=== PATIENT | male | born 1940 | race Caucasian/White ===

== ENCOUNTER → 2020-08-03 10:55 | Outpatient (CLI) | payer BC, SELFPAY ==
--- NOTE | ~2020-08-03 | XR_ITS ---
EXAMINATION: XR ankle RT min 3V INDICATION: Right ankle pain TECHNIQUE: Four views of the right ankle are obtained. COMPARISON: None available FINDINGS: There is no fracture, dislocation, or subluxation. The ankle mortise is intact. Metallic so ft tissue densities project anterior to the distal tibia and fibula. Calcified atherosclerosis is not ed. IMPRESSION: 1. No acute osseous abnormality. Reviewed, dictated and finalized at location A.
--- NOTE | ~2020-08-03 | XR_ITS ---
EXAMINATION: XR foot RT min 3V DATE: 08/03/2020 11:26 INDICATION: Right foot pain TECHNIQUE: Dorsoplantar, lateral, and 2 oblique views of the right foot were obtained. COMPARISON: 01/30/2019 FINDINGS: The previously described oblique fracture in the head of the fifth metatarsal has healed. H allux valgus is again noted. There is chronic and unchanged advanced osteoarthritis at the second met atarsophalangeal joint. Mild to moderate osteoarthritis is noted in the remaining interphalangeal merrill nts. No acute fracture is identified. Metallic densities project in the soft tissues overlying the di stal tibia and fibula. Calcified atherosclerosis is noted. IMPRESSION: 1. Polyarticular osteoarthritis. Reviewed, dictated and finalized at location A.
== END ==
PROVIDERS: PCP Family Medicine; Visit Provider Nurse Practitioner Family
DX: M19.071 Primary osteoarthritis, right ankle and foot (principal)
CPT/HCPCS: 73610; 73630

== ENCOUNTER → 2021-03-03 13:12 | Outpatient (CLI) | payer BC, SELFPAY ==
--- NOTE | ~2021-03-03 | CT_ITS ---
EXAMINATION: CT abdomen wo con DATE: 03/03/2021 13:34 INDICATION: Digestive disease TECHNIQUE: Computed tomography (CT) of the abdomen was performed without intravenous contrast. Automa agustin exposure control and iterative reconstruction technique were employed. Exam dose: 615.37 mGy-cm total exam DLP. COMPARISON: 04/29/2019 CT chest abdomen pelvis FINDINGS: Mild discoid atelectasis or scarring at the lung bases. Status post sternotomy. Cardiomegaly. No pericardial or pleural effusion. Several hepatic cysts and/or cavernous hemangiomas are suggested, measuring up to 1.6 cm. The gallbladder is present. No gallbladder wall thickening or pericholecystic fluid fluid or fat stra nding is evident. No bile duct or pancreatic duct dilatation. No pancreatic mass lesion or calcificat ion. Normal splenic size. Normal morphology of the adrenal glands. There is an approximately 2 mm left upper pole renal calculus versus arterial calcification. No hydro ureteronephrosis. There is atherosclerotic calcification of the abdominal aorta and iliac arteries as well as the origi ns of the celiac and superior mesenteric arteries. Renal artery calcifications. No intraperitoneal or retroperitoneal mass lesion or lymphadenopathy. Moderate gastroesophageal hiatal hernia. 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 Diverticulosis of the descending colon; no CT evidence of diverticulitis. No bowel obstruction or int raperitoneal free air. Fat-containing umbilical hernia. Old healed posterior ninth and 10th left rib fracture deformities. Prominent multilevel degenerative disc disease of the lumbar and lumbosacral spine, particularly at L 1-2, L3-4, L4-5 and L5-S1. Diffuse osteopenia. IMPRESSION: Several up to 1.6 cm hepatic cysts and/or cavernous hemangiomas Probable small left upper pole nonobstructing renal calculus Moderate gastroesophageal hiatal hernia Duodenal diverticulum. Diverticulosis of descending colon Reviewed, dictated and finalized at Location A. Reviewed, dictated and finalized at location B.
== END ==
PROVIDERS: Visit Provider Nurse Practitioner Family
DX: K76.89 Other specified diseases of liver (principal); N20.0 Calculus of kidney; K44.9 Diaphragmatic hernia without obstruction or gangrene; K57.10 Diverticulosis of small intestine without perforation or abscess without bleeding; K57.30 Diverticulosis of large intestine without perforation or abscess without bleeding
CPT/HCPCS: 74150

== ENCOUNTER 2021-09-19 14:22 | Outpatient (CLI) | payer MEDICARE, SELFPAY ==
--- NOTE | ~2021-09-19 | CT_ITS ---
EXAMINATION: CT abdomen pelvis w con INDICATION: Upper abdominal pain, unspecified TECHNIQUE: Computed tomographic images of the abdomen and pelvis were obtained after the administrati on of 100 cc of Omnipaque 350 intravenous contrast. The dose-length product (DLP) was 1363.23 mGy-cm. Automated exposure control and iterative reconstruction technique were employed. COMPARISON: 03/03/2021 FINDINGS: Minimal dependent atelectasis is present in the lung bases. The heart size is normal. There are changes of Esmer fundoplication with a small hiatal hernia. Cysts of the liver measure up to 1. 4 cm in the left hepatic lobe. The spleen, pancreas, gallbladder, and adrenal glands are normal. Ther e are punctate nonobstructing calculi of the kidneys. Areas of cortical scarring are noted in the kid neys. There is calcified atherosclerosis of the aorta and many of the other arteries. Colonic diverti culosis is present without evidence of diverticulitis. There is severe lumbar spondylosis. IMPRESSION: 1. Sliding hiatal hernia with changes of prior hernia repair. Reviewed, dictated and finalized at location A. SKILLED
[2021-09-19 15:16] LABS: Estimated Glomerular Filt Rate > 60
== END 2021-09-19 14:23 | disposition home or self-care (01) ==
LOC: ANHIMG 14:29
PROVIDERS: PCP Family Medicine; Visit Provider Nurse Practitioner Family
DX: R10.10 Upper abdominal pain, unspecified (principal); K44.9 Diaphragmatic hernia without obstruction or gangrene
CPT/HCPCS: 74177; Q9967

== ENCOUNTER 2021-10-27 08:01 | Outpatient (RCR) | payer MEDICARE, SELFPAY ==
[2021-10-27 12:09] VITALS: BP 136/82; PULSE 97; TEMP 36.1; O2SAT 98
[2021-10-27] MEDS: ACETAMINOPHEN 325 MG TABLET 650 MG PO (12:12)
[2021-10-27] MEDS: FAMOTIDINE 20 MG TABLET PO (12:13)
[2021-10-27] MEDS: diphenhydrAMINE HCl CAP 25 MG CAPSULE PO (12:13)
[2021-10-27 13:36] VITALS: BP 143/83; PULSE 87; O2SAT 98
== END 2021-10-27 17:00 ==
LOC: AMCINF 08:01
PROVIDERS: Visit Provider Internal Medicine Hematology & Oncology
DX: U07.1 COVID-19 (principal); I12.9 Hypertensive chronic kidney disease with stage 1 through stage 4 chronic kidney disease, or unspecified chronic kidney disease; I25.10 Atherosclerotic heart disease of native coronary artery without angina pectoris; N18.9 Chronic kidney disease, unspecified
CPT/HCPCS: A9270; M0247; Q0247

== ENCOUNTER → 2021-11-10 15:51 | Outpatient (CLI) | payer MEDICARE, SELFPAY ==
--- NOTE | ~2021-11-10 | XR_ITS ---
XR chest 2V 11/10/2021 16:12 Indication: Cough Procedure: 2 view chest Comparison: 01/21/2019 Findings: Bibasilar airspace disease, compatible with pneumonia. Small pleural effusions. There is a hiatal hernia. Cardiomegaly. Status post median sternotomy for CABG. There are multiple healed left r ib fractures. There is partially visualized left shoulder arthroplasty. Impression: 1: Bibasilar airspace disease, compatible with pneumonia. 2: Small pleural effusions. 3: Cardiomegaly. Reviewed, dictated and finalized at location B. TING PULLER Impression: 1: Bibasilar airspace disease, compatible with pneumonia. 2: Small pleural effusions. 3: Cardiomegaly.
== END ==
PROVIDERS: PCP Family Medicine; Visit Provider Nurse Practitioner Family
DX: J90 Pleural effusion, not elsewhere classified (principal); R05.9 Cough, unspecified; I51.7 Cardiomegaly
CPT/HCPCS: 71046

== ENCOUNTER → 2021-12-23 14:58 | Outpatient (CLI) | payer MEDICARE, SELFPAY ==
--- NOTE | ~2021-12-23 | XR_ITS ---
EXAMINATION: XR chest 2V DATE: 12/23/2021 15:26 INDICATION: Pneumonia, unspecified organism TECHNIQUE: Frontal and lateral views of the chest are obtained COMPARISON: 11/10/2021 FINDINGS: Cardiomegaly is noted. There are changes of coronary artery bypass grafting. Small pleural effusions are present and not significantly changed. There are minimal airspace opacities of the lung bases which demonstrate interval improvement. No pneumothorax is identified. There is moderate thora cic spondylosis. Changes of left total shoulder arthroplasty are noted. There is a large hiatal herni a. IMPRESSION: 1. Small pleural effusions without significant change. 2. Persistent but improved bibasilar airspace opacities, likely atelectasis. Reviewed, dictated and finalized at location B. RAMMING INTERN
== END ==
PROVIDERS: Visit Provider Nurse Practitioner Family
DX: J18.9 Pneumonia, unspecified organism (principal); J90 Pleural effusion, not elsewhere classified; R91.8 Other nonspecific abnormal finding of lung field
CPT/HCPCS: 71046

== ENCOUNTER → 2022-01-14 00:40 | Outpatient (CLI) | payer MEDICARE, SELFPAY ==
[2022-01-14 11:56] LABS: SARS-CoV-2 RNA PCR Negative
== END ==
PROVIDERS: PCP Family Medicine; Visit Provider Specialist
DX: Z01.812 Encounter for preprocedural laboratory examination (principal); Z20.822 Contact with and (suspected) exposure to COVID-19
CPT/HCPCS: C9803; U0003; U0005

== ENCOUNTER 2022-01-18 00:58 | Day surgery (SDC) | payer MEDICARE, SELFPAY ==
[2022-01-17 11:22] VITALS: BMI 25.4
[2022-01-18] VITALS (15 sets, daily range): BP systolic 112–145; BP diastolic 75–93; PULSE 81–100; RESP 16–20; TEMP 36.2; O2SAT 95–99; BMI 25.1
[2022-01-18 09:04] LABS: INR 1.1; Prothrombin Time 13.5 Seconds (11.1-14.7)
[2022-01-18 09:05] LABS: Anion Gap 5 mmol/L (8-16); Blood Urea Nitrogen 25 mg/dL (9-20); Calcium 8.8 mg/dL (8.4-10.2); Carbon Dioxide 31 mmol/L (22-30); Chloride 107 mmol/L (98-107); Estimated CRCL calculation 52 ml/min; Estimated Glomerular Filt Rate > 60; Glucose 130 mg/dL (65-110); Potassium 4.6 mmol/L (3.4-5.0); Sodium 143 mmol/L (137-145)
[2022-01-18 09:08] LABS: Basophils Absolute Auto 0.1 K/mm3 (0.0-0.1); Basophils Percent Auto 1.1 % (0.2-1.2); Eosinophils Absolute Auto 0.4 K/mm3 (0-0.3); Eosinophils Percent Auto 4.9 % (0-4.4); Hemoglobin 13.1 g/dL (14.0-18.0); Immature Granulocyte Absolute 0.03 K/mm3 (0.00-0.031); Immature Granulocyte Percent A 0.4 % (0-0.5); Lymphocytes Absolute Auto 1.13 K/mm3 (0.9-3.2); Lymphocytes Percent Auto 15.9 % (18.3-44.2); Mean Corpuscular HGB Conc 31.2 g/dl (32-36); Mean Corpuscular Hemoglobin 28.1 pg (26-34); Mean Corpuscular Volume 89.9 fl (80-100); Monocytes Absolute Auto 0.7 K/mm3 (0.1-0.6); Monocytes Percent Auto 10.3 % (2.6-8.5); Neutrophils Absolute Auto 4.8 K/mm3 (1.3-6.7); Neutrophils Percent Auto 67.4 % (45.5-73.1); Platelet Count Result 263 k/mm3 (150-375); Red Blood Count 4.67 M/mm3 (4.6-6.20); Red Cell Distribution Width 14.7 % (11.5-14.5); White Blood Count 7.1 K/mm3 (4.5-10.0)
--- NOTE | 2022-01-18 10:46 | WPDMODSED ---
Moderate Sedation Note-Pt Data Patient Data Diagnosis: coronary artery disease with previous CABG decline in ejection fraction Present Complaint: exertional dyspnea /PND Procedure to be performed/Plan: left heart catheterization Allergies Allergy/AdvReac Type Severity Reaction Status Date / Time levofloxacin Allergy Unknown Unknown Verified 01/18/22 08:51 Home Medications Medication Instructions Recorded Confirmed Type albuterol sulfate 90 mcg/actuation 1 inh INHALATION Q4H PRN #8.5 g 11/18/21 01/17/22 Rx aerosol inhaler furosemide 20 mg tablet 40 mg PO QAM 12/23/21 01/17/22 History Aspir-81 81 mg PO DAILY 01/17/22 01/17/22 History carvedilol 3.125 mg PO DAILY 01/18/22 01/18/22 History Current Medications: Active Medications Sodium Chloride (Normal Saline Iv) 500 mls @ 100 mls/hr IV CONT .Q5H VINICIUS Sedation/Anesthesia: No previous sedation/anesthesia problems (including family history). [facility] Past Medical History Medical History Acute bronchitis due to other specified organisms Bilateral leg edema BMI 27.0-27.9,adult BMI 28.0-28.9,adult BMI 29.0-29.9,adult BMI 29.0-29.9,adult Bulging of cervical intervertebral disc Cough Dietary counseling and surveillance (09/25/18) Dizziness Excessive cerumen in both ear canals Excessive cerumen in right ear canal Hernia Hiatal hernia Injury of lateral plantar nerve, left leg, initial encounter Injury of other nerves at ankle and foot level, right leg, initial encounter Multiple fractures of ribs, left side, initial encounter for closed fracture Neck pain Rib pain on right side Screening for diabetes mellitus Screening for lipid disorders Screening for prostate cancer Screening for thyroid disorder Shortness of breath Surgical History Surgical History History of heart bypass surgery History of hernia surgery Family History Family History Mother Family history of lung cancer Family history of malignant neoplasm Father Sibling No problems noted. 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 Gender identity (if verbalized by the patient): Male Mod Sed Physical Exam Physical Exam Pre Procedural Exam: Normal: Appearance ( elderly white male no apparent distress), Neck, Throat, Airway, Lungs, Heart Rate, Heart Rhythm, Neuro Exam and Extremities and Variation: Heart Size ( PMI enlarged) Hours since solid foods: 12 Hours since liquid intake: 12 Mallampati Classification: class II Internal Medicine - PN: Obj Da Vital Signs Vital Signs: Vital Signs - 24 hr 01/18/22 08:55 Temperature 36.2 C L Pulse Rate 87 Respiratory Rate 18 Blood Pressure 139/83 Pulse Oximetry 99 Meds/Results Medications: Active Medications Generic Name Dose Route Start Last Admin Trade Name Freq PRN Reason Stop Dose Admin Sodium Chloride 500 mls @ 100 mls/hr 01/18/22 08:30 Normal Saline Iv IV CONT .Q5H VINICIUS Labs CBC & Chem 7: 01/18/22 08:48 01/18/22 08:48 Labs: Laboratory Results - last 24 hr 01/18/22 01/18/22 01/18/22 08:48 08:48 08:48 WBC 7.1 RBC 4.67 Hgb 13.1 L Hct 42.0 MCV 89.9 MCH 28.1 MCHC 31.2 L RDW 14.7 H Plt Count 263 MPV 11.0 H Immature Gran % (Auto) 0.4 Neut % (Auto) 67.4 Lymph % (Auto) 15.9 L [place] % (Auto) 10.3 H Eos % (Auto) 4.9 H Baso % (Auto) 1.1 Lymph # (Auto) 1.13 [place] # (Auto) 0.7 H Eos # (Auto) 0.4 H Baso # (Auto) 0.1 Ab
--- NOTE | 2022-01-18 11:50 | WPDCARDPROC ---
Cardiac Cath Procedure Note Date of procedure:: 01/18/22 Performing physician:: Flex Aguillon MD Indication:: coronary artery disease with significant decline in left ventricular systolic function and symptoms of CHF Brief clinical history:: this is an 81-year-old man known to have coronary disease who underwent surgical myocardial revascularization approximately 1 decade ago. He has not had any ischemic chest pain since then however he presented to the office recently for follow-up symptoms of dyspnea with exertion as well as orthopnea and PND. This echocardiogram was done which demonstrated significant decline in LV systolic function which previously had been preserved. In this setting a follow-up angiogram has been recommended. Procedure Procedure performed:: Left ventriculogram coronary angiogram internal mammary graft angiogram saphenous vein graft angiogram Sedation/Medication given:: fentanyl 25 mg Versed 2 mg case start time 10:57 a.m. case end time 11:41 a.m. Access site:: right femoral artery Estimated blood loss:: 30 cc Procedure note:: the patient was brought to the cardiac catheterization lab in the postabsorptive state where the right femoral triangle was prepared and draped in the usual fashion. Anesthesia was provided with % lidocaine infiltrated locally. Using the modified Seldinger technique a 5 [place]anian asked vascular sheath was placed. After this I used a 5 [place] angled pigtail catheter to measure left-sided hemodynamics and to inject ventriculogram in the ER AO projection. Following this I used a standard 5 [place] FL4 catheter and inject the left coronary artery. Following this the right coronary artery was engaged and injected using a standard 5 [place] JR4 catheter. This catheter was then used to engage and inject the right coronary vein graft. The patient had sig tortuosity in the abdominal aorta and there was difficulty injecting for this reason. At that point I exchanged the vascular sheath for a 5 [place] 45 cm long sheath over the guidewire. Following this I used a 5 [place] MARCIO catheter to engage and inject the left internal mammary artery graft. I then used the same MARCIO catheter to inject the remaining saphenous vein graft to the diagonal. The cineangiograms were then reviewed case was terminated. The patient was taken to the holding area for manual sheath removal. He tolerated the procedure well there were no apparent complications and the was no significant groin hematoma leaving the lab support service tech. Findings:: Hemodynamics: Central aortic pressure is 136 over 64 left ventricle 136/6 end-diastolic pressure 16 there is no gradient on pullback across the aortic valve. Left ventricle: The LV is markedly dilated. There is severe global hypocontractility with visually estimated ejection fraction of 20-25%. There is mild mitral valve regurgitation identified as well. The left main coronary artery is medium in caliber with mild proximal plaquing no significant left disease. The left anterior descending proximally is a large caliber vessel with high-grade 95% stenosis at the origin of a major septal branch. Following this remainder of the LAD has minimal antegrade flow as does its major diagonal branch. There is competitive filling seen both of these vessels however. Circumflex is a medium caliber artery still only 1 significant marginal branch. The circumflex has mild luminal irregularities but no significant disease is identified. The right coronary artery is large caliber dominant to the posterior circulation. Right coronary has mild diffuse disease in the trunk but no significant stenosis. There is a total occlusion seen at the ostium of the large RPL branch. The RPDA has 70-80% stenosis in its proximal to mid segment. There is back filling the saphenous vein graft seen with some competitive filling on these injections as well. Selective injection saphenous vein graft to the right co
--- NOTE | 2022-01-18 17:11 | SUR.PHASEII ---
i/v d/c tip intact. d/c instruction given to patient and at bedside. written instruction sent home with the patient. patient's new medications were not sent to his pharmacy by , this nurse tried, but do not have access. message left for allie victor to do in the morning. patient aware. all questions and concerns addressed. patient transferred via wc to person vehicle.
== END 2022-01-18 17:13 | disposition home or self-care (01) ==
PROVIDERS: PCP Family Medicine; Visit Provider Specialist
PROC: 4A023N7 Measurement of Cardiac Sampling and Pressure, Left Heart, Percutaneous Approach (ICD-10-PCS; CPT 93459; principal; 2022-01-18 10:00)
DX: I25.10 Atherosclerotic heart disease of native coronary artery without angina pectoris (principal); R93.1 Abnormal findings on diagnostic imaging of heart and coronary circulation; R07.9 Chest pain, unspecified; I51.9 Heart disease, unspecified; Z95.1 Presence of aortocoronary bypass graft; R06.09 Other forms of dyspnea; Z79.51 Long term (current) use of inhaled steroids; Z79.82 Long term (current) use of aspirin
CPT/HCPCS: 36415; 80048; 85025; 85610; 93459; C1887; C1894; J1644; J2250; J3010; J7030; J7040

== ENCOUNTER → 2022-07-03 10:10 | Outpatient (CLI) | payer MEDICARE, SELFPAY ==
--- NOTE | ~2022-07-03 | US_ITS ---
US abdomen complete EXAMINATION: US Abdomen Complete INDICATION: Abdominal bloating. PROCEDURE: Realtime High Resolution abdomen ultrasound. COMPARISON: Ultrasound dated 10/28/2012 FINDINGS: Gallbladder within normal limits. No gallstones, pericholecystic fluid, gallbladder wall t hickening or biliary dilatation. Common bile duct measures 4.3 mm. There are liver cyst in the left hepatic lobe, largest measuring 1.9 cm. Pancreas not well visualized due to bowel gas.. Spleen is unremarkeable. Renal echotexture is within normal limits bilaterally w ithout hydronephrosis, contour deforming mass or renal stone. There is a left renal cyst measuring 9 mm. Right kidney measures 10.5 cm. Left kidney measures 9.6 cm. Visualized aspects of the aorta and IVC are within normal limits. Portal vein is patent. No sonograph ic Mckinley's sign indicated by the technologist. IMPRESSION: 1: Liver and left renal cysts. Reviewed, dictated and finalized at location A.
== END ==
PROVIDERS: PCP Family Medicine; Visit Provider Family Medicine
DX: R14.0 Abdominal distension (gaseous) (principal); N28.1 Cyst of kidney, acquired; K76.89 Other specified diseases of liver
CPT/HCPCS: 76700

== ENCOUNTER → 2022-07-18 11:06 | Outpatient (CLI) | payer MEDICARE, SELFPAY ==
--- NOTE | ~2022-07-18 | CT_ITS ---
EXAMINATION: CT abdomen pelvis wo con DATE: 07/18/2022 11:27 INDICATION: Abdominal distention and bloating TECHNIQUE: Computed tomography (CT) of the abdomen and pelvis was performed without intravenous contr ast. Automated exposure control and iterative reconstruction technique were employed. The dose-length product was 765.19 mGy-cm. COMPARISON: 02/17/2021 FINDINGS: Mild basilar atelectasis at the lingula and mild discoid atelectasis in the right lower lobe. Heart s ize normal. Change of prior median sternotomy and coronary artery bypass grafting. Suture line and jordan rgical clips such with a small sliding-type hiatal hernia suggesting a Esmer fundoplication. A few u nchanged fluid attenuation hepatic cysts the largest measuring 1.6 cm maximal diameter in the left he patic lobe. There are couple unchanged more subtle lesions in segment 4A of the liver which are of lo wer attenuation the surrounding liver but higher than simple fluid attenuation but which can be seen dating back to 11/22/2007 and the second duodenum back to 03/26/2014 consistent with a benign etiology m ost likely hemangiomas. Gallbladder, spleen, pancreas, right kidney and bilateral adrenal glands are normal. There are 3 small calcifications measuring up to 2 mm at the calyces of the left kidney consi stent with nonobstructing nephrolithiasis. Ureters and bladder are normal. Moderate-sized bilateral f at-containing inguinal hernias. Mild sigmoid diverticulosis without adjacent inflammatory change to s uggest diverticulitis. Small bowel and appendix are normal. Small fat-containing umbilical hernia. Pr ostatomegaly. No free intraperitoneal gas or fluid. No pathologically enlarged abdominal or pelvic ly mphadenopathy. Severe lumbar spondylosis. Chronic mild anterior wedging at T10-T12. IMPRESSION: 1. No acute intra-abdominal/pelvic process. 2. Small sliding-type hiatal hernia with change of likely prior Esmer fundoplication. 3. Nonobstructing left nephrolithiasis. 4. Mild diverticulosis. 4. Small fat-containing umbilical hernia and moderate-sized bilateral fat-containing inguinal hernias . Reviewed, dictated and finalized at location A. IMPRESSION: 1. No acute intra-abdominal/pelvic process. 2. Small sliding-type hiatal hernia with change of likely prior Esmer fundopli cation. 3. Nonobstructing left nephrolithiasis. 4. Mild diverticulosis. 4. Small fat-containing umbilical hernia and moderate-sized bilateral fat-conta ining inguinal hernias.
== END ==
PROVIDERS: PCP Family Medicine; Visit Provider Nurse Practitioner Family
DX: K44.9 Diaphragmatic hernia without obstruction or gangrene (principal); N20.0 Calculus of kidney; K57.30 Diverticulosis of large intestine without perforation or abscess without bleeding; K42.9 Umbilical hernia without obstruction or gangrene
CPT/HCPCS: 74176

== ENCOUNTER 2022-11-19 16:14 | Inpatient (IN) | payer MEDICARE, SELFPAY ==
[2022-11-19] VITALS (29 sets, daily range): BP systolic 94–130; BP diastolic 51–89; PULSE 94–110; RESP 15–23; TEMP 36.8; O2SAT 96–99
--- NOTE | ~2022-11-19 | CT_ITS ---
Non-contrast Head CT History: Seizure, syncope COMPARISON: 07/22/2018 Technique: Axial non-contrast imaging of the brain was performed. Dose reduction technique was used on this scan by utilizing automated exposure control and iterative reconstruction technique. The dose -length product (DLP) was 605.33 mGy-cm. Findings: There is no evidence of intracranial hemorrhage, mass lesion, or acute infarct. Brain par enchyma appears normal. The ventricles and subarachnoid spaces are normal in size. The calvarium ap pears normal. The visualized paranasal sinuses and mastoid air cells are clear. Impression: No significant abnormality seen. Reviewed, dictated and finalized at location . ENDER HELPER Impression: No significant abnormality seen.
--- NOTE | ~2022-11-19 | CT_ITS ---
EXAMINATION: CT abdomen pelvis w con DATE: 11/22/2022 15:24 INDICATION: Stomach mass. TECHNIQUE: Computed tomography (CT) of the abdomen and pelvis was performed with 100 mL Omnipaque 350 intravenous contrast. Automated exposure control and iterative reconstruction technique were employe d. The dose-length product was 558.87 mGy-cm. COMPARISON: CT abdomen and pelvis 07/18/2022 FINDINGS: The visualized portions of the lung bases demonstrate mild atelectasis. No pleural effusion . The heart size is normal. There are coronary artery calcifications. No pericardial effusion. There are changes of stomach fundoplication with wrap above the diaphragm. There is wall thickening of the stomach in the fundoplication. There are cysts in the liver measuring up to 18 mm. The spleen, pancre as, and adrenal glands are normal. There is cortical thinning of the kidneys. The prostate is moderat giovanny enlarged. There is prominent fat in the inguinal canals that may be hernias. There is an umbilica l hernia containing fat. There is diverticulosis of the colon without evidence of diverticulitis. The appendix is not visualized. There are no pathologically enlarged lymph nodes. There is no free intra peritoneal fluid. There is severe lumbar spondylosis. IMPRESSION: 1. Fundoplication of the stomach with wall thickening of the fundoplication, which may be inflammatio n or malignancy. Hiatal hernia with the fundoplication above the diaphragm. Reviewed, dictated and finalized at location A. SCRAPER IMPRESSION: 1. Fundoplication of the stomach with wall thickening of the fundoplication, wh ich may be inflammation or malignancy. Hiatal hernia with the fundoplication ab ove the diaphragm.
--- NOTE | ~2022-11-19 | MR_ITS ---
EXAMINATION: MR brain/brain stem wo con DATE: 11/22/2022 14:24 INDICATION: Syncope. TECHNIQUE: Magnetic resonance imaging (MRI) of the brain and brainstem was performed without intraven ous contrast. COMPARISON: Head CT 11/19/2022 FINDINGS: There are scattered areas of nonspecific increased T2-weighted signal intensity in the cere bral white matter, which is within normal limits for the patient's age. There is no intracranial hemo rrhage, acute infarction, or abnormal intracranial mass lesion. The ventricles are normal in size. Th ere is mucosal thickening in the paranasal sinuses. There are likely changes of ocular lens replaceme nt surgeries. There is a trace left mastoid effusion. IMPRESSION: 1. Normal aging brain. Reviewed, dictated and finalized at location A. PROCESS MILLER IMPRESSION: 1. Normal aging brain.
--- NOTE | ~2022-11-19 | US_ITS ---
EXAMINATION: US carotid duplex BI DATE: 11/22/2022 15:18 INDICATION: Syncope. TECHNIQUE: Grayscale, color Doppler, and pulsed Doppler images of the cervical carotid arteries were obtained. The degree of vessel stenosis is placed in one of the following categories: normal, <50%, 5 0-69%, >=70% but less than near-occlusion, near-occlusion, or total occlusion. Note that percent sten osis relative to normal distal artery lumen diameter is indirectly measured from velocity measurement s as described by Adán, et al. Radiology 2003; 229:340-346. COMPARISON: None. FINDINGS: RIGHT: The right common carotid artery (CCA) peak systolic velocity (PSV) is 59 cm/s. The right internal car otid artery (ICA) PSV is 58 cm/s. The right ICA end-diastolic velocity (EDV) is 22 cm/s. The right IC A/CCA PSV ratio is 1.0. Grayscale and color Doppler images yield an estimate of <50% diameter reducti on from plaque in the ICA. There is antegrade flow in the right vertebral artery. LEFT: The left CCA PSV is 73 cm/s. The left ICA PSV is 108 cm/s. The left ICA EDV is 41 cm/s. The left ICA/ CCA PSV ratio is 1.5. Grayscale and color Doppler images yield an estimate of <50% diameter reduction from plaque in the ICA. There is antegrade flow in the left vertebral artery. IMPRESSION: 1. <50% stenosis in the right internal carotid artery. 2. <50% stenosis in the left internal carotid artery. Reviewed, dictated and finalized at location A. ENT CARE DIRECTOR
--- NOTE | ~2022-11-19 | XR_ITS ---
Clinical Indication: Dizziness, weakness PA view of the chest: Comparison: 12/23/2021 Findings: The lungs are clear, without evidence of focal consolidation or pleural effusion. Cardiome diastinal silhouette is stable, status post CABG. Left shoulder arthroplasty again noted. Old left-si ded rib fracture deformities are again noted. Impression: Clear lungs. No acute abnormality. Status post CABG. Chronic left rib fracture deformities, unchanged. Reviewed, dictated and finalized at location . ENGER SOLICITOR Impression: Clear lungs. No acute abnormality. Status post CABG. Chronic left rib fracture deformities, unchanged.
--- NOTE | 2022-11-19 16:45 | ECG_ITS ---
Measurements Intervals [place] Rate: 95 P: 54 MN: 177 QRS: -66 QRSD: 141 T: 57 QT: 369 QTc: 466 Interpretive Statements SINUS RHYTHM MARKED LEFT AXIS DEVIATION [QRS AXIS < -30] RIGHT BUNDLE BRANCH BLOCK [120+ ms QRS DURATION, UPRIGHT V1, 40+ ms S IN I/aVL/V4/V5/V6] COMPARED TO ECG 01/21/2019 09:38:20 NO DIFFERENCE Electronically Signed On 11-20-2022 11:55:03 CERNER ANALYST by Flex Aguillon M.D.
--- NOTE | 2022-11-19 16:52 | ED.SYNCOPE ---
HPI - Syncope General Chief Complaint: Syncope Stated Complaint: syncopal Time Seen by Provider: 11/19/22 16:30 Source: patient, family, EMS and RN notes reviewed Mode of arrival: EMS Limitations: no limitations History of Present Illness HPI narrative: This is an 82 year old male with history of CAD, CABG, CHF who presents for evaluation of a syncopal episode. Patient states he was walking from the bathroom when he became dizzy and diaphoretic. He was able to sit himself down on the steps. His family states that he called out to them and he passed out by the time the got to him. His states he was rigid, unresponsive, drooling and clammy. She thinks he was unresponsive less than 1 minute. HE was able to tell her that it was sunday. Patient denies nausea, vomiting, diarrhea, chest pain, palpitation with his dizziness. He reports mild posterior headache. He states that he was short of breath this morning. He denies history of syncopal episode. Patient has been dealing with abdominal distension and pain for months, and he is scheduled for upper endoscopy on Sunday. Biomedical Engineering Technologist is Dr. Aguillon. P Related Data Home Medications Medication Instructions Recorded Confirmed furosemide 20 mg tablet 40 mg PO QAM 12/23/21 09/18/22 sacubitril 24 mg-valsartan 26 mg 1 tablet PO BID 03/08/22 09/18/22 tablet (Entresto) spironolactone 25 mg tablet 25 mg PO DAILY 03/08/22 09/18/22 carvedilol 3.125 mg tablet 6.25 mg PO BID 06/23/22 09/18/22 aspirin 81 mg tablet,delayed 81 mg PO DAILY 07/20/22 09/18/22 release (Adult Low Dose Aspirin) Allergies Allergy/AdvReac Type Severity Reaction Status Date / Time levofloxacin [From Levaquin] AdvReac Severe Muscle Pain Verified 11/19/22 16:23 Review of Systems Constitutional: Constitutional: Denies weakness Cardiovascular: Cardiovascular: Reports syncope, Denies rapid heart rate, Denies irregular heart rhythm, Denies leg edema and Denies dyspnea Respiratory: Respiratory: Denies chest congestion, Denies hemoptysis, Denies excessive phlegm production and Reports dyspnea Gastrointestinal: Gastrointestinal: Reports abdominal pain, Denies hematochezia, Denies diarrhea and Denies vomiting Genitourinary: Genitourinary: Denies hematuria, Denies dysuria, Denies penile discharge and Denies testicular pain Musculoskeletal: Musculoskeletal: Denies joint swelling, Denies loss of height and Denies muscle weakness Neurologic: Reports syncope, Reports headache(s), Denies focal weakness and Reports weakness PMFSH Past Medical History Medical History Abdominal bloating Acute bronchitis due to other specified organisms Bilateral leg edema BMI 26.0-26.9,adult BMI 27.0-27.9,adult BMI 28.0-28.9,adult Bulging of cervical intervertebral disc Cough Diabetes type 2, controlled Dietary counseling and surveillance (09/25/18) Dizziness Essential hypertension Excessive cerumen in both ear canals Excessive cerumen in right ear canal Hernia Hiatal hernia Hx of hiatal hernia Injury of lateral plantar nerve, left leg, initial encounter Injury of other nerves at ankle and foot level, right leg, initial encounter Ischemic cardiomyopathy Multiple fractures of ribs, left side, initial encounter for closed fracture Neck pain Rib pain on right side Screening for diabetes mellitus Screening for lipid disorders Screening for prostate cancer Screening for thyroid disorder Shortness of breath Surgical History Surgical History History of heart bypass surgery History of hernia surgery Hx of CABG Family History Family History Mother Family history of lung cancer Family history of malignant neoplasm Father Sibling No problems noted. Social History Social History (Reviewed 11/19/22 @ 17:02 by Magaly Michael
[2022-11-19 16:59] LABS: Basophils Absolute Auto 0.1 K/mm3 (0.0-0.1); Basophils Percent Auto 0.9 % (0.2-1.2); Eosinophils Absolute Auto 0.5 K/mm3 (0-0.3); Eosinophils Percent Auto 4.2 % (0-4.4); Hemoglobin 10.6 g/dL (14.0-18.0); Immature Granulocyte Absolute 0.04 K/mm3 (0.00-0.031); Immature Granulocyte Percent A 0.4 % (0-0.5); Lymphocytes Absolute Auto 2.05 K/mm3 (0.9-3.2); Lymphocytes Percent Auto 18.9 % (18.3-44.2); Mean Corpuscular HGB Conc 32.1 g/dl (32-36); Mean Corpuscular Hemoglobin 30.1 pg (26-34); Mean Corpuscular Volume 93.8 fl (80-100); Mean Platelet Volume 10.8 fl (7.4-10.4); Monocytes Absolute Auto 0.9 K/mm3 (0.1-0.6); Monocytes Percent Auto 8.3 % (2.6-8.5); Neutrophils Absolute Auto 7.3 K/mm3 (1.3-6.7); Neutrophils Percent Auto 67.3 % (45.5-73.1); Platelet Count Result 197 k/mm3 (150-375); Red Blood Count 3.52 M/mm3 (4.6-6.20); Red Cell Distribution Width 13.1 % (11.5-14.5); White Blood Count 10.8 K/mm3 (4.5-10.0)
[2022-11-19 17:06] LABS: Alanine Aminotransferase 16 U/L (6-50); Albumin Level 3.4 g/dL (3.5-5.1); Alkaline Phosphatase 32 U/L (38-126); Anion Gap 6 mmol/L (8-16); Aspartate Amino Transferase 25 U/L (17-59); Blood Urea Nitrogen 57 mg/dL (9-20); Calcium 8.4 mg/dL (8.4-10.2); Carbon Dioxide 27 mmol/L (22-30); Chloride 104 mmol/L (98-107); Estimated CRCL calculation 56 ml/min; Estimated Glomerular Filt Rate > 60; Glucose 160 mg/dL (65-110); Magnesium 1.9 mg/dL (1.6-2.3); Potassium 5.4 mmol/L (3.4-5.0); Sodium 137 mmol/L (137-145)
[2022-11-19 17:11] LABS: Lactic Acid Reflex 2.5 mmol/L (0.7-2.0)
[2022-11-19 17:16] LABS: NT Pro B Type Natriuretic Pept 104 pg/mL (19.9-100); Troponin I < 0.012 ng/mL (0.000-0.034)
[2022-11-19 17:20] LABS: INR 1.2; Prothrombin Time 14.3 Seconds (11.1-14.7)
[2022-11-19 17:21] LABS: Partial Thromboplastin Time 25.6 SECONDS (22.3-36.8)
[2022-11-19] MEDS: SODIUM CHLORIDE 0.9% IV 500 ML 999 ML IV CONT ×2 (17:54→19:21)
[2022-11-19] MEDS: PANTOPRAZOLE SODIUM IV 40 MG VIAL IV PUSH (17:54)
--- NOTE | 2022-11-19 19:21 | PC.NURSE ---
Report received from EVY Craig. Assumed care of patient at this time.
[2022-11-19 19:42] LABS: Influenza A QL RT-PCR Negative (Negative); Influenza B QL RT-PCR Negative (Negative); SARS-CoV-2 RNA PCR Negative
[2022-11-19 19:58] LABS: Reflex Lactic Acid Yes or No Add Lactic
[2022-11-19 20:37] LABS: Appearance Urine Clear (Clear); Bilirubin Urine Negative (Negative); Blood Urine 2+ (Negative); Color Urine Yellow (Yellow); Glucose Urine UA Negative (Negative); Ketones Urine 1+ mg/dL (Negative); Leukocyte Esterase Ur Negative LEU/UL (Negative); Nitrate Urine Negative (Negative); Protein Urine Negative (Negative); Specific Grav Ur 1.015 (1.001-1.035); Urobilinogen Urine 0.2 mg/dL (<2.0)
[2022-11-19 20:42] LABS: Squamous Epithelial Cell Urine Rare /hpf (Few); WBC Urine 0-3 /hpf
[2022-11-19 20:43] LABS: Add Urine Microscopic? YES
[2022-11-19 20:51] LABS: Lactic Acid 1.3 mmol/L (0.7-2.0)
--- NOTE | 2022-11-19 23:15 | PC.NURSE ---
Patient switched to hospital bed and moved to private room. Patients at bedside.
[2022-11-20] VITALS (85 sets, daily range): BP systolic 97–149; BP diastolic 50–96; PULSE 87–127; RESP 12–29; TEMP 36.6; O2SAT 93–100
--- NOTE | 2022-11-20 03:36 | PC.NURSE ---
Patient and his given update and questions answered about home meds. This nurse spoke with ERP and relayed info regarding that. Per , okay for patient to have home meds when he normally takes them but otherwise remain NPO. Patient and his informed that will checkk with [facility] in the morning for bed update.
--- NOTE | 2022-11-20 05:53 | PC.NURSE ---
Patient ambulated to the bathroom and back to his room with even steady unassisted gait. Patient states he feels sob when returning to the bed. Patient has clear lung sounds anteriorly and posteriorly bilaterally. Patient states he had a history of asthma and used to be on medications for it including an inhaler but hasn't in years. ERP notified of patients symptoms and complaints. Orders placed, patient updated on new order for breathing treatment.
[2022-11-20] MEDS: ALBUTEROL SULFATE NEB 2.5 MG/3 ML INH INHALATION (06:12)
--- NOTE | 2022-11-20 06:34 | PC.NURSE ---
Patient states he feels better after breathing treatment. Patient resting in bed, with at bedside. Patient denies any pain at this time.
[2022-11-20 08:48] LABS: Basophils Absolute Auto 0.1 K/mm3 (0.0-0.1); Basophils Percent Auto 0.7 % (0.2-1.2); Eosinophils Absolute Auto 0.2 K/mm3 (0-0.3); Eosinophils Percent Auto 1.7 % (0-4.4); Hematocrit 30.8 % (42.0-52.0); Hemoglobin 10.1 g/dL (14.0-18.0); Immature Granulocyte Absolute 0.04 K/mm3 (0.00-0.031); Immature Granulocyte Percent A 0.4 % (0-0.5); Lymphocytes Absolute Auto 1.55 K/mm3 (0.9-3.2); Lymphocytes Percent Auto 15.9 % (18.3-44.2); Mean Corpuscular HGB Conc 32.8 g/dl (32-36); Mean Corpuscular Hemoglobin 29.8 pg (26-34); Mean Corpuscular Volume 90.9 fl (80-100); Mean Platelet Volume 10.3 fl (7.4-10.4); Monocytes Absolute Auto 0.9 K/mm3 (0.1-0.6); Neutrophils Percent Auto 72.3 % (45.5-73.1); Platelet Count Result 179 k/mm3 (150-375); Red Blood Count 3.39 M/mm3 (4.6-6.20); Red Cell Distribution Width 13.2 % (11.5-14.5); White Blood Count 9.7 K/mm3 (4.5-10.0)
[2022-11-20 08:55] LABS: Alanine Aminotransferase 16 U/L (6-50); Albumin Level 3.7 g/dL (3.5-5.1); Alkaline Phosphatase 45 U/L (38-126); Anion Gap 1 mmol/L (8-16); Aspartate Amino Transferase 22 U/L (17-59); Bilirubin,Total 0.8 mg/dL (0.2-1.3); Blood Urea Nitrogen 47 mg/dL (9-20); Calcium 8.7 mg/dL (8.4-10.2); Carbon Dioxide 28 mmol/L (22-30); Chloride 106 mmol/L (98-107); Estimated CRCL calculation 51 ml/min; Estimated Glomerular Filt Rate > 60; Glucose 126 mg/dL (65-110); Potassium 4.1 mmol/L (3.4-5.0); Sodium 135 mmol/L (137-145)
--- NOTE | 2022-11-20 10:21 | PC.NURSE ---
Received call from Mai from [facility], no beds available at this time pt is still on wait list.
[2022-11-20] MEDS: PANTOPRAZOLE SODIUM IV 40 MG VIAL IV PUSH ×2 (11:00→17:46)
[2022-11-20] MEDS: SACUBITRIL/VALSARTAN 24-26 MG TABLET 1 TAB PO ×2 (11:17→21:29)
[2022-11-20] MEDS: carvediloL 6.25 MG TABLET PO ×2 (11:17→21:29)
--- NOTE | 2022-11-20 14:11 | PC.NURSE ---
no medical bed at [facility] remains on waitlist
--- NOTE | 2022-11-20 21:45 | PC.NURSE ---
Per Dr. Arian suazo to give patient some crackers and water.
--- NOTE | 2022-11-20 23:08 | PC.NURSE ---
Spoke with [facility] and gave patient update. Per [facility] no beds available at this time, unsure when bed would be available.
[2022-11-21] VITALS (82 sets, daily range): BP systolic 84–125; BP diastolic 52–78; PULSE 76–103; RESP 10–33; TEMP 36.4; O2SAT 89–100; BMI 27.6
[2022-11-21] MEDS: ALBUTEROL SULFATE NEB 2.5 MG/3 ML INH INHALATION (00:22)
--- NOTE | 2022-11-21 05:44 | PC.NURSE ---
spoke with the [facility] transfer center to do a status check. Patient is still on the waitlist. Unsure when a bed will be available
[2022-11-21] MEDS: SACUBITRIL/VALSARTAN 24-26 MG TABLET 1 TAB PO (08:15)
[2022-11-21] MEDS: carvediloL 6.25 MG TABLET PO (08:16)
[2022-11-21] MEDS: PANTOPRAZOLE SODIUM IV 40 MG VIAL IV PUSH (08:28)
--- NOTE | 2022-11-21 12:37 | PC.NURSE ---
Spoke with [facility] transfer center. Beds will not be available for 5 to 6 days.
[2022-11-21 14:19] LABS: Hematocrit 27.3 % (42.0-52.0); Hemoglobin 8.8 g/dL (14.0-18.0)
[2022-11-21] MEDS: LACTATED RINGERS 1,000 ML 999 ML IV CONT (14:23)
--- NOTE | 2022-11-21 20:01 | PM.IMHP ---
H&P: HPI History of Present Illness Date/Time: 11/21/22 20:01 Chief Complaint: Syncope Narrative: This is an 82-year-old male patient with a history of coronary artery disease with a CABG, CHF and a Guy fundoplication. The patient was walking to the bathroom 2 days ago and he became dizzy and diaphoretic. The patient was able to sit himself down the steps. The the family stated that he called out for them and any passed out at the time that they got him according to the the patient was rigid, unresponsive drooling and clammy. The family thinks that the patient was unresponsive for 1 minute. Head patient denied any nausea vomiting diarrhea or chest pain. Patient noted that he was short of breath that day. The patient had been scheduled for an upper endoscopy on Sunday. According to the ER noteT/b w/ [facility] again and GI Dr. Duckworth who suggested having pt d/c if stable for outpt f/u; however rpt Hgb here shows drop to 8.8 and pt still having dark stools therefore we did not feel safe for discharge. D/w Dr Willis, GI here who is agreeable to scoping patient in the AM; d/w patient and at bedside who are agreeable to being admitted here to have scope done. D/w Dr. Powers at [facility] GI the update who states we can always call back if we run into any issues and re-initiate transfer. Patient's hemoglobin was 10.6 on the 5th and came down to 10.1 on the 6th and today it is 8.8. The ED provider spoke with GI who agreed to consult and possibly scope the patient tomorrow. The patient 8 this afternoon and felt fine. He had no further complaints. On the [address] scan which showed no significant abnormality. Chest x-ray was read as the followinglear lungs. No acute abnormality. Status post CABG. Chronic left rib fracture deformities, unchanged. The patient is being admitted to observation status on the date of service of 11/21/2022. Review of Systems Review of Systems: See HPI All systems reviewed & are unremarkable except as noted in HPI and below Constitutional: Constitutional: Reports as per HPI and Reports no additional constitutional complaints Eyes: Eyes: Reports as per HPI and Reports no additional eye complaints ENT: Reports system reviewed and no additional complaints, except as documented and Reports Normal hearing present Cardiovascular: Cardiovascular: Reports no additional cardiovascular complaints Respiratory: Respiratory: Reports no additional respiratory complaints and Reports no additional respiratory complaints Gastrointestinal: Gastrointestinal: Reports as per HPI and Reports no additional gastrointestinal complaints Musculoskeletal: Musculoskeletal: Reports no additional musculoskeletal complaints Integumentary/Breasts: Skin/Breast: Reports system reviewed and no additional complaints, except as docu and Reports as per HPI Neurologic: Reports system reviewed and no additional complaints, except as documented, Reports as per HPI and Reports Normal hearing present Psychiatric: Psychiatric: Reports no additional psychiatric complaints and Reports as per HPI Endocrine: Endocrine: Reports no additional endocrine complaints Hematologic/Lymphatic: Hematologic/Lymphatic: Reports no additional hematologic/lymphatic complaints Allergic/Immunologic: Allergic/Immunologic: Reports no additional allergic/immunologic complaints [facility] Past Medical History Medical History (Updated 11/22/22 @ 00:14 by Aishwarya Stiles NP) Abdominal bloating Acute bronchitis due to other specified organisms Bilateral leg edema BMI 26.0-26.9,adult BMI 27.0-27.9,adult BMI 28.0-28.9,adult Bulging of cervical intervertebral disc Congestive heart failure Cough Diabetes type 2, controlled Dietary counseling and surveillance (09/25/18) Dizziness Essential hypertension Excessive cerumen in both ear canals Excessive cerumen in right ear canal Hernia Hiatal hernia Hx of hiatal hernia Injury of lateral plantar nerve, left leg, initial
[2022-11-22] VITALS (11 sets, daily range): BP systolic 104–140; BP diastolic 47–77; PULSE 79–108; RESP 16–20; TEMP 36–36.3; O2SAT 97–100
--- NOTE | 2022-11-22 | ECHO_ITS ---
Patient Info Name: Harjit Jones Age: 82 years : 1940 Gender: Male Ht: 72 in Wt: 203 lbs BSA: 2.18 m2 HR: 91 bpm BP: 125 / 78 mmHg Heart Rhythm: Sinus Rhythm Technical Quality: Fair Exam Date: 11/22/2022 7:46 AM Exam Location: [facility] Card Pulmonary Patient Status: Outpatient Admit Date: 11/21/2022 Staff Ordering Physician: Faustino Yeager Mash Grinder: Jelly Muse RDCS Attending Provider: Selvin Naik MD Referring Physician: Toy MARIA; Exam Type: CA echo doppler w bubble study Study Info Indications R55 - Syncope and collapse Complete two-dimensional, color flow and Doppler transthoracic echocardiogram is performed with agitated saline. Contrast/Agitated Saline Contrast/Ag. Saline: Agitated Saline Amount: 20.00 ml Administered By: Mae Monreal RDCS Existing IV Access: Yes IV Access Condition: patent with no signs of infiltration Summary 1. Left ventricular chamber dimension is normal. 2. Left ventricular systolic function is normal, estimated at 60-65%. 3. There is mildly increased left ventricular wall thickness. 4. The left ventricular diastolic function is grade I diastolic dysfunction. 5. Atrial septal aneurysmal motion. Evidence of icovq-lx-[id number] shunt with injection of agitated saline with Valsalva only consistent with patent foramen ovale. 6. There is no aortic valve stenosis. 7. There is trace mitral valve regurgitation. 8. There is trace tricuspid valve regurgitation. 9. No pulmonary hypertension, estimated pulmonary arterial systolic pressure is 22 mmHg. Left Ventricle Left ventricular chamber dimension is normal. Left ventricular systolic function is normal, estimated at 60-65%. There is mildly increased left ventricular wall thickness. The left ventricular diastolic function is grade I diastolic dysfunction. Right Ventricle Right ventricular chamber dimension is normal. Right ventricular systolic function is mildy reduced. TAPSE 1.4. Left Atria Left atrial chamber dimension is mildly enlarged. Right Atria Right atrial chamber dimension is mildly enlarged. Atrial Septum Atrial septal aneurysmal motion. Evidence of nbsol-tl-fnvc shunt with injection of agitated saline with Valsalva only consistent with patent foramen ovale. Aortic Valve The aortic valve is trileaflet. There is mild aortic valve sclerosis. There is no aortic valve stenosis. There is trace aortic valve regurgitation. Pulmonic Valve The pulmonic valve is not well visualized. Mitral Valve The mitral valve has thickened leaflets. There is trace mitral valve regurgitation. The mitral valve annulus is moderately calcified. Tricuspid Valve The tricuspid valve leaflets are normal. There is trace tricuspid valve regurgitation. No pulmonary hypertension, estimated pulmonary arterial systolic pressure is 22 mmHg. Pericardium/Pleural The pericardium appears normal. There is no pericardial effusion. Inferior Vena Cava Normal inferior vena cava with >50% collapse upon inspiration consistent with normal right atrial pressure, 5 mmHg. Aorta The aortic root size at the sinus of Valsalva is normal. There is mild aortic atherosclerosis. Left Ventricular Outflow Tract Name Value Normal LVOT
[2022-11-22] MEDS: carvediloL 6.25 MG TABLET PO ×3 (00:09→21:45)
[2022-11-22] MEDS: SACUBITRIL/VALSARTAN 24-26 MG TABLET 1 TAB PO ×3 (00:09→21:45)
[2022-11-22] MEDS: PANTOPRAZOLE SODIUM IV 40 MG VIAL IV PUSH ×3 (00:09→21:45)
[2022-11-22 01:01] LABS: Hematocrit 28.5 % (42.0-52.0); Hemoglobin 9.2 g/dL (14.0-18.0)
[2022-11-22 06:10] LABS: Basophils Percent Auto 0.6 % (0.2-1.2); Eosinophils Absolute Auto 0.4 K/mm3 (0-0.3); Eosinophils Percent Auto 6.4 % (0-4.4); Hematocrit 25.5 % (42.0-52.0); Hemoglobin 8.2 g/dL (14.0-18.0); Immature Granulocyte Absolute 0.01 K/mm3 (0.00-0.031); Immature Granulocyte Percent A 0.2 % (0-0.5); Lymphocytes Percent Auto 21.9 % (18.3-44.2); Mean Corpuscular HGB Conc 32.2 g/dl (32-36); Mean Corpuscular Hemoglobin 29.5 pg (26-34); Mean Corpuscular Volume 91.7 fl (80-100); Mean Platelet Volume 10.9 fl (7.4-10.4); Monocytes Absolute Auto 0.6 K/mm3 (0.1-0.6); Monocytes Percent Auto 9.1 % (2.6-8.5); Neutrophils Percent Auto 61.8 % (45.5-73.1); Platelet Count Result 163 k/mm3 (150-375); Red Blood Count 2.78 M/mm3 (4.6-6.20); Red Cell Distribution Width 13.2 % (11.5-14.5); White Blood Count 6.4 K/mm3 (4.5-10.0)
[2022-11-22 06:19] LABS: Lactic Acid Reflex 1.2 mmol/L (0.7-2.0)
[2022-11-22 06:22] LABS: Alanine Aminotransferase 15 U/L (6-50); Albumin Level 3.4 g/dL (3.5-5.1); Alkaline Phosphatase 40 U/L (38-126); Anion Gap 2 mmol/L (8-16); Aspartate Amino Transferase 21 U/L (17-59); Bilirubin,Total 0.6 mg/dL (0.2-1.3); Blood Urea Nitrogen 26 mg/dL (9-20); Calcium 7.9 mg/dL (8.4-10.2); Carbon Dioxide 28 mmol/L (22-30); Chloride 107 mmol/L (98-107); Estimated CRCL calculation 51 ml/min; Estimated Glomerular Filt Rate > 60; Glucose 142 mg/dL (65-110); Sodium 137 mmol/L (137-145)
[2022-11-22 06:31] LABS: Hemoglobin A1C 6.4 % (<5.7)
--- NOTE | 2022-11-22 10:00 | P.PNIM_ITS ---
Progress Note: A&P Assessment and Plan (1) Syncope and collapse: Code(s): R55 - Syncope and collapse Status: Acute Assessment and Plan: * Family noted that patient complained of dizzy and diaphoretic, and found patient on the floor unresponsive, drooling, and clammy * Head CT shows no significant abnormality * orthostatic BP Negative for hypotension. Lying 125/59 sitting 120/55 standing 140/76 * Consult neurology to rule out seizures * Brain MRI ordered * Carotid doppler * echo EF 60 65% with grade 1 diastolic dysfunction with patent foramen ovale * tele monitor (2) Essential hypertension: Code(s): I10 - Essential (primary) hypertension Status: Acute Assessment and Plan: * Current BP is 125/78 * Continue coreg and lasix * Trend BP * Adjust therapy as indicated (3) Diabetes type 2, controlled: Qualifiers: Diabetes mellitus complication status: without complication Diabetes mellitus intermediate school teacher insulin use: without intermediate school teacher use Qualified Code(s): E11.9 - Type 2 diabetes mellitus without complications Code(s): E11.9 - Type 2 diabetes mellitus without complications Status: Acute Assessment and Plan: * Glucose 142 * Check A1c 6.4 * Diet controlled at home * Continue to trend labs * Adjust therapy as indicated (4) Congestive heart failure: Code(s): I50.9 - Heart failure, unspecified Status: Acute Assessment and Plan: * Chronic systolic heart failure not in acute exacerbation * Echo from 01/03 showed EF of 35-37% with no diastolic dysfunction * Daily weights * Continue carvedilol, Lasix, and Entresto * Echo EF 60 65% with grade 1 diastolic dysfunction with patent foramen ovale * Adjust therapy as indicated (5) Upper GI bleed: Code(s): K92.2 - Gastrointestinal hemorrhage, unspecified Status: Acute Assessment and Plan: * Complaints of dark and tarry stools * notable drop in H/H from 10.1/30.8 * Currently 8.2/25.5 * Occult blood is positive * EGD did find an acute bleed * GI consulted * Protonix IV BID * Hold aspirin * Transfuse if HGB is <7.0 * Anemia labs in the am (6) Acute blood loss anemia: Code(s): D62 - Acute posthemorrhagic anemia Status: Acute Assessment and Plan: See above Time Spent With Patient Time: 54 minutes Time with patient: Greater than 35 minutes Subjective Date/time seen: 11/22/22 1000 Interval history: 11/22/22 1000 It was further noted that the patient's eyes were rolling and the back was had and he had decorticate posturing when he did have his episode of syncope. Patient denies any chest pain, shortness a breath, nausea, vomiting, diarrhea constipation. Patient is very hungry. Patient stated that he does have some pain and feels pretty distended in his abdomen. patient's and son were in the room and gave more details of his syncopal episode. Currently awaiting EGD. 11/21/22? 20:01 This is an 82-year-old male patient with a history of coronary artery disease with a CABG, CHF and a Guy fundoplication.? The patient was walking to the bathroom 2 days ago and he became dizzy and diaphoretic.? The patient was able to sit himself down the steps.? The the family stated that he called out for them and any passed out at the time that they got him according to the the patient was rigid, unresponsive
--- NOTE | 2022-11-22 10:00 | PM.IMPN ---
Progress Note: A&P Assessment and Plan (1) Syncope and collapse: Code(s): R55 - Syncope and collapse Status: Acute Assessment and Plan: Family noted that patient complained of dizzy and diaphoretic, and found patient on the floor unresponsive, drooling, and clammy Head CT shows no significant abnormality orthostatic BP Negative for hypotension. Lying 125/59 sitting 120/55 standing 140/76 Consult neurology to rule out seizures Brain MRI ordered Carotid doppler echo EF 60 65% with grade 1 diastolic dysfunction with patent foramen ovale tele monitor (2) Essential hypertension: Code(s): I10 - Essential (primary) hypertension Status: Acute Assessment and Plan: Current BP is 125/78 Continue coreg and lasix Trend BP Adjust therapy as indicated (3) Diabetes type 2, controlled: Qualifiers: Diabetes mellitus complication status: without complication Diabetes mellitus long-term insulin use: without intermodal customer service use Qualified Code(s): E11.9 - Type 2 diabetes mellitus without complications Code(s): E11.9 - Type 2 diabetes mellitus without complications Status: Acute Assessment and Plan: Glucose 142 Check A1c 6.4 Diet controlled at home Continue to trend labs Adjust therapy as indicated (4) Congestive heart failure: Code(s): I50.9 - Heart failure, unspecified Status: Acute Assessment and Plan: Chronic systolic heart failure not in acute exacerbation Echo from 01/03 showed EF of 35-37% with no diastolic dysfunction Daily weights Continue carvedilol, Lasix, and Entresto Echo EF 60 65% with grade 1 diastolic dysfunction with patent foramen ovale Adjust therapy as indicated (5) Upper GI bleed: Code(s): K92.2 - Gastrointestinal hemorrhage, unspecified Status: Acute Assessment and Plan: Complaints of dark and tarry stools notable drop in H/H from 10.1/30.8 Currently 8.2/25.5 Occult blood is positive EGD did find an acute bleed GI consulted Protonix IV BID Hold aspirin Transfuse if HGB is <7.0 Anemia labs in the am (6) Acute blood loss anemia: Code(s): D62 - Acute posthemorrhagic anemia Status: Acute Assessment and Plan: See above Time Spent With Patient Time: 54 minutes Time with patient: Greater than 35 minutes Subjective Date/time seen: 11/22/22 1000 Interval history: 11/22/22999 It was further noted that the patient's eyes were rolling and the back was had and he had decorticate posturing when he did have his episode of syncope. Patient denies any chest pain, shortness a breath, nausea, vomiting, diarrhea constipation. Patient is very hungry. Patient stated that he does have some pain and feels pretty distended in his abdomen. patient's and son were in the room and gave more details of his syncopal episode. Currently awaiting EGD. 11/21/22? 20:01 This is an 82-year-old male patient with a history of coronary artery disease with a CABG, CHF and a Guy fundoplication.? The patient was walking to the bathroom 2 days ago and he became dizzy and diaphoretic.? The patient was able to sit himself down the steps.? The the family stated that he called out for them and any passed out at the time that they got him according to the the patient was rigid, unresponsive drooling and clammy.? The family thinks that the patient was unresponsive for 1 minute.? Head patient denied any nausea vomiting diarrhea or chest pain.? Patient noted that he was short of breath that day.? The patient had been scheduled for an upper endoscopy on Sunday.? According to the ER noteT/b w/ [facility] again and GI Dr. Duckworth who suggested having pt d/c if stable for outpt f/u; however rpt Hgb here shows drop to 8.8 and pt still having dark stools therefore we did not feel safe for discharge. D/w RICARDO Palafox here who is a
[2022-11-22] MEDS: SPIRONOLACTONE 25 MG TABLET PO (10:37)
[2022-11-22] MEDS: FUROSEMIDE 40 MG TABLET PO (10:37)
[2022-11-22] MEDS: LACTATED RINGERS 1,000 ML 150 ML IV CONT (12:14)
--- NOTE | 2022-11-22 12:49 | WPDANESEPPF ---
Anes - Initial Pre Proc Eval Procedure: Operation Date: 11/22/22 13:30 Proposed Procedures p Esophagogastroduodenoscopy - Stephon Jerry MD Date/Time: 11/22/22 12:49 Surgeon: Alex Naik MD Pre Op Diagnosis: GIB Patient Data Age: 82 Gender: M Height: 1.83 m Weight: 92.5 kg Last Vital Signs Temp 96.8 F L 11/22/22 12:10 Pulse 108 H 11/22/22 12:10 Resp 18 11/22/22 12:10 BP 130/77 11/22/22 12:10 Pulse Ox 99 11/22/22 12:10 O2 Del Method Room Air 11/22/22 12:10 Allergies Allergy/AdvReac Type Severity Reaction Status Date / Time levofloxacin [From [facility]] AdvReac Severe Muscle Pain Verified 11/22/22 12:08 Home Medications Medication Instructions Recorded Confirmed Type furosemide 20 mg tablet 40 mg PO QAM 12/23/21 11/21/22 History sacubitril 24 mg-valsartan 26 mg 1 tablet PO BID 03/08/22 11/21/22 History tablet (Entresto) spironolactone 25 mg tablet 25 mg PO DAILY 03/08/22 11/21/22 History carvedilol 3.125 mg tablet 6.25 mg PO BID 06/23/22 11/21/22 History aspirin 81 mg tablet,delayed 81 mg PO DAILY 07/20/22 11/21/22 History release (Adult Low Dose Aspirin) Laboratory Tests 11/21/22 11/22/22 11/22/22 14:05 00:22 05:12 WBC 6.4 K/mm3 K/mm3 (4.5-10.0) RBC 2.78 M/mm3 L M/mm3 (4.6-6.20) Hgb 8.8 g/dL L g/dL 9.2 g/dL L g/dL 8.2 g/dL L g/dL (14.0-18.0) (14.0-18.0) (14.0-18.0) Hct 27.3 % L % 28.5 % L % 25.5 % L % (42.0-52.0) (42.0-52.0) (42.0-52.0) MCV 91.7 fl fl (80-100) MCH 29.5 pg pg (26-34) MCHC 32.2 g/dl g/dl (32-36) RDW 13.2 % % (11.5-14.5) Plt Count 163 k/mm3 k/mm3 (150-375) MPV 10.9 fl H fl (7.4-10.4) Immature Gran % (Auto) 0.2 % % (0-0.5) Neut % (Auto) 61.8 % % (45.5-73.1) Lymph % (Auto) 21.9 % % (18.3-44.2) Schleicher % (Auto) 9.1 % H % (2.6-8.5) Eos % (Auto) 6.4 % H % (0-4.4) Baso % (Auto) 0.6 % % (0.2-1.2) Lymph # (Auto) 1.40 K/mm3 K/mm3 (0.9-3.2) Schleicher # (Auto) 0.6 K/mm3 K/mm3 (0.1-0.6) Eos # (Auto) 0.4 K/mm3 H K/mm3 (0-0.3) Baso # (Auto) 0.0 K/mm3 K/mm3 (0.0-0.1) Abs Immat Gran (auto) 0.01 K/mm3 K/mm3 (0.00-0.031) Absolute Neuts (auto) 4.0 K/mm3 K/mm3 (1.3-6.7) Absolute Nucleated RBC 0.0 K/mm3 K/mm3 (0.0-0.012) Nucleated RBC % 0.0 % % (0.0-0.2) Sodium Potassium Chloride Carbon Dioxide Anion Gap BUN Creatinine Estim Creat Clear Calc Estimated GFR Glucose Hemoglobin A1c Lactic Acid Calcium Magnesium Total Bilirubin AST ALT Alkaline Phosphatase Total Protein Albumin TSH (Reflex) 11/22/22 11/22/22 11/22/22 05:12 05:12 05:12 WBC RBC Hgb Hct MCV MCH MCHC RDW Plt Count MPV Immature Gran % (Auto) Neut % (Auto) Lymph % (Auto) Schleicher % (Auto) Eos % (Auto) Baso % (Auto) Lymph # (Auto) Schleicher # (Auto) Eos # (Auto) Baso # (Auto) Abs Immat Gran (auto) Absolute Neuts (auto) Absolute Nucleated RBC Nucleated RBC % Sodium 137 mmol/L mmol/L (137-145) Potassium 4.0 mmol/L mmol/L (3.4-5.0) Chloride 107 mmol/L mmol/L (98-107) Carbon Dioxide 28 mmol/L mmol/L (22-30) Anion Gap 2 mmol/L L mmol/L (8-16) BUN 26 mg/dL H D mg/dL (9-20) Creatinine 1.10 mg/dL mg/dL (0
--- NOTE | 2022-11-22 12:55 | WPDGICN ---
Assessment and Plan Assessment and plan (1) Upper GI bleed: Code(s): K92.2 - Gastrointestinal hemorrhage, unspecified Status: Acute Assessment and Plan: will proceed with urgent EGD, he came in with syncope and noted melena no recent EGD in fact he was going to get one in few more days at [facility] more recommendations after egd (2) Acute blood loss anemia: Code(s): D62 - Acute posthemorrhagic anemia Status: Acute Assessment and Plan: monitor for signs of bleeding iv protonix egd (3) Melena: Code(s): K92.1 - Melena Status: Acute Assessment and Plan: egd today (4) Syncope and collapse: Code(s): R55 - Syncope and collapse Status: Acute Assessment and Plan: probably from active bleeding and worsening anemia monitor neurology on board (5) Ischemic cardiomyopathy: Code(s): I25.5 - Ischemic cardiomyopathy Status: Acute (6) Essential hypertension: Code(s): I10 - Essential (primary) hypertension Status: Acute GI Consult Note Consult date/time: 11/22/22 12:55 Reason for consult: syncope, melena HPI: Harjit Jones is a 82 year old male with history of CAD, CABG, CHF who came to ER after had syncopal episode.? Patient states he was walking from the bathroom when he became dizzy and diaphoretic and then passed out. Patient has been having abdominal distension for several weeks and it is my understanding that he was supposed to get EGD at [facility] this coming Sunday, he had colonoscopy 2019 that showed diverticulosis. He also had DONALD in the past suspected from large paraesophageal hernia surgically repaired in 2019 and apparently no more issues with anemia. Patient also had dark stool, he was in observation in the ER awaiting possible transfer to [facility] but they did not have beds finally admitted here for EGD evaluation, started on iv protonix. Hb slowly trending down from 10.6 to 8.2 (few months ago normal at 13) Review of Systems Constitutional: Constitutional: Reports fatigue and Reports lethargy Eyes: Eyes: Denies blurry vision ENT: Reports Normal hearing present Cardiovascular: Cardiovascular: Denies chest pain Respiratory: Respiratory: Reports dyspnea on exertion Gastrointestinal: Gastrointestinal: Reports abdominal pain and Reports melena Genitourinary: Genitourinary: Denies hematuria Musculoskeletal: Musculoskeletal: Denies back pain Integumentary/Breasts: Skin/Breast: Denies rash Neurologic: Denies confusion Comments: syncope Psychiatric: Psychiatric: Denies behavioral changes [facility] Past Medical History Medical History (Updated 11/22/22 @ 13:45 by Stephon Jerry MD) Abdominal bloating Acute blood loss anemia Acute bronchitis due to other specified organisms Bilateral leg edema BMI 26.0-26.9,adult BMI 27.0-27.9,adult BMI 28.0-28.9,adult Bulging of cervical intervertebral disc Congestive heart failure Cough Diabetes type 2, controlled Dietary counseling and surveillance (09/25/18) Dizziness Essential hypertension Excessive cerumen in both ear canals Excessive cerumen in right ear canal Hernia Hiatal hernia Hx of hiatal hernia Injury of lateral plantar nerve, left leg, initial encounter Injury of other nerves at ankle and foot level, right leg, initial encounter Ischemic cardiomyopathy Melena Multiple fractures of ribs, left side, initial encounter for closed fracture Neck pain Rib pain on right side Screening for diabetes mellitus Screening for lipid disorders Screening for prostate cancer Screening for thyroid disorder Shortness of breath Upper GI bleed Surgical History Surgical History (Updated 11/22/22 @ 00:09 by Aishwarya Stiles NP) H/O cardiac catheterization H/O sinus surgery History of heart bypass surgery History of hernia surgery History of knee replacement Left total knee History of Esmer fundoplication Hx of CABG 4 vessel S/P shoulder replacement Left shou
--- NOTE | 2022-11-22 13:11 | WPDNEURCNPN ---
Assessment and Plan Assessment and plan (1) Congestive heart failure: Code(s): I50.9 - Heart failure, unspecified Status: Acute (2) Seizures: Code(s): R56.9 - Unspecified convulsions Status: Acute Plan Syncopal episode will obtain the EEG to rule out the possibility of seizures. Consult date: 11/22/22 HPI: Harjit Jones is a 82 year old male admitted to the hospital through the emergency room mainly for the GI problem in addition to history of syncopal episodes and history of underlying coronary artery disease, CABG, congestive heart failure, reportedly he was walking from the bathroom when he became dizzy and diaphoretic he was able to sit himself down on the steps he called out to them and he passed out by the time they got to him reportedly he was rigid unresponsive drooling and clammy he remained unresponsive for [id number] he also mentioned that he was short of breath in the morning he gave no history of previous syncopal episode and has been dealing with his abnormal distention problem for which GI is involved in his medications included furosemide 20 mg tablet 2 of them daily and Rachael 0 1 tablet b.i.d. his spironolactone 25 mg daily carvedilol 6.25 mg b.i.d. and aspirin 81 mg daily, never drink never smoker, initial exam in the Emergency Room neurologically nonfocal admitted to the hospital through the emergency room for the further GI evaluation though the Gastroenterology from [facility] were contacted but the bed was not available routine blood studies documented hemoglobin of 8.2 seizure already negative for influenza A,B and sars also CT scan of the head PMFSH Past Medical History Medical History (Updated 11/22/22 @ 13:22 by Danial Aviles MD) Abdominal bloating Acute bronchitis due to other specified organisms Bilateral leg edema BMI 26.0-26.9,adult BMI 27.0-27.9,adult BMI 28.0-28.9,adult Bulging of cervical intervertebral disc Congestive heart failure Cough Diabetes type 2, controlled Dietary counseling and surveillance (09/25/18) Dizziness Essential hypertension Excessive cerumen in both ear canals Excessive cerumen in right ear canal Hernia Hiatal hernia Hx of hiatal hernia Injury of lateral plantar nerve, left leg, initial encounter Injury of other nerves at ankle and foot level, right leg, initial encounter Ischemic cardiomyopathy Multiple fractures of ribs, left side, initial encounter for closed fracture Neck pain Rib pain on right side Screening for diabetes mellitus Screening for lipid disorders Screening for prostate cancer Screening for thyroid disorder Shortness of breath Surgical History Surgical History (Updated 11/22/22 @ 00:09 by Aishwarya Stiles NP) H/O cardiac catheterization H/O sinus surgery History of heart bypass surgery History of hernia surgery History of knee replacement Left total knee History of Esmer fundoplication Hx of CABG 4 vessel S/P shoulder replacement Left shoulder Family History Family History Mother Family history of lung cancer Family history of malignant neoplasm Father Sibling No problems noted. Social History Social History (Updated 11/22/22 @ 00:05 by Aishwarya Stiles NP) Social History: The patient lives with his and they have 3 children. 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 He also retired from the [employer]. Code status full code Smoking status: Never smoker Second hand tobacco smoke exposure: Yes Alcohol intake: never Substance use: never Substance use type: does not use Lack of Transportation: No Lack of Food: Never True Current Housing: I Have Housing Concerned About Future Housing: No Difficulty Paying Gas/Electric Bills: No Difficulty Paying for Meds: No Currently Unemployed: No Education: High School Diploma/GED Difficulty w/ Childcare or Family Care: No Living
[2022-11-22] MEDS: EPINEPHrine INJ 1 MG/10 ML SYRINGE XX (13:17)
--- NOTE | 2022-11-22 14:05 | SUR.PHASEII ---
Patient taken to MRI for a scan. Floor nurse aware patient will be transferred from GI to MRI.
[2022-11-22 16:34] LABS: Hematocrit 29.3 % (42.0-52.0); Hemoglobin 9.4 g/dL (14.0-18.0)
--- NOTE | 2022-11-22 20:14 | PC.NURSE ---
Pt went for an EGD, Ultrasound, MRI, and CT scan today. Pt is back to a regular diet and tolerated it well. Pt has had family at bedside all day today. Pt is compliant with care and participates in plan of care. Pt is A&O4 and independent for ambulation. Will continue to monitor pt.
[2022-11-23 05:00] VITALS: BP 107/54; PULSE 88; RESP 16; TEMP 36.6; O2SAT 97
[2022-11-23 06:05] LABS: Basophils Absolute Auto 0.1 K/mm3 (0.0-0.1); Eosinophils Absolute Auto 0.3 K/mm3 (0-0.3); Eosinophils Percent Auto 5.2 % (0-4.4); Hematocrit 26.3 % (42.0-52.0); Hemoglobin 8.4 g/dL (14.0-18.0); Immature Granulocyte Absolute 0.02 K/mm3 (0.00-0.031); Immature Granulocyte Percent A 0.3 % (0-0.5); Lymphocytes Absolute Auto 1.45 K/mm3 (0.9-3.2); Lymphocytes Percent Auto 23.8 % (18.3-44.2); Mean Corpuscular HGB Conc 31.9 g/dl (32-36); Mean Corpuscular Hemoglobin 29.4 pg (26-34); Mean Platelet Volume 10.7 fl (7.4-10.4); Monocytes Absolute Auto 0.6 K/mm3 (0.1-0.6); Monocytes Percent Auto 9.5 % (2.6-8.5); Neutrophils Absolute Auto 3.7 K/mm3 (1.3-6.7); Neutrophils Percent Auto 60.2 % (45.5-73.1); Platelet Count Result 176 k/mm3 (150-375); Red Blood Count 2.86 M/mm3 (4.6-6.20); Red Cell Distribution Width 12.9 % (11.5-14.5); White Blood Count 6.1 K/mm3 (4.5-10.0)
[2022-11-23 06:24] LABS: Alanine Aminotransferase 15 U/L (6-50); Albumin Level 3.7 g/dL (3.5-5.1); Alkaline Phosphatase 48 U/L (38-126); Anion Gap 6 mmol/L (8-16); Aspartate Amino Transferase 21 U/L (17-59); Bilirubin,Total 0.6 mg/dL (0.2-1.3); Blood Urea Nitrogen 21 mg/dL (9-20); Carbon Dioxide 28 mmol/L (22-30); Chloride 104 mmol/L (98-107); Estimated CRCL calculation 44 ml/min; Estimated Glomerular Filt Rate 53; Glucose 152 mg/dL (65-110); Magnesium 1.9 mg/dL (1.6-2.3); Potassium 3.7 mmol/L (3.4-5.0); Sodium 138 mmol/L (137-145)
[2022-11-23 09:19] VITALS: PULSE 89
[2022-11-23] MEDS: FUROSEMIDE 40 MG TABLET PO (09:19)
[2022-11-23] MEDS: carvediloL 6.25 MG TABLET PO ×2 (09:19→21:52)
[2022-11-23] MEDS: SPIRONOLACTONE 25 MG TABLET PO (09:19)
[2022-11-23] MEDS: SACUBITRIL/VALSARTAN 24-26 MG TABLET 1 TAB PO ×2 (09:19→21:52)
[2022-11-23] MEDS: PANTOPRAZOLE SODIUM IV 40 MG VIAL IV PUSH ×2 (09:20→21:52)
--- NOTE | 2022-11-23 11:00 | P.PNIM_ITS ---
Progress Note: A&P Assessment and Plan (1) Syncope and collapse: Code(s): R55 - Syncope and collapse Status: Acute Assessment and Plan: * Family noted that patient complained of dizzy and diaphoretic, and found patient on the floor unresponsive, drooling, and clammy * Head CT shows no significant abnormality * orthostatic BP Negative for hypotension. Lying 125/59 sitting 120/55 standing 140/76 * Consult neurology to rule out seizures * Brain MRI normal aging brain * Carotid doppler <50% stenosis * echo EF 60 65% with grade 1 diastolic dysfunction with patent foramen ovale * tele monitor (2) Essential hypertension: Code(s): I10 - Essential (primary) hypertension Status: Acute Assessment and Plan: * Current BP is 17/54 * Continue coreg and lasix * Trend BP * Adjust therapy as indicated (3) Diabetes type 2, controlled: Qualifiers: Diabetes mellitus buttermaker continuous churn insulin use: without buttermaker continuous churn use Diabetes mellitus complication status: without complication Qualified Code(s): E11.9 - Type 2 diabetes mellitus without complications Code(s): E11.9 - Type 2 diabetes mellitus without complications Status: Acute Assessment and Plan: * Glucose 152 * Check A1c 6.4 * Diet controlled at home * Continue to trend labs * Adjust therapy as indicated (4) Congestive heart failure: Code(s): I50.9 - Heart failure, unspecified Status: Acute Assessment and Plan: * Chronic systolic heart failure not in acute exacerbation * Echo from 01/03 showed EF of 35-37% with no diastolic dysfunction * Daily weights * Continue carvedilol, Lasix, and Entresto * Echo EF 60 65% with grade 1 diastolic dysfunction with patent foramen ovale * Adjust therapy as indicated (5) Upper GI bleed: Code(s): K92.2 - Gastrointestinal hemorrhage, unspecified Status: Acute Assessment and Plan: * Complaints of dark and tarry stools * notable drop in H/H from 10.1/30.8 * Currently 8.2/25.5 * Occult blood is positive * EGD did find an acute bleed * GI consulted * Protonix IV BID * Hold aspirin * Transfuse if HGB is <7.0 * Anemia labs iron 37, TIBC 260, % sat 14, Transferrin 156, Ferritin 98.30, B12 625, Folate >20.0 * Transfuse iron 500mg IV once (6) Acute blood loss anemia: Code(s): D62 - Acute posthemorrhagic anemia Status: Acute Assessment and Plan: See above In combination with iron deficiency anemia Time Spent With Patient Time: 56 minutes Time with patient: Greater than 35 minutes Subjective Date/time seen: 11/23/22 1100 Interval history: 11/23/22 1100 Patient is doing ok today. He is ready to go home. He denies any complaints. Family in the room all questions answered and plan of care updated. 11/22/22 1000 It was further noted that the patient's eyes were rolling and the back was had and he had decorticate posturing when he did have his episode of syncope. Patient denies any chest pain, shortness a breath, nausea, vomiting, diarrhea constipation. Patient is very hungry. Patient stated that he does have some pain and feels pretty distended in his abdomen. patient's and son were in the room and gave more details of his syncopal episode. Currently awaiting EGD. 11/21/22? 20:01 This is an
--- NOTE | 2022-11-23 11:00 | PM.IMPN ---
Progress Note: A&P Assessment and Plan (1) Syncope and collapse: Code(s): R55 - Syncope and collapse Status: Acute Assessment and Plan: Family noted that patient complained of dizzy and diaphoretic, and found patient on the floor unresponsive, drooling, and clammy Head CT shows no significant abnormality orthostatic BP Negative for hypotension. Lying 125/59 sitting 120/55 standing 140/76 Consult neurology to rule out seizures Brain MRI normal aging brain Carotid doppler <50% stenosis echo EF 60 65% with grade 1 diastolic dysfunction with patent foramen ovale tele monitor (2) Essential hypertension: Code(s): I10 - Essential (primary) hypertension Status: Acute Assessment and Plan: Current BP is 17/54 Continue coreg and lasix Trend BP Adjust therapy as indicated (3) Diabetes type 2, controlled: Qualifiers: Diabetes mellitus alf insulin use: without alf use Diabetes mellitus complication status: without complication Qualified Code(s): E11.9 - Type 2 diabetes mellitus without complications Code(s): E11.9 - Type 2 diabetes mellitus without complications Status: Acute Assessment and Plan: Glucose 152 Check A1c 6.4 Diet controlled at home Continue to trend labs Adjust therapy as indicated (4) Congestive heart failure: Code(s): I50.9 - Heart failure, unspecified Status: Acute Assessment and Plan: Chronic systolic heart failure not in acute exacerbation Echo from 01/03 showed EF of 35-37% with no diastolic dysfunction Daily weights Continue carvedilol, Lasix, and Entresto Echo EF 60 65% with grade 1 diastolic dysfunction with patent foramen ovale Adjust therapy as indicated (5) Upper GI bleed: Code(s): K92.2 - Gastrointestinal hemorrhage, unspecified Status: Acute Assessment and Plan: Complaints of dark and tarry stools notable drop in H/H from 10.1/30.8 Currently 8.2/25.5 Occult blood is positive EGD did find an acute bleed GI consulted Protonix IV BID Hold aspirin Transfuse if HGB is <7.0 Anemia labs iron 37, TIBC 260, % sat 14, Transferrin 156, Ferritin 98.30, B12 625, Folate >20.0 Transfuse iron 500mg IV once (6) Acute blood loss anemia: Code(s): D62 - Acute posthemorrhagic anemia Status: Acute Assessment and Plan: See above In combination with iron deficiency anemia Time Spent With Patient Time: 56 minutes Time with patient: Greater than 35 minutes Subjective Date/time seen: 11/23/22 1100 Interval history: 11/23/22 1100 Patient is doing ok today. He is ready to go home. He denies any complaints. Family in the room all questions answered and plan of care updated. 11/22/22 1000 It was further noted that the patient's eyes were rolling and the back was had and he had decorticate posturing when he did have his episode of syncope. Patient denies any chest pain, shortness a breath, nausea, vomiting, diarrhea constipation. Patient is very hungry. Patient stated that he does have some pain and feels pretty distended in his abdomen. patient's and son were in the room and gave more details of his syncopal episode. Currently awaiting EGD. 11/21/22? 20:01 This is an 82-year-old male patient with a history of coronary artery disease with a CABG, CHF and a Guy fundoplication.? The patient was walking to the bathroom 2 days ago and he became dizzy and diaphoretic.? The patient was able to sit himself down the steps.? The the family stated that he called out for them and any passed out at the time that they got him according to the the patient was rigid, unresponsive drooling and clammy.? The family thinks that the patient was unresponsive for 1 minute.? Head patient denied any nausea vomiting diarrhea or chest pain.? Patient noted that he was brayan
[2022-11-23 11:13] LABS: Iron 37 ug/dL (49-181)
[2022-11-23 11:25] LABS: Percent Iron Saturation 14 % (20-50)
[2022-11-23 11:49] LABS: Transferrin 156 mg/dL (206-381)
--- NOTE | 2022-11-23 12:16 | WPDNEUROPN ---
Subjective Date/time seen: 11/23/22 12:16 Interval history: 82 years old with history of congestive heart failure and seizures had Doppler studies of the carotid which were normal brain MRI negative, abdomen and pelvic sural CT scan with thickening of the fundoplication and hiatal hernia raising the possibility of inflammation or malignancy family is interested in obtaining the EEG while he is here and which has been ordered otherwise his remains stable Objective Data Vital Signs Vital Signs: Vital Signs - 24 hr 11/22/22 13:31 11/22/22 13:41 11/22/22 13:51 Temperature Pulse Rate 80 79 80 Respiratory Rate 20 18 16 Blood Pressure 107/55 L 111/65 116/68 Pulse Oximetry 100 100 98 Oxygen Delivery Room Air Room Air Room Air 11/22/22 21:44 11/22/22 20:00 11/22/22 20:00 Temperature 36.3 C L 36.3 C L Pulse Rate 95 95 Respiratory Rate 16 16 Blood Pressure 112/64 112/64 Pulse Oximetry 98 98 Oxygen Delivery Room Air 11/23/22 05:00 11/23/22 09:19 11/23/22 09:19 Temperature 36.6 C Pulse Rate 88 89 Respiratory Rate 16 Blood Pressure 107/54 L Pulse Oximetry 97 Oxygen Delivery Room Air Intake/Output Intake/Output: Intake & Output 11/20/22 11/21/22 11/22/22 11/23/22 23:59 23:59 23:59 23:59 Intake Total 550 740 Output Total 700 Balance -700 550 740 Meds/Results Medications: Active Medications Generic Name Dose Route Start Last Admin Trade Name Freq PRN Reason Stop Dose Admin Carvedilol 6.25 mg 11/22/22 09:00 11/23/22 09:19 Carvedilol 6.25 Mg Tablet PO 6.25 mg Q12HR VINICIUS Administration Furosemide 40 mg 11/22/22 09:00 11/23/22 09:19 Furosemide 40 Mg Tablet PO 40 mg QAM VINICIUS Administration Pantoprazole Sodium 40 mg 11/22/22 09:00 11/23/22 09:20 Pantoprazole Sodium Iv 40 Mg Vial IV PUSH 40 mg Q12HR VINICIUS Administration Perflutren Lipid Microsphere 0 ml 11/22/22 07:19 Perflutren Lipid Microspheres 1.5 Ml Vial Diluted To 10 Ml Total Volume IV PUSH 11/24/22 07:20 ONCE PRN adequate visualization Protocol Sacubitril/Valsartan 1 tab 11/22/22 09:00 11/23/22 09:19 Sacubitril/Valsartan 24-26 Mg Tablet PO 1 tab Q12HR VINICIUS Administration Spironolactone 25 mg 11/22/22 09:00 11/23/22 09:19 Spironolactone 25 Mg Tablet PO 25 mg DAILY VINICIUS Administration Radiology Results: ITS Impressions Head CT 11/19/22 17:03 Impression: No significant abnormality seen. Chest X-Ray 11/19/22 17:13 Impression: Clear lungs. No acute abnormality. Status post CABG. Chronic left rib fracture deformities, unchanged. Brain MRI 11/22/22 15:17 IMPRESSION: 1. Normal aging brain. Abdomen/Pelvis CT 11/22/22 15:25 IMPRESSION: 1. Fundoplication of the stomach with wall thickening of the fundoplication, which may be inflammation or malignancy. Hiatal hernia with the fundoplication above the diaphragm. Carotid Doppler Study 11/22/22 15:40 IMPRESSION: 1. <50% stenosis in the right internal carotid artery. 2. <50% stenosis in the left internal carotid artery. Labs Labs: Laboratory Results - last 24 hr 11/22/22 11/23/22 11/23/22 16:06 05:27 05:27 WBC 6.1 RBC 2.86 L Hgb 9.4 L 8.4 L Hct 29.3 L 26.3 L MCV 92.0 MCH 29.4 MCHC 31.9 L RDW 12.9 Plt Count 176 MPV 10.7 H Immature Gran % (Auto) 0.3 Neut % (Auto) 60.2 Lymph % (Auto) 23.8 [place] % (Auto) 9.5 H Eos % (Auto) 5.2 H Baso % (Auto) 1.0 Lymph # (Auto) 1.45 [place] # (Auto) 0.6 Eos # (Auto) 0.3 Baso # (Auto) 0.1 Abs Immat Gran (auto) 0.02 Absolute Neuts (auto) 3.7 Absolute Nucleated RBC 0.0 Nucleated RBC % 0.0 Sodium 138 Potassium 3.7 Chloride 104 Carbon Dioxide 28 Anion Gap 6 L BUN 21 H Creatinine 1.30 Estim Creat Clear Calc 44 Estimated GFR 53 L Glucose 152 H Calcium 8.0 L Magnesium 1.9 Iron TIBC % Saturat
[2022-11-23 12:41] LABS: Folic Acid > 20.0 ng/mL (2.76->20)
--- NOTE | 2022-11-23 12:52 | WPDGIPROGNO ---
Progress Note: A&P Assessment and Plan (1) Melena: Code(s): K92.1 - Melena Status: Acute Assessment and Plan: treated with egd will need to continue using protonix twice daily or equivalent (2) Upper GI bleed: Code(s): K92.2 - Gastrointestinal hemorrhage, unspecified Status: Acute (3) Acute blood loss anemia: Code(s): D62 - Acute posthemorrhagic anemia Status: Acute Assessment and Plan: h/h stable now (4) Syncope and collapse: Code(s): R55 - Syncope and collapse Status: Acute Assessment and Plan: probably from acute blood loss neurology on board (5) Gastric nodule: Code(s): K31.89 - Other diseases of stomach and duodenum Status: Acute Assessment and Plan: discussed with patient and family members I recommended to get EUS of stomach in 3-4 weeks to reassess site and better evaluation of nodule (patient had beatrice fundoplication and lesion was near cardia) (6) Gastric ulcer: Code(s): K25.9 - Gastric ulcer, unspecified as acute or chronic, without hemorrhage or perforation Status: Acute Assessment and Plan: on ppi tolerating diet Subjective Date/time seen: 11/23/22 12:52 Interval history: no more signs of bleeding, EGD yesterday with ulcerated site arising from nodule near cardia, treated and bleeding controlled. Review of Systems Review of Systems: All systems reviewed & are unremarkable except as noted in HPI and below Exam Const: General: comfortable and no acute distress HENMT: Face/Nose/Sinus: Normal nares present Eyes: General: appearance normal, both eyes and all related structures Neck: Neck: no JVD Resp: Auscultation: clear to auscultation bilaterally Cardio: Rate: regular rate Rhythm: regular rhythm GI: Inspection: non-distended GI Palp: Yes Soft to palpation, No Tenderness to palpation present (GI) and No Guarding due to palpation present (GI) Skin: General skin exam: normal color Neuro: Speech: normal speech Motor exam (neuro): 5/5 motor strength present throughout Extrem: General: normal to inspection Psych: Mental Status: mental status grossly normal Objective Data Vital Signs Vital Signs: Vital Signs - 24 hr 11/22/22 13:31 11/22/22 13:41 11/22/22 13:51 Temperature Pulse Rate 80 79 80 Respiratory Rate 20 18 16 Blood Pressure 107/55 L 111/65 116/68 Pulse Oximetry 100 100 98 Oxygen Delivery Room Air Room Air Room Air 11/22/22 21:44 11/22/22 20:00 11/22/22 20:00 Temperature 97.4 F L 97.4 F L Pulse Rate 95 95 Respiratory Rate 16 16 Blood Pressure 112/64 112/64 Pulse Oximetry 98 98 Oxygen Delivery Room Air 11/23/22 05:00 11/23/22 09:19 11/23/22 09:19 Temperature 98 F Pulse Rate 88 89 Respiratory Rate 16 Blood Pressure 107/54 L Pulse Oximetry 97 Oxygen Delivery Room Air Intake/Output Intake/Output: Intake & Output 11/20/22 11/21/22 11/22/22 11/23/22 23:59 23:59 23:59 23:59 Intake Total 550 1240 Output Total 700 Balance -496 614 9505 Meds/Results Medications: Active Medications Generic Name Dose Route Start Last Admin Trade Name Freq PRN Reason Stop Dose Admin Carvedilol 6.25 mg 11/22/22 09:00 11/23/22 09:19 Carvedilol 6.25 Mg Tablet PO 6.25 mg Q12HR VINICIUS Administration Furosemide 40 mg 11/22/22 09:00 11/23/22 09:19 Furosemide 40 Mg Tablet PO 40 mg QAM VINICIUS Administration Pantoprazole Sodium 40 mg 11/22/22 09:00 11/23/22 09:20 Pantoprazole Sodium Iv 40 Mg Vial IV PUSH 40 mg Q12HR VINICIUS Administration Perflutren Lipid Microsphere 0 ml 11/22/22 07:19 Perflutren Lipid Microspheres 1.5 Ml Vial Diluted To 10 Ml Total Volume IV PUSH 11/24/22 07:20 ONCE PRN adequate visualization Protocol Sacubitril/Valsartan 1 tab 11/22/22 09:00 11/23/22 09:19 Sacubitril/Valsartan 24-26 Mg Tablet PO 1 tab Q12HR VINICIUS Administration Spironolactone 25 mg
[2022-11-23 14:00] VITALS: BP 111/71; PULSE 95; RESP 16; TEMP 36.3; O2SAT 98
[2022-11-23] MEDS: IRON SUCROSE COMPLEX 500 MG in SODIUM CHLORIDE 0.9% IV 250 ML 78.57 MG IVPB (17:38)
[2022-11-23] MEDS: FERROUS SULFATE 324 MG TABLET PO (17:38)
[2022-11-23 21:50] VITALS: BP 112/71; PULSE 103; RESP 16; TEMP 36.8; O2SAT 97
[2022-11-24 06:00] VITALS: BP 102/63; PULSE 104; RESP 14; TEMP 36.6; O2SAT 95
[2022-11-24 06:30] LABS: Basophils Absolute Auto 0.1 K/mm3 (0.0-0.1); Eosinophils Absolute Auto 0.3 K/mm3 (0-0.3); Eosinophils Percent Auto 5.2 % (0-4.4); Hematocrit 25.7 % (42.0-52.0); Hemoglobin 8.3 g/dL (14.0-18.0); Immature Granulocyte Absolute 0.02 K/mm3 (0.00-0.031); Immature Granulocyte Percent A 0.4 % (0-0.5); Lymphocytes Absolute Auto 1.17 K/mm3 (0.9-3.2); Lymphocytes Percent Auto 22.4 % (18.3-44.2); Mean Corpuscular HGB Conc 32.3 g/dl (32-36); Mean Corpuscular Hemoglobin 30.2 pg (26-34); Mean Corpuscular Volume 93.5 fl (80-100); Mean Platelet Volume 10.7 fl (7.4-10.4); Monocytes Absolute Auto 0.5 K/mm3 (0.1-0.6); Monocytes Percent Auto 9.8 % (2.6-8.5); Neutrophils Absolute Auto 3.2 K/mm3 (1.3-6.7); Neutrophils Percent Auto 61.2 % (45.5-73.1); Platelet Count Result 173 k/mm3 (150-375); Red Blood Count 2.75 M/mm3 (4.6-6.20); Red Cell Distribution Width 13.4 % (11.5-14.5); White Blood Count 5.2 K/mm3 (4.5-10.0)
[2022-11-24 06:46] LABS: Alanine Aminotransferase 14 U/L (6-50); Albumin Level 3.6 g/dL (3.5-5.1); Alkaline Phosphatase 47 U/L (38-126); Anion Gap 4 mmol/L (8-16); Aspartate Amino Transferase 20 U/L (17-59); Bilirubin,Total 0.6 mg/dL (0.2-1.3); Blood Urea Nitrogen 19 mg/dL (9-20); Calcium 8.2 mg/dL (8.4-10.2); Carbon Dioxide 29 mmol/L (22-30); Chloride 101 mmol/L (98-107); Estimated CRCL calculation 47 ml/min; Estimated Glomerular Filt Rate 58; Glucose 144 mg/dL (65-110); Potassium 3.5 mmol/L (3.4-5.0); Sodium 134 mmol/L (137-145)
--- NOTE | 2022-11-24 07:50 | WPDGIPROGNO ---
Progress Note: A&P Assessment and Plan (1) Melena: Code(s): K92.1 - Melena Status: Acute Assessment and Plan: treated with egd will need to continue using protonix twice daily or equivalent on discharge hb low but relatively stable I talked to his GI doctor at [facility] last evening, he is aware of findings and will arrange EUS of stomach in 3-4 weeks (2) Gastric nodule: Code(s): K31.89 - Other diseases of stomach and duodenum Status: Acute Assessment and Plan: discussed with his GI doctor, patient and family members He will get EUS of stomach in 3-4 weeks to reassess site and better evaluation of nodule (patient had beatrice fundoplication and lesion was near cardia) (3) Upper GI bleed: Code(s): K92.2 - Gastrointestinal hemorrhage, unspecified Status: Acute Assessment and Plan: treated with egd (4) Acute blood loss anemia: Code(s): D62 - Acute posthemorrhagic anemia Status: Acute Assessment and Plan: h/h stable now (5) Syncope and collapse: Code(s): R55 - Syncope and collapse Status: Acute Assessment and Plan: probably from acute blood loss neurology on board (6) Gastric ulcer: Code(s): K25.9 - Gastric ulcer, unspecified as acute or chronic, without hemorrhage or perforation Status: Acute Assessment and Plan: on ppi tolerating diet Subjective Date/time seen: 11/24/22 07:50 Interval history: no more signs of bleeding, doing well Review of Systems Review of Systems: All systems reviewed & are unremarkable except as noted in HPI and below Exam Const: General: comfortable and no acute distress HENMT: Face/Nose/Sinus: Normal nares present Eyes: General: appearance normal, both eyes and all related structures Neck: Neck: no JVD Resp: Auscultation: clear to auscultation bilaterally Cardio: Rate: regular rate Rhythm: regular rhythm GI: Inspection: non-distended GI Palp: Yes Soft to palpation, No Tenderness to palpation present (GI) and No Guarding due to palpation present (GI) Skin: General skin exam: normal color Neuro: Speech: normal speech Motor exam (neuro): 5/5 motor strength present throughout Extrem: General: normal to inspection Psych: Mental Status: mental status grossly normal Objective Data Vital Signs Vital Signs: Vital Signs - 24 hr 11/23/22 09:19 11/23/22 09:19 11/23/22 14:00 Temperature 97.3 F L Pulse Rate 89 95 Respiratory Rate 16 Blood Pressure 111/71 Pulse Oximetry 98 Oxygen Delivery Room Air 11/23/22 21:50 11/23/22 20:00 11/24/22 06:00 Temperature 98.2 F 97.8 F Pulse Rate 103 H 104 H Respiratory Rate 16 14 Blood Pressure 112/71 102/63 Pulse Oximetry 97 95 Oxygen Delivery Room Air Intake/Output Intake/Output: Intake & Output 11/21/22 11/22/22 11/23/22 11/24/22 23:59 23:59 23:59 23:59 Intake Total 550 2280 25 Output Total 500 Balance 550 1780 25 Meds/Results Medications: Active Medications Generic Name Dose Route Start Last Admin Trade Name Freq PRN Reason Stop Dose Admin Carvedilol 6.25 mg 11/22/22 09:00 11/23/22 21:52 Carvedilol 6.25 Mg Tablet PO 6.25 mg Q12HR VINICIUS Administration Ferrous Sulfate 324 mg 11/23/22 17:00 11/23/22 17:38 Ferrous Sulfate 324 Mg Tablet PO 324 mg BIDWM VINICIUS Administration Furosemide 40 mg 11/22/22 09:00 11/23/22 09:19 Furosemide 40 Mg Tablet PO 40 mg QAM VINICIUS Administration Pantoprazole Sodium 40 mg 11/22/22 09:00 11/23/22 21:52 Pantoprazole Sodium Iv 40 Mg Vial IV PUSH 40 mg Q12HR VINICIUS Administration Sacubitril/Valsartan 1 tab 11/22/22 09:00 11/23/22 21:52 Sacubitril/Valsartan 24-26 Mg Tablet PO 1 tab Q12HR VINICIUS Administration Spironolactone 25 mg 11/22/22 09:00 11/23/22 09:19 Spironolactone 25 Mg Tablet PO 25 mg DAILY VINICIUS Administration Radiology Results: ITS Impressions Head CT 11/19/22 17:03 Impr
[2022-11-24 09:00] VITALS: BP 116/67; PULSE 89; RESP 16; TEMP 36.4; O2SAT 100
[2022-11-24 09:02] VITALS: BP 99/60; PULSE 88; O2SAT 99
[2022-11-24] MEDS: FERROUS SULFATE 324 MG TABLET PO (09:45)
[2022-11-24] MEDS: FUROSEMIDE 40 MG TABLET PO (09:45)
[2022-11-24 09:46] VITALS: PULSE 64
[2022-11-24] MEDS: carvediloL 6.25 MG TABLET PO (09:46)
[2022-11-24] MEDS: SPIRONOLACTONE 25 MG TABLET PO (09:47)
[2022-11-24] MEDS: PANTOPRAZOLE SODIUM IV 40 MG VIAL IV PUSH (09:47)
[2022-11-24] MEDS: SACUBITRIL/VALSARTAN 24-26 MG TABLET 1 TAB PO (09:48)
[2022-11-24 09:59] VITALS: BP 102/69; PULSE 99; O2SAT 99
--- NOTE | 2022-11-24 11:30 | PM.DS ---
DS: Admitting Diagnosis Discharge Date 11/24/22 1130 Admitting Diagnosis GI bleed and syncope/possible seizure DS: Discharge Diagnosis Discharge Diagnosis (1) Syncope and collapse: Code(s): R55 - Syncope and collapse Status: Acute Assessment and Plan: Family noted that patient complained of dizzy and diaphoretic, and found patient on the floor unresponsive, drooling, and clammy Head CT shows no significant abnormality orthostatic BP Negative for hypotension. Lying 125/59 sitting 120/55 standing 140/76 Consult neurology to rule out seizures Brain MRI normal aging brain Carotid doppler <50% stenosis echo EF 60 65% with grade 1 diastolic dysfunction with patent foramen ovale tele monitor (2) Essential hypertension: Code(s): I10 - Essential (primary) hypertension Status: Acute Assessment and Plan: Current BP is 102/69 Continue coreg and lasix Trend BP Adjust therapy as indicated (3) Diabetes type 2, controlled: Qualifiers: Diabetes mellitus complication status: without complication Diabetes mellitus terminal carman insulin use: without assisted use Qualified Code(s): E11.9 - Type 2 diabetes mellitus without complications Code(s): E11.9 - Type 2 diabetes mellitus without complications Status: Acute Assessment and Plan: Glucose 144 Check A1c 6.4 Diet controlled at home Continue to trend labs Adjust therapy as indicated (4) Congestive heart failure: Code(s): I50.9 - Heart failure, unspecified Status: Acute Assessment and Plan: Chronic systolic heart failure not in acute exacerbation Echo from 01/03 showed EF of 35-37% with no diastolic dysfunction Daily weights Continue carvedilol, Lasix, and Entresto Echo EF 60 65% with grade 1 diastolic dysfunction with patent foramen ovale Adjust therapy as indicated (5) Upper GI bleed: Code(s): K92.2 - Gastrointestinal hemorrhage, unspecified Status: Acute Assessment and Plan: Complaints of dark and tarry stools notable drop in H/H from 10.1/30.8 Currently 8.3/25.7 Occult blood is positive EGD did find an acute bleed GI consulted Protonix IV BID Hold aspirin Transfuse if HGB is <7.0 Anemia labs iron 37, TIBC 260, % sat 14, Transferrin 156, Ferritin 98.30, B12 625, Folate >20.0 Transfuse iron 500mg IV once (6) Acute blood loss anemia: Code(s): D62 - Acute posthemorrhagic anemia Status: Acute Assessment and Plan: See above In combination with iron deficiency anemia DS: Summary Hospital Course Hospital Course: Patient 82-year-old male with a past medical history of coronary artery disease, CABG, CHF, diabetes who presented to ED with complaints syncopal episode. According to the patient's and family the patient was noted to be on the floor foaming at the mouth, and decorticate posturing, diaphoretic and unresponsive. Patient laid on the floor for about a minute. Upon arrival to the ED patient was noted to have a hemoglobin of 10.6 which continually dropped throughout the entire admission however has remained stable and is currently 8.3. Patient has also been worked up for possible seizure brain MRI was normal, carotid Dopplers were less than 50% stenosis bilaterally. Neurology was consulted orthostatic blood pressures were negative for hypotension. Echo did show an EF of 60 65% with grade 1 diastolic dysfunction and a patent foramen ovale. Iron studies were performed and did show the patient was low on iron and patient got an iron infusion. Patient is also been started on oral iron as well. Neurology did order a EEG to further assess for possible seizures. Diabetes has been controlled A1c 6.4. GI was also consulted take patient for the EGD. Through his EEG was noted that he was having an active bleed which which intervention was taken bleed
--- NOTE | 2022-11-24 11:30 | P.DS_ITS ---
DS: Admitting Diagnosis Discharge Date 11/24/22 1130 Admitting Diagnosis GI bleed and syncope/possible seizure DS: Discharge Diagnosis Discharge Diagnosis (1) Syncope and collapse: Code(s): R55 - Syncope and collapse Status: Acute Assessment and Plan: * Family noted that patient complained of dizzy and diaphoretic, and found patient on the floor unresponsive, drooling, and clammy * Head CT shows no significant abnormality * orthostatic BP Negative for hypotension. Lying 125/59 sitting 120/55 standing 140/76 * Consult neurology to rule out seizures * Brain MRI normal aging brain * Carotid doppler <50% stenosis * echo EF 60 65% with grade 1 diastolic dysfunction with patent foramen ovale * tele monitor (2) Essential hypertension: Code(s): I10 - Essential (primary) hypertension Status: Acute Assessment and Plan: * Current BP is 102/69 * Continue coreg and lasix * Trend BP * Adjust therapy as indicated (3) Diabetes type 2, controlled: Qualifiers: Diabetes mellitus complication status: without complication Diabetes mellitus jail insulin use: without intermediate manager use Qualified Code(s): E11.9 - Type 2 diabetes mellitus without complications Code(s): E11.9 - Type 2 diabetes mellitus without complications Status: Acute Assessment and Plan: * Glucose 144 * Check A1c 6.4 * Diet controlled at home * Continue to trend labs * Adjust therapy as indicated (4) Congestive heart failure: Code(s): I50.9 - Heart failure, unspecified Status: Acute Assessment and Plan: * Chronic systolic heart failure not in acute exacerbation * Echo from 01/03 showed EF of 35-37% with no diastolic dysfunction * Daily weights * Continue carvedilol, Lasix, and Entresto * Echo EF 60 65% with grade 1 diastolic dysfunction with patent foramen ovale * Adjust therapy as indicated (5) Upper GI bleed: Code(s): K92.2 - Gastrointestinal hemorrhage, unspecified Status: Acute Assessment and Plan: * Complaints of dark and tarry stools * notable drop in H/H from 10.1/30.8 * Currently 8.3/25.7 * Occult blood is positive * EGD did find an acute bleed * GI consulted * Protonix IV BID * Hold aspirin * Transfuse if HGB is <7.0 * Anemia labs iron 37, TIBC 260, % sat 14, Transferrin 156, Ferritin 98.30, B12 625, Folate >20.0 * Transfuse iron 500mg IV once (6) Acute blood loss anemia: Code(s): D62 - Acute posthemorrhagic anemia Status: Acute Assessment and Plan: See above In combination with iron deficiency anemia DS: Summary Hospital Course Hospital Course: Patient 82-year-old male with a past medical history of coronary artery disease, CABG, CHF, diabetes who presented to ED with complaints syncopal episode. According to the patient's and family the patient was noted to be on the floor foaming at the mouth, and decorticate posturing, diaphoretic and unresponsive. Patient laid on the floor for about a minute. Upon arrival to the ED patient was noted to have a hemoglobin of 10.6 which continually dropped throughout the entire admission however has remained stable and is currently 8.3. Patient has also been worked up for possible seizure brain MRI was normal, carotid Dopplers were less than 50% stenosis bilaterally. Neurology was consulted orthostatic
--- NOTE | 2022-11-24 14:05 | WPDNEUROLOGY ---
Neurology EEG Report General Information Date of Study: 11/24/22 TEST EEG DIAGNOSIS syncope with unresponsiveness CONDITION OF RECORDING awake drowsy and sleep EEG NUMBER [id number] CLINICAL HISTORY patient reports he had a GI bleed and lost consciousness from the loss of blood feels fine now EEG DESCRIPTION basic resting occipital frequency consists of well-organized low voltage 9 to 11 hertz per 2nd alpha admixed with low-voltage 15 to 18 hertz per 2nd beta. Bilateral symmetrical sleep activity seen during sleep. Hyperventilation not done. Photic stimulation not done. Multiple movement artifacts are noted throughout the tracing. Non paroxysmal. Nonfocal. Nonlateralizing. IMPRESSION Normal record
[2022-11-24 14:48] VITALS: BP 99/61; PULSE 94; RESP 16; TEMP 36.7; O2SAT 100
--- NOTE | 2022-11-24 14:51 | PC.NURSE ---
Pt discharging home with family. Pt has been cleared by neurology to discharge home. Pt is A&O4 and compliant with care. Pt has participated and contributed in plan of care for the duration of his admission. Pt has no complaints and expresses no needs at this time. While here pt received an Iron infusion on 11/23 which pt tolerated well. Will continue to monitor pt until discharge.
== END 2022-11-24 15:45 | disposition home or self-care (01) | DRG 378 ==
LOC: ANHED 11-20 13:42 → ANH3MEDSUR 11-21 19:45
PROVIDERS: General Practice; Internal Medicine Gastroenterology; Nurse Practitioner; Physician Assistant; Admitting Provider Internal Medicine; Emergency Provider Emergency Medicine; PCP Family Medicine; Visit Provider Nurse Practitioner
PROC: 0DJ08ZZ Inspection of Upper Intestinal Tract, Via Natural or Artificial Opening Endoscopic (ICD-10-PCS; CPT 43235; principal; 2022-11-22 13:30)
DX: K25.0 Acute gastric ulcer with hemorrhage (principal); D62 Acute posthemorrhagic anemia; I50.22 Chronic systolic (congestive) heart failure; R55 Syncope and collapse; K31.89 Other diseases of stomach and duodenum; D13.1 Benign neoplasm of stomach; D50.9 Iron deficiency anemia, unspecified; K44.9 Diaphragmatic hernia without obstruction or gangrene; I11.0 Hypertensive heart disease with heart failure; R56.9 Unspecified convulsions; I25.5 Ischemic cardiomyopathy; E11.9 Type 2 diabetes mellitus without complications; I25.10 Atherosclerotic heart disease of native coronary artery without angina pectoris; Z20.822 Contact with and (suspected) exposure to COVID-19; Z96.652 Presence of left artificial knee joint; Z96.612 Presence of left artificial shoulder joint; Z95.1 Presence of aortocoronary bypass graft; Z79.82 Long term (current) use of aspirin
CPT/HCPCS: 36415; 70450; 70551; 71045; 74177; 80053; 81001; 82607; 82728; 82746; 83036; 83540; 83550; 83605; 83735; 83880; 84443; 84466; 84484; 85014; 85018; 85025; 85610; 85730; 87081; 87636; 88305; 93005; 93306; 93880; 94640; 95816; 96361; 96374; 96375; 96376; 99285; A9270; C9113; G0378; J0171; J1756; J2370; J2704; J7040; J7050; J7120; Q9967

== ENCOUNTER 2023-02-16 09:04 | Outpatient (CLI) | payer MEDICARE, SELFPAY ==
--- NOTE | 2023-02-16 12:17 | P.PCNPFT_ITS ---
PFT Procedure Performed PFT Procedure Performed Spirometry with Pre/Post Bronchodilator Plethysmography (Lung Vol) Diffusing Cap (DLCO) Flow Vol Loop PFT Interpretation This is a pulmonary function test with pre and post-bronchodilator spirometry, plethysmography and diffusing capacity. The test was performed and results interpreted in accordance with the 2019 and 2005 ATS/ERS Task Force guidelines respectively using the Global Lung Function Initiative-2012 reference equations. Patient demonstrated good effort and cooperation. Reproducibility criteria were met. The quality of the pre bronchodilator spirometry maneuver was Grade B and post bronchodilator spirometry maneuver was Grade B. Findings: Spirometry: There is decreased maximal expiratory airflow at all lung volumes with concave expiratory flow tracing. The contour the inspiratory flow tracing is normal. The pre bronchodilator FVC is 2.53 L, 61% predicted. The pre bronchodilator FEV1 is 1.22 L, 40% predicted. The pre bronchodilator FEV1: FVC ratio is 48%. The post bronchodilator FVC is 3.01 L, representing and 19% increase. The post bronchodilator FEV1 is 1.50 L, representing a 23% increase. The post bronchodilator FEV1: FVC ratio is 50%. Plethysmography: The total lung capacity is 7.22 L, 97% predicted. The func tional residual capacity is 5.30 L, 130% predicted. The residual volume is 4.69 L, 168% predicted. Diffusion capacity: The diffusing capacity unadjusted for hemoglobin and carboxyhemoglobin is 19.0, 78% predicted. The diffusing capacity adjusted for alveolar volume is 4.07, 117% predicted. Impression: There is a severe obstructive abnormality with significant improvement after inhaling a single dose of albuterol. The increase in residual volume is consistent with air trapping from an obstructive abnormality. The diffusing capacity is normal. There are no prior studies for comparison
== END 2023-02-16 09:05 | disposition home or self-care (01) ==
LOC: ANHPFT 09:05
PROVIDERS: PCP Family Medicine; Visit Provider Family Medicine
DX: R06.02 Shortness of breath (principal); R94.2 Abnormal results of pulmonary function studies
CPT/HCPCS: 94060; 94726; 94729

== ENCOUNTER 2023-04-24 16:54 | Outpatient (CLI) | payer MEDICARE, SELFPAY ==
--- NOTE | ~2023-04-24 | CT_ITS ---
EXAMINATION: CT abdomen pelvis w con DATE: 04/24/2023 17:29 INDICATION: Stomach wall thickening. TECHNIQUE: Computed tomography (CT) of the abdomen and pelvis was performed with 100 mL Omnipaque 350 intravenous contrast. Automated exposure control and iterative reconstruction technique were employe d. The dose-length product was 856.15 mGy-cm. COMPARISON: CT abdomen and pelvis 11/22/2022 FINDINGS: The visualized portions of the lung bases demonstrate mild atelectasis. No pleural effusion . There is mild bilateral gynecomastia. The heart size is normal. There are coronary artery calcifica tions. No pericardial effusion. There are changes of fundoplication of the stomach with the wrap abov e the diaphragm. There is wall thickening of the distal esophagus. There are cysts in the liver measu ring up to 1.7 cm . Again seen is a 1.4 cm hyperenhancing mass in left hepatic lobe, likely benign. T he gallbladder, spleen, pancreas, and adrenal glands are normal. There is cortical thinning of the ki dneys. There are 2 mm and 1 mm stones in left kidney. The prostate is moderately enlarged. There are bilateral hernias containing fat. There is diverticulosis of the colon without evidence of diverticul itis. The appendix is not visualized. There is calcified atherosclerosis of the aorta and many of the other arteries. There are no pathologically enlarged lymph nodes. There is no free intraperitoneal f luid. There is an umbilical hernia containing fat. There is severe thoracic spondylosis. There is mil d chronic anterior wedging of multiple vertebral bodies. IMPRESSION: 1. Fundoplication of the stomach with the wrap above the diaphragm. 2. Wall thickening of the distal esophagus, consistent with esophagitis. Reviewed, dictated and finalized at location E.
[2023-04-24 17:22] LABS: Estimated Glomerular Filt Rate 45
== END 2023-04-24 16:55 | disposition home or self-care (01) ==
PROVIDERS: PCP Family Medicine; Visit Provider Nurse Practitioner Family
DX: R93.89 Abnormal findings on diagnostic imaging of other specified body structures (principal)
CPT/HCPCS: 74177; Q9967

== ENCOUNTER 2023-08-24 10:04 | Outpatient (CLI) | payer MEDICARE, SELFPAY ==
--- NOTE | 2023-08-25 06:42 | WPDSIXMINUTE ---
Six Minute Walk Procedure Procedure Performed Pulmonary Stress Test (6 min walk) Six Minute Walk Six Minute Walk: This is a 6 minute walk test. The test was performed and interpreted in accordance with the 2014 ERS/ATS task force guidelines. Findings: The patient's resting room air oxygen saturation measured by pulse oximetry was 96% and heart rate was 89 bpm. Patient ambulated for 274 meters and oxygen saturation remained 95 to 97%. Heart rate at the end of the study was 120 bpm. The patient did not qualify for supplemental oxygen at rest or with ambulation. There are no prior studies for comparison.
--- NOTE | 2023-08-25 06:43 | WPDPFTINT ---
PFT Procedure Performed PFT Procedure Performed Spirometry with Pre/Post Bronchodilator Plethysmography (Lung Vol) Diffusing Cap (DLCO) Flow Vol Loop PFT Interpretation This is a pulmonary function test with pre and post-bronchodilator spirometry, plethysmography and diffusing capacity. The test was performed and results interpreted in accordance with the 2019 and 2005 ATS/ERS Task Force guidelines respectively using the Global Lung Function Initiative-2012 reference equations. Patient demonstrated good effort and cooperation. Reproducibility criteria were met. The quality of the pre bronchodilator spirometry maneuver was Grade A and post bronchodilator spirometry maneuver was Grade A. Findings: Spirometry: There is decreased maximal expiratory airflow at all lung volumes with a concave expiratory flow tracing. The contour the inspiratory flow tracing is normal. The pre bronchodilator FVC is 2.75 L, 70% predicted. The pre bronchodilator FEV1 is 1.54 L, 53% predicted. The FEV1: FVC ratio is 56%. The post bronchodilator FVC is 3.04 L, representing a 10% increase. The post bronchodilator FEV1 is 1.71 L, representing an 11% increase. The post bronchodilator FEV1: FVC ratio is 56%. Plethysmography: The total lung capacity is 6.47 L, 89% predicted. The functional residual capacity is 4.00 L, 101% predicted. The residual volume is 3.55 L, 129% predicted. Diffusing capacity: The diffusing capacity unadjusted for hemoglobin and carboxyhemoglobin is 20.6, 86% predicted. The diffusing capacity adjusted for alveolar volume is 4.05, 115% predicted. Impression: There is a moderately severe obstructive abnormality without significant improvement after inhaling a single dose of albuterol. The increase in residual volume is consistent with air trapping from an obstructive abnormality. The diffusing capacity is normal. There are no prior studies for comparison
== END 2023-08-24 10:05 | disposition home or self-care (01) ==
LOC: ANHPFT 10:06
PROVIDERS: PCP Family Medicine; Visit Provider Internal Medicine Pulmonary Disease
DX: J45.909 Unspecified asthma, uncomplicated (principal); R94.2 Abnormal results of pulmonary function studies
CPT/HCPCS: 94060; 94618; 94726; 94729

== ENCOUNTER 2024-08-05 15:47 | Emergency (ER) | payer MEDICARE, SELFPAY ==
--- NOTE | ~2024-08-05 | XR_ITS ---
CHEST RADIOGRAPH, PA AND LATERAL CLINICAL HISTORY: FALL FROM LADDER . COMPARISON: 11/19/2022 TECHNIQUE: PA and lateral views of the chest. FINDINGS Sternal wires and mediastinal clips are identified, the wires are midline and intact. The remainder of the cardiomediastinal silhouette is otherwise unremarkable. The lungs are clear. Visualized osseous structures and soft tissues are unremarkable. IMPRESSION: No focal infiltrate or effusion. Reviewed, dictated and finalized at location A.
--- NOTE | ~2024-08-05 | CT_ITS ---
History: Fall PROCEDURE: CT head without contrast. COMPARISON: 11/19/2022 TECHNIQUE: Axial imaging of the head performed from the skull base to the vertex without IV contrast. Sagittal a nd coronal reformations obtained. FINDINGS: The ventricles are normal in size, shape and position. There is no mass, mass effect or midline shift. There is no abnormal extra-axial fluid collection or intracranial hemorrhage. Visualized paranasal sinuses are clear. The mastoid air cells are well aerated. There are no skull fractures. Right occipital scalp hematoma, with large skin defect. Impression: No acute intracranial hemorrhage or suspicious mass effect. Large right occipital scalp hematoma without underlying fracture Reviewed, dictated and finalized at location A. Impression: No acute intracranial hemorrhage or suspicious mass effect. Large right occipital scalp hematoma without underlying fracture
--- NOTE | ~2024-08-05 | CT_ITS ---
History: Fall PROCEDURE: CT thoracic spine without intravenous contrast. COMPARISON: None TECHNIQUE: Multiple contiguous axial images of the thoracic spine were performed without the administration of i ntravenous contrast. DLP: 1500.98 mGy-cm FINDINGS: Kyphosis is present. No acute fractures are present. Densely calcified atherosclerotic disease within the thoracic aorta. No soft tissue abnormality is present. Degenerative disease is noted, with osteophyte formation, disc space narrowing, endplate changes and vacuum phenomena. The visualized lung barlow are unremarkable. Impression: Degenerative disease, without acute fracture. Reviewed, dictated and finalized at location A. Impression: Degenerative disease, without acute fracture.
--- NOTE | ~2024-08-05 | XR_ITS ---
HISTORY: fall COMPARISON: None TECHNIQUE: Single frontal view of the pelvis was performed. FINDINGS: No acute or subacute fracture, erosion, lytic or sclerotic lesion. Narrowing and sclerosis of the superior lateral femoral acetabular joint spaces suggesting osteoarthr itis. Narrowing and sclerosis of the bilateral sacroiliac joints as well as the pubic symphysis. Degenerative disease visualized within the lower lumbar spine. Air opacified rectum is noted. Soft tissues are unremarkable without foreign body or significant calcification. IMPRESSION: Degenerative disease, without acute or subacute fracture, as detailed above. If clinical suspicion persists, cross-sectional imaging (noncontrast enhanced CT examination of the p elisa) is suggested for further evaluation. Reviewed, dictated and finalized at location A. IMPRESSION: Degenerative disease, without acute or subacute fracture, as briana led above. If clinical suspicion persists, cross-sectional imaging (noncontrast enhanced C T examination of the pelvis) is suggested for further evaluation.
--- NOTE | ~2024-08-05 | CT_ITS ---
History: Fall PROCEDURE: CT cervical spine without intravenous contrast. COMPARISON: 07/22/2018 TECHNIQUE: Multiple contiguous axial images of the cervical spine were performed without the administration of i ntravenous contrast. DLP: 507.19 mGy-cm FINDINGS: Straightening and slight reversal of the normal curvature of the cervical spine is present. No acute fractures are detected. The bilateral lung apices are unremarkable. No soft tissue abnormality is present. The airway is patent. Severe degenerative disease is noted with osteophyte formation, disc space narrowing, endplate change s and vacuum phenomena. Heterogeneous appearance of the bone marrow is detected. Impression: Degenerative disease, without acute fracture. Reviewed, dictated and finalized at location A. Impression: Degenerative disease, without acute fracture.
[2024-08-05 15:46] VITALS: BP 157/89; PULSE 70; RESP 20; TEMP 36.7; O2SAT 100
--- NOTE | 2024-08-05 15:58 | ED.FALL ---
HPI - Fall General Chief Complaint: Fall Stated Complaint: fall Time Seen by Provider: 08/05/24 15:52 Source: patient Mode of arrival: EMS Limitations: no limitations History of Present Illness HPI Narrative: This is a 83 year old male that presents to the ER after a fall today with head injury. Reports he fell off of about a 3 foot ladder. The ladder tipped over. He hit his head. He did not lose consciousness. Reports headache, neck pain and upper back pain. Denies vomiting, focal numbness or weakness. Related Data Allergies Allergy/AdvReac Type Severity Reaction Status Date / Time levofloxacin [From Levaquin] AdvReac Severe Muscle Pain Verified 08/05/24 15:56 Review of Systems Review of Systems: CONSTITUTIONAL: Denies fever EYES: Denies visual changes GASTROINTESTINAL: Denies vomiting MUSCULOSKELETAL: Reports back pain, and myalgia. NEUROLOGIC: Reports headache. Denies numbness, or weakness. All systems reviewed & are unremarkable except as noted in HPI and below PMFSH Past Medical History Medical History Abdominal bloating Acute blood loss anemia Acute bronchitis due to other specified organisms Bilateral leg edema BMI 26.0-26.9,adult BMI 27.0-27.9,adult BMI 28.0-28.9,adult BMI 29.0-29.9,adult BMI 30.0-30.9,adult Bulging of cervical intervertebral disc Congestive heart failure Cough Diabetes type 2, controlled Dietary counseling and surveillance (09/25/18) Dizziness Essential hypertension Excessive cerumen in both ear canals Excessive cerumen in right ear canal Gastric nodule Gastric ulcer Hernia Hiatal hernia Hx of hiatal hernia Injury of lateral plantar nerve, left leg, initial encounter Injury of other nerves at ankle and foot level, right leg, initial encounter Ischemic cardiomyopathy Melena Multiple fractures of ribs, left side, initial encounter for closed fracture Neck pain Rib pain on right side Screening for diabetes mellitus Screening for lipid disorders Screening for prostate cancer Screening for thyroid disorder Shortness of breath Upper GI bleed Surgical History Surgical History H/O cardiac catheterization H/O sinus surgery History of heart bypass surgery History of hernia surgery History of knee replacement Left total knee History of Esmer fundoplication Hx of CABG 4 vessel S/P shoulder replacement Left shoulder Family History Family History Mother Family history of lung cancer Family history of malignant neoplasm Father Sibling No problems noted. Sibling , breast cancer No problems noted. Social History Social History Social History: The patient lives with his and they have 3 children. 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 He also retired from the [employer]. 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 HEAD: Normocephalic. Hematoma to the posterior scalp with 5cm irregular laceration overlying EYES: MASSIMO larry
[2024-08-05] MEDS: LIDO 1%/EPINEPHRINE 1:100,000 20 ML VIAL 10 ML INFILTRATE (17:12)
[2024-08-05] MEDS: TETANUS,DIPHTHERIA,AC PERTUSSIS ADULT (0.5 ML) BOOSTRIX IM (17:17)
[2024-08-05 18:21] VITALS: BP 166/89; PULSE 77; RESP 16; O2SAT 99
== END 2024-08-05 18:22 | disposition home or self-care (01) ==
PROVIDERS: Emergency Provider Physician Assistant; PCP Family Medicine
DX: S01.01XA Laceration without foreign body of scalp, initial encounter (principal); Z23 Encounter for immunization; I50.9 Heart failure, unspecified; E11.9 Type 2 diabetes mellitus without complications; I11.0 Hypertensive heart disease with heart failure; Z95.1 Presence of aortocoronary bypass graft; Z96.652 Presence of left artificial knee joint; Z96.612 Presence of left artificial shoulder joint; Z77.22 Contact with and (suspected) exposure to environmental tobacco smoke (acute) (chronic); W11.XXXA Fall on and from ladder, initial encounter
CPT/HCPCS: 12002; 70450; 71046; 72125; 72128; 72170; 90471; 90715; 99284; J2004

== ENCOUNTER 2024-08-14 15:59 | Emergency (ER) | payer MEDICARE, SELFPAY ==
[2024-08-14 16:15] VITALS: BP 168/86; PULSE 88; RESP 16; TEMP 36.5; O2SAT 97
--- NOTE | 2024-08-14 16:22 | ED_ITS ---
HPI - Back Pain/Injury General Chief Complaint: Back Pain/Injury <Leandra Mendoza PA-C - Last Filed: 08/15/24 12:31> Stated Complaint: lower back pain <Leandra Mendoza PA-C - Last Filed: 08/15/24 12:31> Time Seen by Provider: 08/14/24 16:22 <Leandra Mendoza PA-C - Last Filed: 08/15/24 12:31> Focused HPI: This is a 83 year old male that presents to the ER for low back pain. Reports a fall a week ago. Was evaluated in the ER after this. Has had persistent low back pain since. Now reports some nausea and vomiting ongoing since last night. Denies numbness or weakness. GENERAL: Well-appearing, well-nourished, and in no acute distress. HEAD: Normocephalic, atraumatic. CHEST: Clear to auscultation. ?No respiratory distress. HEART: Regular rate and rhythm.? NEURO: ?Alert and oriented x3. Patient screened in triage and initial orders placed.? ?Additional care and disposition to be based upon?diagnostic testing and treatment. <Leandra Mendoza PA-C - Last Filed: 08/15/24 12:31> History of Present Illness HPI Narrative: patient states that he has low back pain from a fall a week ago, it is now better, but he did have bad nausea vomiting last night, with some abdominal pain. Since he has been in the emergency room over the last few hours his symptoms have completely resolved. <Eloina Mansfield MD - Last Filed: 08/14/24 23:27> Related Data Allergies/Adverse Reactions: Allergies Allergy/AdvReac Type Severity Reaction Status Date / Time levofloxacin [From Levaquin] AdvReac Severe Muscle Pain Verified 08/12/24 09:44 <Leandra Mendoza PA-C - Last Filed: 08/15/24 12:31> Review of Systems Review of Systems: All systems reviewed & are unremarkable except as noted in HPI and below <Eloina Mansfield MD - Last Filed: 08/14/24 23:27> PMFSH Past Medical History Medical History: Medical History Abdominal bloating Acute blood loss anemia Acute bronchitis due to other specified organisms Bilateral leg edema BMI 28.0-28.9,adult Bulging of cervical intervertebral disc Congestive heart failure Cough Diabetes type 2, controlled Dietary counseling and surveillance (09/25/18) Dizziness Essential hypertension Excessive cerumen in both ear canals Excessive cerumen in right ear canal Gastric nodule Gastric ulcer Hernia Hiatal hernia Hx of hiatal hernia Injury of lateral plantar nerve, left leg, initial encounter Injury of other nerves at ankle and foot level, right leg, initial encounter Ischemic cardiomyopathy Melena Multiple fractures of ribs, left side, initial encounter for closed fracture Neck pain Rib pain on right side Screening for diabetes mellitus Screening for lipid disorders Screening for prostate cancer Screening for thyroid disorder Shortness of breath Upper GI bleed <Leandra Mendoza PA-C - Last Filed: 08/15/24 12:31> Surgical History Surgical History: Surgical History H/O cardiac catheterization H/O sinus surgery History of heart bypass surgery History of hernia surgery History of knee replacement Left total knee History of Esmer fundoplication Hx of CABG 4 vessel S/P shoulder replacement Left shoulder <Leandra Mendoza PA-C - Last Filed: 08/15/24 12:31> Family History Family History: Family History Mother Family history of lung cancer Family history of malignant neoplasm Father Sibling No problems noted. Sibling , breast cancer No problems noted. <Leandra Mendoza PA-C - Last Filed: 08/15/24 12:31> Social History Social History: Social History Social History: The patient lives with his and they have 3 children. 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 He also retired from the [employer]. 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 EYES: EOMI, conjunctiva normal ENT: Hearing grossly intact LUNGS: Nonlabored breathing. HEART: [Regular rate and rhythm] ABD: [Soft], [nontender to palpation] EXT: Normal range of motion; slight TTP to L lower back SKIN: [No rashes or lesions.] NEURO: [Alert and oriented x 3. No gross focal sensory or strength deficits.] PSYCH: Normal affect <Eloina Mansfield MD - Last Filed: 08/14/24 23:27> Course Vital Signs Vital signs: Vital Signs Temperature 97.7 F 08/14/24 16:15 Pulse Rate 88 08/14/24 16:15 Respiratory Rate 16 08/14/24 16:15 Blood Pressure 168/86 H 08/14/24 16:15 Pulse Oximetry 97 08/14/24 16:15 Oxygen Delivery Room Air 08/14/24 16:15 Temperature 97.7 F 08/14/24 16:15 Pulse Rate 81 08/15/24 01:26 Respiratory Rate 14 08/15/24 01:26 Blood Pressure 148/84 H 08/15/24 01:26 Pulse Oximetry 98 08/15/24 01:26 Oxygen Delivery Room Air 08/14/24 16:15 <Leandra Mendoza PA-C - Last Filed: 08/15/24 12:31> Vital Signs Temperature 97.7 F 08/14/24 16:15 Pulse Rate 88 08/14/24 16:15 Respiratory Rate 16 08/14/24 16:15 Blood Pressure 168/86 H 08/14/24 16:15 Pulse Oximetry 97 08/14/24 16:15 Oxygen Delivery Room Air 08/14/24 16:15 Temperature 97.7 F 08/14/24 16:15 Pulse Rate 81 08/15/24 01:26 Respiratory Rate 14 08/15/24 01:26 Blood Pressure 148/84 H 08/15/24 01:26 Pulse Oximetry 98 08/15/24 01:26 Oxygen Delivery Room Air 08/14/24 16:15 <Eloina Mansfield MD - Last Filed: 08/14/24 23:27> MDM - Back Pain/Injury MDM Narrative Medical decision making narrative: Patient presents with persistent left lower back pain after fall a week ago, I did review the imaging from then and did not see any obvious fractures. He has no midline tenderness and overall is quite well appearing, no focal neurologic deficits. I will trial lidocaine patch for him, he states that he did take an Aleve at home earlier and his pain has since resolved. He had also initially had very bad nausea vomiting over the night, which is partly why he came in, however this has also completely resolved. He is quite well a ppearing, denying any complaints, agreeable to trying lidocaine patch, at bedside, since he has already waited for so long agreeable to getting labs. This is unremarkable. Stable for discharge with return precautions. <Eloina Mansfield MD - Last Filed: 08/14/24 23:27> Lab Data Result diagrams: 08/14/24 22:40 08/14/24 22:40 <Leandra Mendoza PA-C - Last Filed: 08/15/24 12:31> Labs: Lab Results 08/14/24 08/14/24 Range/Units 22:40 23:12 WBC 8.7 (4.5-10.0) K/mm3 RBC 4.43 L (4.6-6.20) M/mm3 Hgb 13.1 L D (14.0-18.0) g/dL Hct 39.5 L (42.0-52.0) % MCV 89.2 (80-100) fl MCH 29.6 (26-34) pg MCHC 33.2 (32-36) g/dl RDW 13.1 (11.5-14.5) % Plt Count 227 (150-375) k/mm3 MPV 10.0 (7.4-10.4) fl Immature Gran % (Auto) 0.1 (0-0.5) % Neut % (Auto) 69.0 (45.5-73.1) % Lymph % (Auto) 21.3 (18.3-44.2) % Isabela % (Auto) 6.6 (2.6-8.5) % Eos % (Auto) 2.3 (0-4.4) % Baso % (Auto) 0.7 (0.2-1.2) % Lymph # (Auto) 1.86 (0.9-3.2) K/mm3 Isabela # (Auto) 0.6 (0.1-0.6) K/mm3 Eos # (Auto) 0.2 (0-0.3) K/mm3 Baso # (Auto) 0.1 (0.0-0.1) K/mm3 Abs Immat Gran (auto) 0.01 (0.00-0.031) K/mm3 Absolute Neuts (auto) 6.0 (1.3-6.7) K/mm3 Absolute Nucleated RBC 0.000 (0.0-0.012) K/mm3 Nucleated RBC % 0.0 (0.0-0.2) % Sodium 140 (137-145) mmol/L Potassium 3.7 (3.4-5.0) mmol/L Chloride 104 (98-107) mmol/L Carbon Dioxide 26 (22-30) mmol/L Anion Gap 10 (4-12) mmol/L BUN 21 H (9-20) mg/dL Creatinine 1.10 (0.7-1.3) mg/dL Estim Creat Clear Calc 50 ml/min Estimated GFR > 60 (59 - ) Glucose 119 H (65-110) mg/dL Calcium 9.3 (8.4-10.2) mg/dL Total Bilirubin 0.9 (0.2-1.3) mg/dL AST 28 (17-59) U/L ALT 18 (6-50) U/L Alkaline Phosphatase 62 (38-126) U/L Total Protein 8.0 (6.3-8.2) g/dL Albumin 4.3 (3.5-5.1) g/dL Lipase 51 (23-300) U/L Urine Color Yellow (Yellow) Urine Appearance Clear (Clear) Urine pH 5.0 (5.0-9.0) Ur Specific Sheldon 1.029 (1.001-1.035) Urine Protein Trace (Negative) mg/dL Urine Glucose (UA) Negative (Negative) mg/dL Urine Ketones Trace H (Negative) mg/dL Ur Blood (Man) Negative (Negative) Urine Nitrate Negative (Negative) Urine Bilirubin Negative (Negative) Urine Urobilinogen 0.2 (<2.0) mg/dL Leukocyte Esterase Rfl Negative (Negative) BARRY/UL Urine RBC 0-2 (0-2) /hpf Urine WBC 0-5 (0-3) /hpf Ur Squamous Epith Cells None seen (Few) /hpf Urine Bacteria None seen /hpf Urine Casts 3-5 <Leandra Mendoza PA-C - Last Filed: 08/15/24 12:31> Lab Results 08/14/24 08/14/24 Range/Units 22:40 23:12 WBC 8.7 (4.5-10.0) K/mm3 RBC 4.43 L (4.6-6.20) M/mm3 Hgb 13.1 L D (14.0-18.0) g/dL Hct 39.5 L (42.0-52.0) % MCV 89.2 (80-100) fl MCH 29.6 (26-34) pg MCHC 33.2 (32-36) g/dl RDW 13.1 (11.5-14.5) % Plt Count 227 (150-375) k/mm3 MPV 10.0 (7.4-10.4) fl Immature Gran % (Auto) 0.1 (0-0.5) % Neut % (Auto) 69.0 (45.5-73.1) % Lymph % (Auto) 21.3 (18.3-44.2) % Isabela % (Auto) 6.6 (2.6-8.5) % Eos % (Auto) 2.3 (0-4.4) % Baso % (Auto) 0.7 (0.2-1.2) % Lymph # (Auto) 1.86 (0.9-3.2) K/mm3 Isabela # (Auto) 0.6 (0.1-0.6) K/mm3 Eos # (Auto) 0.2 (0-0.3) K/mm3 Baso # (Auto) 0.1 (0.0-0.1) K/mm3 Abs Immat Gran (auto) 0.01 (0.00-0.031) K/mm3 Absolute Neuts (auto) 6.0 (1.3-6.7) K/mm3 Absolute Nucleated RBC 0.000 (0.0-0.012) K/mm3 Nucleated RBC % 0.0 (0.0-0.2) % Sodium 140 (137-145) mmol/L Potassium 3.7 (3.4-5.0) mmol/L Chloride 104 (98-107) mmol/L Carbon Dioxide 26 (22-30) mmol/L Anion Gap 10 (4-12) mmol/L BUN 21 H (9-20) mg/dL Creatinine 1.10 (0.7-1.3) mg/dL Estim Creat Clear Calc 50 ml/min Estimated GFR > 60 (59 - ) Glucose 119 H (65-110) mg/dL Calcium 9.3 (8.4-10.2) mg/dL Total Bilirubin 0.9 (0.2-1.3) mg/dL AST 28 (17-59) U/L ALT 18 (6-50) U/L Alkaline Phosphatase 62 (38-126) U/L Total Protein 8.0 (6.3-8.2) g/dL Albumin 4.3 (3.5-5.1) g/dL Lipase 51 (23-300) U/L Urine Color Yellow (Yellow) Urine Appearance Clear (Clear) Urine pH 5.0 (5.0-9.0) Ur Specific Sheldon 1.029 (1.001-1.035) Urine Protein Trace (Negative) mg/dL Urine Glucose (UA) Negative (Negative) mg/dL Urine Ketones Trace H (Negative) mg/dL Ur Blood (Man) Negative (Negative) Urine Nitrate Negative (Negative) Urine Bilirubin Negative (Negative) Urine Urobilinogen 0.2 (<2.0) mg/dL Leukocyte Esterase Rfl Negative (Negative) BARRY/UL Urine RBC 0-2 (0-2) /hpf Urine WBC 0-5 (0-3) /hpf Ur Squamous Epith Cells None seen (Few) /hpf Urine Bacteria None seen /hpf Urine Casts 3-5 <Eloina Mansfield MD - Last Filed: 08/14/24 23:27> Critical Care Time Critical Care Time Critical Care Time: No <Leandra Mendoza PA-C - Last Filed: 08/15/24 12:31> Discharge Plan Discharge Clinical Impression: Nausea Low back pain Qualifiers: Chronicity: acute Back pain laterality: midline Sciatica presence: without sciatica Qualified Code(s): M54.50 - Low back pain, unspecified <CHANDANA Vasquez Last Filed: 08/15/24 12:31> Patient Disposition: Home, Self-Care <CHANDANA Vasquez Last Filed: 08/15/24 12:31> Condition: Stable <CHANDANA Vasquez Last Filed: 08/15/24 12:31> Instructions: Antibiotic Form, Back Pain (ED) <CHANDANA Vasquez Last Filed: 08/15/24 12:31> Prescriptions: New acetaminophen [Tylenol Extra Strength] 500 mg tablet 1,000 mg PO Q6H PRN (Reason: pain) Qty: 50 0RF lidocaine 5 % adhesive patch,medicated 1 patch topical DAILY Qty: 15 0RF Rx Instructions: leave on most painful area for up to 12 hrs ondansetron 4 mg tablet,disintegrating 4 mg PO Q8H PRN (Reason: nausea and vomiting) Qty: 10 0RF No Action albuterol sulfate 90 mcg/actuation HFA aerosol inhaler See Rx Instructions inhalation Q6H PRN (Reason: shortness of breath or wheezing) Qty: 8.5 1RF Rx Instructions: 1-2 puffs inhaled every 6 hours PRN; <Leandra Mendoza PA-C - Last Filed: 08/15/24 12:31> Follow-up/Referrals: Carlos Clayton MD [Primary Care Provider] - 2 Days <CHANDANA Vasquez Last Filed: 08/15/24 12:31>
[2024-08-14 22:46] LABS: Basophils Absolute Auto 0.1 K/mm3 (0.0-0.1); Basophils Percent Auto 0.7 % (0.2-1.2); Eosinophils Absolute Auto 0.2 K/mm3 (0-0.3); Eosinophils Percent Auto 2.3 % (0-4.4); Hematocrit 39.5 % (42.0-52.0); Hemoglobin 13.1 g/dL (14.0-18.0); Immature Granulocyte Absolute 0.01 K/mm3 (0.00-0.031); Immature Granulocyte Percent A 0.1 % (0-0.5); Lymphocytes Absolute Auto 1.86 K/mm3 (0.9-3.2); Lymphocytes Percent Auto 21.3 % (18.3-44.2); Mean Corpuscular HGB Conc 33.2 g/dl (32-36); Mean Corpuscular Hemoglobin 29.6 pg (26-34); Mean Corpuscular Volume 89.2 fl (80-100); Monocytes Absolute Auto 0.6 K/mm3 (0.1-0.6); Monocytes Percent Auto 6.6 % (2.6-8.5); Platelet Count Result 227 k/mm3 (150-375); Red Blood Count 4.43 M/mm3 (4.6-6.20); Red Cell Distribution Width 13.1 % (11.5-14.5); White Blood Count 8.7 K/mm3 (4.5-10.0)
[2024-08-14 22:57] LABS: Alanine Aminotransferase 18 U/L (6-50); Albumin Level 4.3 g/dL (3.5-5.1); Alkaline Phosphatase 62 U/L (38-126); Anion Gap 10 mmol/L (4-12); Aspartate Amino Transferase 28 U/L (17-59); Bilirubin,Total 0.9 mg/dL (0.2-1.3); Blood Urea Nitrogen 21 mg/dL (9-20); Calcium 9.3 mg/dL (8.4-10.2); Carbon Dioxide 26 mmol/L (22-30); Chloride 104 mmol/L (98-107); Estimated CRCL calculation 50 ml/min; Estimated Glomerular Filt Rate > 60; Glucose 119 mg/dL (65-110); Lipase 51 U/L (23-300); Potassium 3.7 mmol/L (3.4-5.0); Sodium 140 mmol/L (137-145)
[2024-08-14 23:18] VITALS: BP 162/88; PULSE 76; RESP 15; O2SAT 98
[2024-08-14] MEDS: LIDOCAINE 5% PATCH 1 PATCH TRANSDERM (23:18)
[2024-08-14 23:21] LABS: Add Urine Microscopic? YES; Appearance Urine Clear (Clear); Bacteria Urine None Seen /hpf; Bilirubin Urine Negative (Negative); Blood Urine Negative (Negative); Color Urine Yellow (Yellow); Glucose Urine UA Negative (Negative); Ketones Urine Trace mg/dL (Negative); Leukocyte Esterase Ur Negative LEU/UL (Negative); Nitrate Urine Negative (Negative); Protein Urine Trace mg/dL (Negative); RBC Urine 0-2 /hpf (0-2); Specific Grav Ur 1.029 (1.001-1.035); Squamous Epithelial Cell Urine None Seen /hpf (Few); Urobilinogen Urine 0.2 mg/dL (<2.0); WBC Urine 0-5 /hpf (0-3)
[2024-08-15 01:26] VITALS: BP 148/84; PULSE 81; RESP 14; O2SAT 98
== END 2024-08-15 01:28 | disposition home or self-care (01) ==
PROVIDERS: Physician Assistant; Emergency Provider Emergency Medicine; PCP Family Medicine
DX: M54.50 Low back pain, unspecified (principal); R11.0 Nausea; W19.XXXA Unspecified fall, initial encounter; E11.9 Type 2 diabetes mellitus without complications; I50.9 Heart failure, unspecified; I11.0 Hypertensive heart disease with heart failure; Z96.652 Presence of left artificial knee joint; Z96.612 Presence of left artificial shoulder joint; Z95.1 Presence of aortocoronary bypass graft
CPT/HCPCS: 36415; 80053; 81001; 83690; 85025; 99283; A9270

== ENCOUNTER 2024-09-08 11:31 | Outpatient (CLI) | payer MEDICARE, SELFPAY ==
--- NOTE | ~2024-09-08 | XR_ITS ---
EXAMINATION: XR chest 2V Exam Date/Time: 09/08/2024 11:45 JOB COACHING HISTORY: R06.02 - Shortness of breath Comparison: 08/05/2024. RESULT: Lines, tubes, and devices: Intact sternotomy wires. Soft tissue anchors over the GE junction. Partia lly visualized left shoulder arthroplasty hardware. Lungs and pleura: Emphysematous/senescent change. Bibasilar scar/atelectasis. Cardiomediastinal silhouette: Stable. Other: No acute osseous or upper abdominal finding. IMPRESSION: No acute cardiopulmonary process. Reviewed, dictated and finalized at location K. COACHING
[2024-09-08 12:57] LABS: Influenza A QL RT-PCR Negative (Negative); Influenza B QL RT-PCR Negative (Negative); RSV RNA, RT-PCR Negative (Negative); SARS-CoV-2 RNA PCR Negative (Negative)
== END 2024-09-08 11:32 | disposition home or self-care (01) ==
PROVIDERS: PCP Family Medicine; Visit Provider Nurse Practitioner Family
DX: R06.02 Shortness of breath (principal); R05.9 Cough, unspecified
CPT/HCPCS: 71046; 87637

== ENCOUNTER 2024-11-23 13:23 | Inpatient (IN) | payer MEDICARE, SELFPAY ==
[2024-11-23] VITALS (13 sets, daily range): BP systolic 107–177; BP diastolic 82–103; PULSE 67–100; RESP 14–20; TEMP 36.3–36.4; O2SAT 95–99; BMI 3487.2
--- NOTE | ~2024-11-23 | XR_ITS ---
CHEST RADIOGRAPH CLINICAL HISTORY: WEAKNESS . COMPARISON: 09/08/2024 TECHNIQUE: Single portable view of the chest. FINDINGS Sternal wires and mediastinal clips are identified, the wires are midline and intact. The remainder of the cardiomediastinal silhouette is otherwise unremarkable. The lungs are clear. IMPRESSION: No focal infiltrate or effusion. Reviewed, dictated and finalized at location A. TEAM TRUCK DRIVER
--- NOTE | ~2024-11-23 | MR_ITS ---
EXAMINATION: MR brain/brain stem wo con DATE: 11/24/2024 12:58 INDICATION: Right hemiparesis. TECHNIQUE: Magnetic resonance imaging (MRI) of the brain and brainstem was performed without intraven ous contrast. COMPARISON: Brain MRI 11/22/2022, head CT 11/23/2024 FINDINGS: There is an acute infarct involving the left basal ganglia and left internal capsule. There are scattered areas of nonspecific increased T2-weighted signal intensity in the cerebral white kyle er, which is within normal limits for the patient's age. There is no intracranial hemorrhage or abnor mal mass lesion. The ventricles are normal in size. There is mild mucosal thickening in the ethmoid s inuses. There are likely changes of ocular lens replacement surgeries. There are trace bilateral mast oid effusions. IMPRESSION: 1. Acute infarct involving the left basal ganglia and left internal capsule. Reviewed, dictated and finalized at location A. SPORTATION PLANNER
--- NOTE | ~2024-11-23 | CT_ITS ---
CTA brain carotid Ordering provider: Wood Don MD History: . Right-sided facial droop, right-sided weakness . Comparison: Reference is made to an MRI examination of the brain dated 11/22/2022. Technique: CT angiogram head and neck was performed following timed intravenous injection of contrast . Thin slice axial images and reformatted coronal images were obtained. Three dimensional reformatted images of the brain were also obtained using a [employer] workstation. DLP: 1636 mGy-cm FINDINGS: HEAD: --ANTERIOR AND MIDDLE CEREBRAL ARTERIES AND BRANCHES: Normal caliber and contour. --INTRACRANIAL INTERNAL CAROTID ARTERIES: Densely calcified atheromatous disease without significant stenosis. No occlusion. --BASILAR ARTERY AND BRANCHES: Normal caliber and contour. No significant atheromatous disease. --POSTERIOR CEREBRAL ARTERIES: Normal caliber and contour --POSTERIOR COMMUNICATING ARTERIES: Not well visualized likely related to congenital absence or small size. --ANEURYSM: None visualized. --BRAIN: The ventricles are enlarged. The dilatation of the ventricles is proportional to the degree of sulcal prominence, not uncommon in the senescent brain. Decreased attenuation is identified within the periventricular white matter, likely secondary to micr ovascular ischemic disease, in a patient of this age. There is no mass, mass effect or midline shift. There is no abnormal extra-axial fluid collection or intracranial hemorrhage. --BONES AND SUPERFICIAL SOFT TISSUES: No acute displaced fractures within the overlying cranium. --PARANASAL SINUSES AND MASTOIDS: Visualized paranasal sinuses are clear. The mastoid air cells are well aerated. NECK: --RIGHT CERVICAL CAROTID SYSTEM: Mild atheromatous disease of the carotid bulb and proximal internal carotid artery without significant stenosis. Percent stenosis per NASCET criteria is 0% No carotid d issection. . --LEFT CERVICAL CAROTID SYSTEM: Mild atheromatous disease of the carotid bulb and proximal internal c arotid artery without significant stenosis. Percent stenosis per NASCET criteria is 0% No carotid di ssection. --VERTEBRAL ARTERIES: Normal caliber and contour. --VISUALIZED AORTIC ARCH AND BRANCHING VESSELS: Moderate atheromatous disease but no significant sten osis. --SOFT TISSUES: Unremarkable --CERVICAL SPINE: Age appropriate degenerative changes. IMPRESSION: 1. Unremarkable CTA head of the and neck. 2. Percent stenosis per NASCET criteria is 0% Reviewed, dictated and finalized at location A. COURSE ARCHITECT
--- NOTE | 2024-11-23 13:26 | ECG_ITS ---
Test Date: 2024-11-23 13:31:21 Measurements Intervals [place] Rate: 80 P: 51 UT: 183 QRS: -31 QRSD: 154 T: 56 QT: 408 QTc: 472 Interpretive Statements SINUS RHYTHM VENTRICULAR PREMATURE COMPLEX LEFT AXIS DEVIATION POSSIBLE LEFT ATRIAL ENLARGEMENT RIGHT BUNDLE BRANCH BLOCK MINIMAL Q WAVES- ANTERIOR LEADS BASELINE ARTIFACT- I, III, AVL, V2 ABNORMAL ECG No previous ECG available for comparison Electronically Signed On 11-23-2024 14:31:01 INTERIOR DESIGN PRINCIPAL by Willie Green D.O.
--- OUTSIDE RECORDS SUMMARY | 2024-11-23 13:26 | XMS_ITS | Encounter Summary ---
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
--- OUTSIDE RECORDS SUMMARY | 2024-11-23 13:26 | XMS_ITS | Clinical Summary ---
Author Organization [facility] Address [address], [address] [address] Phone Care Team Providers Care International Logistics Coordinator Name Role Phone Carlos Clayton MD Primary Care Provider [phone] Allergies Active Allergy Reactions Criticality Noted Date Comments Levofloxacin Other (see Comments) 05/07/2019 Pt doesn't remember what happens when he takes this drug but does remember it giving him unusual side effects. Medications omeprazole (PRILOSEC) 40 MG CAPSULE DELAYED RELEASE Take 1 Cap by mouth daily. 90 Cap 3 04/10/2019 Active Social History Tobacco Use Types Packs/Day Years Used Date Smoking Tobacco: Never Smokeless Tobacco: Never Alcohol Use Standard Drinks/Week Comments Not Currently 0 (1 standard drink = 0.6 oz pur e alcohol) Sex and Gender Information Value Date Recorded Sex Assigned at Not on file Legal Sex Male 11:52 PM CDT Gender Identity Not on file Sexual Orientation Not on file Last Filed Vital Signs Vital Sign Reading Time Taken Comments Blood Pressure 148/76 05/07/2019 9:16 AM CDT Pulse 107 05/07/2019 9:16 AM CDT Temperature - - Respiratory Rate - - Oxygen Saturation 96% 05/07/2019 9:16 AM CDT Inhaled Oxygen Concentration - - Weight 96.1 kg (211 lb 12.8 oz) 05/07/2019 9:16 AM CDT Height - - Body Mass Index - - Plan of Treatment Health Maintenance Due Date Last Done Comments Hepatitis C Virus (HCV) Screening 1940 TdaP Immunization 1940 Zoster Immunization (1 of 2) 1991 Pneumococcal Immunization (5 0+ years) (2 of 2 - PCV) 10/27/2011 10/27/2010 Respiratory Syncytial Virus (RSV) Immunization (Adult) (1 - 1-dose 75+ series) 2016 Influenza Immunization (#1) 2024 SARS-COV-2 Immunization (1 - 2023- season) 2024 DTaP/Tdap/Td Immunization Discontinued 10/27/2010 Pneumococcal Immunization Combined Discontinued 10/27/2010 Hepatitis B Immunization Aged Out No longer eligible based on patient's age to complete this topic Meningococcal Immunization (ACWY) Aged Out No longer eligible based on patient's age to complete this topic Rotavirus Immunization Aged Out No lo nger eligible based on patient's age to complete this topic Insurance [facility] Care Teams International Logistics Coordinator Relationship Specialty Start Date End Date Carlos Clayton MD [address] [place] [address] PCP - General Family Medicine 02/27/19
--- OUTSIDE RECORDS SUMMARY | 2024-11-23 13:26 | XMS_ITS | Clinical Summary ---
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
--- OUTSIDE RECORDS SUMMARY | 2024-11-23 13:26 | XMS_ITS | Encounter Summary ---
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
--- OUTSIDE RECORDS SUMMARY | 2024-11-23 13:26 | XMS_ITS | CONTINUITY OF CARE DOCUMENT ---
Author Name tish winston Address Unknown Organization [facility] Address [address] [place] [address] Phone [phone] Care Team Providers Care Pathology Laboratory Aide Name Role Phone Lionel Fitch MD Unavailable INSURANCE PROVIDERS Payer name Policy type / Coverage type Staci red republican ID [facility] [id number] [place] [employer] Medicare [id number]
--- OUTSIDE RECORDS SUMMARY | 2024-11-23 13:26 | XMS_ITS | Clinical Summary ---
Author Organization [facility] [place] [address] Address [address] [place] [address] Care Team Providers Care Notching Press Operator Name Role Phone Carlos Clayton MD Primary Care Provider [phone] Flex Aguillon MD Unavailable [phone] Stephane Alvarez MD Unavailable [phone] Jovanny Preston DO Unavailable [phone] Allergies Active Allergy Reactions Criticality Noted Date Comments Levofloxacin Muscle pain Medium 05/07/2019 Pt doesn't remember what happens when he takes this drug but does remember it giving him unusual side effects. Medications multivitamin capsuleIndicati ons:Vitamin Deficiency Prevention Take 1 capsule by mouth every morning Active losartan (COZAAR) 50 mg tablet Take 1 tablet (50 mg total) by mouth daily 90 tablet 3 3 Active albuterol HFA (PROVENTIL HFA,VENTOLIN HFA,PROAIR HFA) 90 mcg/actuation inhaler Inhale 2 puffs as needed for shortness of breath or wheezing 3 Active Wixela Inhub 250-50 mcg/dose diskus inhaler Inhale 1 puff 2 (two) times a day 3 Active Active Problems Problem Noted Date Diagnosed Date Belching 03/08/2023 Bloating 12/01/2022 Overview (12/01/2022): Added automatically from request for surgery [id number] H/O: upper GI bleed 12/01/2022 Overview (12/01/2022): Added automatically from request for surgery [id number] 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 Overview (10/26/2022): Added automatically from request for surgery [id number] Ischemic cardiomyopathy 03/14/2022 Essential hypertension 06/19/2019 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 Overview (06/03/2019): Added automatically from request for surgery [id number] Iron deficiency anemia, unspecified 04/03/2019 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/20 17 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 Coronary arteriosclerosis in [place] artery 11/24 Overview (01/18/2017): Coronary arteriosclerosis in [place] artery Anemia 11/24/2014 Overview (01/18/2017): Anemia Obstructive sleep apnea syndrome 11/24/2014 Overview (01/18/2017): Obstructive sleep apnea syndrome Chronic coronary artery disease Overview (02/21/2019): Coronary artery disease Resolved Problems Problem Noted Date Diagnosed Date Resolved Date Iron deficiency anemia [place] to inadequate dietary iron intake 05/21/2018 9 Immunizations Name Administration Dates Next Due Pneumococcal Polysaccharide PPV23 10/27/2010 TD Preservative Free 10/27/2010 Surgical History Surgery Date Site/Laterality Comments TOTAL KNEE ARTHROPLASTY 10/15/2010 - 10/14/2011 Left SINUS SURGERY SHOULDER ARTHROPLASTY Left CORONARY ARTERY BYPASS GRAFT 10/15/2011 - 10/14/2012 4 vessel COLONOSCOPY HERNIA REPAIR UPPER GASTROINTESTINAL ENDOSCOPY Medical History Medical History Date Comments Osteoarthritis Asthma Chronic coronary artery disease NSTEMI 2011 DVT (deep venous thrombosis) (CMS/HCC) (HCC) 201 6 Hiatal hernia Diverticulosis GERD (gastroesophageal reflux disease) Anemia Sleep apnea GI bleed Chronic diarrhea Bloating Belching Family History Medical History Relation Name Comments Stent Brother 2 Coronary Stent Placement; Lung cancer Mother Cancer, lung; Other Sister unknown heart p roblems; Anesthesia problems Neg Hx Relation Name Status Comments Brother 1 Alive Brother 2 Mother (Age 77) Sister Social History Tobacco Use Types Packs/Day Years Used Date Smoking Tobacco: Never Passive Smoke Exposure: Never Smokeless Tobacco: Never Tobacco Cessation:Counseling Given: Not Answered Alcohol Use Standard Drinks/Week Comments No 0 (1 standard drink = 0.6 oz pur e alcohol) AUDIT-C Answer Date Recorded Q1: How often do you have a drink containing alc ohol? Never 01/19/2023 Average Number of Drinks Not on file 023 Frequency of Binge Drinking Not on file 04/2023 Personal Safety Answer Date Recorded Have you ever been in or are you currently in a harmful physical or emotional relationship or is someone making you feel afraid or unsafe? 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 Gender Identity Not on file Sexual Orientation Not on file Obstetrics History Last Filed Vital Signs Vital Sign Reading Time Taken Comments Blood Pressure 158/70 04/01/2024 9:53 AM CDT Pulse 96 04/01/2024 9:53 AM CDT Temperature 36.1 C (97 F) 05/11/2023 1:39 PM CDT Respiratory Rate 18 05/11/2023 2:33 PM CDT Oxygen Saturation 97% 04/01/2024 9:53 AM CDT Inhaled Oxygen Concentration - - Weight 94.6 kg (208 lb 9.6 oz) 04/01/2024 9:53 A M CDT Height 180.3 cm (5' 11 ) 04/01/2024 9:53 AM CDT Body Mass Index 29.09 04/01/2024 9:53 AM CDT Plan of Treatment Health Maintenance Due Date Last Done Comments Depression Screening 1941 Hepatitis B Screening 1959 Zoster Vaccine (1 of 2) 1991 Well Visit 65+ 2006 DTaP/Tdap/Td Vaccine (1 - Tdap) 10/28/2010 1 Pneumococcal vaccine 65+ (2 of 2 - PCV) 10/27/2011 0 10/27/2010 Fall Risk Assessment 05/11/2024 05/11/2023 Influenza Vaccine (#1) 2024 Medical Devices Implanted Type Area Pain Management Specialist Device Identifier Shelf Expiration Date Model / Serial / Lot Wl [employer] [id number] [place] [employer]-A 10x7cm Reinforcement Tissue Mesh Surgical Synthetic - [id number] - [id number] Implanted:Qty: 1 on 06/30/2019 by Yayo Ponce MD at [facility] Other - see comments N/A: Stomach Wl [employer] [id number] 01/12/2022 [id number] / [id number] / 0 Description:[place] Bio-[employer] Tissue Reinforcement Joint Replacement Left: Knee Joint Replacement Left: Shoulder Insurance MEDICARE [facility] SENIOR SUPPLEMENT MEDICARE AETNA SENIOR SUPPLEMENT [facility] MEDICARE MEDICARE AETNA Advance Directives For more information, please contact: [phone] * Full Code (Latest Code Status on File) Date Activated Date Inactivated Comments 05/11/2023 11:28 AM 05/14/2023 2:23 PM * Full Code Date Activated Date Inactivated Comments 06/30/2019 10:29 PM 07/03/2019 8:40 PM Care Teams Notching Press Operator Relationship Specialty Start Date End Date Carlos Clayton MD PCP - General Family Medicine 01/28/19 Flex Aguillon MD Cardiology 02/14/19 Stephane Alvarez MD Medical Oncologist/Filer Helper Medical Oncology 02/19/19 Jovanny Preston DO Consulting Physician Gastroenterology 02/19/19
--- OUTSIDE RECORDS SUMMARY | 2024-11-23 13:26 | XMS_ITS | Referral Summary ---
Author Organization [facility] [place] [address] Address [address] [place] [address] Care Team Providers Care Rawhide Bone Roller Name Role Phone Carlos Clayton MD Primary Care Provider [phone] Flex Aguillon MD Unavailable [phone] Stephane Alvarez MD Unavailable [phone] Jovanny Preston DO Unavailable [phone] Allergies Active Allergy Reactions Criticality Noted [...] (12/01/2022): Added automatically from request for surgery [id number] H/O: upper GI bleed 12/01/2022 Overview (12/01/2022): Added automatically from request for surgery [id number] 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 Overview (10/26/2022): Added automatically from request for surgery [id number] Ischemic cardiomyopathy 03/14/2022 Essential hypertension 06/19/2019 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 Overview (06/03/2019): Added automatically from request for surgery [id number] Iron deficiency anemia, unspecified 04/03/2019 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/20 17 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 Coronary arteriosclerosis in [place] artery 11/24 Overview (01/18/2017): Coronary arteriosclerosis in [place] artery Anemia 11/24/2014 Overview (01/18/2017): Anemia Obstructive sleep apnea syndrome 11/24/2014 Overview (01/18/2017): Obstructive sleep apnea syndrome Chronic coronary artery disease Overview (02/21/2019): Coronary artery disease Resolved Problems Problem Noted Date Diagnosed Date Resolved Date Iron deficiency anemia [place] to inadequate dietary iron intake 05/21/2018 9 Immunizations Name Administration Dates Next Due Pneumococcal Polysaccharide PPV23 10/27/2010 TD Preservative Free 10/27/2010 Social History Tobacco Use Types Packs/Day Years [...] on file 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 Gender Identity Not on file Sexual Orientation [...] 04/01/2024 9:53 AM CDT Plan of Treatment Not on file Medical Devices Implanted Type Area Sales Clerk Device Identifier Shelf Expiration Date Model / Serial / Lot Wl [employer] [employer] [id number] [place] Bio-A 10x7cm Reinforcement Tissue Mesh Surgical Synthetic - [id number] - [id number] Implanted:Qty: 1 on 06/30/2019 by Yayo Ponce MD at [facility] Other - see comments N/A: Stomach Wl [employer] [employer] [id number] 01/12/2022 [id number] / [id number] / 0 Description:[place] [employer] Tissue Reinforcement Joint Replacement Left: Knee Joint Replacement Left: Shoulder Insurance MEDICARE [facility] Address: [address] [place] [phone] AETNA SENIOR SUPPLEMENT MEDICARE AETNA SENIOR SUPPLEMENT [facility] TRADITIONAL MEDICARE [facility] Address: [address] [place] [phone] MEDICARE AETNA Advance Directives For more information, please contact: [phone] * Full Code (Latest Code Status on File) Date Activated Date Inactivated Comments 05/11/2023 11:28 AM 05/14/2023 2:23 PM * Full Code Date Activated Date Inactivated Comments 06/30/2019 10:29 PM 07/03/2019 8:40 PM Care Teams Rawhide Bone Roller Relationship Specialty Start Date End Date Carlos Clayton MD PCP - General Family Medicine 01/28/19 Flex Aguillon MD Cardiology 02/14/19 Stephane Alvarez MD Medical Oncologist/Dairy Truck Driver Medical Oncology 02/19/19 Jovanny Preston DO Consulting Physician Gastroenterology 02/19/19
--- OUTSIDE RECORDS SUMMARY | 2024-11-23 13:26 | XMS_ITS | Encounter Summary ---
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
[2024-11-23 13:45] LABS: Basophils Absolute Auto 0.1 K/mm3 (0.0-0.1); Basophils Percent Auto 0.6 % (0.2-1.2); Eosinophils Absolute Auto 0.1 K/mm3 (0-0.3); Hematocrit 43.4 % (42.0-52.0); Hemoglobin 14.2 g/dL (14.0-18.0); Immature Granulocyte Absolute 0.04 K/mm3 (0.00-0.031); Immature Granulocyte Percent A 0.4 % (0-0.5); Lymphocytes Absolute Auto 1.93 K/mm3 (0.9-3.2); Lymphocytes Percent Auto 20.1 % (18.3-44.2); Mean Corpuscular HGB Conc 32.7 g/dl (32-36); Mean Corpuscular Hemoglobin 28.7 pg (26-34); Mean Corpuscular Volume 87.7 fl (80-100); Mean Platelet Volume 10.1 fl (7.4-10.4); Monocytes Absolute Auto 0.7 K/mm3 (0.1-0.6); Monocytes Percent Auto 7.3 % (2.6-8.5); Neutrophils Absolute Auto 6.8 K/mm3 (1.3-6.7); Neutrophils Percent Auto 70.6 % (45.5-73.1); Platelet Count Result 218 k/mm3 (150-375); Red Blood Count 4.95 M/mm3 (4.6-6.20); Red Cell Distribution Width 13.8 % (11.5-14.5); White Blood Count 9.6 K/mm3 (4.5-10.0)
[2024-11-23 13:55] LABS: Alanine Aminotransferase 18 U/L (6-50); Albumin Level 4.5 g/dL (3.5-5.1); Alkaline Phosphatase 62 U/L (38-126); Anion Gap 10 mmol/L (4-12); Aspartate Amino Transferase 25 U/L (17-59); Bilirubin,Total 1.2 mg/dL (0.2-1.3); Blood Urea Nitrogen 21 mg/dL (9-20); Calcium 9.7 mg/dL (8.4-10.2); Carbon Dioxide 25 mmol/L (22-30); Chloride 106 mmol/L (98-107); Estimated Glomerular Filt Rate > 60; Glucose 117 mg/dL (65-110); Potassium 4.4 mmol/L (3.4-5.0); Sodium 141 mmol/L (137-145)
[2024-11-23 14:22] LABS: Influenza A QL RT-PCR Negative (Negative); Influenza B QL RT-PCR Negative (Negative); RSV RNA, RT-PCR Negative (Negative); SARS-CoV-2 RNA PCR Negative (Negative)
--- OUTSIDE RECORDS SUMMARY | 2024-11-23 14:35 | XMS_ITS | Clinical Summary ---
Author Organization [facility] [place] [address] Address [address] [place] [address] Care Team Providers Care Senior Analysis Specialist Name Role Phone Carlos Clayton MD Primary Care Provider [phone] Flex Aguillon MD Unavailable [phone] Stephane Alvarez MD Unavailable [phone] Jovanny Preston DO Unavailable [phone] Allergies Active Allergy Reactions Criticality Noted [...] (12/01/2022): Added automatically from request for surgery [id number] H/O: upper GI bleed 12/01/2022 Overview (12/01/2022): Added automatically from request for surgery [id number] 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 Overview (10/26/2022): Added automatically from request for surgery [id number] Ischemic cardiomyopathy 03/14/2022 Essential hypertension 06/19/2019 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 Overview (06/03/2019): Added automatically from request for surgery [id number] Iron deficiency anemia, unspecified 04/03/2019 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/20 17 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 Coronary arteriosclerosis in [place] artery 11/24 Overview (01/18/2017): Coronary arteriosclerosis in [place] artery Anemia 11/24/2014 Overview (01/18/2017): Anemia Obstructive [...] on file 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 Gender Identity Not on file Sexual Orientation [...] (#1) 2024 Medical Devices Implanted Type Area Inside Sales Account Executive Device Identifier Shelf Expiration Date Model / Serial / Lot Wl [employer] [id number] [place] Bio-A 10x7cm Reinforcement Tissue Mesh Surgical Synthetic - [id number] - [id number] Implanted:Qty: 1 on 06/30/2019 by Yayo Ponce MD at [facility] Other - see comments N/A: Stomach Wl [employer] [id number] 01/12/2022 [id number] / [id number] / 0 Description:[place] [employer] Tissue Reinforcement Joint Replacement Left: Knee Joint Replacement Left: Shoulder Insurance MEDICARE [facility] Address: [facility] [address] [place] [address] [facility] SENIOR SUPP[facility] MEDICARE AETNA SENIOR SUPPLEMENT [facility] MEDICARE MEDICARE AETNA Advance Directives For more information, please contact: [phone] * Full Code (Latest Code Status on File) Date Activated Date Inactivated Comments 05/11/2023 11:28 AM 05/14/2023 2:23 PM * Full Code Date Activated Date Inactivated Comments 06/30/2019 10:29 PM 07/03/2019 8:40 PM Care Teams Senior Analysis Specialist Relationship Specialty Start Date End Date Carlos Clayton MD PCP - General Family Medicine 01/28/19 Flex Aguillon MD Cardiology 02/14/19 Stephane Alvarez MD Medical Oncologist/Automation Specialist Medical Oncology 02/19/19 Jovanny Preston DO Consulting Physician Gastroenterology 02/19/19
--- OUTSIDE RECORDS SUMMARY | 2024-11-23 14:35 | XMS_ITS | Referral Summary ---
Author Organization [facility] [place] [address] Address [address] [place] [address] Care Team Providers Care Shrink Pit Supervisor Name Role Phone Carlos Clayton MD Primary Care Provider [phone] Flex Aguillon MD Unavailable [phone] Stephane Alvarez MD Unavailable [phone] Jovanny Preston DO Unavailable [phone] Allergies Active Allergy Reactions Criticality Noted [...] (12/01/2022): Added automatically from request for surgery [id number] H/O: upper GI bleed 12/01/2022 Overview (12/01/2022): Added automatically from request for surgery [id number] 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 Overview (10/26/2022): Added automatically from request for surgery [id number] Ischemic cardiomyopathy 03/14/2022 Essential hypertension 06/19/2019 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 Overview (06/03/2019): Added automatically from request for surgery [id number] Iron deficiency anemia, unspecified 04/03/2019 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/20 17 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 Coronary arteriosclerosis in [place] artery 11/24 Overview (01/18/2017): Coronary arteriosclerosis in [place] artery Anemia 11/24/2014 Overview (01/18/2017): Anemia Obstructive [...] on file 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 Gender Identity Not on file Sexual Orientation [...] on file Medical Devices Implanted Type Area Service Unit Operator Oil Well Device Identifier Shelf Expiration Date Model / Serial / Lot Wl [employer] [id number] [place] [employer]-A 10x7cm Reinforcement Tissue Mesh Surgical Synthetic - [id number] - [id number] Implanted:Qty: 1 on 06/30/2019 by Yayo Ponce MD at [facility] Other - see comments N/A: Stomach Wl [employer] [id number] 01/12/2022 [id number] / [id number] / [id number] Description:[place] [employer] Tissue Reinforcement Joint Replacement Left: Knee Joint Replacement Left: Shoulder Insurance MEDICARE [facility] Address: [address] [place] [phone] AETNA SENIOR SUPPLEMENT MEDICARE AETNA SENIOR SUPPLEMENT [facility] TRADITIONAL MEDICARE [facility] Address: [address] [place] [phone] MEDICARE AETNA Advance Directives For more information, please contact: [phone] * Full Code (Latest Code Status on File) Date Activated Date Inactivated Comments 05/11/2023 11:28 AM 05/14/2023 2:23 PM * Full Code Date Activated Date Inactivated Comments 06/30/2019 10:29 PM 07/03/2019 8:40 PM Care Teams Shrink Pit Supervisor Relationship Specialty Start Date End Date Carlos Clayton MD PCP - General Family Medicine 01/28/19 Flex Aguillon MD Cardiology 02/14/19 Stephane Alvarez MD Medical Oncologist/Contact Worker Medical Oncology 02/19/19 Jovanny Preston DO Consulting Physician Gastroenterology 02/19/19
--- OUTSIDE RECORDS SUMMARY | 2024-11-23 14:35 | XMS_ITS | CONTINUITY OF CARE DOCUMENT ---
Author Name tish winston Address Unknown Organization [facility] Address [address] [address] [place] [address] Phone [phone] Care Team Providers Care Sack Department Supervisor Name Role Phone Lionel Fitch MD Unavailable INSURANCE PROVIDERS Payer name Policy type / Coverage type Staci red democrat ID [facility] [id number] [employer] MEDICARE Medicare [id number]
--- OUTSIDE RECORDS SUMMARY | 2024-11-23 14:35 | XMS_ITS | Clinical Summary ---
Author Organization [facility] Address [address], [address] [address] Phone Care Team Providers Care Information Operator Name Role Phone Carlos Clayton MD Primary Care Provider [phone] Allergies Active Allergy Reactions Criticality Noted Date [...] patient's age to complete this topic Insurance [facility] Care Teams Information Operator Relationship Specialty Start Date End Date Carlos Clayton MD [address] [place] [address] PCP - General Family Medicine 02/27/19
--- OUTSIDE RECORDS SUMMARY | 2024-11-23 14:35 | XMS_ITS | Encounter Summary ---
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
--- OUTSIDE RECORDS SUMMARY | 2024-11-23 14:35 | XMS_ITS | Encounter Summary ---
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
--- OUTSIDE RECORDS SUMMARY | 2024-11-23 14:35 | XMS_ITS | Encounter Summary ---
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
--- OUTSIDE RECORDS SUMMARY | 2024-11-23 14:35 | XMS_ITS | Clinical Summary ---
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
[2024-11-23 14:55] LABS: Add Urine Microscopic? NO; Appearance Urine Clear (Clear); Bilirubin Urine Negative (Negative); Blood Urine Negative (Negative); Color Urine Yellow (Yellow); Glucose Urine UA Negative (Negative); Ketones Urine Negative (Negative); Leukocyte Esterase Ur Negative LEU/UL (Negative); Nitrate Urine Negative (Negative); Protein Urine Negative (Negative); Urobilinogen Urine 0.2 mg/dL (<2.0); pH Urine 5.5 (5.0-9.0)
--- NOTE | 2024-11-23 15:57 | ED_ITS ---
HPI - General Adult General Chief complaint: Weakness Stated complaint: weakness Time Seen by Provider: 11/23/24 14:20 History of Present Illness HPI narrative: 84-year-old male presenting the emergency department for evaluation for right- sided weakness that started at some point yesterday. Patient states he feels that his right arm right leg are weak when he is having increased gait instability. Patient also has new onset of right-sided facial droop. Patient states that perhaps symptoms started on Sunday morning. Patient did not tell his he is having difficulty walking until Sunday afternoon. Patient does have a significant cardiac history with history of CABG approximately 9 years ago. Patient denies any prior history of CVA. Patient does have history of diabetes Related Data Allergies Allergy/AdvReac Type Severity Reaction Status Date / Time levofloxacin (From Levaquin) AdvReac Severe Muscle Pain Verified 11/20/24 15:20 Review of Systems 2 Review of Systems: All systems reviewed & are unremarkable except as noted in HPI and below PMFSH Past Medical History Medical History (Updated 11/23/24 @ 18:34 by Wood Don MD) Patent foramen ovale 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 shunt with Valsalva only consistent with PFO on echo in November 2022 Heart failure with preserved ejection fraction Coronary artery disease Gastric ulcer (11/2022) Gastric nodule Congestive heart failure Essential hypertension Ischemic cardiomyopathy Diabetes type 2, controlled Hiatal hernia Surgical History Surgical History (Updated 11/23/24 @ 17:42 by Jacey Hernández PA-C) History of cataract extraction History of arthroplasty of left shoulder History of arthroplasty of left knee History of sinus surgery History of cardiac catheterization History of four vessel coronary artery bypass graft (2009) History of Esmer fundoplication History of hernia surgery Family History Family History Mother Family history of lung cancer Family history of malignant neoplasm Father Sibling No problems noted. Sibling , breast cancer No problems noted. Social History Social History (Updated 11/23/24 @ 17:46 by Jacey Hernández PA-C) Social History: Surrogate medical decision maker: Enedina Jones, spouse ([phone]). Code status: Full code Smoking status: Never smoker Second hand tobacco smoke exposure: Yes Alcohol intake: never Substance use: never Substance use type: does not use Do You Feel Safe in your Home?: Yes Lack of Transportation: No Lack of Food: Never True Current Housing: I Have Housing Concerned About Future Housing: No Difficulty Paying Gas/Electric Bills: No Difficulty Paying for Meds: No Currently Unemployed: No Education: High School Diploma/GED Difficulty w/ Childcare or Family Care: No Living arrangements: with family Additional living arrangements comments: Lives with in [place]. They have 3 children. Occupation/Education: retired Additional occupation/education comments: [place] . Retired from [employer]. Spiritual care concerns: No Exam 2 Narrative: APPEARANCE: Well appearing, no pain, no distress, well-nourished. HEAD: normocephalic, atraumatic. EYES: PERRLA/EOMI, conjunctivae clear. NOSE: Normal no drainage EARS:TMS clear with good light reflex. THROAT: Pharynx clear, no exudate. NECK: Supple. No adenopathy, no masses. RESPIRATORY: Airway patent, respirations nonlabored. Clear to auscultation bilaterally, no rales, rhonchi, wheezing. CARDIOVASCULAR: Regular rate and rhythm without murmurs rubs or gallops. ABDOMINAL: Soft, nontender, nondistended, normal bowel sounds MUSCULOSKELETAL: Moves all extremities. Strength/ROM intact, No edema, No calf tenderness. NEURO: Alert. Asymmetric smile with droop on the right, decreased coordination of the right hand and weakness of the right lower extremity SKIN: Warm, dry. Normal Color Course Vital Signs Vital signs: Vital Signs Temperature 97.5 F L 11/23/24 13:37 Pulse Rate 84 11/23/24 13:37 Respiratory Rate 20 11/23/24 13:37 Blood Pressure 177/82 H 11/23/24 13:37 Pulse Oximetry 99 11/23/24 13:37 Oxygen Delivery Room Air 11/23/24 13:37 Temperature 97.5 F L 11/23/24 13:37 Pulse Rate 75 11/23/24 16:51 Respiratory Rate 17 11/23/24 16:51 Blood Pressure 107/89 11/23/24 16:51 Pulse Oximetry 99 11/23/24 16:51 Oxygen Delivery Room Air 11/23/24 13:37 Medical Decision Making MDM Narrative Medical decision making narrative: 84-year-old male presenting to the emergency department for evaluation for neurologic dukes symptoms that started on Sunday. Patient is outside the window for T and K. Patient is afebrile with no leukocytosis hemoglobin of 14.2. Patient has no significant acute abnormalities on his CMP urine was negative for infection. Patient was negative for COVID flu and RSV. Chest x- ray showed no acute focal infiltrate. Head neck CT showed normal brain was 0% stenosis. Patient family were updated on the results of the workup and plan for admission. Case was discussed with Neurology patient will be seen as consult. Case discussed with hospitalist and patient was admitted to [facility]. Differential Diagnosis Differential Diagnosis: CVA, TIA influenza, COVID, RSV, pneumonia Vital Signs Vital Signs: Vital Signs Temperature 97.5 F L 11/23/24 13:37 Pulse Rate 84 11/23/24 13:37 Respiratory Rate 20 11/23/24 13:37 Blood Pressure 177/82 H 11/23/24 13:37 Pulse Oximetry 99 11/23/24 13:37 Oxygen Delivery Room Air 11/23/24 13:37 Temperature 97.5 F L 11/23/24 13:37 Pulse Rate 75 11/23/24 16:51 Respiratory Rate 17 11/23/24 16:51 Blood Pressure 107/89 11/23/24 16:51 Pulse Oximetry 99 11/23/24 16:51 Oxygen Delivery Room Air 11/23/24 13:37 Lab Data Lab results reviewed: Yes I reviewed the patient's lab results. 11/23/24 13:36 11/23/24 13:36 Labs: Lab Results 11/23/24 11/23/24 11/23/24 Range/Units 13:36 13:38 14:45 WBC 9.6 (4.5-10.0) K/mm3 RBC 4.95 (4.6-6.20) M/mm3 Hgb 14.2 (14.0-18.0) g/dL Hct 43.4 (42.0-52.0) % MCV 87.7 (80-100) fl MCH 28.7 (26-34) pg MCHC 32.7 (32-36) g/dl RDW 13.8 (11.5-14.5) % Plt Count 218 (150-375) k/mm3 MPV 10.1 (7.4-10.4) fl Immature Gran % (Auto) 0.4 (0-0.5) % Neut % (Auto) 70.6 (45.5-73.1) % Lymph % (Auto) 20.1 (18.3-44.2) % [place] % (Auto) 7.3 (2.6-8.5) % Eos % (Auto) 1.0 (0-4.4) % Baso % (Auto) 0.6 (0.2-1.2) % Lymph # (Auto) 1.93 (0.9-3.2) K/mm3 [place] # (Auto) 0.7 H (0.1-0.6) K/mm3 Eos # (Auto) 0.1 (0-0.3) K/mm3 Baso # (Auto) 0.1 (0.0-0.1) K/mm3 Abs Immat Gran (auto) 0.04 H (0.00-0.031) K/mm3 Absolute Neuts (auto) 6.8 H (1.3-6.7) K/mm3 Absolute Nucleated RBC 0.000 (0.0-0.012) K/mm3 Nucleated RBC % 0.0 (0.0-0.2) % Sodium 141 (137-145) mmol/L Potassium 4.4 (3.4-5.0) mmol/L Chloride 106 (98-107) mmol/L Carbon Dioxide 25 (22-30) mmol/L Anion Gap 10 (4-12) mmol/L BUN 21 H (9-20) mg/dL Creatinine 1.00 (0.7-1.3) mg/dL Estim Creat Clear Calc Not Reportable Estimated GFR > 60 (59 - ) Glucose 117 H (65-110) mg/dL Calcium 9.7 (8.4-10.2) mg/dL Total Bilirubin 1.2 (0.2-1.3) mg/dL AST 25 (17-59) U/L ALT 18 (6-50) U/L Alkaline Phosphatase 62 (38-126) U/L Total Protein 8.0 (6.3-8.2) g/dL Albumin 4.5 (3.5-5.1) g/dL Urine Color Yellow (Yellow) Urine Appearance Clear (Clear) Urine pH 5.5 (5.0-9.0) Ur Specific [place] 1.020 (1.001-1.035) Urine Protein Negative (Negative) mg/dL Urine Glucose (UA) Negative (Negative) mg/dL Urine Ketones Negative (Negative) mg/dL Ur Blood (Man) Negative (Negative) Urine Nitrate Negative (Negative) Urine Bilirubin Negative (Negative) Urine Urobilinogen 0.2 (<2.0) mg/dL Leukocyte Esterase Rfl Negative (Negative) BARRY/UL Influenza A (RT-PCR) Negative (Negative) Influenza B (RT-PCR) Negative (Negative) RSV (RT-PCR) Negative (Negative) SARS-CoV-2 RNA (RT-PCR) Negative (Negative) Imaging Data Radiologist's impression: Impressions Chest X-Ray 11/23/24 14:24 IMPRESSION: No focal infiltrate or effusion. ADDENDUM: 11/23/24 1431 CHEST RADIOGRAPH, PA AND LATERAL CLINICAL HISTORY: WEAKNESS . COMPARISON: 09/08/2024 TECHNIQUE: PA and lateral views of the chest. FINDINGS Sternal wires and mediastinal clips are identified, the wires are midline and intact. The remainder of the cardiomediastinal silhouette is otherwise unremarkable. The lungs are clear. Redemonstration of a left sided shoulder prosthetic. IMPRESSION: No focal infiltrate or effusion. Head/Neck CTA 11/23/24 16:55 IMPRESSION: 1. Unremarkable CTA head of the and neck. 2. Percent stenosis per NASCET criteria is 0% Discharge Plan Discharge Clinical Impression: Acute right-sided weakness, Acute CVA (cerebrovascular accident) Patient Disposition: Still a Patient Condition: Serious Quality Stroke Scale Stroke Scale 1: Stroke scale time:: 15:59 1a Level of consciousness: alert-0 1b Level of consciousness questions: answers both correctly-0 1c Level of consciousness commands: obeys both correctly-0 2 Best gaze: normal-0 3 Visual: no visual loss-0 4 Facial palsy: minor paralysis-1 5a Motor: left arm: no drift-0 5b Motor: right arm: no drift-0 6a Motor: left leg: no drift-0 6b Motor: right leg: no drift-0 7 Limb ataxia: present in two limbs-2 8 Sensory: normal-0 9 Best language: no aphasia-0 10 Dysarthria: normal-0 11 Extinction and inattention: no abnormality-0 Level:: 3
[2024-11-23] MEDS: ASPIRIN 81 MG CHEWABLE TABLET 324 MG PO (17:24)
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
[2024-11-23 18:35] LABS: Hemoglobin A1C 6.4 % (<5.7)
--- NOTE | 2024-11-23 20:36 | ADMGEN ---
This patient, Harjit Jones, was admitted to Medical Room 344-01. Patient/family oriented to hospital policies and general routines including ID bracelet, bed and alarms, visiting hours, pain management, procedures, bathroom and other care routines, personal items, smoking policy, room service/diet, and visiting hours. Information on how to activate the Rapid Response Team has been discussed. Patient/Family are encouraged to report perceived risks to care and to ask questions if they do not understand what they are told or what they should do.
[2024-11-23 21:09] LABS: Glucose Point of Care 156 mg/dl (65-105)
[2024-11-24] VITALS (8 sets, daily range): BP systolic 141–174; BP diastolic 77–103; PULSE 76–99; RESP 16–20; TEMP 36.1–37; O2SAT 97–98
[2024-11-24 06:08] LABS: Anion Gap 10 mmol/L (4-12); Blood Urea Nitrogen 19 mg/dL (9-20); Calcium 9.5 mg/dL (8.4-10.2); Carbon Dioxide 26 mmol/L (22-30); Chloride 103 mmol/L (98-107); Cholesterol 212 mg/dL (0-200); Estimated Glomerular Filt Rate > 60; Glucose 112 mg/dL (65-110); HDL Direct 55 mg/dL; Magnesium 1.9 mg/dL (1.6-2.3); Potassium 4.5 mmol/L (3.4-5.0); Sodium 139 mmol/L (137-145); Triglycerides 133 mg/dL (<150)
[2024-11-24 06:19] LABS: LDL Cholesterol Direct 115 mg/dL
[2024-11-24 08:55] LABS: Glucose Point of Care 134 mg/dl (65-105)
[2024-11-24] MEDS: MULTIVITAMINS THERAPEUTIC TAB (*BKC) 1 TABLET PO (09:34)
[2024-11-24] MEDS: ASPIRIN 81 MG CHEWABLE TABLET PO (09:34)
--- NOTE | 2024-11-24 09:39 | P.PNIM_ITS ---
Progress Note: A&P Assessment and Plan (1) Right sided weakness: Code(s): R53.1 - Weakness Status: Acute (2) Essential hypertension: Code(s): I10 - Essential (primary) hypertension Status: Acute (3) Heart failure with preserved ejection fraction: Code(s): I50.30 - Unspecified diastolic (congestive) heart failure Status: Acute (4) Patent foramen ovale: Code(s): Q21.12 - Patent foramen ovale Status: Acute Plan Acute CVA The patient presented to the emergency department for evaluation of right-sided weakness11/[address] did not show any acute findings. 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 Echocardiogram with bubble study pending Received aspirin 324 mg once and continue aspirin 81 mg daily p.o. Check fasting lipids. PT/OT consulted. Start Plavix 75 mg daily p.o.Lipitor 40 mg daily p.o. Pending urologist consultation Uncontrolled hypertension Hypertension permission is over Start amlodipine 10 mg daily p.o., Adjust medication chronic COPD Stable Continue Trelegy Ellipta 1 puff daily, a future inhaler p.r.n. every 6 hours O2 therapy. Keep pulse ox above 94 Consult PT OT for evaluation and assisting placement Subjective Date/time seen: 11/24/24 09:39 Interval history: I saw and examined patient today, patient still has some weakness of right arm and right leg, patient is able to ambulate with assistance. Patient denies headache, nausea vomiting, abnormal sensation. Patient denies nausea vomiting diarrhea Exam Narrative: GENERAL: Pleasant, in no acute distress. Well-nourished. - EYES: EOMI. Anicteric. - HENT: Moist mucous membranes. - LUNGS: Clear to auscultation bilateral ly, no wheezing, rhonchi, or rales. - CARDIOVASCULAR: Regular rate and rhyth m. No murmur. No JVD. - ABDOMEN: Soft, non-tender and non-dist ended. No palpable masses. - EXTREMITIES: No edema. Peripheral puls es 2+. Non-tender. - NEUROLOGIC: No focal neurological defi cits. CN II-XII grossly intact. - PSYCHIATRIC: Awake, Alert and oriented x 3. Appropriate mood and affect. - SKIN: No rashes or lesions. Warm. - LYMPH: No cervical lymphadenopathy. Objective Data Vital Signs Vital Signs: Vital Signs - 24 hr 11/23/24 13:37 11/23/24 14:22 11/23/24 14:30 Temperature 97.5 F L Pulse Rate 84 86 100 Respiratory Rate 20 17 20 Blood Pressure 177/82 H Pulse Oximetry 99 99 Oxygen Delivery Room Air 11/23/24 14:57 11/23/24 15:00 11/23/24 15:15 Temperature Pulse Rate 72 80 67 Respiratory Rate 14 16 15 Blood Pressure Pulse Oximetry 99 97 98 Oxygen Delivery 11/23/24 15:40 11/23/24 15:45 11/23/24 16:00 Temperature Pulse Rate 72 69 81 Respiratory Rate 18 17 17 Blood Pressure Pulse Oximetry 98 97 99 Oxygen Delivery 11/23/24 16:34 11/23/24 16:51 11/23/24 20:06 Temperature Pulse Rate 73 75 86 Respiratory Rate 19 17 17 Blood Pressure 107/89 171/82 H Pulse Oximetry 99 99 97 Oxygen Delivery 11/23/24 20:51 11/24/24 04:00 11/24/24 06:00 Temperature 97.4 F L 98.6 F Pulse Rate 75 76 88 Respiratory Rate 18 18 Blood Pressure 177/103 H 174/103 H Pulse Oximetry 95 97 Oxygen Delivery Intake/Output Intake/Output: Intake & Output 11/21/24 11/22/24 11/23/24 11/24/24 23:59 23:59 23:59 23:59 Intake Total 118 Balance 118 Meds/Results Medications: Active Medications Generic Name Dose Route Start Last Admin Trade Name Freq PRN Reason Stop Dose Admin Acetaminophen 650 mg 11/23/24 17:49 Acetaminophen 325 Mg Tablet PO Q6H PRN Mild Pain (1-3) or Fever Albuterol 1 - 2 puff 11/23/24 21:34 Albuterol Sulfate (*Sp) Aerosol 1 Puff INHALATION Q6H PRN shortness of breath or wheezing Aspirin 81 mg 11/24/24 08:00 11/24/24 09:34 Aspirin 81 Mg Chewable Tablet PO 81 mg DAILY@0800 VINICIUS Administration Dextrose 12.5 gm 11/23/24 17:52 Dextrose 50% 25 Gm/50 Ml Syringe IV PUSH PRN PRN Hypoglycemia Protocol Glucagon 1 mg 11/23/24 17:52 Glucagon For Inj 1 Mg Vial IM PRN PRN Hypoglycemia Protocol Glucose 15 gm 11/23/24 17:52 Glucose Oral Gel 15 Gm Of Glucse In 37.5 Gm Tube PO PRN PRN Hypoglycemia Protocol Dextrose 1,000 mls @ 100 mls/hr 11/23/24 17:52 Dextrose 5% 1,000 Ml IVPB PRN PRN Hypoglycemia Protocol Multivitamins Therapeutic 1 tablet 11/24/24 09:00 11/24/24 09:34 Multivitamins Therapeutic Tab (*Bkc) PO 1 tablet DAILY VINICIUS Administration Perflutren Lipid Microsphere 0 ml 11/23/24 17:49 Perflutren Lipid Microspheres 1.5 Ml Vial Diluted To 10 Ml Total Volume IV PUSH 11/26/24 17:49 ONCE PRN adequate visualization Protocol Radiology Results: ITS Impressions Chest X-Ray 11/23/24 14:24 IMPRESSION: No focal infiltrate or effusion. ADDENDUM: 11/23/24 1431 CHEST RADIOGRAPH, PA AND LATERAL CLINICAL HISTORY: WEAKNESS . COMPARISON: 09/08/2024 TECHNIQUE: PA and lateral views of the chest. FINDINGS Sternal wires and mediastinal clips are identified, the wires are midline and intact. The remainder of the cardiomediastinal silhouette is otherwise unremarkable. The lungs are clear. Redemonstration of a left sided shoulder prosthetic. IMPRESSION: No focal infiltrate or effusion. Head/Neck CTA 11/23/24 16:55 IMPRESSION: 1. Unremarkable CTA head of the and neck. 2. Percent stenosis per NASCET criteria is 0% Labs Labs: Laboratory Results - last 24 hr 11/23/24 11/23/24 11/23/24 13:36 13:38 14:45 WBC 9.6 RBC 4.95 Hgb 14.2 Hct 43.4 MCV 87.7 MCH 28.7 MCHC 32.7 RDW 13.8 Plt Count 218 MPV 10.1 Immature Gran % (Auto) 0.4 Neut % (Auto) 70.6 Lymph % (Auto) 20.1 [place] % (Auto) 7.3 Eos % (Auto) 1.0 Baso % (Auto) 0.6 Lymph # (Auto) 1.93 [place] # (Auto) 0.7 H Eos # (Auto) 0.1 Baso # (Auto) 0.1 Abs Immat Gran (auto) 0.04 H Absolute Neuts (auto) 6.8 H Absolute Nucleated RBC 0.000 Nucleated RBC % 0.0 Sodium 141 Potassium 4.4 Chloride 106 Carbon Dioxide 25 Anion Gap 10 BUN 21 H Creatinine 1.00 Estim Creat Clear Calc Not Reportable Estimated GFR > 60 Glucose 117 H POC Capillary Glucose Hemoglobin A1c Calcium 9.7 Magnesium Total Bilirubin 1.2 AST 25 ALT 18 Alkaline Phosphatase 62 Total Protein 8.0 Albumin 4.5 Triglycerides Cholesterol LDL Cholesterol Direct HDL Direct Urine Color Yellow Urine Appearance Clear Urine pH 5.5 Ur Specific [place] 1.020 Urine Protein Negative Urine Glucose (UA) Negative Urine Ketones Negative Ur Blood (Man) Negative Urine Nitrate Negative Urine Bilirubin Negative Urine Urobilinogen 0.2 Leukocyte Esterase Rfl Negative Influenza A (RT-PCR) Negative Influenza B (RT-PCR) Negative RSV (RT-PCR) Negative SARS-CoV-2 RNA (RT-PCR) Negative 11/23/24 11/23/24 11/24/24 18:19 21:07 05:33 WBC RBC Hgb Hct MCV MCH MCHC RDW Plt Count MPV Immature Gran % (Auto) Neut % (Auto) Lymph % (Auto) [place] % (Auto) Eos % (Auto) Baso % (Auto) Lymph # (Auto) [place] # (Auto) Eos # (Auto) Baso # (Auto) Abs Immat Gran (auto) Absolute Neuts (auto) Absolute Nucleated RBC Nucleated RBC % Sodium 139 Potassium 4.5 Chloride 103 Carbon Dioxide 26 Anion Gap 10 BUN 19 Creatinine 0.91 Estim Creat Clear Calc Not Reportable Estimated GFR > 60 Glucose 112 H POC Capillary Glucose 156 H Hemoglobin A1c 6.4 H Calcium 9.5 Magnesium 1.9 Total Bilirubin AST ALT Alkaline Phosphatase Total Protein Albumin Triglycerides 133 Cholesterol 212 H LDL Cholesterol Direct 115 HDL Direct 55 Urine Color Urine Appearance Urine pH Ur Specific [place] Urine Protein Urine Glucose (UA) Urine Ketones Ur Blood (Man) Urine Nitrate Urine Bilirubin Urine Urobilinogen Leukocyte Esterase Rfl Influenza A (RT-PCR) Influenza B (RT-PCR) RSV (RT-PCR) SARS-CoV-2 RNA (RT-PCR) 11/24/24 08:38 WBC RBC Hgb Hct MCV MCH MCHC RDW Plt Count MPV Immature Gran % (Auto) Neut % (Auto) Lymph % (Auto) [place] % (Auto) Eos % (Auto) Baso % (Auto) Lymph # (Auto) [place] # (Auto) Eos # (Auto) Baso # (Auto) Abs Immat Gran (auto) Absolute Neuts (auto) Absolute Nucleated RBC Nucleated RBC % Sodium Potassium Chloride Carbon Dioxide Anion Gap BUN Creatinine Estim Creat Clear Calc Estimated GFR Glucose POC Capillary Glucose 134 H Hemoglobin A1c Calcium Magnesium Total Bilirubin AST ALT Alkaline Phosphatase Total Protein Albumin Triglycerides Cholesterol LDL Cholesterol Direct HDL Direct Urine Color Urine Appearance Urine pH Ur Specific [place] Urine Protein Urine Glucose (UA) Urine Ketones Ur Blood (Man) Urine Nitrate Urine Bilirubin Urine Urobilinogen Leukocyte Esterase Rfl Influenza A (RT-PCR) Influenza B (RT-PCR) RSV (RT-PCR) SARS-CoV-2 RNA (RT-PCR)
[2024-11-24] MEDS: PERFLUTREN LIPID MICROSPHERES 1.5 ML VIAL DILUTED TO 10 ML TOTAL VOLUME IV PUSH (11:11)
[2024-11-24 11:45] LABS: Glucose Point of Care 144 mg/dl (65-105)
--- NOTE | 2024-11-24 11:54 | IVDEFINITY ---
Prior to administration of IV Definity the patient was educated on the risks and benefits of the imaging enhancing agent including potential adverse side effects. The patient verbalized understanding. Allergies were verified. No exclusion criteria were identified and at least one of the following inclusion criteria were met: 1) physician request, 2) patient technically difficult to image (per the [place] [employer] guidelines of two or more segments not discernable within the apical view), or 3) questionable left ventricular function. ?
--- NOTE | 2024-11-24 12:33 | PC.NURSE ---
Patient off of unit to MRI
--- NOTE | 2024-11-24 13:58 | PC.NURSE ---
RN spoke with mami Esquivel in regards to patient's MRI results. Mami Esquivel asked RN to call neurology and udpate them. RN reviewed chart and neurology was consulted yesterday, but did not see the patient. RN called Dr. Aviles and the phone call went straight to voicemail. RN spoke with press secretary Pina and she states there is no neurology on today it is open . RN called mami Esquivel and informed him that neurology is not on today. Mami Esquivel ordered medications (see MAR).
[2024-11-24] MEDS: CLOPIDOGREL BISULFATE 75 MG TABLET PO (14:39)
--- NOTE | 2024-11-24 16:38 | PC.NURSE ---
RN spoke with patient's hospitalist Dr. Esquivel and due to patient's current blood pressure we will discontinue losartan.
[2024-11-24 16:52] LABS: Glucose Point of Care 158 mg/dl (65-105)
[2024-11-24] MEDS: ATORVASTATIN 40 MG TABLET PO (17:38)
[2024-11-24] MEDS: amLODIPine BESYLATE 10 MG TABLET PO (17:39)
--- NOTE | 2024-11-24 17:49 | ECHO_ITS ---
Patient Info Name: Harjit Jones Age: 84 years : 1940 Gender: Male Ht: 72 in Wt: 187 lbs BSA: 2.08 m2 HR: 88 bpm BP: 174 / 103 mmHg Heart Rhythm: Sinus Rhythm Technical Quality: Fair Exam Date: 11/24/2024 10:39 AM Exam Location: Echo Lab Patient Status: Inpatient Admit Date: 11/23/2024 Staff Ordering Physician: Jacey Hernández PA-C [employer] Specialist: Jelly Muse RDCS Attending Provider: Bravo Rebolledo MD Referring Physician: Betty LONDONO; Exam Type: CA echo dop bubble study w con Study Info Indications - rt sided weakness, pfo, chf, cad Complete two-dimentional, color flow and Doppler transthoracic echocardiogram is performed with agitated saline and with contrast to opacify the left ventricle and to improve the delineation of the left ventricle endocardial borders. Contrast/Agitated Saline Contrast/Ag. Saline: Definity Amount: 2.00 ml Administered By: Jelly Muse RDCS Existing IV Access: Yes IV Access Condition: patent with no signs of infiltration Contrast/Ag. Saline: Agitated Saline Amount: 14.00 ml Existing IV Access: Yes IV Access Condition: patent with no signs of infiltration Summary 1. The left ventricle is normal size with moderately reduced systolic function. The left ventricular ejection fraction is visually estimated to be 35-40%. There is no left ventricular thrombus. 2. Diastolic dysfunction is present. 3. The right ventricle is normal in size and systolic function. 4. The left atrium is mildly dilated. 5. The right atrium is mildly dilated. 6. The bubble study is negative for [id number] shunt. Left Ventricle The left ventricle is normal size with moderately reduced systolic function. The left ventricular ejection fraction is visually estimated to be 35-40%. There is no left ventricular thrombus. Diastolic dysfunction is present. Right Ventricle The right ventricle is normal in size and systolic function. Left Atria The left atrium is mildly dilated. Right Atria The right atrium is mildly dilated. Atrial Septum The bubble study is negative for [id number] shunt. Aortic Valve The aortic valve is calcified but opens adequately. There is mild to moderate aortic regurgitation. Pulmonic Valve The pulmonic valve is not well visualized. There is color Doppler evidence of trace pulmonic valve regurgitation. Mitral Valve The mitral valve leaflets are thickened but opens well. There is mitral annular calcification. There is mild mitral regurgitation. Tricuspid Valve The tricuspid valve is grossly normal. There is trace tricuspid regurgitation. Pericardium/Pleural Pericardium is normal in appearance with no evidence for significant pericardial effusion. Inferior Vena Cava Normal inferior vena cava with >50% collapse upon inspiration consistent with normal right atrial pressure, 3 mmHg. Aorta The aortic root at the level of the sinus of Valsalva measures 3.7 cm in diameter. Left Ventricular Outflow Tract Name Value Normal LVOT 2D LVOT Diameter 2.4 cm LVOT Doppler LVOT Peak Gradient 2 mmHg LVOT Mean Gradient 1 mmHg LVOT VTI 14 cm LVOT VTI/AV VTI Ratio 0.8 LVOT Stroke Volume 65 ml LVOT CO 5.1 l/min LVOT CI 2.4 l/min/m2 Pulmonic Valve Name Value Normal RVOT Doppler RVOT Peak Gradient 2 mmHg PV Doppler PV Peak Gradient 2 mmHg Mitral Valve Name Value Normal MV Doppler MV Decel [place] 938 cm/s2 MV PHT 34 ms MV Area (PHT) 6.5 cm2 4.0-5.0 MV Diastolic Function MV E Peak Velocity 109 cm/s MV A Peak Velocity 1 cm/s MV E/A 115.9 MV Decel Time 116 ms MV Annular TDI MV E/e' (Septal) 24.4 <=8.0 MV E/e' (Lateral) 16.5 <=8.0 MV E/e' (Average) 20.4 Tricuspid Valve Name Value Normal TV Regurgitation Doppler TR Peak Velocity 220 cm/s TR Peak Gradient 19 mmHg Estimated PAP/RSVP RA Pressure 3 mmHg <=5 PA Systolic Pressure 22 mmHg <36 RV Systolic Pressure 22 mmHg <36 Aorta Name Value Normal Ascending Aorta Ao Root Diameter (MM) 3.9 cm Ao Root Diam Index (MM) 1.9 cm/m2 Aortic Valve Name Value Normal AV Doppler AV Peak Velocity 114 cm/s AV Peak Gradient 5 mmHg AV Mean Gradient 3 mmHg AV VTI 18 cm AV Area (Cont Eq VTI) 3.5 cm2 >=3.0 AV Area (Cont Eq Uli) 3.0 cm2 AV Regurgitation 2D LVOT Area 4.6 cm2 AV Regurgitation Doppler AR Decel Time 1,767 ms AR Decel [place] 223 cm/s2 AR PHT 512 ms Ventricles Name Value Normal LV Dimensions 2D/MM IVS Diastolic Thickness (2D) 1.0 cm 0.6-1.0 LVID Diastole (2D) 5.6 cm 4.2-5.8 LVIW Diastolic Thickness (2D) 0.9 cm 0.6-1.0 LVID Systole (2D) 4.2 cm 2.5-4.0 LVOT Diameter 2.4 cm LV Mass (2D Cubed) 195.15 g 88.00-224.00 LV Mass Index (2D Cubed) 94 g/m2 49-115 Relative Wall Thickness (2D) 0.30 LV Fractional Shortening/Ejection Fraction 2D/MM LV Fractional Shortening (2D) 24 % 25-43 LV EF (2D Teicholz) 48 % 52-72 LV Diastolic Volume (4C MOD) 173 ml LV EF (4C MOD) 43 % LV Diastolic Volume (2C MOD) 129 ml LV EF (2C MOD) 37 % LV Diastolic Volume (BP MOD) 153 ml 62-150 LV Diastolic Volume Index (BP MOD) 73 ml/m2 34-74 LV Systolic Volume (BP MOD) 89 ml 21-61 LV Systolic Volume Index (BP MOD) 43 ml/m2 11-31 LV EF (BP MOD) 42 % 52-72 LV Diastolic Length (4C) 9.5 cm LV Systolic Length (4C) 8.3 cm LV Stroke Volume (4C MOD) 75 ml Atria Name Value Normal LA Dimensions LA Dimension (MM) 5.1 cm 3.0-4.1 LA Volume (4C A-L) 65 ml LA Volume (BP A-L) 81 ml RA Dimensions RA Area (4C) 23.8 cm2 <=18.0 Report Signatures
[2024-11-25] VITALS: PULSE 74
[2024-11-25 02:35] LABS: Glucose Point of Care 151 mg/dl (65-105)
[2024-11-25 04:00] VITALS: PULSE 79
[2024-11-25 06:00] VITALS: BP 153/88; PULSE 84; RESP 18; TEMP 36.2; O2SAT 97
[2024-11-25] MEDS: ASPIRIN 81 MG CHEWABLE TABLET PO (08:11)
[2024-11-25] MEDS: amLODIPine BESYLATE 10 MG TABLET PO (08:11)
[2024-11-25] MEDS: CLOPIDOGREL BISULFATE 75 MG TABLET PO (08:11)
[2024-11-25] MEDS: ATORVASTATIN 40 MG TABLET PO (08:11)
[2024-11-25] MEDS: MULTIVITAMINS THERAPEUTIC TAB (*BKC) 1 TABLET PO (08:11)
[2024-11-25 08:20] VITALS: PULSE 111
[2024-11-25 08:42] LABS: Glucose Point of Care 116 mg/dl (65-105)
--- NOTE | 2024-11-25 11:34 | PM.IMPN ---
Progress Note: A&P Assessment and Plan (1) Right sided weakness: Code(s): R53.1 - Weakness Status: Acute (2) Essential hypertension: Code(s): I10 - Essential (primary) hypertension Status: Acute (3) Heart failure with preserved ejection fraction: Code(s): I50.30 - Unspecified diastolic (congestive) heart failure Status: Acute (4) Patent foramen ovale: Code(s): Q21.12 - Patent foramen ovale Status: Acute Plan Acute CVA The patient presented to the emergency department for evaluation of right-sided weakness11/[address] did not show any acute findings. 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 Echocardiogram with bubble study 1. The left ventricle is normal size with moderately reduced systolic function. The left ventricular ejection fraction is visually estimated to be 35-40%. There is no left ventricular thrombus. 2. Diastolic dysfunction is present. 3. The right ventricle is normal in size and systolic function. 4. The left atrium is mildly dilated. 5. The right atrium is mildly dilated. 6. The bubble study is negative for [id number] shunt. Received aspirin 324 mg once and continue aspirin 81 mg daily p.o. Check fasting lipids. PT/OT consulted. Start Plavix 75 mg daily p.o.Lipitor 40 mg daily p.o. Appreciate neurologist consultation, continue aspirin and Plavix levator on discharge Patient still has some region weakness of right arm and leg Uncontrolled hypertension Hypertension permission is over Start amlodipine 10 mg daily p.o., Adjust medication per PCP in the office COPD Stable Continue Trelegy Ellipta 1 puff daily, a future inhaler p.r.n. every 6 hours O2 therapy. Keep pulse ox above 94 Consult PT OT for evaluation and assisting placement Patient will be discharged to acute rehab today Subjective Date/time seen: 11/25/24 11:34 Interval history: I saw and examined patient today, patient still has some weakness of right arm and right leg, patient is able to ambulate with assistance. Patient denies headache, nausea vomiting, abnormal sensation. Patient denies nausea vomiting diarrhea Exam Narrative: GENERAL: Pleasant, in no acute distress. Well-nourished. - EYES: EOMI. Anicteric. - HENT: Moist mucous membranes. - LUNGS: Clear to auscultation bilaterally, no wheezing, rhonchi, or rales. - CARDIOVASCULAR: Regular rate and rhythm. No murmur. No JVD. - ABDOMEN: Soft, non-tender and non-distended. No palpable masses. - EXTREMITIES: No edema. Peripheral pulses 2+. Non-tender. - NEUROLOGIC: No focal neurological deficits. CN II-XII grossly intact. - PSYCHIATRIC: Awake, Alert and oriented x 3. Appropriate mood and affect. - SKIN: No rashes or lesions. Warm. - LYMPH: No cervical lymphadenopathy. Objective Data Vital Signs Vital Signs: Vital Signs - 24 hr 11/24/24 12:00 11/24/24 15:16 11/24/24 16:00 Temperature 97.1 F L Pulse Rate 99 88 93 Respiratory Rate 16 Blood Pressure 141/77 H Pulse Oximetry 97 Oxygen Delivery 11/24/24 16:07 11/24/24 20:00 11/24/24 20:00 Temperature Pulse Rate 84 Respiratory Rate Blood Pressure Pulse Oximetry Oxygen Delivery Room Air Room Air 11/24/24 22:24 11/25/24 00:00 11/25/24 04:00 Temperature 97.0 F L Pulse Rate 88 74 79 Respiratory Rate 20 Blood Pressure 154/84 H Pulse Oximetry 98 Oxygen Delivery 11/25/24 06:00 11/25/24 08:20 11/25/24 08:20 Temperature 97.2 F L Pulse Rate 84 111 H Respiratory Rate 18 Blood Pressure 153/88 H Pulse Oximetry 97 Oxygen Delivery Room Air Intake/Output Intake/Output: Intake & Output 11/22/24 11/23/24 11/24/24 11/25/24 23:59 23:59 23:59 23:59 Intake Total 1198 700 Balance 1198 700 Meds/Results Medications: Active Medications Generic Name Dose Route Start Last Admin Trade Name Freq PRN Reason Stop Dose Admin Acetaminophen 650 mg 11/23/24 17:49 Acetaminophen 325 Mg Tablet PO Q6H PRN Mild Pain (1-3) or Fever Albuterol 1 - 2 puff 11/23/24 21:34 Albuterol Sulfate (*Sp) Aerosol 1 Puff INHALATION Q6H PRN shortness of breath or wheezing Amlodipine Besylate 10 mg 11/24/24 15:10 11/25/24 08:11 Amlodipine Besylate 10 Mg Tablet PO 10 mg DAILY VINICIUS Administration Aspirin 81 mg 11/24/24 08:00 11/25/24 08:11 Aspirin 81 Mg Chewable Tablet PO 81 mg DAILY@0800 VINICIUS Administration Atorvastatin Calcium 40 mg 11/24/24 15:10 11/25/24 08:11 Atorvastatin 40 Mg Tablet PO 40 mg DAILY VINICIUS Administration Clopidogrel Bisulfate 75 mg 11/25/24 09:00 11/25/24 08:11 Clopidogrel Bisulfate 75 Mg Tablet PO 75 mg QAM VINICIUS Administration Dextrose 12.5 gm 11/23/24 17:52 Dextrose 50% 25 Gm/50 Ml Syringe IV PUSH PRN PRN Hypoglycemia Protocol Fluticasone/Umeclidinium/Vilanterol 1 puff 11/24/24 09:00 11/25/24 07:46 Fluticasone/Umeclidin/Vilanter 100-62.5-25 Mcg Ellipta INHALATION Not Given DAILY [facility] Glucagon 1 mg 11/23/24 17:52 Glucagon For Inj 1 Mg Vial IM PRN PRN Hypoglycemia Protocol Glucose 15 gm 11/23/24 17:52 Glucose Oral Gel 15 Gm Of Glucse In 37.5 Gm Tube PO PRN PRN Hypoglycemia Protocol Dextrose 1,000 mls @ 100 mls/hr 11/23/24 17:52 Dextrose 5% 1,000 Ml IVPB PRN PRN Hypoglycemia Protocol Multivitamins Therapeutic 1 tablet 11/24/24 09:00 11/25/24 08:11 Multivitamins Therapeutic Tab (*Bkc) PO 1 tablet DAILY VINICIUS Administration Radiology Results: ITS Impressions Chest X-Ray 11/23/24 14:24 IMPRESSION: No focal infiltrate or effusion. ADDENDUM: 11/23/24 1431 CHEST RADIOGRAPH, PA AND LATERAL CLINICAL HISTORY: WEAKNESS . COMPARISON: 09/08/2024 TECHNIQUE: PA and lateral views of the chest. FINDINGS Sternal wires and mediastinal clips are identified, the wires are midline and intact. The remainder of the cardiomediastinal silhouette is otherwise unremarkable. The lungs are clear. Redemonstration of a left sided shoulder prosthetic. IMPRESSION: No focal infiltrate or effusion. Head/Neck CTA 11/23/24 16:55 IMPRESSION: 1. Unremarkable CTA head of the and neck. 2. Percent stenosis per NASCET criteria is 0% Brain MRI 11/24/24 13:00 IMPRESSION: 1. Acute infarct involving the left basal ganglia and left internal capsule. Labs Labs: Laboratory Results - last 24 hr 11/24/24 11/24/24 11/24/24 11:39 16:40 21:38 POC Capillary Glucose 144 H 158 H 151 H 11/25/24 08:40 POC Capillary Glucose 116 H
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
--- NOTE | 2024-11-25 11:37 | WPDNEURCNPN ---
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 Right hemiparesis with documented abnormal MRI revealing the subcortical stroke involving the left basal ganglia and left internal capsule , which was definitely not there on MRI in November of 2022. 2. Atrial septal aneurysmal motion evidence of knsca-ph-lxwn shunt with injected agitated saline on echocardiogram in November of 2022 But repeat echocardiogram this time is negative for lzedn-wz-wtfb shunt. 3. Clinical right hemiparesis compatible with the MRI subcortical stroke. As per the patient's family is reluctant to take the medication but he needs to continue aspirin 81mg daily , Plavix 75mg daily only for 6 weeks in addition to the physical therapy, control of hypertension, control of the hypercholesterolemia. Consult date: 11/25/24 HPI: Harjit Jones is a 84 year old male admitted to the hospital through the emergency room for the complaints of right-sided weakness noted day before coming to the ER and described as right upper extremity and right lower extremity weakness resulting in the gait instability ,he also noted the right facial droop and was not sure when the symptomatology could have started on Sunday. His had noted that he was having some difficulties on Sunday afternoon he has had CABG about 9 years ago ,has never had any stroke and was taking only Levaquin. His past history is interestingly suggestive of a krntg-ca-nifg shunt with Valsalva with PFO on echo in November of 2022, underlying gastric ulcer, type 2 diabetes mellitus, , hypertension, he carries a full code status, never a smoker, and never alcohol intake or, his initial exam was consistent with right-sided weakness, vital signs were normal except the blood pressure 177/82 to subsequently came down, CBC was normal, BMP was normal, marched scan was negative, routine screening for the common viral infections was negative, x-ray chest was negative, CTA of the head and neck was negative, and subsequently MRI of the head has been done which shows acute infarct involving the left basal ganglia and left internal capsule. Echocardiogram was done on his previous evaluation. this time his echocardiogram revealed no right to left shunt on bubble study. [facility] Past Medical History Medical History Patent foramen ovale 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 shunt with Valsalva only consistent with PFO on echo in November 2022 Heart failure with preserved ejection fraction Coronary artery disease Gastric ulcer (11/2022) Gastric nodule Congestive heart failure Essential hypertension Ischemic cardiomyopathy Diabetes type 2, controlled Hiatal hernia Surgical History Surgical History History of cataract extraction History of arthroplasty of left shoulder History of arthroplasty of left knee History of sinus surgery History of cardiac catheterization History of four vessel coronary artery bypass graft (2009) History of Esmer fundoplication History of hernia surgery Family History Family History Mother Family history of lung cancer Family history of malignant neoplasm Father Sibling No problems noted. Sibling , breast cancer No problems noted. Social History Social History Social History: Surrogate medical decision maker: Enedina Jones, spouse ([phone]). Code status: Full code Smoking status: Never smoker Second hand tobacco smoke exposure: Yes Alcohol intake: never Substance use: never Substance use type: does not use Do You Feel Safe in your Home?: Yes Lack of Transportation: No Lack of Food: Never True Current Housing: I Have Housing Concerned About Future Housing: No Difficulty Paying Gas/Electric Bills: No Difficulty Paying for Meds: No Currently Unemployed: No Education: High School Diploma/GED Difficulty w/ Childcare or Family Care: No Living arrangements: with family Additional living arrangements comments: Lives with in [place]. They have 3 children. Occupation/Education: retired Additional occupation/education comments: [employer] . Retired from [employer]. Spiritual care concerns: No Meds Home Medications and Allergies Home Medications ?Medication ?Instructions ?Recorded ?Confirmed ?Type albuterol sulfate 90 mcg/actuation See Rx Instructions inhalation Q6H 09/09/24 11/23/24 Rx aerosol inhaler PRN shortness of breath or wheezing #8.5 grams fluticasone fur. 100 mcg-umeclid 1 inh inhalation DAILY #60 ea 11/20/24 11/23/24 Rx 62.5 mcg-vilant 25 mcg inhalat.powder (Trelegy Ellipta) multivitamin (Daily Value tablet) 1 tablet PO DAILY 11/23/24 11/23/24 History Allergies Allergy/AdvReac Type Severity Reaction Status Date / Time levofloxacin (From Levaquin) AdvReac Severe Muscle Pain Verified 11/20/24 15:20 Vital Signs Vital Signs - 24 hr 11/24/24 12:00 11/24/24 15:16 11/24/24 16:00 Temperature 36.2 C L Pulse Rate 99 88 93 Respiratory Rate 16 Blood Pressure 141/77 H Pulse Oximetry 97 Oxygen Delivery 11/24/24 16:07 11/24/24 20:00 11/24/24 20:00 Temperature Pulse Rate 84 Respiratory Rate Blood Pressure Pulse Oximetry Oxygen Delivery Room Air Room Air 11/24/24 22:24 11/25/24 00:00 11/25/24 04:00 Temperature 36.1 C L Pulse Rate 88 74 79 Respiratory Rate 20 Blood Pressure 154/84 H Pulse Oximetry 98 Oxygen Delivery 11/25/24 06:00 11/25/24 08:20 11/25/24 08:20 Temperature 36.2 C L Pulse Rate 84 111 H Respiratory Rate 18 Blood Pressure 153/88 H Pulse Oximetry 97 Oxygen Delivery Room Air Exam Narrative: On exam he is awake alert cooperative in no obvious acute distress, head normocephalic with no cranial bruits, ear nose throat examination normal, neck supple with no cervical bruit, heart regular with no murmur, lungs clear to auscultation with no rhonchi or crepitation, soft nontender normal bowel sounds, neurologically he is awake alert oriented x3, his speech not dysphasic not dysarthric not dysphonic, pupils round regular feels the vision full extraocular movements full face symmetrical tongue in the oral cavity with no fasciculation uvula in the midline motor examination revealed him to have right hemiparesis with hyperreflexia and upgoing plantar response. There was mild ataxia because of the weakness. Results Labs 11/23/24 13:36 11/24/24 05:33
[2024-11-25 11:49] LABS: Glucose Point of Care 391 mg/dl (65-105)
[2024-11-25] MEDS: FLUTICASONE/UMECLIDIN/VILANTER 100-62.5-25 MCG ELLIPTA 1 PUFF INHALATION (13:30)
[2024-11-25 13:31] VITALS: PULSE 100; RESP 20; O2SAT 98
== END 2024-11-25 15:11 | DRG 65 ==
LOC: ANHED 14:32 → ANH3MEDSUR 18:26 → ANH3MED 19:49
PROVIDERS: Physician Assistant; Admitting Provider Internal Medicine; Emergency Provider Emergency Medicine; PCP Family Medicine; Visit Provider Hospitalist
DX: I63.9 Cerebral infarction, unspecified (principal); G81.91 Hemiplegia, unspecified affecting right dominant side; I50.32 Chronic diastolic (congestive) heart failure; Q21.12 Patent foramen ovale; I11.0 Hypertensive heart disease with heart failure; I25.5 Ischemic cardiomyopathy; I25.10 Atherosclerotic heart disease of native coronary artery without angina pectoris; J44.9 Chronic obstructive pulmonary disease, unspecified; E11.9 Type 2 diabetes mellitus without complications; K44.9 Diaphragmatic hernia without obstruction or gangrene; Z20.822 Contact with and (suspected) exposure to COVID-19; Z95.1 Presence of aortocoronary bypass graft
CPT/HCPCS: 36415; 70496; 70498; 70551; 71046; 80048; 80053; 80061; 81003; 82948; 83036; 83735; 85025; 87637; 93005; 94640; 96374; 96375; 97112; 97116; 97162; 97165; 99285; A9270; C8929; G0378; Q9957; Q9967

== ENCOUNTER 2024-12-18 12:03 | Emergency (ER) | payer MEDICARE, SELFPAY ==
[2024-12-18] VITALS (7 sets, daily range): BP systolic 149–158; BP diastolic 79–81; PULSE 80–91; RESP 16–19; TEMP 36.3; O2SAT 97–98
--- NOTE | ~2024-12-18 | CT_ITS ---
CLINICAL INDICATION: Weakness and abdominal pain COMPARISON: 04/24/2023. TECHNIQUE: Multiple contiguous axial images of the abdomen and pelvis were performed following the ad ministration of with 100 mL Omnipaque-350 intravenous contrast The dose-length product (DLP) was 834.81 mGy-cm. Automated exposure control and iterative reconstruction technique were employed. FINDINGS/OBSERVATIONS: Visualized lower thorax: The bilateral lung bases are clear. The heart is enlarged, without pericardial effusion. Redemonstration of a fundoplication with the gastroesophageal junction above the level of the diaphra gm, similar in appearance to previous examination dated 04/24/2023. Liver: Redemonstration of 1 and 2 cm cysts within segment 2 of the liver. The remainder of the liver demonstrates otherwise homogeneous enhancement and is not enlarged measuri ng 14 cm in longitudinal dimension. Gallbladder and biliary system: The gallbladder is only minimally distended, and otherwise unremarkable. Pancreas: Pancreatic atrophy of the pancreas, without ductal dilatation. Spleen: The spleen enhances homogeneously and is not enlarged measuring 10 cm in longitudinal dimension. Kidneys: Redemonstration of scattered stones within the left kidney. Vascular calcifications are also noted. The right kidney is unremarkable. No hydronephrosis detected bilaterally. Adrenal glands: Unremarkable. Gastrointestinal tract: Rectosigmoid diverticulosis without surrounding inflammatory change, largely unchanged from 04/24/2023 . Fecal stasis within the rectum, without distention. Appendix: The appendix is not definitively visualized. However, no pericecal inflammatory change is identified suggest the presence of acute appendicitis. Vasculature: Densely calcified atherosclerotic disease Lymph nodes: No pathologically enlarged or morphologically suspicious lymph nodes within the retroperitoneum or at the root of the mesentery. Pelvic structures: The bladder is minimally distended, and otherwise unremarkable. The prostate gland is not enlarged but contains calcifications. Body wall and musculoskeletal: Small fat-containing umbilical hernia. Moderate degenerative disease within the lower thoracic and lumbosacral spine. IMPRESSION: Stable CT examination of the abdomen and pelvis, without acute finding, similar in appearance to 2022. Reviewed, dictated and finalized at location A. SHER BRASS IMPRESSION: Stable CT examination of the abdomen and pelvis, without acute finding, similar in appearance to .
--- NOTE | ~2024-12-18 | CT_ITS ---
CT brain wo con Ordering provider: Denice Nunez PA-C History: 84 years Male with . weakness, recent cva . Comparison: November 23, 2024 Technique: CT of the head without contrast. Radiation reduction technique utilized.The dose-length pr oduct was 681 mGy-cm. FINDINGS: BRAIN PARENCHYMA AND CSF SPACES: No midline shift, mass effect or hemorrhage. The brain parenchyma a nd CSF spaces are otherwise normal. VISUALIZED PARANASAL SINUSES: Bilateral ethmoid sinus disease. Left maxillary sinus disease. Postoper ative changes in the medial wall of both maxillary sinuses. MASTOIDS: Well aerated. BONES: The bones appear intact. SOFT TISSUES: Visualized nasopharynx is normal. Density seen in the right parietal scalp most likely post traumatic. Superficial soft tissues are normal. IMPRESSION: No acute intracranial findings. Reviewed, dictated and finalized at location A. ONAL RECRUITER
--- NOTE | ~2024-12-18 | XR_ITS ---
XR chest 2V Ordering provider: Denice Nunez History: 84 years Male with . weakness, lightheaded . Comparison: November 23, 2024 FINDINGS: MEDIASTINUM: The cardiac silhouette is slightly enlarged. Postoperative changes in the mediastinum. Small opacity seen in the left paraspinal area at the medial aspect of the left hemidiaphragm unchang ed from previous examination LUNGS: No infiltrates, effusions or pneumothorax. OTHER: No free air under the diaphragm. Left shoulder arthroplasty last to. Degenerative changes of t he spine. IMPRESSION: No acute cardiopulmonary pathology. Reviewed, dictated and finalized at location A. D DEVELOPMENT SPECIALIST
--- OUTSIDE RECORDS SUMMARY | 2024-12-18 13:28 | XMS_ITS | CONTINUITY OF CARE DOCUMENT ---
Author Name tish winston Address Unknown Organization [facility] Address [address] [place] [address] Phone [phone] Care Team Providers Care Livestock Caretaker Name Role Phone Lionel Fitch MD Unavailable INSURANCE PROVIDERS Payer name Policy type / Coverage type Staci red constitution party ID [facility] [id number] [place] Medicare [id number]
--- OUTSIDE RECORDS SUMMARY | 2024-12-18 13:28 | XMS_ITS | Encounter Summary ---
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
--- OUTSIDE RECORDS SUMMARY | 2024-12-18 13:28 | XMS_ITS | Clinical Summary ---
Author Organization [facility] Address [address] [facility] [address] 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
--- OUTSIDE RECORDS SUMMARY | 2024-12-18 13:28 | XMS_ITS | Encounter Summary ---
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
--- OUTSIDE RECORDS SUMMARY | 2024-12-18 13:28 | XMS_ITS | Encounter Summary ---
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
--- OUTSIDE RECORDS SUMMARY | 2024-12-18 13:28 | XMS_ITS | Clinical Summary ---
Author Organization [facility] Address [address], [address] [address] Phone Care Team Providers Care Graphic Production Artist Name Role Phone Carlos Clayton MD Primary Care Provider [phone] Allergies Active Allergy Reactions Criticality Noted Date [...] patient's age to complete this topic Insurance [facility] Care Teams Graphic Production Artist Relationship Specialty Start Date End Date Carlos Clayton MD [address] [place] [address] PCP - General Family Medicine 02/27/19
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
--- NOTE | 2024-12-18 14:26 | ED.DIZZY ---
HPI - Dizziness General Chief Complaint: Dizziness <CHANDANA Campos Last Filed: 12/18/24 14:43> Stated Complaint: CVA 2/9, dizzy, lethargic, abd swelling <CHANDANA Campos Last Filed: 12/18/24 14:43> Time Seen by Provider: 12/18/24 14:26 <CHANDANA Campos Last Filed: 12/18/24 14:43> Focused HPI: Patient is an 84-year-old male who presents the ED with report weakness/lightheadedness. Patient reports he has not felt well for the last couple of days. States he feels weak, fatigued, lightheaded. He had a CVA on 11/23 in does have slight residual weakness in his right leg related to this. He denies any change in this weakness lately. He was started on several new medications after this CVA and feels he may be having a reaction to the medications. He does also c/o some abdominal pain. Denies syncope, SWAIN, N/V, CP, SOB, cough or cold symptoms, vision changes. GENERAL: Elderly but well-appearing, well-nourished, and in no acute distress. HEAD: Normocephalic, atraumatic. CHEST: Clear to auscultation. ?No respiratory distress. HEART: Regular rate and rhythm.? NEURO: ?Alert and oriented x3. No focal deficits. Trace weakness of asp developer strength in right hand compared to left. No pronator drift. Patient screened in triage and initial orders placed.? ?Additional care and disposition to be based upon?diagnostic testing and treatment. <CHANDANA Campos Last Filed: 12/18/24 14:43> Source: patient <CHANDANA Campos Last Filed: 12/18/24 14:43> Mode of arrival: ambulatory <CHANDANA Campos Last Filed: 12/18/24 14:43> Limitations: no limitations <CHANDANA Campos Last Filed: 12/18/24 14:43> History of Present Illness HPI Narrative: as per mse hpi. denies CP. Pt has some SOB also is worse with exertion but persistent even at rest. <Fran Koenig III, DO - Last Filed: 12/18/24 21:49> Related Data Home Medications: Home Medications ?Medication ?Instructions ?Recorded ?Confirmed ?Last Taken ?Type multivitamin (Daily Value tablet) 1 tablet PO DAILY 11/23/24 12/10/24 11/25/24 08:10 History <Denice Nunez PA-C - Last Filed: 12/18/24 14:43> Allergies/Adverse Reactions: Allergies Allergy/AdvReac Type Severity Reaction Status Date / Time levofloxacin (From Levaquin) AdvReac Severe Muscle Pain Verified 12/18/24 12:50 <Denice Nunez PA-C - Last Filed: 12/18/24 14:43> Review of Systems Review of Systems: All systems reviewed & are unremarkable except as noted in HPI and below <Fran Koenig III, DO - Last Filed: 12/18/24 21:49> [facility] Past Medical History Medical History: Medical History (Updated 12/18/24 @ 18:36 by Fran Koenig III, DO) Elevated BUN Elevated liver enzymes Insomnia 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 Patent foramen ovale 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 shunt with Valsalva only consistent with PFO on echo in November 2022 Heart failure with preserved ejection fraction Coronary artery disease Gastric ulcer (11/2022) Gastric nodule Congestive heart failure Essential hypertension Ischemic cardiomyopathy Diabetes type 2, controlled Hiatal hernia <Denice Nunez PA-C - Last Filed: 12/18/24 14:43> Surgical History Surgical History: Surgical History History of cataract extraction History of arthroplasty of left shoulder History of arthroplasty of left knee History of sinus surgery History of cardiac catheterization History of four vessel coronary artery bypass graft (2009) History of Esmer fundoplication History of hernia surgery <CHANDANA Campos Last Filed: 12/18/24 14:43> Family History Family History: Family History Mother Family history of lung cancer Family history of malignant neoplasm Father Sibling No problems noted. Sibling , breast cancer No problems noted. <Denice Nunez PA-C - Last Filed: 12/18/24 14:43> Social History Social History: Social History Social History: Surrogate medical decision maker: Enedina Jones, spouse ([phone]). Code status: Full code Smoking status: Never smoker Second hand tobacco smoke exposure: Yes Alcohol intake: never Substance use: never Substance use type: does not use Do You Feel Safe in your Home?: Yes Lack of Transportation: No Lack of Food: Never True Current Housing: I Have Housing Concerned About Future Housing: No Difficulty Paying Gas/Electric Bills: No Difficulty Paying for Meds: No Currently Unemployed: No Education: High School Diploma/GED Difficulty w/ Childcare or Family Care: No Living arrangements: with family Additional living arrangements comments: Lives with in [place]. They have 3 children. Occupation/Education: retired Additional occupation/education comments: [employer] . Retired from [employer]. Spiritual care concerns: No <CHANDANA Campos Last Filed: 12/18/24 14:43> Exam Const: General: healthy appearing and no acute distress <Fran Benji Koenig III, DO - Last Filed: 12/18/24 21:49> Nutritional Appearance: well nourished <Fran Benji Koenig III, DO - Last Filed: 12/18/24 21:49> Orientation/consciousness: patient oriented x3 <Fran Benji Koenig III, DO - Last Filed: 12/18/24 21:49> Limitations: no limitations <Fran Benji Koenig III, DO - Last Filed: 12/18/24 21:49> HENMT: Head: normal to inspection <Fran Benji Koenig III, DO - Last Filed: 12/18/24 21:49> Chest: Chest palpation & inspection: normal inspection of the chest <Fran Benji Koenig III, DO - Last Filed: 12/18/24 21:49> Resp: Effort & Inspection: normal respiratory effort <Fran Benji Koenig III, DO - Last Filed: 12/18/24 21:49> Auscultation: clear to auscultation bilaterally <Fran Benji Koenig III, DO - Last Filed: 12/18/24 21:49> Cardio: Rate: regular rate <Fran Benji Koenig III, DO - Last Filed: 12/18/24 21:49> Rhythm: regular rhythm <Fran Benji Koenig III, DO - Last Filed: 12/18/24 21:49> GI: GI Palp: Yes Soft to palpation and No Tenderness to palpation present (GI) <Fran Benji Koenig III, DO - Last Filed: 12/18/24 21:49> Auscultation: normal bowel sounds <Fran Benji Koenig III, DO - Last Filed: 12/18/24 21:49> Skin: General skin exam: normal color <Fran Bneji Koenig III, DO - Last Filed: 12/18/24 21:49> Rashes: no rashes <Fran Benji Koenig III, DO - Last Filed: 12/18/24 21:49> Wounds: no wounds <Fran Benji Koenig III, DO - Last Filed: 12/18/24 21:49> Neuro: General: patient oriented x3, moves all extremities and CN's II-XI intact bilaterally <Fran Benji Koenig III, DO - Last Filed: 12/18/24 21:49> Speech: normal speech <Fran Benji Koenig III, DO - Last Filed: 12/18/24 21:49> Extrem: General: normal to inspection and no clubbing, cyanosis or edema <Fran Benji Koenig III, DO - Last Filed: 12/18/24 21:49> Psych: Mental Status: mental status grossly normal <Fran Benji Koenig III, DO - Last Filed: 12/18/24 21:49> Course Vital Signs Vital signs: Vital Signs Temperature 97.3 F L 12/18/24 12:47 Pulse Rate 89 12/18/24 12:47 Respiratory Rate 16 12/18/24 12:47 Blood Pressure 149/79 H 12/18/24 12:47 Pulse Oximetry 97 12/18/24 12:47 Oxygen Delivery Room Air 12/18/24 12:47 Temperature 97.3 F L 12/18/24 12:47 Pulse Rate 84 12/18/24 19:08 Respiratory Rate 19 12/18/24 19:08 Blood Pressure 151/81 H 12/18/24 16:31 Pulse Oximetry 98 12/18/24 19:08 Oxygen Delivery Room Air 12/18/24 12:47 <CHANDANA Campos Last Filed: 12/18/24 14:43> Vital Signs Temperature 97.3 F L 12/18/24 12:47 Pulse Rate 89 12/18/24 12:47 Respiratory Rate 16 12/18/24 12:47 Blood Pressure 149/79 H 12/18/24 12:47 Pulse Oximetry 97 12/18/24 12:47 Oxygen Delivery Room Air 12/18/24 12:47 Temperature 97.3 F L 12/18/24 12:47 Pulse Rate 84 12/18/24 19:08 Respiratory Rate 19 12/18/24 19:08 Blood Pressure 151/81 H 12/18/24 16:31 Pulse Oximetry 98 12/18/24 19:08 Oxygen Delivery Room Air 12/18/24 12:47 <Fran Koenig III, DO - Last Filed: 12/18/24 21:49> MDM - Dizziness MDM Narrative Medical decision making narrative: MSE by PRIMITIVO in triage. <CHANDANA Campos Last Filed: 12/18/24 14:43> MSE by PRIMITIVO in triage. will check some labs and cxr and ua and add ck and trop and ekg. labs and ekg and cxr neg. <Fran Koenig III, DO - Last Filed: 12/18/24 21:49> Lab Data Result diagrams: 12/18/24 16:17 12/18/24 16:18 <CHANDANA Campos Last Filed: 12/18/24 14:43> Labs: Lab Results 12/18/24 12/18/24 12/18/24 Range/Units 16:02 16:17 16:18 WBC 7.6 (4.5-10.0) K/mm3 RBC 4.63 (4.6-6.20) M/mm3 Hgb 13.3 L (14.0-18.0) g/dL Hct 40.4 L (42.0-52.0) % MCV 87.3 (80-100) fl MCH 28.7 (26-34) pg MCHC 32.9 (32-36) g/dl RDW 13.5 (11.5-14.5) % Plt Count 221 (150-375) k/mm3 MPV 10.5 H (7.4-10.4) fl Immature Gran % (Auto) 0.3 (0-0.5) % Neut % (Auto) 72.4 (45.5-73.1) % Lymph % (Auto) 17.1 L (18.3-44.2) % [place] % (Auto) 6.1 (2.6-8.5) % Eos % (Auto) 3.4 (0-4.4) % Baso % (Auto) 0.7 (0.2-1.2) % Lymph # (Auto) 1.30 (0.9-3.2) K/mm3 Sargent # (Auto) 0.5 (0.1-0.6) K/mm3 Eos # (Auto) 0.3 (0-0.3) K/mm3 Baso # (Auto) 0.1 (0.0-0.1) K/mm3 Abs Immat Gran (auto) 0.02 (0.00-0.031) K/mm3 Absolute Neuts (auto) 5.5 (1.3-6.7) K/mm3 Absolute Nucleated RBC 0.000 (0.0-0.012) K/mm3 Nucleated RBC % 0.0 (0.0-0.2) % PT 13.7 (11.1-14.7) Seconds INR 1.0 APTT 23.3 (22.3-36.8) Seconds Sodium 137 (137-145) mmol/L Potassium 4.3 (3.4-5.0) mmol/L Chloride 104 (98-107) mmol/L Carbon Dioxide 23 (22-30) mmol/L Anion Gap 10 (4-12) mmol/L BUN 28 H (9-20) mg/dL Creatinine 1.03 (0.7-1.3) mg/dL Estim Creat Clear Calc 53 ml/min Estimated GFR > 60 (59 - ) Glucose 204 H (65-110) mg/dL Calcium 9.3 (8.4-10.2) mg/dL Magnesium 1.8 (1.6-2.3) mg/dL Total Bilirubin 0.8 (0.2-1.3) mg/dL AST 29 (17-59) U/L ALT 26 (6-50) U/L Alkaline Phosphatase 59 (38-126) U/L Total Creatine Kinase 46 L (55-170) U/L Troponin I < 0.012 (0.000-0.034) ng/mL Total Protein 7.0 (6.3-8.2) g/dL Albumin 4.4 (3.5-5.1) g/dL Lipase 83 (23-300) U/L Urine Color (Yellow) Urine Appearance (Clear) Urine pH (5.0-9.0) Ur Specific [place] (1.001-1.035) Urine Protein (Negative) mg/dL Urine Glucose (UA) (Negative) mg/dL Urine Ketones (Negative) mg/dL Ur Blood (Man) (Negative) Urine Nitrate (Negative) Urine Bilirubin (Negative) Urine Urobilinogen (<2.0) mg/dL Leukocyte Esterase Rfl (Negative) BARRY/UL Influenza A (RT-PCR) Negative (Negative) Influenza B (RT-PCR) Negative (Negative) RSV (RT-PCR) Negative (Negative) SARS-CoV-2 RNA (RT-PCR) Negative (Negative) 12/18/24 Range/Units 16:54 WBC (4.5-10.0) K/mm3 RBC (4.6-6.20) M/mm3 Hgb (14.0-18.0) g/dL Hct (42.0-52.0) % MCV (80-100) fl MCH (26-34) pg MCHC (32-36) g/dl RDW (11.5-14.5) % Plt Count (150-375) k/mm3 MPV (7.4-10.4) fl Immature Gran % (Auto) (0-0.5) % Neut % (Auto) (45.5-73.1) % Lymph % (Auto) (18.3-44.2) % Sargent % (Auto) (2.6-8.5) % Eos % (Auto) (0-4.4) % Baso % (Auto) (0.2-1.2) % Lymph # (Auto) (0.9-3.2) K/mm3 [place]ent # (Auto) (0.1-0.6) K/mm3 Eos # (Auto) (0-0.3) K/mm3 Baso # (Auto) (0.0-0.1) K/mm3 Abs Immat Gran (auto) (0.00-0.031) K/mm3 Absolute Neuts (auto) (1.3-6.7) K/mm3 Absolute Nucleated RBC (0.0-0.012) K/mm3 Nucleated RBC % (0.0-0.2) % PT (11.1-14.7) Seconds INR APTT (22.3-36.8) Seconds Sodium (137-145) mmol/L Potassium (3.4-5.0) mmol/L Chloride (98-107) mmol/L Carbon Dioxide (22-30) mmol/L Anion Gap (4-12) mmol/L BUN (9-20) mg/dL Creatinine (0.7-1.3) mg/dL Estim Creat Clear Calc ml/min Estimated GFR (59 - ) Glucose (65-110) mg/dL Calcium (8.4-10.2) mg/dL Magnesium (1.6-2.3) mg/dL Total Bilirubin (0.2-1.3) mg/dL AST (17-59) U/L ALT (6-50) U/L Alkaline Phosphatase (38-126) U/L Total Creatine Kinase (55-170) U/L Troponin I (0.000-0.034) ng/mL Total Protein (6.3-8.2) g/dL Albumin (3.5-5.1) g/dL Lipase (23-300) U/L Urine Color Yellow (Yellow) Urine Appearance Clear (Clear) Urine pH 5.0 (5.0-9.0) Ur Specific [place] 1.021 (1.001-1.035) Urine Protein Negative (Negative) mg/dL Urine Glucose (UA) Negative (Negative) mg/dL Urine Ketones Negative (Negative) mg/dL Ur Blood (Man) Negative (Negative) Urine Nitrate Negative (Negative) Urine Bilirubin Negative (Negative) Urine Urobilinogen 0.2 (<2.0) mg/dL Leukocyte Esterase Rfl Negative (Negative) BARRY/UL Influenza A (RT-PCR) (Negative) Influenza B (RT-PCR) (Negative) RSV (RT-PCR) (Negative) SARS-CoV-2 RNA (RT-PCR) (Negative) <Denice Nunez PA-C - Last Filed: 12/18/24 14:43> Lab Results 12/18/24 12/18/24 12/18/24 Range/Units 16:02 16:17 16:18 WBC 7.6 (4.5-10.0) K/mm3 RBC 4.63 (4.6-6.20) M/mm3 Hgb 13.3 L (14.0-18.0) g/dL Hct 40.4 L (42.0-52.0) % MCV 87.3 (80-100) fl MCH 28.7 (26-34) pg MCHC 32.9 (32-36) g/dl RDW 13.5 (11.5-14.5) % Plt Count 221 (150-375) k/mm3 MPV 10.5 H (7.4-10.4) fl Immature Gran % (Auto) 0.3 (0-0.5) % Neut % (Auto) 72.4 (45.5-73.1) % Lymph % (Auto) 17.1 L (18.3-44.2) % Sargent % (Auto) 6.1 (2.6-8.5) % Eos % (Auto) 3.4 (0-4.4) % Baso % (Auto) 0.7 (0.2-1.2) % Lymph # (Auto) 1.30 (0.9-3.2) K/mm3 [place] # (Auto) 0.5 (0.1-0.6) K/mm3 Eos # (Auto) 0.3 (0-0.3) K/mm3 Baso # (Auto) 0.1 (0.0-0.1) K/mm3 Abs Immat Gran (auto) 0.02 (0.00-0.031) K/mm3 Absolute Neuts (auto) 5.5 (1.3-6.7) K/mm3 Absolute Nucleated RBC 0.000 (0.0-0.012) K/mm3 Nucleated RBC % 0.0 (0.0-0.2) % PT 13.7 (11.1-14.7) Seconds INR 1.0 APTT 23.3 (22.3-36.8) Seconds Sodium 137 (137-145) mmol/L Potassium 4.3 (3.4-5.0) mmol/L Chloride 104 (98-107) mmol/L Carbon Dioxide 23 (22-30) mmol/L Anion Gap 10 (4-12) mmol/L BUN 28 H (9-20) mg/dL Creatinine 1.03 (0.7-1.3) mg/dL Estim Creat Clear Calc 53 ml/min Estimated GFR > 60 (59 - ) Glucose 204 H (65-110) mg/dL Calcium 9.3 (8.4-10.2) mg/dL Magnesium 1.8 (1.6-2.3) mg/dL Total Bilirubin 0.8 (0.2-1.3) mg/dL AST 29 (17-59) U/L ALT 26 (6-50) U/L Alkaline Phosphatase 59 (38-126) U/L Total Creatine Kinase 46 L (55-170) U/L Troponin I < 0.012 (0.000-0.034) ng/mL Total Protein 7.0 (6.3-8.2) g/dL Albumin 4.4 (3.5-5.1) g/dL Lipase 83 (23-300) U/L Urine Color (Yellow) Urine Appearance (Clear) Urine pH (5.0-9.0) Ur Specific [place] (1.001-1.035) Urine Protein (Negative) mg/dL Urine Glucose (UA) (Negative) mg/dL Urine Ketones (Negative) mg/dL Ur Blood (Man) (Negative) Urine Nitrate (Negative) Urine Bilirubin (Negative) Urine Urobilinogen (<2.0) mg/dL Leukocyte Esterase Rfl (Negative) BARRY/UL Influenza A (RT-PCR) Negative (Negative) Influenza B (RT-PCR) Negative (Negative) RSV (RT-PCR) Negative (Negative) SARS-CoV-2 RNA (RT-PCR) Negative (Negative) 12/18/24 Range/Units 16:54 WBC (4.5-10.0) K/mm3 RBC (4.6-6.20) M/mm3 Hgb (14.0-18.0) g/dL Hct (42.0-52.0) % MCV (80-100) fl MCH (26-34) pg MCHC (32-36) g/dl RDW (11.5-14.5) % Plt Count (150-375) k/mm3 MPV (7.4-10.4) fl Immature Gran % (Auto) (0-0.5) % Neut % (Auto) (45.5-73.1) % Lymph % (Auto) (18.3-44.2) % S[place]ent % (Auto) (2.6-8.5) % Eos % (Auto) (0-4.4) % Baso % (Auto) (0.2-1.2) % Lymph # (Auto) (0.9-3.2) K/mm3 [place]ent # (Auto) (0.1-0.6) K/mm3 Eos # (Auto) (0-0.3) K/mm3 Baso # (Auto) (0.0-0.1) K/mm3 Abs Immat Gran (auto) (0.00-0.031) K/mm3 Absolute Neuts (auto) (1.3-6.7) K/mm3 Absolute Nucleated RBC (0.0-0.012) K/mm3 Nucleated RBC % (0.0-0.2) % PT (11.1-14.7) Seconds INR APTT (22.3-36.8) Seconds Sodium (137-145) mmol/L Potassium (3.4-5.0) mmol/L Chloride (98-107) mmol/L Carbon Dioxide (22-30) mmol/L Anion Gap (4-12) mmol/L BUN (9-20) mg/dL Creatinine (0.7-1.3) mg/dL Estim Creat Clear Calc ml/min Estimated GFR (59 - ) Glucose (65-110) mg/dL Calcium (8.4-10.2) mg/dL Magnesium (1.6-2.3) mg/dL Total Bilirubin (0.2-1.3) mg/dL AST (17-59) U/L ALT (6-50) U/L Alkaline Phosphatase (38-126) U/L Total Creatine Kinase (55-170) U/L Troponin I (0.000-0.034) ng/mL Total Protein (6.3-8.2) g/dL Albumin (3.5-5.1) g/dL Lipase (23-300) U/L Urine Color Yellow (Yellow) Urine Appearance Clear (Clear) Urine pH 5.0 (5.0-9.0) Ur Specific [place] 1.021 (1.001-1.035) Urine Protein Negative (Negative) mg/dL Urine Glucose (UA) Negative (Negative) mg/dL Urine Ketones Negative (Negative) mg/dL Ur Blood (Man) Negative (Negative) Urine Nitrate Negative (Negative) Urine Bilirubin Negative (Negative) Urine Urobilinogen 0.2 (<2.0) mg/dL Leukocyte Esterase Rfl Negative (Negative) BARRY/UL Influenza A (RT-PCR) (Negative) Influenza B (RT-PCR) (Negative) RSV (RT-PCR) (Negative) SARS-CoV-2 RNA (RT-PCR) (Negative) <Fran Koenig III, DO - Last Filed: 12/18/24 21:49> Discharge Plan Discharge Clinical Impression: Weakness <CHANDANA Campos Last Filed: 12/18/24 14:43> Patient Disposition: Home, Self-Care <CHANDANA Campos Last Filed: 12/18/24 14:43> Condition: Stable <CHANDANA Campos Last Filed: 12/18/24 14:43> Instructions: Antibiotic Form, Weakness (ED) <CHANDANA Campos Last Filed: 12/18/24 14:43> Patient Language: Trinidadian <CHANDANA Campos Last Filed: 12/18/24 14:43> Prescriptions: No Action sertraline 25 mg tablet 25 mg PO DAILY Qty: 30 1RF multivitamin [Daily Value] Tablet 1 tablet PO DAILY albuterol sulfate 90 mcg/actuation HFA aerosol inhaler See Rx Instructions .ROUTE .COMPLEX Qty: 8.5 2RF Dose Instruction: INHALE 1-2 PUFFS BY MOUTH EVERY 6 HOURS NEEDED FOR SHORTNESS OF BREATH OR WHEEZING Rx Instructions: INHALE 1-2 PUFFS BY MOUTH EVERY 6 HOURS NEEDED FOR SHORTNESS OF BREATH OR WHEEZING ezetimibe [Zetia] 10 mg tablet 10 mg PO DAILY Qty: 30 1RF clopidogrel 75 mg Tablet 75 mg PO QAM 30 Days Qty: 30 0RF amlodipine 10 mg Tablet 10 mg PO DAILY Qty: 30 0RF aspirin [Children's Aspirin] 81 mg Tablet,Chewable 81 mg PO DAILY@0800 30 Days Qty: 30 0RF <Denice Nunez PA-C - Last Filed: 12/18/24 14:43> Follow-up/Referrals: Carlos Clayton MD [Primary Care Provider] - <Denice Nunez PA-C - Last Filed: 12/18/24 14:43>
--- NOTE | 2024-12-18 14:30 | ECG_ITS ---
Test Date: 2024-12-18 16:08:41 Measurements Intervals [place] Rate: 87 P: 14 WI: 161 QRS: -33 QRSD: 160 T: 45 QT: 406 QTc: 490 Interpretive Statements SINUS RHYTHM WITH OCCASIONAL VENTRICULAR PREMATURE COMPLEXES MARKED LEFT AXIS DEVIATION [QRS AXIS < -30] RIGHT BUNDLE BRANCH BLOCK [120+ ms QRS DURATION, UPRIGHT V1, 40+ ms S IN I/aVL/V4/V5/V6] Compared to ECG 11/23/2024 13:31:21 No significant changes Electronically Signed On 12-19-2024 16:19:06 REFRIGERATION TECHNICIAN by Vannessa Lau M.D.
[2024-12-18 16:23] LABS: Basophils Absolute Auto 0.1 K/mm3 (0.0-0.1); Basophils Percent Auto 0.7 % (0.2-1.2); Eosinophils Absolute Auto 0.3 K/mm3 (0-0.3); Eosinophils Percent Auto 3.4 % (0-4.4); Hematocrit 40.4 % (42.0-52.0); Hemoglobin 13.3 g/dL (14.0-18.0); Immature Granulocyte Absolute 0.02 K/mm3 (0.00-0.031); Immature Granulocyte Percent A 0.3 % (0-0.5); Lymphocytes Percent Auto 17.1 % (18.3-44.2); Mean Corpuscular HGB Conc 32.9 g/dl (32-36); Mean Corpuscular Hemoglobin 28.7 pg (26-34); Mean Corpuscular Volume 87.3 fl (80-100); Mean Platelet Volume 10.5 fl (7.4-10.4); Monocytes Absolute Auto 0.5 K/mm3 (0.1-0.6); Monocytes Percent Auto 6.1 % (2.6-8.5); Neutrophils Absolute Auto 5.5 K/mm3 (1.3-6.7); Neutrophils Percent Auto 72.4 % (45.5-73.1); Platelet Count Result 221 k/mm3 (150-375); Red Blood Count 4.63 M/mm3 (4.6-6.20); Red Cell Distribution Width 13.5 % (11.5-14.5); White Blood Count 7.6 K/mm3 (4.5-10.0)
--- OUTSIDE RECORDS SUMMARY | 2024-12-18 16:33 | XMS_ITS | Encounter Summary ---
Author Organization [facility] Address [address] Attn: [place] [address] Care Team Providers Care Associate Agent Insurance Sales Name Role Phone Unavailable Primary Care Provider Unavailabl e Encounter Details Date Type Department Care Team (Late st Contact Info) Description 08/15/1989 [place] [address] [address] Social History Tobacco Use Types Packs/Day Years Used Date Smoking Tobacco: Never Assessed Sex and Gender Information Value Date Recorded Sex Assigned at Not on file Legal 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
--- OUTSIDE RECORDS SUMMARY | 2024-12-18 16:33 | XMS_ITS | Clinical Summary ---
Author Organization [facility] [address] Address [address] [place] [address] Care Team Providers Care Ruby On Rails Developer Name Role Phone Carlos Clayton MD Primary Care Provider [phone] Flex Aguillon MD Unavailable [phone] Stephane Alvarez MD Unavailable [phone] Jovanny Preston DO Unavailable [phone] Allergies Active Allergy Reactions Criticality Noted [...] (12/01/2022): Added automatically from request for surgery [id number] H/O: upper GI bleed 12/01/2022 Overview (12/01/2022): Added automatically from request for surgery [id number] 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 Overview (10/26/2022): Added automatically from request for surgery [id number] Ischemic cardiomyopathy 03/14/2022 Essential hypertension 06/19/2019 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 Overview (06/03/2019): Added automatically from request for surgery [id number] Iron deficiency anemia, unspecified 04/03/2019 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/20 17 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 Coronary arteriosclerosis in [place] artery 11/24 Overview (01/18/2017): Coronary arteriosclerosis in [place] artery Anemia 11/24/2014 Overview (01/18/2017): Anemia [...] disease NSTEMI 2011 DVT (deep venous thrombosis) ([facility]) 2016 Hiatal hernia Diverticulosis GERD (gastroesophageal reflux [...] on file 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 Gender Identity Not on file Sexual Orientation [...] (#1) 2024 Medical Devices Implanted Type Area Child Care Attendant Device Identifier Shelf Expiration Date Model / Serial / Lot Wl [employer] [id number] [place] [employer] 10x7cm Reinforcement Tissue Mesh Surgical Synthetic - [id number] - [id number] Implanted:Qty: 1 on 06/30/2019 by Yayo Ponce MD at [facility] Other - see comments N/A: Stomach Wl [employer] [id number] 01/12/2022 [id number] / [id number] / 0 Description:[place] [employer] Tissue Reinforcement Joint Replacement Left: Knee Joint Replacement Left: Shoulder Insurance MEDICARE AET SENIOR SUPPLEMENT MEDICARE AETNA SENIOR SUPPLEMENT [facility] MEDICARE MEDICARE Advance Directives For more information, please contact: [phone] * Full Code (Latest Code Status on File) Date Activated Date Inactivated Comments 05/11/2023 11:28 AM 05/14/2023 2:23 PM * Full Code Date Activated Date Inactivated Comments 06/30/2019 10:29 PM 07/03/2019 8:40 PM Care Teams Ruby On Rails Developer Relationship Specialty Start Date End Date Carlos Clayton MD PCP - General Family Medicine 01/28/19 Flex Aguillon MD Cardiology 02/14/19 Stephane Alvarez MD Medical Oncologist/Tree Surgeon Helper Medical Oncology 02/19/19 Jovanny Preston DO Consulting Physician Gastroenterology 02/19/19
--- OUTSIDE RECORDS SUMMARY | 2024-12-18 16:33 | XMS_ITS | Clinical Summary ---
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
--- OUTSIDE RECORDS SUMMARY | 2024-12-18 16:33 | XMS_ITS | Clinical Summary ---
Author Organization [facility] Address [address], [address] [address] Phone Care Team Providers Care Center Human Resources Manager Name Role Phone Carlos Clayton MD Primary Care Provider Allergies Active Allergy Reactions Criticality Noted Date [...] topic Insurance [facility] Care Teams Center Human Resources Manager Relationship Specialty Start Date End Date Carlos Clayton MD [address] [place] [address] PCP - General Family Medicine 02/27/19
--- OUTSIDE RECORDS SUMMARY | 2024-12-18 16:33 | XMS_ITS | Referral Summary ---
Author Organization [facility] [address] Address [address] [place] [address] Care Team Providers Care Bus Monitor Name Role Phone Carlos Clayton MD Primary Care Provider [phone] Flex Aguillon MD Unavailable [phone] Stephane Alvarez MD Unavailable [phone] Jovanny Preston DO Unavailable [phone] Allergies Active Allergy Reactions Criticality Noted [...] (12/01/2022): Added automatically from request for surgery [id number] H/O: upper GI bleed 12/01/2022 Overview (12/01/2022): Added automatically from request for surgery [id number] 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 Overview (10/26/2022): Added automatically from request for surgery [id number] Ischemic cardiomyopathy 03/14/2022 Essential hypertension 06/19/2019 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 Overview (06/03/2019): Added automatically from request for surgery [id number] Iron deficiency anemia, unspecified 04/03/2019 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/20 17 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 Coronary arteriosclerosis in [place] artery 11/24 Overview (01/18/2017): Coronary arteriosclerosis in [place] artery Anemia 11/24/2014 Overview (01/18/2017): Anemia Obstructive [...] on file 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 Other - see comments N/A: Stomach Wl [employer] [id number] 01/12/2022 [id number] / [id number] / [id number] Description:[employer] Tissue Reinforcement Joint Replacement Left: Knee Joint Replacement Left: Shoulder Insurance MEDICARE [facility] Address: [address] [place] [id number] AETNA SENIOR SUPPLEMENT MEDICARE AETNA SENIOR SUPPLEMENT [facility] TRADITIONAL MEDICARE MEDICARE Advance Directives For more information, please contact: [phone] * Full Code (Latest Code Status on File) Date Activated Date Inactivated Comments 05/11/2023 11:28 AM 05/14/2023 2:23 PM * Full Code Date Activated Date Inactivated Comments 06/30/2019 10:29 PM 07/03/2019 8:40 PM Care Teams Bus Monitor Relationship Specialty Start Date End Date Carlos Clayton MD PCP - General Family Medicine 01/28/19 Flex Aguillon MD Cardiology 02/14/19 Stephane Alvarez MD Medical Oncologist/Forms Analysis Manager Medical Oncology 02/19/19 Jovanny Preston DO Consulting Physician Gastroenterology 02/19/19
--- OUTSIDE RECORDS SUMMARY | 2024-12-18 16:33 | XMS_ITS | Encounter Summary ---
Author Organization [facility] Address [address] [facility] 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
--- OUTSIDE RECORDS SUMMARY | 2024-12-18 16:33 | XMS_ITS | CONTINUITY OF CARE DOCUMENT ---
Author Name tish winston Address Unknown Organization [facility] Address [address] [place] [address] Phone [phone] Care Team Providers Care Corporate Sales Manager Name Role Phone Lionel Fitch MD Unavailable [phone] INSURANCE PROVIDERS Payer name Policy type / Coverage type Staci red democrat ID [facility] [id number] [place] Medicare [id number]
--- OUTSIDE RECORDS SUMMARY | 2024-12-18 16:33 | XMS_ITS | Encounter Summary ---
Author Organization [facility] Address [address] [facility] Attn: [place] [address] Care Team Providers Care [place] Hardware Installer Name Role Phone Unavailable Primary Care Provider Unavailabl e Encounter Details Date Type Department Care Team (Late st Contact Info) Description 07/26/1990 [place] [address] [address] Social History Tobacco Use Types Packs/Day Years Used Date Smoking Tobacco: Never Assessed Sex and Gender Information Value Date Recorded Sex Assigned at Not on file 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
[2024-12-18 16:35] LABS: Prothrombin Time 13.7 Seconds (11.1-14.7)
[2024-12-18 16:36] LABS: Partial Thromboplastin Time 23.3 Seconds (22.3-36.8)
[2024-12-18 16:38] LABS: Alanine Aminotransferase 26 U/L (6-50); Albumin Level 4.4 g/dL (3.5-5.1); Alkaline Phosphatase 59 U/L (38-126); Anion Gap 10 mmol/L (4-12); Aspartate Amino Transferase 29 U/L (17-59); Bilirubin,Total 0.8 mg/dL (0.2-1.3); Blood Urea Nitrogen 28 mg/dL (9-20); Calcium 9.3 mg/dL (8.4-10.2); Carbon Dioxide 23 mmol/L (22-30); Chloride 104 mmol/L (98-107); Estimated CRCL calculation 53 ml/min; Estimated Glomerular Filt Rate > 60; Glucose 204 mg/dL (65-110); Lipase 83 U/L (23-300); Magnesium 1.8 mg/dL (1.6-2.3); Potassium 4.3 mmol/L (3.4-5.0); Sodium 137 mmol/L (137-145)
[2024-12-18 16:48] LABS: Influenza A QL RT-PCR Negative (Negative); Influenza B QL RT-PCR Negative (Negative); RSV RNA, RT-PCR Negative (Negative); SARS-CoV-2 RNA PCR Negative (Negative)
[2024-12-18 16:49] LABS: Troponin I < 0.012 ng/mL (0.000-0.034)
[2024-12-18 17:03] LABS: Add Urine Microscopic? NO; Appearance Urine Clear (Clear); Bilirubin Urine Negative (Negative); Blood Urine Negative (Negative); Color Urine Yellow (Yellow); Glucose Urine UA Negative (Negative); Ketones Urine Negative (Negative); Leukocyte Esterase Ur Negative LEU/UL (Negative); Nitrate Urine Negative (Negative); Protein Urine Negative (Negative); Specific Grav Ur 1.021 (1.001-1.035); Urobilinogen Urine 0.2 mg/dL (<2.0)
[2024-12-18 17:19] LABS: Creatine Kinase 46 U/L (55-170)
== END 2024-12-18 19:00 | disposition home or self-care (01) ==
PROVIDERS: Physician Assistant; Emergency Provider Emergency Medicine; PCP Family Medicine
DX: R53.1 Weakness (principal); Z20.822 Contact with and (suspected) exposure to COVID-19; I50.9 Heart failure, unspecified; I25.10 Atherosclerotic heart disease of native coronary artery without angina pectoris; I11.0 Hypertensive heart disease with heart failure; I25.5 Ischemic cardiomyopathy; I69.941 Monoplegia of lower limb following unspecified cerebrovascular disease affecting right dominant side; E11.9 Type 2 diabetes mellitus without complications; K44.9 Diaphragmatic hernia without obstruction or gangrene; Z95.1 Presence of aortocoronary bypass graft; Z96.612 Presence of left artificial shoulder joint; Z96.652 Presence of left artificial knee joint; Z98.49 Cataract extraction status, unspecified eye; Z77.22 Contact with and (suspected) exposure to environmental tobacco smoke (acute) (chronic); Z79.02 Long term (current) use of antithrombotics/antiplatelets; Z79.899 Other long term (current) drug therapy; Z79.82 Long term (current) use of aspirin
CPT/HCPCS: 36415; 70450; 71046; 74177; 80053; 81003; 82550; 83690; 83735; 84484; 85025; 85610; 85730; 87637; 93005; 99284; Q9967

== ENCOUNTER 2025-01-02 12:23 | Emergency (ER) | payer MEDICARE, SELFPAY ==
[2025-01-02 12:28] VITALS: BP 157/79; PULSE 105; RESP 16; TEMP 36.5; O2SAT 99
[2025-01-02 12:52] LABS: EDCOVIDSCREEN Negative (Negative); EDINFLUASCREEN Negative (Negative); EDINFLUBSCREEN Negative (Negative)
--- NOTE | 2025-01-02 14:56 | ED.URI ---
HPI - URI/Sore Throat General Chief Complaint: Upper Respiratory Infection Stated Complaint: Upper Respiratory Symptoms Time Seen by Provider: 01/02/25 12:44 Source: patient and RN notes reviewed Mode of arrival: ambulatory Limitations: no limitations History of Present Illness HPI Narrative: Patient presents today complaining 2 day history of nasal congestion and bilateral ear fullness. Denies fever, cough, or any additional symptoms. States he has been exposed to influenza a by multiple family members. No jvgh-gvo-dihgpyx treatment prior to arrival. Related Data Home Medications ?Medication ?Instructions ?Recorded ?Confirmed ?Last Taken ?Type multivitamin (Daily Value tablet) 1 tablet PO DAILY 11/23/24 01/02/25 11/25/24 08:10 History Allergies Allergy/AdvReac Type Severity Reaction Status Date / Time levofloxacin (From Levaquin) AdvReac Severe Muscle Pain Verified 01/02/25 12:29 Review of Systems Review of Systems: CONSTITUTIONAL: Denies body aches, fever, chills, or sweats. EYES: Denies visual changes, redness, or discharge. ENT: Denies rhinorrhea, sore throat, or otalgia.+ congestion, ear fullness CARDIOVASCULAR: Denies chest pain, palpitations, or edema. RESPIRATORY: Denies cough or dyspnea. GASTROINTESTINAL: Denies abdominal pain, nausea, vomiting, or diarrhea. GENITOURINARY: Denies dysuria or hematuria. SKIN: Denies rash, itching, or wounds. MUSCULOSKELETAL: Denies back pain, joint pain, or myalgia. NEUROLOGIC: Denies headache, numbness, tingling, or weakness. PSYCH: Denies depression or anxiety. 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 Patent foramen ovale 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 shunt with Valsalva only consistent with PFO on echo in November 2022 Heart failure with preserved ejection fraction Coronary artery disease Gastric ulcer (11/2022) Gastric nodule Congestive heart failure Essential hypertension Ischemic cardiomyopathy Diabetes type 2, controlled Hiatal hernia Surgical History Surgical History History of cataract extraction History of arthroplasty of left shoulder History of arthroplasty of left knee History of sinus surgery History of cardiac catheterization History of four vessel coronary artery bypass graft (2009) History of Esmer fundoplication History of hernia surgery Family History Family History Mother Family history of lung cancer Family history of malignant neoplasm Father Sibling No problems noted. Sibling , breast cancer No problems noted. Social History Social History Social History: Surrogate medical decision maker: Enedina Jones, spouse ([phone]). Code status: Full code Smoking status: Never smoker Second hand tobacco smoke exposure: Yes Alcohol intake: never Substance use: never Substance use type: does not use Do You Feel Safe in your Home?: Yes Lack of Transportation: No Lack of Food: Never True Current Housing: I Have Housing Concerned About Future Housing: No Difficulty Paying Gas/Electric Bills: No Difficulty Paying for Meds: No Currently Unemployed: No Education: High School Diploma/GED Difficulty w/ Childcare or Family Care: No Living arrangements: with family Additional living arrangements comments: Lives with in [place]. They have 3 children. Occupation/Education: retired Additional occupation/education comments: [employer] . Retired from [employer]. Spiritual care concerns: No Comments At time of signature, I have reviewed and agree with nursing past medical, surgical, social and family history unless otherwise noted. Please see nursing chart for further information. There is no relevant family history pertinent to the presenting complaint Exam Narrative: GENERAL: Well-appearing, well-nourished, and in no acute distress. HEAD: Normocephalic, atraumatic. EYES: EOMI. No redness or drainage. Conjunctivae normal. ENT: Mucous membranes pink and moist. Nares congested. No rhinorrhea. TMs normal bilaterally. Throat normal. Uvula midline. NECK: Normal AROM. Supple. No lymphadenopathy. CHEST: No respiratory distress. Clear to auscultation. HEART: Regular rate and rhythm. No murmur appreciated. EXTREMITIES: Normal range of motion. No edema. SKIN: Warm, dry, no rash. Capillary refill normal. Normal skin turgor. NEURO: No focal deficits. Alert and oriented x3. Gait steady. PSYCH: Normal affect. No signs of depression or anxiety. Course Course Level of Care: Express Care Visit Vital Signs Vital signs: Vital Signs Temperature 97.7 F 01/02/25 12:28 Pulse Rate 105 H 01/02/25 12:28 Respiratory Rate 16 01/02/25 12:28 Blood Pressure 157/79 H 01/02/25 12:28 Pulse Oximetry 99 01/02/25 12:28 Oxygen Delivery Room Air 01/02/25 12:28 Temperature 97.7 F 01/02/25 12:28 Pulse Rate 105 H 01/02/25 12:28 Respiratory Rate 16 01/02/25 12:28 Blood Pressure 157/79 H 01/02/25 12:28 Pulse Oximetry 99 01/02/25 12:28 Oxygen Delivery Room Air 01/02/25 12:28 Reviewed MDM - URI/Sore Throat MDM Narrative Medical decision making narrative: Influenza and COVID negative. Symptoms likely viral in etiology. Discussed xhyl-how-ukauhtx medication use and duration of illness. No prescription medications indicated at this time. Anticipatory guidance given. Lab Data Attestation: I reviewed the patient's lab results. Labs: Lab Results 01/02/25 Range/Units 12:49 POC Influenza A Ag Negative (Negative) POC Influenza B Ag Negative (Negative) POC SARS CoV-2 Ag Negative (Negative) Critical Care Time Critical Care Time Critical Care Time: No Discharge Plan Discharge Clinical Impression: Upper respiratory infection Qualifiers: URI type: unspecified URI Qualified Code(s): J06.9 - Acute upper respiratory infection, unspecified Patient Disposition: Home, Self-Care Condition: Stable Instructions: Upper Respiratory Infection (DC) Additional Instructions: Your influenza and COVID-19 tests are negative today. Your symptoms are likely due to a viral illness, which is not treated with antibiotics. Virus symptoms can last for up to 7-10days. Take Tylenol for pain or fever. Consider taking Mucinex and using Flonase to help with your congestion and fullness symptoms. Rest and stay hydrated. Follow up with your PCP in 3-4 days if symptoms are not improving. Go to the ER immediately if you develop shortness of breath, chest pain, fever, difficulty swallowing, or any other concerning symptoms. Your blood pressure was elevated above 120/80 today at Urgent Care. This puts you above the threshold for follow up. Please schedule a followup visit with your personal physician as soon as possible, for further evaluation and treatment. Even blood pressure exceeding 120/80 may indicate pre-hypertension. Patient Language: Luxembourgish Prescriptions: No Action multivitamin [Daily Value] Tablet 1 tablet PO DAILY albuterol sulfate 90 mcg/actuation HFA aerosol inhaler See Rx Instructions .ROUTE .COMPLEX Qty: 8.5 2RF Dose Instruction: INHALE 1-2 PUFFS BY MOUTH EVERY 6 HOURS NEEDED FOR SHORTNESS OF BREATH OR WHEEZING Rx Instructions: INHALE 1-2 PUFFS BY MOUTH EVERY 6 HOURS NEEDED FOR SHORTNESS OF BREATH OR WHEEZING clopidogrel 75 mg Tablet 75 mg PO QAM 30 Days Qty: 30 0RF amlodipine 10 mg Tablet 10 mg PO DAILY Qty: 30 0RF aspirin [Children's Aspirin] 81 mg Tablet,Chewable 81 mg PO DAILY@0800 30 Days Qty: 30 0RF Follow-up/Referrals: PHYSICIAN,BLOCK OPERATOR [Primary Care Provider] - Time of Disposition: 13:02
== END 2025-01-02 13:06 | disposition home or self-care (01) ==
PROVIDERS: Emergency Provider Nurse Practitioner
DX: J06.9 Acute upper respiratory infection, unspecified (principal); Z20.822 Contact with and (suspected) exposure to COVID-19; I25.10 Atherosclerotic heart disease of native coronary artery without angina pectoris; I11.0 Hypertensive heart disease with heart failure; I50.9 Heart failure, unspecified; E11.9 Type 2 diabetes mellitus without complications; E78.5 Hyperlipidemia, unspecified; I25.5 Ischemic cardiomyopathy; Z86.73 Personal history of transient ischemic attack (TIA), and cerebral infarction without residual deficits; Z96.612 Presence of left artificial shoulder joint; Z96.652 Presence of left artificial knee joint; Z79.82 Long term (current) use of aspirin
CPT/HCPCS: 87426; 87804; 99212; G0463

== ENCOUNTER 2025-02-04 08:42 | Emergency (ER) | payer MEDICARE, SELFPAY ==
[2025-02-04 08:45] VITALS: BP 145/74; PULSE 72; RESP 18; TEMP 36.3; O2SAT 98
--- OUTSIDE RECORDS SUMMARY | 2025-02-04 09:09 | XMS_ITS | Clinical Summary ---
Author Organization [facility] [place] [address] Address [address] [place] [address] Care Team Providers Care Macaroni Maker Name Role Phone Carlos Clayton MD Primary Care Provider [phone] Flex Aguillon MD Unavailable [phone] Stephane Alvarez MD Unavailable [phone] Jovanny Preston DO Unavailable [phone] Allergies Active Allergy Reactions Criticality Noted [...] (12/01/2022): Added automatically from request for surgery [id number] H/O: upper GI bleed 12/01/2022 Overview (12/01/2022): Added automatically from request for surgery [id number] 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 Overview (10/26/2022): Added automatically from request for surgery [id number] Ischemic cardiomyopathy 03/14/2022 Essential hypertension 06/19/2019 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 Overview (06/03/2019): Added automatically from request for surgery [id number] Iron deficiency anemia, unspecified 04/03/2019 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/20 17 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 Coronary arteriosclerosis in [place] artery 11/24 Overview (01/18/2017): Coronary arteriosclerosis in [place] artery Anemia 11/24/2014 Overview (01/18/2017): Anemia Obstructive [...] 2011 DVT (deep venous thrombosis) ([facility]) 2016 Hiatal hernia Diverticulosis GERD (gastroesophageal [...] on file 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 Gender Identity Not on file Sexual Orientation [...] Fall Risk Assessment 05/11/2024 05/11/2023 Influenza Vaccine (Season Ended) 2025 Medical Devices Implanted Type Area Transformer Molder Device Identifier Shelf Expiration Date Model / Serial / Lot Wl [employer] [id number] [place] Bio-A 10x7cm Reinforcement Tissue Mesh Surgical Synthetic - [id number] - [id number] Implanted:Qty: 1 on 06/30/2019 by Yayo Ponce MD at [facility] Other - see comments N/A: Stomach Wl [employer] [id number] 01/12/2022 [id number] / [id number] / 0 Description:[place] Bio-A Tissue Reinforcement Joint Replacement Left: Knee Joint Replacement Left: Shoulder Insurance MEDICARE AET SENIOR SUPPLEMENT MEDICARE AETNA SENIOR SUPPLEMENT [facility] MEDICARE MEDICARE AETNA Advance Directives For more information, please contact: [phone] * Full Code (Latest Code Status on File) Date Activated Date Inactivated Comments 05/11/2023 11:28 AM 05/14/2023 2:23 PM * Full Code Date Activated Date Inactivated Comments 06/30/2019 10:29 PM 07/03/2019 8:40 PM Care Teams Macaroni Maker Relationship Specialty Start Date End Date Carlos Clayton MD PCP - General Family Medicine 01/28/19 Flex Aguillon MD Cardiology 02/14/19 Stephane Alvarez MD Medical Oncologist/Geographic Information System Surveyor Medical Oncology 02/19/19 Jovanny Preston DO Consulting Physician Gastroenterology 02/19/19
--- OUTSIDE RECORDS SUMMARY | 2025-02-04 09:09 | XMS_ITS | Clinical Summary ---
Author Organization [facility] Address [address], [address] [address] Phone Care Team Providers Care Cd Manufacturing Supervisor Name Role Phone Carlos Clayton MD Primary Care Provider [phone] Allergies Active Allergy Reactions Criticality Noted Date [...] patient's age to complete this topic Insurance [facility] Care Teams Cd Manufacturing Supervisor Relationship Specialty Start Date End Date Carlos Clayton MD [address] [place] [address] PCP - General Family Medicine 02/27/19
--- OUTSIDE RECORDS SUMMARY | 2025-02-04 09:09 | XMS_ITS | Encounter Summary ---
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
--- OUTSIDE RECORDS SUMMARY | 2025-02-04 09:09 | XMS_ITS | Encounter Summary ---
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
--- OUTSIDE RECORDS SUMMARY | 2025-02-04 09:09 | XMS_ITS | Encounter Summary ---
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
--- OUTSIDE RECORDS SUMMARY | 2025-02-04 09:09 | XMS_ITS | CONTINUITY OF CARE DOCUMENT ---
Author Name tish winston Address Unknown Organization [facility] Address [address] [place] [address] Phone [phone] Care Team Providers Care Senior Payroll Administrator Name Role Phone Lionel Fitch MD Unavailable [phone] INSURANCE PROVIDERS Payer name Policy type / Coverage type Staci red democrat ID [facility] [id number] [place] MED[place] Medicare [id number]
--- OUTSIDE RECORDS SUMMARY | 2025-02-04 09:09 | XMS_ITS | Clinical Summary ---
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
--- OUTSIDE RECORDS SUMMARY | 2025-02-04 09:09 | XMS_ITS | Referral Summary ---
Author Organization [facility] [place] [address] Address [address] [place] [address] Care Team Providers Care Farm Butcher Name Role Phone Carlos Clayton MD Primary Care Provider [phone] Flex Aguillon MD Unavailable [phone] Stephane Alvarez MD Unavailable [phone] Jovanny Preston DO Unavailable [phone] Allergies Active Allergy Reactions Criticality Noted [...] (12/01/2022): Added automatically from request for surgery [id number] H/O: upper GI bleed 12/01/2022 Overview (12/01/2022): Added automatically from request for surgery [id number] 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 Overview (10/26/2022): Added automatically from request for surgery [id number] Ischemic cardiomyopathy 03/14/2022 Essential hypertension 06/19/2019 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 Overview (06/03/2019): Added automatically from request for surgery [id number] Iron deficiency anemia, unspecified 04/03/2019 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/20 17 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 Overview (01/18/2017): Coronary arteriosclerosis in [place] artery Anemia 11/24/2014 Overview (01/18/2017): Anemia Obstructive [...] on file Legal 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 Gender Identity Not on file Sexual Orientation [...] on file Medical Devices Implanted Type Area Operational Trainer Device Identifier Shelf Expiration Date Model / Serial / Lot Wl [employer] [id number] [place] [employer] 10x7cm Reinforcement Tissue Mesh Surgical Synthetic - [id number] - [id number] Implanted:Qty: 1 on 06/30/2019 by Yayo Ponce MD at [facility] Other - see comments N/A: Stomach Wl [employer] [id number] 01/12/2022 [id number] / [id number] / 0 Description:[place] Bio-[employer] Tissue Reinforcement Joint Replacement Left: Knee Joint Replacement Left: Shoulder Insurance MEDICARE AETNA SENIOR SUPPLEMENT MEDICARE AETNA SENIOR SUPPLEMENT [facility] TRADITIONAL MEDICARE MEDICARE AETNA Advance Directives For more information, please contact: [phone] * Full Code (Latest Code Status on File) Date Activated Date Inactivated Comments 05/11/2023 11:28 AM 05/14/2023 2:23 PM * Full Code Date Activated Date Inactivated Comments 06/30/2019 10:29 PM 07/03/2019 8:40 PM Care Teams Farm Butcher Relationship Specialty Start Date End Date Carlos Clayton MD PCP - General Family Medicine 01/28/19 Flex Aguillon MD Cardiology 02/14/19 Stephane Alvarez MD Medical Oncologist/Boat Builder And Repairer Medical Oncology 02/19/19 Jovanny Preston DO Consulting Physician Gastroenterology 02/19/19
--- NOTE | 2025-02-04 09:20 | PC.NURSE ---
Pt vistor to the intake desk and states that she is going to take him to lab evarisot. She asked if she could be have a print out of documentation stating that he was here. This RN explained that pt was not seen by provider and there is no documentation to print. She wanted to make sure it was documented that pt was checked out at 0920. Vistor asking for my name, charge nurse name and bathhouse attendant. Pt was wheeled out to car by visitor.
--- OUTSIDE RECORDS SUMMARY | 2025-02-04 10:21 | XMS_ITS | Clinical Summary ---
Author Organization [facility] [place] [address] Address [address] [place] [address] Care Team Providers Care Alignment Technician Name Role Phone Carlos Clayton MD Primary Care Provider [phone] Flex Aguillon MD Unavailable [phone] Stephane Alvarez MD Unavailable [phone] Jovanny Preston DO Unavailable [phone] Allergies Active Allergy Reactions Criticality Noted [...] (12/01/2022): Added automatically from request for surgery [id number] H/O: upper GI bleed 12/01/2022 Overview (12/01/2022): Added automatically from request for surgery [id number] 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 Overview (10/26/2022): Added automatically from request for surgery [id number] Ischemic cardiomyopathy 03/14/2022 Essential hypertension 06/19/2019 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 Gender Identity Not on file Sexual [...] Ended) 2025 Medical Devices Implanted Type Area Desulfurizer Operator Device Identifier Shelf Expiration Date Model / Serial / Lot Wl [employer] [id number] [place] Bio-[employer] 10x7cm Reinforcement Tissue Mesh Surgical Synthetic - [id number] - [id number] Implanted:Qty: 1 on 06/30/2019 by Yayo Ponce MD at [facility] Other - see comments N/A: Stomach Wl [employer] [id number] 01/12/2022 [id number] / [id number] / 0 Description:[place] Bio-[employer] Tissue Reinforcement Joint Replacement Left: Knee Joint Replacement Left: Shoulder Insurance MEDICARE AET SENIOR SUPPLEMENT MEDICARE AETNA SENIOR SUPPLEMENT [facility] MEDICARE MEDICARE AETNA Advance Directives For more information, please contact: [phone] * Full Code (Latest Code Status on File) Date Activated Date Inactivated Comments 05/11/2023 11:28 AM 05/14/2023 2:23 PM * Full Code Date Activated Date Inactivated Comments 06/30/2019 10:29 PM 07/03/2019 8:40 PM Care Teams Alignment Technician Relationship Specialty Start Date End Date Carlos Clayton MD PCP - General Family Medicine 01/28/19 Flex Aguillon MD Cardiology 02/14/19 Stephane Alvarez MD Medical Oncologist/Javascript Front End Developer Medical Oncology 02/19/19 Jovanny Preston DO Consulting Physician Gastroenterology 02/19/19
--- OUTSIDE RECORDS SUMMARY | 2025-02-04 10:21 | XMS_ITS | Clinical Summary ---
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
--- OUTSIDE RECORDS SUMMARY | 2025-02-04 10:21 | XMS_ITS | Referral Summary ---
Author Organization [facility] [address] Address [address] [place] [address] Care Team Providers Care Optical Instrument Repairer Name Role Phone Carlos Clayton MD Primary Care Provider [phone] Flex Aguillon MD Unavailable [phone] Stephane Alvarez MD Unavailable [phone] Jovanny Preston DO Unavailable [phone] Allergies Active Allergy Reactions Criticality Noted [...] (12/01/2022): Added automatically from request for surgery [id number] H/O: upper GI bleed 12/01/2022 Overview (12/01/2022): Added automatically from request for surgery [id number] 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 Overview (10/26/2022): Added automatically from request for surgery [id number] Ischemic cardiomyopathy 03/14/2022 Essential hypertension 06/19/2019 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 Overview (06/03/2019): Added automatically from request for surgery [id number] Iron deficiency anemia, unspecified 04/03/2019 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/20 17 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 Coronary arteriosclerosis in [place] artery 11/24 Overview (01/18/2017): Coronary arteriosclerosis in [place] artery Anemia 11/24/2014 Overview (01/18/2017): Anemia [...] on file 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 Gender Identity Not on file Sexual Orientation [...] on file Medical Devices Implanted Type Area Clay Temperer Device Identifier Shelf Expiration Date Model / Serial / Lot Wl [employer] [id number] [place] Bio-A 10x7cm Reinforcement Tissue Mesh Surgical Synthetic - [id number] - [id number] Implanted:Qty: 1 on 06/30/2019 by Yayo Ponce MD at [facility] Other - see comments N/A: Stomach Wl [employer] [id number] 01/12/2022 [id number] / [id number] / 0 Description:[place] Bio-A Tissue Reinforcement Joint Replacement Left: Knee Joint Replacement Left: Shoulder Insurance MEDICARE AETNA SENIOR SUPPLEMENT MEDICARE AETNA SENIOR SUPPLEMENT [facility] MEDIC[facility] MEDICARE AETNA Advance Directives For more information, please contact: [phone] * Full Code (Latest Code Status on File) Date Activated Date Inactivated Comments 05/11/2023 11:28 AM 05/14/2023 2:23 PM * Full Code Date Activated Date Inactivated Comments 06/30/2019 10:29 PM 07/03/2019 8:40 PM Care Teams Optical Instrument Repairer Relationship Specialty Start Date End Date Carlos Clayton MD PCP - General Family Medicine 01/28/19 Flex Aguillon MD Cardiology 02/14/19 Stephane Alvarez MD Medical Oncologist/Alterations Manager Medical Oncology 02/19/19 Jovanny Preston DO Consulting Physician Gastroenterology 02/19/19
--- OUTSIDE RECORDS SUMMARY | 2025-02-04 10:21 | XMS_ITS | Encounter Summary ---
Author Organization [facility] Address [address] [facility] [address] 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
--- OUTSIDE RECORDS SUMMARY | 2025-02-04 10:21 | XMS_ITS | Encounter Summary ---
Author Organization 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
--- OUTSIDE RECORDS SUMMARY | 2025-02-04 10:21 | XMS_ITS | Encounter Summary ---
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
--- OUTSIDE RECORDS SUMMARY | 2025-02-04 10:21 | XMS_ITS | Clinical Summary ---
Author Organization [facility] Address [address], [address] [address] Phone Care Team Providers Care Lab Asst Name Role Phone Carlos Clayton MD Primary Care Provider [phone] Allergies Active Allergy Reactions Criticality Noted Date [...] patient's age to complete this topic Insurance [facility] Care Teams Lab Asst Relationship Specialty Start Date End Date Carlos Clayton MD [address] [place] [address] PCP - General Family Medicine 02/27/19
--- OUTSIDE RECORDS SUMMARY | 2025-02-04 10:21 | XMS_ITS | CONTINUITY OF CARE DOCUMENT ---
Author Name tish winston Address Unknown Organization [facility] Address [address] [place] [address] Phone [phone] Care Team Providers Care Oncology Rep Name Role Phone Lionel Fitch MD Unavailable INSURANCE PROVIDERS Payer name Policy type / Coverage type Staci red republican ID [facility] [id number] [place]IC[place] Medicare [id number]
== END 2025-02-04 09:20 | disposition left against medical advice (07) ==
PROVIDERS: PCP Family Medicine
DX: M54.50 Low back pain, unspecified (principal)
CPT/HCPCS: 99199

== ENCOUNTER 2025-02-10 08:22 | Outpatient (CLI) | payer MEDICARE, SELFPAY ==
--- NOTE | ~2025-02-10 | NM_ITS ---
EXAMINATION: NM lianna stress w perfusion DATE: 02/10/2025 11:13 CDT INDICATION: Heart disease TECHNIQUE: Rest images were obtained following intravenous administration of 9.8 mCi Tc99m tetrofosmi n (Myoview). The patient was infused intravenously with Lexiscan (regadenoson). Then, 29.8 mCi Tc99m tetrofosmin (Myoview) was administered intravenously, and stress images were obtained. Data was recon structed into short axis and horizontal and vertical long axis SPECT images. Gated SPECT images were also obtained. COMPARISON: None. FINDINGS: There is a moderate size fixed perfusion abnormality of the left ventricular apex. There is global decreased left ventricular contraction with ejection fraction measuring 42%.. IMPRESSION: 1. Moderate sized fixed perfusion abnormality in the left ventricular apex. 2. Diminished left ventricular ejection fraction measuring 42%. Global hypokinesis of the left ventri anu. Reviewed, dictated and finalized at location A. IMPRESSION: 1. Moderate sized fixed perfusion abnormality in the left ventricular apex. 2. Diminished left ventricular ejection fraction measuring 42%. Global hypokine sis of the left ventricle.
--- NOTE | 2025-02-10 08:32 | EST_ITS ---
Patient Info Name: Harjit Jones Age: 84 years : 1940 Gender: Male Ht: 71 in Wt: 187 lbs BSA: 2.07 m2 HR: 74 bpm BP: 134 / 82 mmHg Exam Date: 02/10/2025 9:55 AM Exam Location: Echo Lab Patient Status: Outpatient Admit Date: 02/10/2025 Staff Ordering Physician: Willie Green DO Attending Provider: Willie Green DO Exercise Technologist: Jelly Muse RDCS Exercise Physician: Willie Green DO Exam Type: CA stress lianna w NM Study Info A regadenoson stress test was performed. Summary 1. 1. Negative lexiscan stress test for ischemic ST changes by ECG criteria. 2. 2. Stable hemodynamics throughout the test. 3. 3. Nuclear scan to follow and will be reported separately. Please correlate with it. 4. 4. Patient informed of the above results. Protocol: Lexiscan Stress ECG Details Stage: REST Duration (min): 0 min : 44 sec HR (bpm): 75 SBP (mmHg): 134 DBP (mmHg): 82 Stage: REST Duration (min): 2 min : 32 sec HR (bpm): 75 SBP (mmHg): 134 DBP (mmHg): 82 Stage: STAGE 1 Duration (min): 1 min : 0 sec HR (bpm): 89 SBP (mmHg): 153 DBP (mmHg): 86 Stage: RECOVERY Duration (min): 1 min : 0 sec HR (bpm): 97 SBP (mmHg): 153 DBP (mmHg): 86 Stage: RECOVERY Duration (min): 2 min : 0 sec HR (bpm): 93 SBP (mmHg): 153 DBP (mmHg): 86 Stage: RECOVERY Duration (min): 3 min : 0 sec HR (bpm): 89 SBP (mmHg): 143 DBP (mmHg): 76 Stage: RECOVERY Duration (min): 3 min : 2 sec HR (bpm): 89 SBP (mmHg): 143 DBP (mmHg): 76 Rest HR: 75 bpm Peak HR: 99 bpm Rest Sys BP: 134 mmHg Peak Sys BP: 153 mmHg Max Pred HR: 137 bpm % Max Pred HR: 72 % Target HR: 116 bpm Max RPP: 15,147 bpm*mmHg Termination Reason: Completed protocol Cardiac Symptoms: Shortness of breath Total Time: 1 min : 0 sec Rest Dunham BP: 82 mmHg Peak [place]ham BP: 86 mmHg Total Dose: 0.4 mg Resting ECG Sinus rhythm, RBBB. Stress ECG No ST changes. Arrhythmias None. Report Signatures
--- OUTSIDE RECORDS SUMMARY | 2025-02-10 08:38 | XMS_ITS | Clinical Summary ---
Author Organization [facility] Address [address], [address] [address] Phone Care Team Providers Care Radio Machinist Name Role Phone Carlos Clayton MD Primary Care Provider [phone] Allergies Active Allergy Reactions Criticality Noted Date [...] patient's age to complete this topic Insurance [facility] Care Teams Radio Machinist Relationship Specialty Start Date End Date Carlos Clayton MD [address] [address] PCP - General Family Medicine 02/27/19
--- OUTSIDE RECORDS SUMMARY | 2025-02-10 08:38 | XMS_ITS | Referral Summary ---
Author Organization [facility] [address] Address [address] [place] [address] Care Team Providers Care Administrative Underwriter Name Role Phone Carlos Clayton MD Primary Care Provider [phone] Flex Aguillon MD Unavailable [phone] Stephane Alvarez MD Unavailable [phone] Jovanny Preston DO Unavailable [phone] Allergies Active Allergy Reactions Criticality Noted [...] (12/01/2022): Added automatically from request for surgery [id number] H/O: upper GI bleed 12/01/2022 Overview (12/01/2022): Added automatically from request for surgery [id number] 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 Overview (10/26/2022): Added automatically from request for surgery [id number] Ischemic cardiomyopathy 03/14/2022 Essential hypertension 06/19/2019 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 Overview (06/03/2019): Added automatically from request for surgery [id number] Iron deficiency anemia, unspecified 04/03/2019 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/20 17 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 Coronary arteriosclerosis in [place] artery 11/24 Overview (01/18/2017): Coronary arteriosclerosis in [place] artery Anemia 11/24/2014 Overview (01/18/2017): Anemia Obstructive [...] on file Legal Sex Male 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 Gender Identity Not on file Sexual Orientation [...] on file Medical Devices Implanted Type Area Antenna Installer Device Identifier Shelf Expiration Date Model / Serial / Lot Wl [employer] [place] [employer] [id number] [place] [employer] 10x7cm Reinforcement Tissue Mesh Surgical Synthetic - [id number] - [id number] Implanted:Qty: 1 on 06/30/2019 by Yayo Ponce MD at [facility] Other - see comments N/A: Stomach Wl [employer] [place] [employer] [id number] 01/12/2022 [id number] / [id number] / 0 Description:[place] [employer] Tissue Reinforcement Joint Replacement Left: Knee Joint Replacement Left: Shoulder Insurance MEDICARE AETNA SENIOR SUPPLEMENT MEDICARE AETNA SENIOR SUPPLEMENT [facility] MEDICARE MEDICARE AETNA Advance Directives For more information, please contact: [phone] * Full Code (Latest Code Status on File) Date Activated Date Inactivated Comments 05/11/2023 11:28 AM 05/14/2023 2:23 PM * Full Code Date Activated Date Inactivated Comments 06/30/2019 10:29 PM 07/03/2019 8:40 PM Care Teams Administrative Underwriter Relationship Specialty Start Date End Date Carlos Clayton MD PCP - General Family Medicine 01/28/19 Flex Aguillon MD Cardiology 02/14/19 Stephane Alvarez MD Medical Oncologist/Instructor Trainer Canine Service Medical Oncology 02/19/19 Jovanny Preston DO Consulting Physician Gastroenterology 02/19/19
--- OUTSIDE RECORDS SUMMARY | 2025-02-10 08:38 | XMS_ITS | Encounter Summary ---
Author Organization 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
--- OUTSIDE RECORDS SUMMARY | 2025-02-10 08:38 | XMS_ITS | Encounter Summary ---
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
--- OUTSIDE RECORDS SUMMARY | 2025-02-10 08:38 | XMS_ITS | Clinical Summary ---
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
--- OUTSIDE RECORDS SUMMARY | 2025-02-10 08:38 | XMS_ITS | Clinical Summary ---
Author Organization [facility] [address] Address [address] [place] [address] Care Team Providers Care Yard General Car Supervisor Name Role Phone Carlos Clayton MD Primary Care Provider [phone] Flex Aguillon MD Unavailable [phone] Stephane Alvarez MD Unavailable [phone] Jovanny Preston DO Unavailable [phone] Allergies Active Allergy Reactions Criticality Noted [...] (12/01/2022): Added automatically from request for surgery [id number] H/O: upper GI bleed 12/01/2022 Overview (12/01/2022): Added automatically from request for surgery [id number] 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 Overview (10/26/2022): Added automatically from request for surgery [id number] Ischemic cardiomyopathy 03/14/2022 Essential hypertension 06/19/2019 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 Overview (06/03/2019): Added automatically from request for surgery [id number] Iron deficiency anemia, unspecified 04/03/2019 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/20 17 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 Coronary arteriosclerosis in [place] artery 11/24 Overview (01/18/2017): Coronary arteriosclerosis in [place] artery Anemia 11/24/2014 Overview (01/18/2017): Anemia Obstructive [...] disease NSTEMI 2011 DVT (deep venous thrombosis) ([facility]) 2016 Hiatal hernia Diverticulosis GERD (gastroesophageal reflux [...] on file Legal Sex Male 2:23 AM 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 Gender Identity Not on file Sexual Orientation [...] Ended) 2025 Medical Devices Implanted Type Area Logistics Team Leader Device Identifier Shelf Expiration Date Model / Serial / Lot Wl [place] [employer] [id number] [place] Bio-A 10x7cm Reinforcement Tissue Mesh Surgical Synthetic - [id number] - [id number] Implanted:Qty: 1 on 06/30/2019 by Yayo Ponce MD at [facility] Other - see comments N/A: Stomach Wl [place] [employer] [id number] 01/12/2022 [id number] / [id number] / 0 Description:[place] [employer] Tissue Reinforcement Joint Replacement Left: Knee Joint Replacement Left: Shoulder Insurance MEDICARE AET SENIOR SUPPLEMENT MEDICARE AETNA SENIOR SUPPLEMENT [facility] MEDICARE MEDICARE AETNA Advance Directives For more information, please contact: [phone] * Full Code (Latest Code Status on File) Date Activated Date Inactivated Comments 05/11/2023 11:28 AM 05/14/2023 2:23 PM * Full Code Date Activated Date Inactivated Comments 06/30/2019 10:29 PM 07/03/2019 8:40 PM Care Teams Yard General Car Supervisor Relationship Specialty Start Date End Date Carlos Clayton MD PCP - General Family Medicine 01/28/19 Flex Aguillon MD Cardiology 02/14/19 Stephane Alvarez MD Medical Oncologist/Surveillance Officer Medical Oncology 02/19/19 Jovanny Preston DO Consulting Physician Gastroenterology 02/19/19
--- OUTSIDE RECORDS SUMMARY | 2025-02-10 08:38 | XMS_ITS | Encounter Summary ---
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
== END 2025-02-10 08:23 | disposition home or self-care (01) ==
LOC: ANHCARD 08:23
PROVIDERS: PCP Family Medicine; Visit Provider Internal Medicine Cardiovascular Disease
DX: I51.9 Heart disease, unspecified (principal); I25.5 Ischemic cardiomyopathy; R94.39 Abnormal result of other cardiovascular function study
CPT/HCPCS: 78452; 93017; A9502; J2785

== ENCOUNTER 2025-03-24 12:41 | Outpatient (CLI) | payer MEDICARE, SELFPAY ==
--- NOTE | ~2025-03-24 | MR_ITS ---
MRI of the brain Clinical History: Personal history of physical injury Technique: Axial and sagittal T1-weighted images were acquired. These were followed by axial T2-weigh agustin, diffusion weighted, gradient, and FLAIR images. COMPARISON: 11/24/2024 Findings: No acute infarct, intracranial hemorrhage or mass lesion seen. There are now evolving chron ic lacunar infarcts in the left periventricular white matter as compared to prior exam. Ventricles and subarachnoid spaces are unremarkable. Orbits are unremarkable. Paranasal sinuses and m astoid clear. Major intracranial flow voids are intact. Sagittal midline structures are intact. 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 No acute reality. Reviewed, dictated and finalized at location M.
== END 2025-03-24 12:42 | disposition home or self-care (01) ==
LOC: GOSHIMG 12:42
PROVIDERS: PCP Psychiatry & Neurology Neurology; Visit Provider Psychiatry & Neurology Neurology
DX: Z87.828 Personal history of other (healed) physical injury and trauma (principal)
CPT/HCPCS: 70551

== ENCOUNTER 2025-03-30 14:00 | Outpatient (RCR) | payer MEDICARE, SELFPAY ==
--- NOTE | 2025-01-16 15:35 | OPREHPOC ---
Outpatient Therapy Plan of Care This is a Multidisciplinary Plan of Care that may contain components documented by all disciplines (PT, OT, and ST.) PT Problem 1 PT Problem #1 Knowledge Deficit PT Goal 1 Goal / Goal Update [place] with HEP Target Visit 4 PT Problem 2 PT Problem #2 Impaired Gait PT Goal 1 Goal / Goal Update 1. Improve Tinetti score by 4 point to reduce gross fall risk 2. Improve 2 minute walk test to 450 feet to improve gait speed and reduce fall risk Target Visit 8 PT Problem 3 PT Problem #3 Impaired Strength PT Goal 1 Goal / Goal Update 1. Improve jney hip flexion strength to 4+/5 to improve foot clearance with gait 2. Improve jeny hip abduction strength to 4/5 to improve lateral stability with ADLs Target Visit 8
--- NOTE | 2025-01-16 15:35 | PTOPEVAL1 ---
Assessment and note entered by Nick Call, PT Evaluation Information Assessment Status Evaluation ICD-10 Condition Codes (PT) Weakness R53.1,Dizziness and Giddiness R42 Onset 11/23/24 Subjective Information Reports that he had a CVA in November resulting in weakness and difficulty walking. Reports that the dizziness does not seem as much of an issue as it appears to be more drowsiness. He is more concerned with the weakness that he is having and has less energy and endurance for daily activity. Has to keep pushing himself. He has been having trouble sleeping as well. Reported Pain Level Pain Score 0: Self Report Assessment PT Clinical Summary Patient presents with weakness, gait and balance deficits, and decreased endurance from baseline following CVA in November. Patient will benefit from skilled therapy to improve gross functional stability, ambulation, and safety by reducing fall risk. Will need consistent reinforcement for proper exercise performance. Plan of Care Interventions Gait Training,Neuro Re-education,Therapeutic Activities,Therapeutic Exercise PT Services Indicated Yes Treatment Frequency and 2x/week for 8 visits Duration These treatments will address the objective and functional deficits as defined above. The patient will be advanced safely and appropriately in order for the patient to progress towards his/her prior level of function. Additional exercises will be introduced and as well as a comprehensive home exercise program upon discharge, if needed, ?to ensure carryover of functional gains achieved in the clinic. This treatment plan has been reviewed and agreement upon by the patient.
--- NOTE | 2025-02-04 10:36 | PCPTNOTE ---
Patient did not show up for scheduled appointment this date. Pt confirmed his appointment for sunday.
--- NOTE | 2025-02-06 10:50 | PCPTNOTE ---
Patient called to cancel stating that he had surgery yesterday and needs time to recover.
--- NOTE | 2025-02-13 12:05 | OPREHPOC ---
Outpatient Therapy Plan of Care This is a Multidisciplinary Plan of Care that may contain components documented by all disciplines (PT, OT, and ST.) PT Problem 1 PT Problem #1 Knowledge Deficit PT Goal 1 Goal / Goal Update [place] with HEP Target Visit 4 Progress Met PT Problem 2 PT Problem #2 Impaired Gait PT Goal 1 Goal / Goal Update 1. Improve Tinetti score by 4 point to reduce gross fall risk 2. Improve 2 minute walk test to 450 feet to improve gait speed and reduce fall risk 02/13/25 1. 1 point increase in Tinetti 2. Decreased 75 feet n 2 minute walk test Target Visit 16 Progress Not Met PT Problem 3 PT Problem #3 Impaired Strength PT Goal 1 Goal / Goal Update 1. Improve jeny hip flexion strength to 4+/5 to improve foot clearance with gait 2. Improve jeny hip abduction strength to 4/5 to improve lateral stability with ADLs 02/13/25 -No strength gains noted at this time Target Visit 16 Progress Not Met
--- NOTE | 2025-02-13 12:06 | PTOPPROG ---
Assessment and note entered by Nick Call, PT Evaluation Information Assessment Status Progress ICD-10 Condition Codes (PT) Weakness R53.1,Dizziness and Giddiness R42 Onset 11/23/24 Subjective Information Reports that he has a cardiac stress test on . States that everything is looking good as far as that goes. Reports that he continues to feel a deep ache and weakness in his muscles and he really feels that he is having a side effect of medication and is steadily getting worse. Feels that the therapy helps but his endurance is suffering. Eyes are very dry and feet feel heavy. He is having foot pain as well which has been going on for about a week. Feels as if he is gong down hill. Continues to have myalgias mostly in legs but all over body as well. Feels that even though he is working in therapy he is losing strength and getting short of breath with distance activity. Patient has to cancel 2 visits during plan of care due to facial surgery. Assessment PT Clinical Summary Patient has seen neither progress or regression in strength. We did see a decrease in 2 minute walk test this date indicating decreased endurance and functional mobility. Patient has reflected on a decrease in energy and stamina with both home and community ambulation. We plan to continue therapy to monitor and work toward activity progression. Will communicate with MD patient status and plan. Will continue to benefit from skilled therapy to progress endurance and strength training and monitor functional progression. Plan of Care Interventions Gait Training,Neuro Re-education,Therapeutic Activities,Therapeutic Exercise PT Services Indicated Yes Treatment Frequency and 1-2x/week 8 visits Duration These treatments will address the objective and functional deficits as defined above. The patient will be advanced safely and appropriately in order for the patient to progress towards his/her prior level of function. Additional exercises will be introduced and as well as a comprehensive home exercise program upon discharge, if needed, ?to ensure carryover of functional gains achieved in the clinic. This treatment plan has been reviewed and agreement upon by the patient.
--- NOTE | 2025-03-24 11:19 | OPREHPOC ---
Outpatient Therapy Plan of Care This is a Multidisciplinary Plan of Care that may contain components documented by all disciplines (PT, OT, and ST.) PT Problem 1 PT Problem #1 Knowledge Deficit PT Goal 1 Goal / Goal Update [place] with HEP Target Visit 4 Progress Met PT Problem 2 PT Problem #2 Impaired Gait PT Goal 1 Goal / Goal Update 1. Improve Tinetti score by 4 point to reduce gross fall risk 2. Improve 2 minute walk test to 450 feet to improve gait speed and reduce fall risk 02/13/25 1. 1 point increase in Tinetti 2. Decreased 75 feet n 2 minute walk test Target Visit 22 Progress Not Met PT Problem 3 PT Problem #3 Impaired Strength PT Goal 1 Goal / Goal Update 1. Improve jeny hip flexion strength to 4+/5 to improve foot clearance with gait 2. Improve jeny hip abduction strength to 4/5 to improve lateral stability with ADLs 02/13/25 -No strength gains noted at this time Target Visit 22 Progress Not Met
--- NOTE | 2025-03-24 11:19 | PTOPPROG ---
Assessment and note entered by Nick Call, PT Evaluation Information Assessment Status Discharge ICD-10 Condition Codes (PT) Weakness R53.1,Dizziness and Giddiness R42 Onset 11/23/24 Subjective Information Reports that he is awaiting an MRI on his brain per orders of neurologist. Patient is a little anxious about this. Overall feels that he is a lot better when he leaves therapy. Assessment PT Clinical Summary Patient has seen progress in Tinetti and 2 minute walk test examination. He continues to show weakness of bilateral hips and demonstrates poor endurance. Will continue to benefit from skilled therapy to address these continued deficits as he transitions into updated imaging to address decline in foot sensation and endurance issues. Plan of Care Interventions Gait Training,Neuro Re-education,Therapeutic Activities,Therapeutic Exercise PT Services Indicated Yes Treatment Frequency and 1x/week for 6 visits Duration These treatments will address the objective and functional deficits as defined above. The patient will be advanced safely and appropriately in order for the patient to progress towards his/her prior level of function. Additional exercises will be introduced and as well as a comprehensive home exercise program upon discharge, if needed, ?to ensure carryover of functional gains achieved in the clinic. This treatment plan has been reviewed and agreement upon by the patient.
--- NOTE | 2025-04-13 13:47 | PCPTNOTE ---
Patient called to cancel his appointment this date with no reason given.
== END 2025-04-16 23:59 | disposition home or self-care (01) ==
LOC: ANHGOSHPT 14:00
PROVIDERS: PCP Nurse Practitioner Family; Visit Provider Nurse Practitioner Family
DX: R42 Dizziness and giddiness (principal)
CPT/HCPCS: 97110; 97112; 97161; 97530

== ENCOUNTER 2025-04-14 09:44 | Emergency (ER) | payer MEDICARE, SELFPAY ==
--- NOTE | ~2025-04-14 | CT_ITS ---
EXAMINATION: CTA chest PE abdomen pel DATE: 04/14/2025 13:00 INDICATION: Chest pain, shortness of breath and elevated d-dimer. TECHNIQUE: Computed tomography (CT) pulmonary angiogram of the chest was performed with 100 mL Omnipa que-350 intravenous contrast. Additional 3D reconstructions utilizing coronal maximum intensity proje ction (MIP) were performed. CT of the abdomen and pelvis was performed with intravenous contrast util izing the same contrast bolus following a short delay. Automated exposure control and iterative recon struction technique were employed. The dose-length product was 1803.24 mGy-cm. COMPARISON: CT abdomen and pelvis dated 12/18/2024, 04/24/2023, 11/22/2022 and 04/29/2019 FINDINGS: Chest: No evident pulmonary embolism. Sensitivity significantly decreased in the subsegmental pulmonary kanwal nereida due to combination of moderate scattered respiratory motion. Mild discoid atelectasis at the ann marie gula and bilateral lower lobes. No pneumonia, pulmonary edema, pleural effusion or pneumothorax. Ther e is diffuse bronchial wall thickening and some scattered mucous plugging. Heart size is normal. Athe rosclerotic coronary artery calcification. Postoperative change of prior median sternotomy and lopez ry artery bypass grafting. Thoracic aorta is normal in caliber with no dissection. Small sliding-type hiatal hernia with rapidly Esmer fundoplication above level of the diaphragm and persistent wall th ickening of the distalmost esophagus. No pathologically enlarged thoracic lymphadenopathy. Bilateral gynecomastia. Severe thoracic and lower cervical spondylosis with chronic mild anterior wedging of a few mid to lower thoracic vertebral bodies. Abdomen/pelvis: Again seen are multiple small hepatic cysts measuring up to 1.7 cm. There are couple more subtle hypo dense lesions at the junction of the left and right hepatic lobes, the larger measuring 1.3 cm which can be seen dating back to 04/29/2019 at which time it demonstrated peripheral puddling of contrast co nsistent with hemangiomas. Gallbladder, spleen, pancreas and bilateral adrenal glands are normal. The re are small regions of cortical scarring at both kidneys. There are couple nonobstructing stones at the left kidney the larger measuring 6 mm. 7 mm left renal cyst. Bladder is normal. Prostatomegaly. M oderate-sized bilateral fat-containing inguinal hernias. Partially visualized right hydrocele. There is mild colonic diverticulosis with a sigmoid predominance. There is no adjacent inflammatory change to suggest diverticulitis. The appendix is not visualized. No pericecal inflammatory change to sugge st acute appendicitis. A few additional diverticula along the distal ileum also without adjacent from trace stranding to suggest diverticulitis. No bowel obstruction. No free intraperitoneal gas or flui d. No pathologically enlarged abdominal or pelvic lymphadenopathy There is calcified atherosclerosis of the aorta and many of the other arteries. Separate origins of the splenic and common hepatic arter ies which each arise independently directly from the aorta. Severe lumbar spondylosis. IMPRESSION: 1. No pulmonary embolism or other acute cardiopulmonary disease. Sensitivity is significantly decreas e in the smaller subsegmental pulmonary arteries due to respiratory motion. 2. Small sliding-type hiatal hernia with Esmer fundoplication extending above level of the diaphragm and with chronic wall thickening of the distalmost esophagus. If not recently performed would consid er endoscopy for further evaluation. 3. Nonobstructing left nephrolithiasis. Reviewed, dictated and finalized at location B. IMPRESSION: 1. No pulmonary embolism or other acute cardiopulmonary disease. Sensitivity is significantly decrease in the smaller subsegmental pulmonary arteries due to r espiratory motion. 2. Small sliding-type hiatal hernia with Esmer fundoplication extending above level of the diaphragm and with chronic wall thickening of the distalmost esoph tanner. If not recently performed would consider endoscopy for further evaluation . 3. Nonobstructing left nephrolithiasis.
--- NOTE | ~2025-04-14 | XR_ITS ---
CHEST RADIOGRAPH, PA AND LATERAL CLINICAL HISTORY: cp, epigastric pain, PT STATES CHEST PAIN X YESTERDAY . COMPARISON: 12/18/2024 TECHNIQUE: PA and lateral views of the chest. FINDINGS Sternal wires and mediastinal clips are identified, the wires are midline and intact. The remainder of the cardiomediastinal silhouette is otherwise unremarkable. The lungs are clear. IMPRESSION: No focal infiltrate or effusion. Reviewed, dictated and finalized at location A.
--- NOTE | ~2025-04-14 | US_ITS ---
EXAMINATION: US venous doppler LE RT DATE: 04/14/2025 11:19 INDICATION: Right lower limb swelling TECHNIQUE: Grayscale ultrasound images without and with compression and Doppler ultrasound images of the right lower extremity veins were obtained. COMPARISON: None. FINDINGS: The visualized portions of right common femoral vein, profunda (deep) femoral vein, femoral vein, pop liteal vein, peroneal trunk, posterior tibial veins, peroneal veins and greater saphenous vein outflo w are patent. IMPRESSION: 1. No deep venous thrombosis in the right lower limb. Reviewed, dictated and finalized at location B.
--- NOTE | ~2025-04-14 | CT_ITS ---
EXAMINATION: CT brain wo con DATE: 04/14/2025 10:56 INDICATION: Weakness TECHNIQUE: Computed tomography (CT) of the head was performed without intravenous contrast. Sagittal and coronal reconstructions were performed. The mA was adjusted according to patient size. Iterative reconstruction technique was employed. The dose-length product was 908.00 mGy-cm. COMPARISON: head CT dated 12/18/24 and brain MR dated 03/24/2025 FINDINGS: Old lacunar infarct in the left frontal lobe lopez radiata. No acute intracranial hemorrhage, acute infarction or abnormal extra axial fluid collection. Ventricles are normal and symmetric.. No mass/ma ss effect. Changes of bilateral intraocular lens replacement. The orbits and mastoid air cells are no rmal. Mild mucosal thickening the paranasal sinuses with change of prior bilateral ethmoidectomies an d antral window procedures. Intracranial calcified cerebral atherosclerosis is noted. IMPRESSION: 1. Old lacunar infarct in the left frontal lobe lopez radiata. No acute intracranial process. Reviewed, dictated and finalized at location B. IMPRESSION: 1. Old lacunar infarct in the left frontal lobe lopez radiata. No acute intrac ranial process.
--- NOTE | 2025-04-14 09:52 | ECG_ITS ---
Test Date: 2025-04-14 10:00:06 Measurements Intervals [place] Rate: 71 P: 51 KS: 185 QRS: -36 QRSD: 155 T: 51 QT: 432 QTc: 473 Interpretive Statements SINUS RHYTHM FIRST-DEGREE AV BLOCK LEFT AXIS DEVIATION [QRS AXIS < -30] RIGHT BUNDLE BRANCH BLOCK [120+ ms QRS DURATION, UPRIGHT V1, 40+ ms S IN I/aVL/V4/V5/V6] Compared to ECG 12/18/2024 16:08:41 Ventricular premature complex(es) no longer present Electronically Signed On 04-14-2025 18:02:52 CDT by Maya Magana
--- OUTSIDE RECORDS SUMMARY | 2025-04-14 09:54 | XMS_ITS | Clinical Summary ---
Author Organization [facility] [address] Address [address] [place] [address] Care Team Providers Care Transaction Processor Name Role Phone Carlos Clayton MD Primary Care Provider [phone] Flex Aguillon MD Unavailable [phone] Stephane Alvarez MD Unavailable [phone] Jovanny Preston DO Unavailable [phone] Allergies Active Allergy Reactions Criticality Noted [...] (12/01/2022): Added automatically from request for surgery [id number] H/O: upper GI bleed 12/01/2022 Overview (12/01/2022): Added automatically from request for surgery [id number] 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 Overview (10/26/2022): Added automatically from request for surgery [id number] Ischemic cardiomyopathy 03/14/2022 Essential hypertension 06/19/2019 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 Overview (06/03/2019): Added automatically from request for surgery [id number] Iron deficiency anemia, unspecified 04/03/2019 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/20 17 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 Coronary arteriosclerosis in [place] artery 11/24 Overview (01/18/2017): Coronary arteriosclerosis in [place] artery Anemia 11/24/2014 Overview (01/18/2017): Anemia Obstructive [...] disease NSTEMI 2011 DVT (deep venous thrombosis) ([facility]) 2016 Hiatal hernia Diverticulosis GERD (gastroesophageal reflux [...] on file 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 Other - see comments N/A: Stomach Wl [place] [employer] [id number] 01/12/2022 [id number] / [id number] / 0 Description:[place] [employer] Tissue Reinforcement Joint Replacement Left: Knee Joint Replacement Left: Shoulder Insurance MEDIC[place] [address] MEDICARE AETNA SENIOR SUPPLEMENT [facility] [place] [address] [facility] Address: [address] [place] [address] MEDICARE [facility] [place] [address] MEDICARE AETNA Advance Directives For more information, please contact: [phone] * Full Code (Latest Code Status on File) Date Activated Date Inactivated Comments 05/11/2023 11:28 AM 05/14/2023 2:23 PM * Full Code Date Activated Date Inactivated Comments 06/30/2019 10:29 PM 07/03/2019 8:40 PM Care Teams Transaction Processor Relationship Specialty Start Date End Date Carlos Clayton MD PCP - General Family Medicine 01/28/19 Flex Aguillon MD Cardiology 02/14/19 Stephane Alvarez MD Medical Oncologist/Rat Trapper Medical Oncology 02/19/19 Jovanny Preston DO Consulting Physician Gastroenterology 02/19/19
--- OUTSIDE RECORDS SUMMARY | 2025-04-14 09:54 | XMS_ITS | Encounter Summary ---
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
--- OUTSIDE RECORDS SUMMARY | 2025-04-14 09:54 | XMS_ITS | Referral Summary ---
Author Organization [facility] [address] Address [address] [place] [address] Care Team Providers Care Inventory Analyst Name Role Phone Carlos Clayton MD Primary Care Provider [phone] Flex Aguillon MD Unavailable [phone] Stephane Alvarez MD Unavailable [phone] Jovanny Preston DO Unavailable [phone] Allergies Active Allergy Reactions Criticality Noted [...] (12/01/2022): Added automatically from request for surgery [id number] H/O: upper GI bleed 12/01/2022 Overview (12/01/2022): Added automatically from request for surgery [id number] 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 Overview (10/26/2022): Added automatically from request for surgery [id number] Ischemic cardiomyopathy 03/14/2022 Essential hypertension 06/19/2019 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 Overview (06/03/2019): Added automatically from request for surgery [id number] Iron deficiency anemia, unspecified 04/03/2019 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/20 17 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 Coronary arteriosclerosis in [place] artery 11/24 Overview (01/18/2017): Coronary arteriosclerosis in [place] artery Anemia 11/24/2014 Overview (01/18/2017): Anemia Obstructive sleep apnea syndrome 11/24/2014 Overview (01/18/2017): Obstructive sleep apnea syndrome Chronic coronary artery disease Overview (02/21/2019): Coronary artery disease Resolved Problems Problem Noted Date Diagnosed Date Resolved Date Iron deficiency anemia callieon duke to inadequate dietary iron intake 05/21/2018 [...] on file Legal 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 Other - see comments N/A: Stomach [employer] [id number] 01/12/2022 [id number] / [id number] / [id number] Description:[employer] Tissue Reinforcement Joint Replacement Left: Knee Joint Replacement Left: Shoulder Insurance MEDICARE [facility] SENIOR SUPPLEMENT MEDICARE [employer] SENIOR SUPPLEMENT FORMERLY [facility] TRADITIONAL MEDICARE MEDICARE AET Advance Directives For more information, please contact: [phone] * Full Code (Latest Code Status on File) Date Activated Date Inactivated Comments 05/11/2023 11:28 AM 05/14/2023 2:23 PM * Full Code Date Activated Date Inactivated Comments 06/30/2019 10:29 PM 07/03/2019 8:40 PM Care Teams Inventory Analyst Relationship Specialty Start Date End Date Carlos Clayton MD PCP - General Family Medicine 01/28/19 Flex Aguillon MD Cardiology 02/14/19 Stephane Alvarez MD Medical Oncologist/Human Relations Manager Medical Oncology 02/19/19 Jovanny Preston DO Consulting Physician Gastroenterology 02/19/19
--- OUTSIDE RECORDS SUMMARY | 2025-04-14 09:54 | XMS_ITS | Encounter Summary ---
Author Organization [facility] Address [address] Attn: [place] [address] Care Team Providers Care Nsh Teacher Name Role Phone Unavailable Primary Care Provider Unavailabl e Encounter Details Date Type Department Care Team (Late st Contact Info) Description 08/15/1989 Outpatient Historical Bandar Blanca MD NO ADDRESS ON FILE Social History Tobacco Use Types Packs/Day Years Used Date Smoking Tobacco: Never Assessed Sex and Gender Information Value Date Recorded Sex Assigned at Not on file Legal Sex Male 5:04 AM HARDENER HELPER Gender Identity Not on file Sexual Orientation Not on file documented as of this encounter Plan of Treatment Not on file documented as of this encounter Visit Diagnoses Not on filedocumented in this encounter
--- OUTSIDE RECORDS SUMMARY | 2025-04-14 09:54 | XMS_ITS | Encounter Summary ---
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
--- OUTSIDE RECORDS SUMMARY | 2025-04-14 09:54 | XMS_ITS | Clinical Summary ---
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
[2025-04-14 09:55] VITALS: BP 132/99; PULSE 78; RESP 14; TEMP 36.3; O2SAT 97
--- OUTSIDE RECORDS SUMMARY | 2025-04-14 09:55 | XMS_ITS | Clinical Summary ---
Author Organization [facility] Address [address], [address] [address] Phone Care Team Providers Care Sheep Killer Name Role Phone Carlos Clayton MD Primary Care Provider [phone] Allergies Active Allergy Reactions Criticality Noted Date [...] (Adult) (1 - 1-dose 75+ series) 2016 SARS-COV-2 Immunization (1 - 2023- season) 2024 Influenza Immunization ([place] on Ended) 2025 DTaP/Tdap/Td Immunization Discontinued 10/27/2010 Pneumococcal Immunization Combined Discontinued 2010 Hepatitis B Immunization Aged Out No longer eligible based on patient's age to complete this topic Human Papillomavirus (HPV) Immunization Aged Out No longer eligible b ased on patient's age to complete this topic Meningococcal Immunization (ACWY) Aged Out No longer eligible based on patient's age to complete this topic Rotavirus Immunization Aged Out No lo nger eligible based on patient's age to complete this topic Insurance [facility] Care Teams Sheep Killer Relationship Specialty Start Date End Date Carlos Clayton MD [address] [place] [address] PCP - General Family Medicine 02/27/19
[2025-04-14 10:09] VITALS: O2SAT 94
--- NOTE | 2025-04-14 10:11 | ED.CHESTPAIN ---
HPI - Chest Pain General Chief Complaint: Chest Pain Stated Complaint: L chest tightness/pain, bladder incontinence, weak Time Seen by Provider: 04/14/25 09:50 Source: patient Mode of arrival: ambulatory Limitations: no limitations History of Present Illness HPI narrative: Patient is an 84 y/o male, with PMH of CVA, HTN, CHF, CAD s/p CABG 12 yrs ago (sees Dr. Green), who presents to the ED with c/o chest pain. Patient reports having pain throughout his chest and epigastric region for the past few weeks, worsening over the past couple of days. States pain became worse yesterday to the point that he felt very weak in as though he would collapse if he tried to get up and ambulate. He did not fall or lose consciousness. He also reports some shortness of breath the past few weeks, watery eyes, urinary frequency. Reports chronic swelling of right lower extremity. Denies focal weakness, headache, dizziness, lightheadedness, vision changes, nausea, vomiting, diarrhea. Related Data Home Medications ?Medication ?Instructions ?Recorded ?Confirmed ?Last Taken ?Type multivitamin (Daily Value tablet) 1 tablet PO DAILY 11/23/24 02/06/25 11/25/24 08:10 History Allergies Allergy/AdvReac Type Severity Reaction Status Date / Time levofloxacin (From Levaquin) AdvReac Severe Muscle Pain Verified 03/26/25 09:57 Review of Systems Review of Systems: All systems reviewed & are unremarkable except as noted in HPI. 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 Patent foramen ovale 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 shunt with Valsalva only consistent with PFO on echo in November 2022 Heart failure with preserved ejection fraction Coronary artery disease Gastric ulcer (11/2022) Gastric nodule Congestive heart failure Essential hypertension Ischemic cardiomyopathy Diabetes type 2, controlled Hiatal hernia Surgical History Surgical History History of cataract extraction History of arthroplasty of left shoulder History of arthroplasty of left knee History of sinus surgery History of cardiac catheterization History of four vessel coronary artery bypass graft (2009) History of Esmer fundoplication History of hernia surgery Family History Family History Mother Family history of lung cancer Family history of malignant neoplasm Father Sibling No problems noted. Sibling , breast cancer No problems noted. Social History Social History Social History: Surrogate medical decision maker: Enedina Jones, spouse ([phone]). Code status: Full code Smoking status: Never smoker Second hand tobacco smoke exposure: Yes Alcohol intake: never Substance use: never Substance use type: does not use Do You Feel Safe in your Home?: Yes Lack of Transportation: No Lack of Food: Never True Current Housing: I Have Housing Concerned About Future Housing: No Difficulty Paying Gas/Electric Bills: No Difficulty Paying for Meds: No Currently Unemployed: No Education: High School Diploma/GED Difficulty w/ Childcare or Family Care: No Living arrangements: with family Additional living arrangements comments: Lives with in [place]. They have 3 children. Occupation/Education: retired Additional occupation/education comments: [employer] . Retired from [employer]. Spiritual care concerns: No Exam Narrative: GENERAL: Elderly, fairly well appearing, well-nourished, non-toxic, in no acute distress. HEAD: Normocephalic, atraumatic. EYES: PERRL/EOMI, conjunctiva clear. Slight serous drainage to jeny eyes. RESPIRATORY: Airway patent, respirations nonlabored. Clear to auscultation bilaterally, no rales, rhonchi, wheezing. No significant focal lung sounds. CARDIOVASCULAR: Regular rate and rhythm without murmurs, rubs, or gallops. ABDOMINAL: Soft, mild tenderness palpation in epigastric region. Nondistended. Normoactive BS. MUSCULOSKELETAL: Moves all extremities. No gross deformities. Trace pitting edema in right lower extremity compared to left. No calf tenderness. No chest wall tenderness to palpation. SKIN: Warm, dry, normal color. NEURO: A&O X3. Speech clear. Steady gait. No ataxic movements. No focal deficits. PSYCHIATRIC: Appropriate mood and affect. Normal interaction. Course Vital Signs Vital signs: Vital Signs Temperature 97.4 F L 04/14/25 09:55 Pulse Rate 78 04/14/25 09:55 Respiratory Rate 14 04/14/25 09:55 Blood Pressure 132/99 H 04/14/25 09:55 Pulse Oximetry 97 04/14/25 09:55 Temperature 97.4 F L 04/14/25 09:55 Pulse Rate 78 04/14/25 09:55 Respiratory Rate 14 04/14/25 09:55 Blood Pressure 132/99 H 04/14/25 09:55 Pulse Oximetry 94 04/14/25 10:09 Oxygen Delivery Room Air 04/14/25 10:09 MDM - Chest Pain MDM Narrative Medical decision making narrative: Patient presented to ED with multiple complaints, chest pain, epigastric pain, weakness, shortness of breath, watery eyes. Vital signs are stable upon arrival. Patient in no acute distress. Neurologically intact. No focal deficits. CT brain with chronic findings, otherwise negative. EKG with sinus rhythm, right bundle, appears consistent with previous. Trop undetectable X2. Low suspicion for ACS. D-dimer did result mildly elevated at 0.81. BNP was also elevated at nearly 2500. Chest x-ray was clear. No evidence of pulmonary edema. Patient does not appear fluid overloaded on exam. Reports very mild shortness breath, but states this has been ongoing for the past few months. He did have some swelling of his right lower extremity which he reported was chronic. Venous Doppler ultrasound of right lower extremity was obtained and negative for DVT. CTA of chest with abdomen/pelvis was obtained and without evidence of PE or other cardiopulmonary findings, does show hiatal hernia with previous Esmer fundoplication. Suspicious for gastritis picture. Patient was given a GI cocktail in the ED and had complete resolution of his pain. Patient is not currently on any medication for acid reflux. Will start on PPI. Remainder basic laboratory studies were fairly unremarkable. No leukocytosis or anemia. Stable electrolytes. Stable kidney function. UA without evidence of infection. Patient did report that he has started gabapentin over the past couple of days. He feels this may be contributing to his weakness. Advised to discontinue gabapentin. Discussed case with Dr. Clayton, PCP, updated on overall reassuring ED workup and plan for d/c gabapentin, outpatient follow-up. In agreement. Discussed case with Dr. Green, cardiology, regarding elevated BNP. Advised without evidence of fluid overload, no indication for diuresis. Likely related to systolic dysfunction. Safe for outpatient follow-up. Patient is in agreement this plan. Discussed strict return precautions. He voiced understanding. Discharged in stable condition. Medical Records Data Attestation: I reviewed the patient's medical records. Lab Data Attestation: I reviewed the patient's lab results. 04/14/25 11:45 04/14/25 11:45 Labs: Lab Results 04/14/25 04/14/25 04/14/25 Range/Units 11:45 11:45 15:00 WBC 8.5 (4.5-10.0) K/mm3 RBC 4.87 (4.6-6.20) M/mm3 Hgb 14.2 (14.0-18.0) g/dL Hct 44.4 (42.0-52.0) % MCV 91.2 (80-100) fl MCH 29.2 (26-34) pg MCHC 32.0 (32-36) g/dl RDW 13.1 (11.5-14.5) % Plt Count 217 (150-375) k/mm3 MPV 10.4 (7.4-10.4) fl Immature Gran % (Auto) 0.4 (0-0.5) % Neut % (Auto) 76.7 H (45.5-73.1) % Lymph % (Auto) 14.8 L (18.3-44.2) % [place] % (Auto) 5.4 (2.6-8.5) % Eos % (Auto) 1.9 (0-4.4) % Baso % (Auto) 0.8 (0.2-1.2) % Lymph # (Auto) 1.26 (0.9-3.2) K/mm3 [place] # (Auto) 0.5 (0.1-0.6) K/mm3 Eos # (Auto) 0.2 (0-0.3) K/mm3 Baso # (Auto) 0.1 (0.0-0.1) K/mm3 Abs Immat Gran (auto) 0.03 (0.00-0.031) K/mm3 Absolute Neuts (auto) 6.6 (1.3-6.7) K/mm3 Absolute Nucleated RBC 0.000 (0.0-0.012) K/mm3 Nucleated RBC % 0.0 (0.0-0.2) % PT 13.6 (11.1-14.7) Seconds INR 1.0 APTT 27.8 (22.3-36.8) Seconds D-Dimer 0.81 H (<0.48) ug/mL Sodium 140 (137-145) mmol/L Potassium 4.9 (3.4-5.0) mmol/L Chloride 102 (98-107) mmol/L Carbon Dioxide 30 (22-30) mmol/L Anion Gap 8 (4-12) mmol/L BUN 18 D (9-20) mg/dL Creatinine 1.09 (0.7-1.3) mg/dL Estim Creat Clear Calc 49 ml/min Estimated GFR > 60 (59 - ) Glucose 119 H (65-110) mg/dL Calcium 9.6 (8.4-10.2) mg/dL Magnesium 2.1 (1.6-2.3) mg/dL Total Bilirubin 1.2 (0.2-1.3) mg/dL AST 30 (17-59) U/L ALT 17 (6-50) U/L Alkaline Phosphatase 51 (38-126) U/L Troponin I < 0.012 < 0.012 (0.000-0.034) ng/mL NT-Pro-B Natriuret Pep 2570 H (19.9-100) pg/mL Total Protein 7.8 (6.3-8.2) g/dL Albumin 4.5 (3.5-5.1) g/dL Lipase 69 Cancelled (23-300) U/L Urine Color Yellow (Yellow) Urine Appearance Clear (Clear) Urine pH 7.5 (5.0-9.0) Ur Specific [place] 1.013 (1.001-1.035) Urine Protein Negative (Negative) mg/dL Urine Glucose (UA) Negative (Negative) mg/dL Urine Ketones Negative (Negative) mg/dL Ur Blood (Man) Negative (Negative) Urine Nitrate Negative (Negative) Urine Bilirubin Negative (Negative) Urine Urobilinogen 0.2 (<2.0) mg/dL Leukocyte Esterase Rfl Negative (Negative) BARRY/UL Imaging Data Attestation: I personally reviewed and interpreted this imaging study as follows: Radiologist's impression: ITS Impressions Head CT 04/14/25 11:05 IMPRESSION: 1. Old lacunar infarct in the left frontal lobe lopez radiata. No acute intracranial process. Chest X-Ray 04/14/25 11:08 IMPRESSION: No focal infiltrate or effusion. Venous Doppler Study 04/14/25 11:49 IMPRESSION: 1. No deep venous thrombosis in the right lower limb. Chest/Abdomen/Pelvis CTA 04/14/25 13:06 IMPRESSION: 1. No pulmonary embolism or other acute cardiopulmonary disease. Sensitivity is significantly decrease in the smaller subsegmental pulmonary arteries due to respiratory motion. 2. Small sliding-type hiatal hernia with Esmer fundoplication extending above level of the diaphragm and with chronic wall thickening of the distalmost esophagus. If not recently performed would consider endoscopy for further evaluation. 3. Nonobstructing left nephrolithiasis. ECG Data EKG #1: Attestation: I personally reviewed and interpreted this ECG as follows: ECG completion date: 04/14/25 ECG completion time: 10:00 EKG Interpretation: normal rate (71), sinus rhythm, non-specific ST changes and RBBB Discharge Plan Discharge Clinical Impression: Atypical chest pain, Epigastric pain, Hiatal hernia, Generalized weakness Patient Disposition: Home Condition: Stable Instructions: Antibiotic Form, Chest Pain (ED), Hiatal Hernia (ED), Gastritis (ED), GERD (Gastroesophageal Reflux Disease) (ED) Additional Instructions: Your workup here was reassuring. 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 They were both made aware of your ED visit today. Discontinue taking gabapentin as this may be contributing to your weakness. Recommend taking Protonix daily for acid reflux suppression. Return to ED if you experience worsening or severe symptoms, severe pain, unable to keep down food or drink, severe weakness, numbness or weakness of only 1 side of your body, fall or injury, difficulty breathing, or any other symptoms of concern. Patient Language: Japanese Prescriptions: New pantoprazole [Protonix] 20 mg tablet,delayed release (DR/EC) 20 mg PO HS 42 Days Qty: 42 0RF No Action gabapentin 300 mg capsule 300 mg PO BID Qty: 60 1RF Rx Instructions: Start with capsule daily for one week, then advance to one capsule twice a day. IF planning to taper off, you need to take one capsule for one week then stop. losartan 50 mg tablet 50 mg PO DAILY Qty: 30 5RF multivitamin [Daily Value] Tablet 1 tablet PO DAILY albuterol sulfate 90 mcg/actuation HFA aerosol inhaler See Rx Instructions .ROUTE .COMPLEX Qty: 8.5 2RF Dose Instruction: INHALE 1-2 PUFFS BY MOUTH EVERY 6 HOURS NEEDED FOR SHORTNESS OF BREATH OR WHEEZING Rx Instructions: INHALE 1-2 PUFFS BY MOUTH EVERY 6 HOURS NEEDED FOR SHORTNESS OF BREATH OR WHEEZING nebivolol [Bystolic] 5 mg tablet 5 mg PO DAILY Qty: 30 5RF clopidogrel 75 mg tablet 75 mg PO QAM 30 Days Qty: 90 0RF aspirin [Children's Aspirin] 81 mg Tablet,Chewable 81 mg PO DAILY@0800 30 Days Qty: 30 0RF Follow-up/Referrals: Willie Green DO [Physician] - (CARDIOLOGY) Carlos Clayton MD [Primary Care Provider] - Time of Disposition: 16:19
--- NOTE | 2025-04-14 10:42 | PC.NURSE ---
pt in imaging at this time
[2025-04-14] MEDS: BELLADONNA ALK/PHENOB ELIX 10 ML, MAG HYDROX/ALUMINUM HYD/SIMETH 30 ML, LIDOCAINE 2% VI... PO (11:25)
[2025-04-14 11:54] LABS: Hematocrit 44.4 % (42.0-52.0); Hemoglobin 14.2 g/dL (14.0-18.0); Immature Granulocyte Percent A 0.4 % (0-0.5); Lymphocytes Absolute Auto 1.26 K/mm3 (0.9-3.2); Mean Corpuscular HGB Conc 32.0 g/dl (32-36); Mean Corpuscular Hemoglobin 29.2 pg (26-34); Mean Corpuscular Volume 91.2 fl (80-100); Nucleated Red Blood Cells Absolute Auto 0.000 K/mm3 (0.0-0.012); Nucleated Red Blood Cells Perc 0.0 % (0.0-0.2); Platelet Count Result 217 k/mm3 (150-375); Red Blood Count 4.87 M/mm3 (4.6-6.20); White Blood Count 8.5 K/mm3 (4.5-10.0)
[2025-04-14 12:04] LABS: Alanine Aminotransferase 17 U/L (6-50); Albumin Level 4.5 g/dL (3.5-5.1); Alkaline Phosphatase 51 U/L (38-126); Anion Gap 8 mmol/L (4-12); Aspartate Amino Transferase 30 U/L (17-59); Bilirubin,Total 1.2 mg/dL (0.2-1.3); Blood Urea Nitrogen 18 mg/dL (9-20); Calcium 9.6 mg/dL (8.4-10.2); Carbon Dioxide 30 mmol/L (22-30); Chloride 102 mmol/L (98-107); Estimated CRCL calculation 49 ml/min; Estimated Glomerular Filt Rate > 60; Glucose 119 mg/dL (65-110); Lipase 69 U/L (23-300); Magnesium 2.1 mg/dL (1.6-2.3); Potassium 4.9 mmol/L (3.4-5.0); Sodium 140 mmol/L (137-145); Total Protein 7.8 g/dL (6.3-8.2)
[2025-04-14 12:05] LABS: Add Urine Microscopic? NO; Appearance Urine Clear (Clear); Glucose Urine UA Negative (Negative); Leukocyte Esterase Ur Negative LEU/UL (Negative); Nitrate Urine Negative (Negative); Specific Grav Ur 1.013 (1.001-1.035)
[2025-04-14 12:08] LABS: INR 1.0; Prothrombin Time 13.6 Seconds (11.1-14.7)
[2025-04-14 12:09] LABS: Partial Thromboplastin Time 27.8 Seconds (22.3-36.8)
[2025-04-14 12:16] LABS: NT Pro B Type Natriuretic Pept 2570 pg/mL (19.9-100); Troponin I < 0.012 ng/mL (0.000-0.034)
--- NOTE | 2025-04-14 14:54 | ECG_ITS ---
Test Date: 2025-04-14 15:02:12 Measurements Intervals [place] Rate: 64 P: 49 TN: 194 QRS: -22 QRSD: 149 T: 52 QT: 447 QTc: 465 Interpretive Statements SINUS RHYTHM BORDERLINE LEFT AXIS DEVIATION [QRS AXIS < -20] RIGHT BUNDLE BRANCH BLOCK [120+ ms QRS DURATION, UPRIGHT V1, 40+ ms S IN I/aVL/V4/V5/V6] MODERATE T-WAVE ABNORMALITY, CONSIDER LATERAL ISCHEMIA [-0.1+ mV T-WAVE IN I/aVL/V5/V6] Compared to ECG 04/14/2025 10:00:06 T-wave abnormality now present Possible ischemia now present Electronically Signed On 04-14-2025 18:13:03 CDT by Maya Magana
[2025-04-14 15:35] LABS: Troponin I < 0.012 ng/mL (0.000-0.034)
== END 2025-04-14 16:34 | disposition home or self-care (01) ==
PROVIDERS: Emergency Provider Physician Assistant; PCP Family Medicine
DX: R07.89 Other chest pain (principal); R10.13 Epigastric pain; K44.9 Diaphragmatic hernia without obstruction or gangrene; R53.1 Weakness; I11.0 Hypertensive heart disease with heart failure; I50.9 Heart failure, unspecified; I25.10 Atherosclerotic heart disease of native coronary artery without angina pectoris; I25.5 Ischemic cardiomyopathy; I25.2 Old myocardial infarction; E78.5 Hyperlipidemia, unspecified; E11.9 Type 2 diabetes mellitus without complications; Z95.1 Presence of aortocoronary bypass graft; Z96.612 Presence of left artificial shoulder joint; Z96.652 Presence of left artificial knee joint; Z86.73 Personal history of transient ischemic attack (TIA), and cerebral infarction without residual deficits; Z98.49 Cataract extraction status, unspecified eye; Z77.22 Contact with and (suspected) exposure to environmental tobacco smoke (acute) (chronic); N20.0 Calculus of kidney; Z79.82 Long term (current) use of aspirin; Z79.02 Long term (current) use of antithrombotics/antiplatelets; Z79.899 Other long term (current) drug therapy; I44.0 Atrioventricular block, first degree; I45.10 Unspecified right bundle-branch block
CPT/HCPCS: 36415; 70450; 71046; 71275; 74177; 80053; 81003; 83690; 83735; 83880; 84484; 85025; 85380; 85610; 85730; 93005; 93971; 99284; A9270; Q9967

== ENCOUNTER 2025-05-19 12:30 | Outpatient (RCR) | payer MEDICARE, SELFPAY ==
--- NOTE | 2025-05-19 13:27 | OPREHPOC ---
Outpatient Therapy Plan of Care This is a Multidisciplinary Plan of Care that may contain components documented by all disciplines (PT, OT, and ST.) PT Problem 1 PT Problem #1 Knowledge Deficit PT Goal 1 Goal / Goal Update [place] with HEP Target Visit 4 Progress Met PT Problem 2 PT Problem #2 Impaired Gait PT Goal 1 Goal / Goal Update 1. Improve Tinetti score by 4 point to reduce gross fall risk 2. Improve 2 minute walk test to 450 feet to improve gait speed and reduce fall risk 02/13/25 1. 1 point increase in Tinetti 2. Decreased 75 feet n 2 minute walk test Target Visit 22 Progress Partially Met PT Problem 3 PT Problem #3 Impaired Strength PT Goal 1 Goal / Goal Update 1. Improve jeny hip flexion strength to 4+/5 to improve foot clearance with gait 2. Improve jeny hip abduction strength to 4/5 to improve lateral stability with ADLs 02/13/25 -No strength gains noted at this time Target Visit 22 Progress Partially Met
--- NOTE | 2025-05-19 13:27 | PTOPDC ---
Assessment and note entered by Nick Call, PT Evaluation Information Assessment Status Discharge ICD-10 Condition Codes (PT) Weakness R53.1,Dizziness and Giddiness R42 Onset 11/23/24 Subjective Information Patient states that he mentally feels about the same as when he started. Admits that he feels he has more endurance and feels stronger, but he does not have much energy. He still believes that his medication changes have contributed significantly. Reported Pain Level Pain Score 0: Self Report Assessment PT Clinical Summary Patient overall is showing improvement in objective findings including strength and mobility . Continues to report feeling of depression and low energy, but objectively we have hit majority of his goals. Patient comfortable with activity level and discharge to [facility] at this time. Plan of Care PT Services Indicated Yes
== END 2025-05-19 13:55 | disposition home or self-care (01) ==
LOC: ANHGOSHPT 12:30
PROVIDERS: PCP Family Medicine; Visit Provider Nurse Practitioner Family
DX: R42 Dizziness and giddiness (principal)
CPT/HCPCS: 97110; 97112; 97530

== ENCOUNTER 2025-05-21 14:49 | Outpatient (CLI) | payer MEDICARE, SELFPAY ==
--- OUTSIDE RECORDS SUMMARY | 2025-05-21 13:22 | XMS_ITS | Clinical Summary ---
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
--- OUTSIDE RECORDS SUMMARY | 2025-05-21 13:22 | XMS_ITS | Encounter Summary ---
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
--- OUTSIDE RECORDS SUMMARY | 2025-05-21 13:23 | XMS_ITS | Clinical Summary ---
Author Organization [facility] Address [address], [address] [address] Phone Care Team Providers Care Rate Engineer Name Role Phone Carlos Clayton MD Primary [...] (1 - 2023- season) 2024 Influenza Immunization (#1) 2025 DTaP/Tdap/Td Immunization Discontinued 10/27/2010 Pneumococcal Immunization [...] patient's age to complete this topic Insurance [facility] Care Teams Rate Engineer Relationship Specialty Start Date End Date Carlos Clayton MD [address] [place] [address] PCP - General Family Medicine 02/27/19
--- OUTSIDE RECORDS SUMMARY | 2025-05-21 13:23 | XMS_ITS | Clinical Summary ---
Author Organization [facility] [address] Address [address] [place] [address] Care Team Providers Care Careers Adviser Name Role Phone Carlos Clayton MD Primary Care Provider [phone] Flex Aguillon MD Unavailable [phone] Stephane Alvarez MD Unavailable [phone] Jovanny Preston DO Unavailable Allergies Active Allergy [...] (12/01/2022): Added automatically from request for surgery [id number] H/O: upper GI bleed 12/01/2022 Overview (12/01/2022): Added automatically from request for surgery [id number] 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 Overview (10/26/2022): Added automatically from request for surgery [id number] Ischemic cardiomyopathy 03/14/2022 Essential hypertension 06/19/2019 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 Overview (06/03/2019): Added automatically from request for surgery [id number] Iron deficiency anemia, unspecified 04/03/2019 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/20 17 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 Coronary arteriosclerosis in [place] artery 11/24 Overview (01/18/2017): Coronary arteriosclerosis in [place] artery Anemia 11/24/2014 Overview (01/18/2017): Anemia Obstructive [...] disease NSTEMI 2011 DVT (deep venous thrombosis) 2016 Hiatal hernia Diverticulosis GERD (gastroesophageal reflux [...] on file Legal Sex Male 2:23 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 Gender Identity Not on file Sexual Orientation [...] Risk Assessment 05/11/2024 05/11/2023 Influenza Vaccine (#1) 2025 Medical Devices Implanted Type Area Trader Device Identifier Shelf Expiration Date Model / Serial / Lot Wl [employer] [id number] [place] Bio-A 10x7cm Reinforcement Tissue Mesh Surgical Synthetic - [id number] - [id number] Implanted:Qty: 1 on 06/30/2019 by Yayo Ponce MD at [facility] Medicine Other - see comments N/A: Stomach Wl [employer] [id number] 01/12/2022 [id number] / [id number] / [id number] Description:[place] Bio-A Tissue Reinforcement Joint Replacement Left: Knee Joint Replacement Left: Shoulder Insurance MEDICARE AETNA SENIOR SUPPLEMENT MEDICARE AETNA SENIOR SUPPLEMENT [facility] MEDICARE MEDICARE [facility] Address: [address] [address] [employer]ET[employer] Advance Directives For more information, please contact: [phone] * Full Code (Latest Code Status on File) Date Activated Date Inactivated Comments 05/11/2023 11:28 AM 05/14/2023 2:23 PM * Full Code Date Activated Date Inactivated Comments 06/30/2019 10:29 PM 07/03/2019 8:40 PM Care Teams Careers Adviser Relationship Specialty Start Date End Date Carlos Clayton MD PCP - General Family Medicine 01/28/19 Flex Aguillon MD Cardiology 02/14/19 Stephane Alvarez MD Medical Oncologist/Solar Sales Manager Medical Oncology 02/19/19 Jovanny Preston DO Consulting Physician Gastroenterology 02/19/19
--- OUTSIDE RECORDS SUMMARY | 2025-05-21 13:23 | XMS_ITS | Encounter Summary ---
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
--- OUTSIDE RECORDS SUMMARY | 2025-05-21 13:23 | XMS_ITS | Encounter Summary ---
Author Organization [facility] Address [address] 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
--- OUTSIDE RECORDS SUMMARY | 2025-05-21 14:53 | XMS_ITS | Encounter Summary ---
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
--- OUTSIDE RECORDS SUMMARY | 2025-05-21 14:53 | XMS_ITS | Clinical Summary ---
Author Organization [facility] [address] Address [address] [place] [address] Care Team Providers Care Algorithm Design Engineer Name Role Phone Carlos Clayton MD Primary Care Provider [phone] Flex Aguillon MD Unavailable [phone] Stephane Alvarez MD Unavailable [phone] Jovanny Preston DO Unavailable [phone] Allergies Active Allergy Reactions Criticality Noted [...] (12/01/2022): Added automatically from request for surgery [id number] H/O: upper GI bleed 12/01/2022 Overview (12/01/2022): Added automatically from request for surgery [id number] 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 Overview (10/26/2022): Added automatically from request for surgery [id number] Ischemic cardiomyopathy 03/14/2022 Essential hypertension 06/19/2019 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 Overview (06/03/2019): Added automatically from request for surgery [id number] Iron deficiency anemia, unspecified 04/03/2019 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/20 17 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 Coronary arteriosclerosis in [place] artery 11/24 Overview (01/18/2017): Coronary arteriosclerosis in [place] artery Anemia 11/24/2014 Overview (01/18/2017): Anemia Obstructive [...] on file Legal 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 Male 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 Gender Identity Not on file Sexual Orientation [...] (#1) 2025 Medical Devices Implanted Type Area Electronics Inspector Device Identifier Shelf Expiration Date Model / Serial / Lot Wl [employer] [id number] [employer] Bio-A 10x7cm Reinforcement Tissue Mesh Surgical Synthetic - [id number] - [id number] Implanted:Qty: 1 on 06/30/2019 by Yayo Ponce MD at [facility] Medicine Other - see comments N/A: Stomach W[employer] [id number] 01/12/2022 [id number] / [id number] / [id number] Description:[employer] Tissue Reinforcement Joint Replacement Left: Knee Joint Replacement Left: Shoulder Insurance MEDICARE AETNA SENIOR SUPPLEMENT MEDICARE AETNA SENIOR SUPPLEMENT [facility] MEDICARE MEDICARE AETNA Advance Directives For more information, please contact: [phone] * Full Code (Latest Code Status on File) Date Activated Date Inactivated Comments 05/11/2023 11:28 AM 05/14/2023 2:23 PM * Full Code Date Activated Date Inactivated Comments 06/30/2019 10:29 PM 07/03/2019 8:40 PM Care Teams Algorithm Design Engineer Relationship Specialty Start Date End Date Carlos Clayton MD PCP - General Family Medicine 01/28/19 Flex Aguillon MD Cardiology 02/14/19 Stephane Alvarez MD Medical Oncologist/Public Relations Director Medical Oncology 02/19/19 Jovanny Preston DO Consulting Physician Gastroenterology 02/19/19
--- OUTSIDE RECORDS SUMMARY | 2025-05-21 14:53 | XMS_ITS | Encounter Summary ---
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
--- OUTSIDE RECORDS SUMMARY | 2025-05-21 14:53 | XMS_ITS | Clinical Summary ---
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
--- OUTSIDE RECORDS SUMMARY | 2025-05-21 14:53 | XMS_ITS | Encounter Summary ---
Author Organization 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
--- OUTSIDE RECORDS SUMMARY | 2025-05-21 14:53 | XMS_ITS | Clinical Summary ---
Author Organization [facility] Address [address], [address] [address] Phone Care Team Providers Care Dopster Name Role Phone Carlos Clayton MD Primary Care Provider [phone] Allergies Active Allergy Reactions Criticality Noted Date [...] patient's age to complete this topic Insurance [facility] Care Teams Dopster Relationship Specialty Start Date End Date Carlos Clayton MD [address] [place] [address] PCP - General Family Medicine 02/27/19
--- NOTE | 2025-05-21 16:45 | NEURO_ITS ---
Clinical note: Patient 84 years old with complaints of numbness in both feet. No history of diabetes mellitus. On a brief neurological examination no focal motor weakness was noted in the lower limb examination. No fasciculations were seen Summary of findings: 1. Left and right peroneal motor distal latencies conduction velocities were normal however amplitudes were mildly decreased. 2. Left and right tibial motor distal latencies were normal worse conduction velocities were mildly decreased on the left and normal on the right side. Amplitudes are significantly decreased On both sides. 3. Right sural sensory was absent where the left sural distal latency with normal however amplitudes significant decreased. Right medial plantar sensory distal latency was prolonged but amplitude was significantly decreased. 4. Left and right H reflex were absent. 5. EMG examination performed which shows moderately decreased recruitment in the left medial gastrocnemius. Paraspinal muscles were not examined since the patient is on Plavix. Various muscles including gluteal muscles were examined which did not show any denervation changes. Impression: EMG and nerve conduction study of both lower limbs supportive diagnosis of moderate, length-dependent, axonal, sensory motor polyneuropathy. Etiologic correlation is recommended. No supportive evidence for L3-S1 radiculopathy at this time Hair Gutierrez MD, FAAN, FAANEM Neurology and electrodiagnostic Medicine Nerve Conduction Studies Motor Nerve Results ? Latency Amplitude F-Lat Segment Distance CV Comment Site (ms) (mV) (ms) (cm) (m/s) Left Peroneal (EDB) Motor Ankle 5.3 1.76 Bel Fib Head 13.2 1.52 Bel Fib Head-Ankle 325 41 Pop Fossa 15.0 1.44 Pop Fossa-Bel Fib Head 80 44 Right Peroneal (EDB) Motor Ankle 4.6 1.52 Bel Fib Head 12.8 1.27 Bel Fib Head-Ankle 330 40 Pop Fossa 14.2 1.32 Pop Fossa-Bel Fib Head 80 57 Left Tibial (AHB) Motor Ankle 5.5 1.55 Knee 18.2 0.89 Knee-Ankle 465 37 Right Tibial (AHB) Motor Ankle 5.3 0.86 Knee 16.9 0.70 Knee-Ankle 475 41 Sensory Nerve Results ? Latency (Peak) Amplitude (P-P) Segment Distance CV Comment Site (ms) (?V) (cm) (m/s) Right Medial Plantar (Ortho) Sensory Great Toe-Med Mall 4.9 3 Great Toe-Med Mall 130 27 Left Sural Sensory Calf-Lat Mall 3.7 3 Calf-Lat Mall 120 32 Right Sural Sensory Calf-Lat Mall NR NR Calf-Lat Mall 120 NR H-Reflex Results ? M-Lat H Lat H Peak-Peak Amp M Peak-Peak Amp H-M Lat Site (ms) (ms) mV mV (ms) Left Tibial H-Reflex Pop Fossa - NR - - NR Right Tibial H-Reflex Pop Fossa - NR - - NR Electromyography ?Side Muscle Nerve Ins Act Fibs Psw Amp Dur Recrt Comment Right BicepsFemS Sciatic Nml Nml Nml Nml Nml Nml Right Semimembranosus Sciatic Nml Nml Nml Nml Nml Nml Right AntTibialis Dp Br Fibular Nml Nml Nml Nml Nml Nml Right Gastroc Tibial Nml Nml Nml Nml Nml Nml Right VastusMed Femoral Nml Nml Nml Nml Nml Nml Right RectFemoris Femoral Nml Nml Nml Nml Nml Nml Right GluteusMax InfGluteal Nml Nml Nml Nml Nml Nml Right TensorFascLat SupGluteal Nml Nml Nml Nml Nml Nml Left BicepsFemS Sciatic Nml Nml Nml Nml Nml Nml Left Semimembranosus Sciatic Nml Nml Nml Nml Nml Nml Left AntTibialis Dp Br Fibular Nml Nml Nml Nml Nml Nml Left Gastroc Tibial Nml Nml Nml Nml Nml +2 Left VastusMed Femoral Nml Nml Nml Nml Nml Nml Left RectFemoris Femoral Nml Nml Nml Nml Nml Nml Left GluteusMax InfGluteal Nml Nml Nml Nml Nml Nml Left TensorFascLat SupGluteal Nml Nml Nml Nml Nml Nml
== END 2025-05-21 14:50 | disposition home or self-care (01) ==
LOC: ANHNEURO 14:49
PROVIDERS: PCP Family Medicine; Visit Provider Psychiatry & Neurology Neurology
DX: G62.9 Polyneuropathy, unspecified (principal); I63.9 Cerebral infarction, unspecified
CPT/HCPCS: 95886; 95910

== ENCOUNTER 2025-06-16 11:08 | Outpatient (CLI) | payer MEDICARE, SELFPAY ==
--- NOTE | ~2025-06-16 | XR_ITS ---
[XR ribs BI 3V w CXR 2V ] INDICATION: Injury to the thorax TECHNIQUE: Frontal projection of the upper ribs, frontal projection of the lower ribs, oblique projection of all the ribs, frontal inspiratory chest x-ray for interpretation. FINDINGS: There are no acute displaced rib fractures identified. There are multiple healed left rib fractures. There is a left shoulder arthroplasty. There is atherosclerosis and ectasia of the aorta. There are no soft tissue abnormality seen. The lungs are clear. Status post median sternotomy for CABG. IMPRESSION: 1:No acute displaced rib fractures. Reviewed, dictated and finalized at location O.
== END 2025-06-16 11:09 | disposition home or self-care (01) ==
LOC: MICIMG 11:09
PROVIDERS: PCP Family Medicine; Visit Provider Nurse Practitioner Family
DX: S29.9XXA Unspecified injury of thorax, initial encounter (principal); X58.XXXA Exposure to other specified factors, initial encounter
CPT/HCPCS: 71046; 71110

== ENCOUNTER 2025-06-16 18:56 | Inpatient (IN) | payer MEDICARE, SELFPAY ==
[2025-06-16] VITALS (15 sets, daily range): BP systolic 110–131; BP diastolic 59–80; PULSE 72–88; RESP 14–23; TEMP 36.4–36.8; O2SAT 97–100; BMI 26.3
--- NOTE | ~2025-06-16 | NM_ITS ---
EXAMINATION: NM GI bleeding DATE: 06/17/2025 12:09 INDICATION: Anemia TECHNIQUE: 22.9 mCi Tc 99m in vitro labeled red cells administered intravenously. Scintigraphic images of the abdomen were obtained through 1 hour. Additional 3 hour delayed image was obtained. FINDINGS: No pattern of abnormal activity is seen in the abdomen or pelvis to suggest gastrointestinal hemorrhage. There is gradual accumulation of a small amount of bladder activity likely representing clearance of unconjugated activity. IMPRESSION: 1. No scintigraphic evidence for active gastrointestinal bleeding. Reviewed, dictated and finalized at location A.
--- NOTE | ~2025-06-16 | XR_ITS ---
EXAM/ PROCEDURE: XR wrist RT min 3V, XR forearm RT 2V - 06/17/2025 8:25 CDT HISTORY: 84 years old Male with fall WITH PROX FOREARM HEMATOMA ATTN RT SCAPHOID REGION COMPARISON: None available TECHNIQUE: Three view(s) of the forearm and 4 views of the wrist FINDINGS/ IMPRESSION: There are no fractures or dislocations.Joint space narrowing, subchondral sclerosis, subchondral cyst formation and osteophyte formation, compatible with mild osteoarthritis. Reviewed, dictated and finalized at location N.
--- NOTE | ~2025-06-16 | XR_ITS ---
XR chest 1V portable 06/16/2025 19:40 Indication: Multiple heart procedures. Weakness. Procedure: AP portable chest Comparison: Comparison to multiple prior studies sequentially, with oldest reviewed study dated 11/23/2024. Findings: Status post median sternotomy for CABG. Cardiomegaly. No focal air space disease, pulmonary edema, pleural effusion or suspected pneumothorax. No acute osseous abnormality. There are healed left rib fractures. There is a left shoulder arthroplasty. Severe right glenohumeral joint osteoarthritis. Impression: 1: No acute cardiopulmonary disease. Reviewed, dictated and finalized at location O. Impression: 1: No acute cardiopulmonary disease.
--- NOTE | ~2025-06-16 | CT_ITS ---
EXAMINATION: CT brain wo con DATE: 06/16/2025 19:07 INDICATION: Weakness. History of CVA. TECHNIQUE: Computed tomography (CT) of the head was performed without intravenous contrast. The dose-length product was 681.00 mGy-cm. COMPARISON: CT dated 04/14/2025 FINDINGS: Chronic infarct left frontal lopez radiata. Mild generalized atrophy. No acute infarction, hemorrhage, mass or mass effect. There are scattered mild periventricular and subcortical white matter changes, most likely related to small vessel ischemic disease (microangiopathy). No ventriculomegaly or midline shift. Paranasal sinuses and mastoids are pneumatized. No depressed skull fractures. Midline sagittal images demonstrate a normal corpus callosum and craniovertebral junction. IMPRESSION: 1. No acute intracranial abnormality. As per stroke protocol, I called these results to emergency room, discussed with Dr. Manuel Sharpe MD at 06/16/2025 19:11 CDT. Reviewed, dictated and finalized at location O. IMPRESSION: 1. No acute intracranial abnormality. As per stroke protocol, I called these results to emergency room, discussed wit h Dr. Manuel Sharpe MD at 06/16/2025 19:11 CDT.
--- NOTE | 2025-06-16 18:59 | ECG_ITS ---
Test Date: 2025-06-16 19:15:46 Measurements Intervals [place] Rate: 73 P: 27 [place]: 183 QRS: -48 QRSD: 154 T: 56 QT: 428 QTc: 474 Interpretive Statements SINUS RHYTHM LEFT AXIS DEVIATION [QRS AXIS < -30] RIGHT BUNDLE BRANCH BLOCK [120+ ms QRS DURATION, UPRIGHT V1, 40+ ms S IN I/aVL/V4/V5/V6] MODERATE T-WAVE ABNORMALITY, CONSIDER LATERAL ISCHEMIA [-0.1+ mV T-WAVE IN I/aVL/V5/V6] ABNORMAL ECG Compared to ECG 04/14/2025 15:02:12 No significant changes Electronically Signed On 06-17-2025 11:07:38 CDT by Roland Ruiz M.D.
[2025-06-16] MEDS: SODIUM CHLORIDE 0.9% IV 2,000 ML 999 ML IV CONT (19:18)
--- NOTE | 2025-06-16 19:27 | ED_ITS ---
HPI - General Adult General Chief complaint: Syncope Stated complaint: WEAKNESS, SYNCOPE, AMS, History of Present Illness HPI narrative: This is a 84-year-old male presenting with chief complaint of weakness. Patient says he has been feeling weak for the last several days. He had a fall 4 days ago where he tripped and fell landing on his right arm. He sustained significant bruising but never had checked in the hospital. Did not strike his head. He is on clopidogrel. He went saw his primary care physician today because of the pain. After he left there he went home and while at home he had a pre-syncopal event. Family was concerned because he was confused afterwards and he thought he might of had slurred speech. Given his history of CVA recommended he come to the ER immediately. The bone with the patient's only complaint is that feels like he has been more sweaty than usual. He feels generalized weak. No headache fevers chest pain difficulty breathing pain urinary symptoms. He denies melena or hematochezia. History of GI bleeds. Related Data Home Medications ?Medication ?Instructions ?Recorded ?Confirmed ?Last Taken ?Type multivitamin (Daily Value tablet) 1 tablet PO DAILY 06/16/25 11/25/24 08:10 History Allergies Allergy/AdvReac Type Severity Reaction Status Date / Time levofloxacin (From Levaquin) AdvReac Severe Muscle Pain Verified 06/16/25 09:53 [facility] Past Medical History Medical History (Updated 06/16/25 @ 20:54 by Manuel Sharpe MD) Acute blood loss anemia Screening for diabetes mellitus Type 2 diabetes mellitus with hyperglycemia Otitis media of both ears Allergic rhinitis Depression Neuropathy Left-sided cerebrovascular accident (CVA) Peripheral neuropathy Stroke (~11/2024) Acute sinusitis Myalgia Hyperlipidemia Elevated BUN Elevated liver enzymes Insomnia 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 Patent foramen ovale 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 shunt with Valsalva only consistent with PFO on echo in November 2022 Heart failure with preserved ejection fraction Coronary artery disease Gastric ulcer (11/2022) Gastric nodule Congestive heart failure Essential hypertension Ischemic cardiomyopathy Diabetes type 2, controlled Hiatal hernia Surgical History Surgical History History of cataract extraction History of arthroplasty of left shoulder History of arthroplasty of left knee History of sinus surgery History of cardiac catheterization History of four vessel coronary artery bypass graft (2009) History of Esmer fundoplication History of hernia surgery Family History Family History Mother Family history of lung cancer Family history of malignant neoplasm Father Sibling No problems noted. Sibling , breast cancer No problems noted. Social History Social History Social History: Surrogate medical decision maker: Enedina Jones, spouse ([phone]). Code status: Full code Smoking status: Never smoker Second hand tobacco smoke exposure: Yes Alcohol intake: never Substance use: never Substance use type: does not use Do You Feel Safe in your Home?: Yes Lack of Transportation: No Lack of Food: Never True Current Housing: I Have Housing Concerned About Future Housing: No Difficulty Paying Gas/Electric Bills: No Difficulty Paying for Meds: No Currently Unemployed: No Education: High School Diploma/GED Difficulty w/ Childcare or Family Care: No Living arrangements: with family Additional living arrangements comments: Lives with in [place]. They have 3 children. 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 Spiritual care concerns: No Exam 2 Narrative: APPEARANCE: No apparent distress. Head: atraumatic. EYES: EOMI, NOSE: Atraumatic NECK: Trachea midline RESPIRATORY: No increased rate of breathing soft nontender CARDIOVASCULAR: RRR, no peripheral edema ABDOMINAL: Non-distended soft nontender no guarding rebound MUSCULOSKELETAl: No obvious deformities NEURO: Alert. Cranial nerves 2-12 grossly intact. Sensation light touch, motor function cerebellar function intact for 4 extremities. Gait exam was normal. NIH of 0 SKIN:: Warm, dry. Normal color PSYCHIATRIC: Normal affect Course Vital Signs Vital signs: Vital Signs Temperature 97.9 F 06/16/25 18:59 Respiratory Rate 18 06/16/25 18:59 Blood Pressure 115/61 06/16/25 18:59 Temperature 97.9 F 06/16/25 18:59 Pulse Rate 76 06/16/25 19:19 Respiratory Rate 19 06/16/25 19:19 Blood Pressure 110/59 L 06/16/25 19:19 Pulse Oximetry 97 09/02/25 19:19 Oxygen Delivery Room Air 06/16/25 19:19 Medical Decision Making MDM Narrative Medical decision making narrative: -Course: 84-year-old male presenting with generalized weakness and a presyncopal event. He was initially activated as a stroke stop. On my evaluation he had an NIH is 0 with a normal neurologic exam. Patient's weakness is generalized. Presentation not consistent with CVA. Broad workup was obtained. Workup significant for a hemoglobin 9.7. Two months ago it was 14. Digital rectal exam showed brown stool with no ed blood in Hemoccult negative. Patient denies hematochezia or melena. Repeat hemoglobin ordered q6H as patient will likely continue to drop after fluid resuscitation. Type and screen ordered. Symptomatic anemia would certainly explain his symptoms. EKG showed right bundle-branch block with ST depression in the lateral and high lateral leads. These findings present on the EKG from April 14, 2025. No chest pain. Initial troponin undetectable. Results were discussed with patient. He will be admitted the hospital for symptomatic anemia and further workup. -DDX includes but is not limited to: Anemia, sepsis, dehydration, UTI, cardiac syncope Vital Signs Vital Signs: Vital Signs Temperature 97.9 F 06/16/25 18:59 Respiratory Rate 18 06/16/25 18:59 Blood Pressure 115/61 06/16/25 18:59 Temperature 97.9 F 06/16/25 18:59 Pulse Rate 76 06/16/25 19:19 Respiratory Rate 19 06/16/25 19:19 Blood Pressure 110/59 L 06/16/25 19:19 Pulse Oximetry 97 06/16/25 19:19 Oxygen Delivery Room Air 06/16/25 19:19 Lab Data 06/16/25 19:35 06/16/25 19:35 Labs: Lab Results 06/16/25 Range/Units 19:35 WBC 10.3 H (4.5-10.0) K/mm3 RBC 3.32 L (4.6-6.20) M/mm3 Hgb 9.7 L D (14.0-18.0) g/dL Hct 30.8 L (42.0-52.0) % MCV 92.8 (80-100) fl MCH 29.2 (26-34) pg MCHC 31.5 L (32-36) g/dl RDW 12.9 (11.5-14.5) % Plt Count 204 (150-375) k/mm3 MPV 10.0 (7.4-10.4) fl Immature Gran % (Auto) 0.5 (0-0.5) % Neut % (Auto) 77.9 H (45.5-73.1) % Lymph % (Auto) 13.2 L (18.3-44.2) % [place] % (Auto) 5.7 (2.6-8.5) % Eos % (Auto) 1.9 (0-4.4) % Baso % (Auto) 0.8 (0.2-1.2) % Lymph # (Auto) 1.37 (0.9-3.2) K/mm3 [place] # (Auto) 0.6 (0.1-0.6) K/mm3 Eos # (Auto) 0.2 (0-0.3) K/mm3 Baso # (Auto) 0.1 (0.0-0.1) K/mm3 Abs Immat Gran (auto) 0.05 H (0.00-0.031) K/mm3 Absolute Neuts (auto) 8.1 H (1.3-6.7) K/mm3 Absolute Nucleated RBC 0.000 (0.0-0.012) K/mm3 Nucleated RBC % 0.0 (0.0-0.2) % PT 15.5 H (11.1-14.7) Seconds INR 1.2 APTT 24.3 (22.3-36.8) Seconds Sodium 136 L (137-145) mmol/L Potassium 4.7 (3.4-5.0) mmol/L Chloride 108 H (98-107) mmol/L Carbon Dioxide 23 (22-30) mmol/L Anion Gap 5 (4-12) mmol/L BUN 43 H D (9-20) mg/dL Creatinine 1.06 (0.7-1.3) mg/dL Estim Creat Clear Calc 51 ml/min Estimated GFR > 60 (59 - ) Glucose 159 H (65-110) mg/dL Lactic Acid 2.4 H (0.7-2.0) mmol/L Calcium 8.3 L (8.4-10.2) mg/dL Phosphorus 3.3 (2.5-4.5) mg/dL Magnesium 1.6 (1.6-2.3) mg/dL Total Bilirubin 0.6 (0.2-1.3) mg/dL AST 27 (17-59) U/L ALT 17 (6-50) U/L Alkaline Phosphatase 43 (38-126) U/L Troponin I < 0.012 (0.000-0.034) ng/mL Total Protein 5.7 L (6.3-8.2) g/dL Albumin 3.3 L (3.5-5.1) g/dL Lipase 62 (23-300) U/L TSH (Reflex) Pending Influenza A (RT-PCR) Pending Influenza B (RT-PCR) Pending RSV (RT-PCR) Pending SARS-CoV-2 RNA (RT-PCR) Pending Discharge Plan Discharge Clinical Impression: Anemia Qualifiers: Anemia type: unspecified type Qualified Code(s): D64.9 - Anemia, unspecified Patient Disposition: Still a Patient Condition: Stable Patient Language: Algerian Prescriptions: No Action losartan 50 mg tablet 50 mg PO DAILY Qty: 30 5RF duloxetine 20 mg capsule,delayed release(DR/EC) 20 mg PO DAILY Qty: 30 3RF multivitamin [Daily Value] Tablet 1 tablet PO DAILY nebivolol [Bystolic] 5 mg tablet 5 mg PO DAILY Qty: 30 5RF clopidogrel 75 mg tablet 75 mg PO QAM 30 Days Qty: 90 0RF albuterol sulfate 90 mcg/actuation HFA aerosol inhaler See Rx Instructions .ROUTE .COMPLEX Qty: 8.5 2RF Dose Instruction: INHALE 1-2 PUFFS BY MOUTH EVERY 6 HOURS NEEDED FOR SHORTNESS OF BREATH OR WHEEZING Rx Instructions: INHALE 1-2 PUFFS BY MOUTH EVERY 6 HOURS NEEDED FOR SHORTNESS OF BREATH OR WHEEZING aspirin [Children's Aspirin] 81 mg Tablet,Chewable 81 mg PO DAILY@0800 30 Days Qty: 30 0RF Follow-up/Referrals: Carlos Clayton MD [Primary Care Provider, Family Practice]
--- NOTE | 2025-06-16 19:29 | PC.NURSE ---
ok to not give LR 1 L Bolus per edp zych
[2025-06-16 19:43] LABS: Hematocrit 30.8 % (42.0-52.0); Hemoglobin 9.7 g/dL (14.0-18.0); Immature Granulocyte Percent A 0.5 % (0-0.5); Lymphocytes Absolute Auto 1.37 K/mm3 (0.9-3.2); Mean Corpuscular HGB Conc 31.5 g/dl (32-36); Mean Corpuscular Hemoglobin 29.2 pg (26-34); Mean Corpuscular Volume 92.8 fl (80-100); Nucleated Red Blood Cells Absolute Auto 0.000 K/mm3 (0.0-0.012); Nucleated Red Blood Cells Perc 0.0 % (0.0-0.2); Platelet Count Result 204 k/mm3 (150-375); Red Blood Count 3.32 M/mm3 (4.6-6.20); White Blood Count 10.3 K/mm3 (4.5-10.0)
--- OUTSIDE RECORDS SUMMARY | 2025-06-16 19:54 | XMS_ITS | Encounter Summary ---
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
--- OUTSIDE RECORDS SUMMARY | 2025-06-16 19:54 | XMS_ITS | Clinical Summary ---
Author Organization [facility] [address] Address [address] [place] [address] Care Team Providers Care Clinical Biostatistician Name Role Phone Carlos Clayton MD Primary Care Provider [phone] Flex Aguillon MD Unavailable [phone] Stephane Alvarez MD Unavailable [phone] Jovanny Preston DO Unavailable [phone] Allergies Active Allergy Reactions Criticality Noted [...] (12/01/2022): Added automatically from request for surgery [id number] H/O: upper GI bleed 12/01/2022 Overview (12/01/2022): Added automatically from request for surgery [id number] 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 Overview (10/26/2022): Added automatically from request for surgery [id number] Ischemic cardiomyopathy 03/14/2022 Essential hypertension 06/19/2019 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 Overview (06/03/2019): Added automatically from request for surgery [id number] Iron deficiency anemia, unspecified 04/03/2019 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/20 17 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 11/24 Overview (01/18/2017): 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 Anemia 11/24/2014 Overview (01/18/2017): Anemia Obstructive [...] on file 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 Gender Identity Not on file Sexual Orientation [...] (#1) 2025 Medical Devices Implanted Type Area Waste Cotton Cleaner Device Identifier Shelf Expiration Date Model / Serial / Lot [employer] [id number] [employer] 10x7cm Reinforcement Tissue Mesh Surgical Synthetic - [id number] - [id number] Implanted:Qty: 1 on 06/30/2019 by Yayo Ponce MD at [facility] Medicine Other - see comments N/A: Stomach [employer] [id number] 01/12/2022 [id number] / [id number] / [id number] Description:[employer] Tissue Reinforcement Joint Replacement Left: Knee Joint Replacement Left: Shoulder Insurance MEDICARE AETNA SENIOR SUPPLEMENT MEDICARE AETNA SENIOR SUPPLEMENT [facility] MEDICARE MEDICARE AETNA Advance Directives For more information, please contact: [phone] * Full Code (Latest Code Status on File) Date Activated Date Inactivated Comments 05/11/2023 11:28 AM 05/14/2023 2:23 PM * Full Code Date Activated Date Inactivated Comments 06/30/2019 10:29 PM 07/03/2019 8:40 PM Care Teams Clinical Biostatistician Relationship Specialty Start Date End Date Carlos Clayton MD PCP - General Family Medicine 01/28/19 Flex Aguillon MD Cardiology 02/14/19 Stephane Alvarez MD Medical Oncologist/White Sugar Supervisor Medical Oncology 02/19/19 Jovanny Preston DO Consulting Physician Gastroenterology 02/19/19
--- OUTSIDE RECORDS SUMMARY | 2025-06-16 19:54 | XMS_ITS | Encounter Summary ---
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
--- OUTSIDE RECORDS SUMMARY | 2025-06-16 19:54 | XMS_ITS | Clinical Summary ---
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
--- OUTSIDE RECORDS SUMMARY | 2025-06-16 19:54 | XMS_ITS | Clinical Summary ---
Author Organization [facility] Address [address], [address] [address] Phone Care Team Providers Care Glass Cutting Machine Operator Name Role Phone Carlos Clayton MD Primary Care Provider [phone] Allergies Active Allergy Reactions Criticality Noted Date [...] 1-dose 75+ series) 2016 Influenza Immunization (#1) 2025 SARS-COV-2 Immunization (1 - season) 2025 DTaP/Tdap/Td Immunization Discontinued 10/27/2010 Pneumococcal Immunization [...] patient's age to complete this topic Insurance [facility] Care Teams Glass Cutting Machine Operator Relationship Specialty Start Date End Date Carlos Clayton MD [address] [place] [address] PCP - General Family Medicine 02/27/19
--- OUTSIDE RECORDS SUMMARY | 2025-06-16 19:54 | XMS_ITS | Encounter Summary ---
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
[2025-06-16 20:01] LABS: Alanine Aminotransferase 17 U/L (6-50); Albumin Level 3.3 g/dL (3.5-5.1); Alkaline Phosphatase 43 U/L (38-126); Anion Gap 5 mmol/L (4-12); Aspartate Amino Transferase 27 U/L (17-59); Bilirubin,Total 0.6 mg/dL (0.2-1.3); Blood Urea Nitrogen 43 mg/dL (9-20); Calcium 8.3 mg/dL (8.4-10.2); Carbon Dioxide 23 mmol/L (22-30); Chloride 108 mmol/L (98-107); Estimated CRCL calculation 51 ml/min; Estimated Glomerular Filt Rate > 60; Glucose 159 mg/dL (65-110); Lipase 62 U/L (23-300); Magnesium 1.6 mg/dL (1.6-2.3); Potassium 4.7 mmol/L (3.4-5.0); Sodium 136 mmol/L (137-145); Total Protein 5.7 g/dL (6.3-8.2)
[2025-06-16 20:03] LABS: INR 1.2; Partial Thromboplastin Time 24.3 Seconds (22.3-36.8); Prothrombin Time 15.5 Seconds (11.1-14.7)
[2025-06-16 20:11] LABS: Troponin I < 0.012 ng/mL (0.000-0.034)
[2025-06-16 20:19] LABS: Influenza A QL RT-PCR Negative (Negative); Influenza B QL RT-PCR Negative (Negative); RSV RNA, RT-PCR Negative (Negative); SARS-CoV-2 RNA PCR Negative (Negative)
[2025-06-16 20:31] LABS: Thyroid Stimulating Hormone Reflex 2.660 uIU/mL (0.465-4.68)
[2025-06-16] MEDS: PANTOPRAZOLE SODIUM IV 40 MG VIAL 80 MG IV PUSH (20:51)
[2025-06-16] MEDS: LACTATED RINGERS 1,000 ML 125 ML IV CONT (21:10)
[2025-06-16 22:45] LABS: Hematocrit 30.9 % (42.0-52.0); Hemoglobin 9.6 g/dL (14.0-18.0)
[2025-06-16 23:37] LABS: Troponin I 0.014 ng/mL (0.000-0.034)
[2025-06-17] VITALS (9 sets, daily range): BP systolic 135–167; BP diastolic 70–88; PULSE 72–89; RESP 18–20; TEMP 36.2–36.6; O2SAT 96–99
[2025-06-17 00:14] LABS: Add Urine Microscopic? NO; Appearance Urine Clear (Clear); Glucose Urine UA Negative (Negative); Leukocyte Esterase Ur Negative LEU/UL (Negative); Nitrate Urine Negative (Negative); Specific Grav Ur 1.019 (1.001-1.035)
--- NOTE | 2025-06-17 00:48 | PM.IMHP ---
H&P: HPI History of Present Illness Date/Time: 06/17/25 00:48 Chief Complaint: Syncope Narrative: This is an 84-year-old male patient who has a history of CVA and has been on aspirin and Plavix. The patient stated that he did fall several days ago and landed on his right arm and now has a large hematoma to the right forearm wrist and hand. He stated that he has some mild weakness from his previous stroke many years ago. The patient stated that he has no new symptoms of a stroke. The patient denies hitting his head. The patient stated that he has been feeling weak for several days. He stated that he did have some anemia in the past but it was many years ago. He denies seeing any blood in his stool. The patient stated that he tripped and fell 4 days ago and this is when he sustained a hematoma to the right forearm. The patient did follow up with his primary care doctor today who recommended that he go to the emergency room. He denies any nausea vomiting or diarrhea. His hemoglobin today was 9.7 and 9.6. Last month his hemoglobin had been within normal limits. His hematocrit is 30.8 and 30.9 with normal results in April. His PT is slightly elevated at 15.5 and his INR is 1.2. Abnormal labs on his chemistry includes sodium of 136, chloride 108, BUN 43 and a glucose of 159. His lactic acid had been 2.4 and is now 1.5. Calcium was low at 8.3. Albumin is low at 3.3. Troponins were negative x2. Urinalysis had 1+ ketones. Viral serology was negative. Head CT per stroke protocol shows no acute intracranial abnormality. Chest x-ray was read as no acute cardiopulmonary disease. The patient is being admitted to inpatient status on 06/17/2025 to medical-surgical floor. Review of Systems Review of Systems: All systems reviewed & are unremarkable except as noted in HPI and below (HPI) Constitutional: Constitutional: Reports fatigue Cardiovascular: Cardiovascular: Reports other Comments: Syncope and weakness Respiratory: Respiratory: Reports no additional respiratory complaints Gastrointestinal: Gastrointestinal: Reports as per HPI and Reports no additional gastrointestinal complaints Genitourinary: Genitourinary: Reports no additional male genitourinary complaints Musculoskeletal: Musculoskeletal: Reports as per HPI, Reports abnormal gait and Reports joint swelling (Right forearm) Neurologic: Reports as per HPI Psychiatric: Psychiatric: Reports no additional psychiatric complaints and Reports as per HPI Endocrine: Endocrine: Reports no additional endocrine complaints Hematologic/Lymphatic: Hematologic/Lymphatic: Reports as per HPI, Reports easy bleeding and Reports easy bruising (Large hematoma to right forearm) Allergic/Immunologic: Allergic/Immunologic: Reports no additional allergic/immunologic complaints COUNT INCLUDES THE [facility] Past Medical History Medical History (Updated 06/17/25 @ 16:01 by Stephon Jerry MD) Symptomatic anemia Anemia Acute blood loss anemia Screening for diabetes mellitus Type 2 diabetes mellitus with hyperglycemia Otitis media of both ears Allergic rhinitis Depression Neuropathy Left-sided cerebrovascular accident (CVA) Peripheral neuropathy Stroke (~11/2024) Acute sinusitis Myalgia Hyperlipidemia Elevated BUN Elevated liver enzymes Insomnia 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 Patent foramen ovale 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 shunt with Valsalva only consistent with PFO on echo in November 2022 Heart failure with preserved ejection fraction Coronary artery disease Gastric ulcer (11/2022) Gastric nodule Congestive heart failure Essential hypertension Ischemic cardiomyopathy Diabetes type 2, controlled Hiatal hernia Surgical History Surgical History History of cataract extraction History of arthroplasty of left shoulder History of arthroplasty of left knee History of sinus surgery History of cardiac catheterization History of four vessel coronary artery bypass graft (2009) History of Esmer fundoplication History of hernia surgery Family History Family History Mother Family history of lung cancer Family history of malignant neoplasm Father Sibling No problems noted. Sibling , breast cancer No problems noted. Social History Social History Social History: Surrogate medical decision maker: Enedina Jones, spouse ([phone]). Code status: Full code Smoking status: Unknown if ever smoked Second hand tobacco smoke exposure: No Alcohol intake: unknown Substance use: never Substance use type: does not use Do You Feel Safe in your Home?: Yes Lack of Transportation: No Lack of Food: Never True Current Housing: I Have Housing Concerned About Future Housing: No Difficulty Paying Gas/Electric Bills: No Difficulty Paying for Meds: No Currently Unemployed: No Education: Associate Degree Difficulty w/ Childcare or Family Care: No Living arrangements: with family Additional living arrangements comments: Lives with in [place]. They have 3 children. Occupation/Education: retired Additional occupation/education comments: [place] . Retired from [employer]. Spiritual care concerns: No Meds Home Medications and Allergies Home Medications ?Medication ?Instructions ?Recorded ?Confirmed ?Type multivitamin (Daily Value tablet) 1 tablet PO DAILY 11/23/24 06/16/25 History aspirin 81 mg chewable tablet 81 mg PO DAILY@0800 30 days #30 12/03/24 06/16/25 Rx (Children's Aspirin) tabs nebivolol 5 mg tablet (Bystolic) 5 mg PO DAILY #30 tabs 01/26/25 06/16/25 Rx losartan 50 mg tablet 50 mg PO DAILY #30 tabs 01/28/25 06/16/25 Rx clopidogrel 75 mg tablet 75 mg PO QAM 30 days #90 tabs 03/30/25 06/16/25 Rx albuterol sulfate 90 mcg/actuation See Rx Instructions .Route 04/18/25 06/16/25 Rx aerosol inhaler .COMPLEX #8.5 ea duloxetine 20 mg capsule,delayed 20 mg PO DAILY #30 caps 06/04/25 06/16/25 Rx release Allergies Allergy/AdvReac Type Severity Reaction Status Date / Time [facility] Severe Muscle Pain Verified 06/16/25 09:53 Vital Signs Vital Signs - 24 hr 06/16/25 18:59 06/16/25 19:19 06/16/25 19:19 Temperature 97.9 F Pulse Rate 76 76 Respiratory Rate 18 19 19 Blood Pressure 115/61 110/59 L Pulse Oximetry 97 97 Oxygen Delivery Room Air 06/16/25 19:30 06/16/25 19:48 06/16/25 20:01 Temperature Pulse Rate 73 73 75 Respiratory Rate 18 16 17 Blood Pressure Pulse Oximetry 100 100 Oxygen Delivery 06/16/25 20:47 06/16/25 20:59 06/16/25 21:00 Temperature Pulse Rate 74 77 74 Respiratory Rate 14 21 H 16 Blood Pressure 131/73 126/62 Pulse Oximetry 99 99 100 Oxygen Delivery 06/16/25 21:01 06/16/25 21:17 06/16/25 21:30 Temperature Pulse Rate 76 78 88 Respiratory Rate 21 H 20 23 H Blood Pressure Pulse Oximetry 100 98 Oxygen Delivery 06/16/25 21:45 06/16/25 21:46 06/16/25 21:55 Temperature 98.3 F Pulse Rate 77 72 72 Respiratory Rate 17 20 20 Blood Pressure 120/80 120/80 Pulse Oximetry 99 99 99 Oxygen Delivery 06/16/25 22:15 Temperature 97.5 F L Pulse Rate 76 Respiratory Rate 16 Blood Pressure 127/64 Pulse Oximetry 98 Oxygen Delivery Exam Const: General: cooperative, tired appearing and well groomed Nutritional Appearance: well nourished Orientation/consciousness: oriented to person, oriented to place, oriented to time and patient oriented x3 Limitations: no limitations HENMT: Head: normal to inspection Eyes: General: appearance normal, both eyes and all related structures Sclera: sclerae normal EOM: EOMs intact bilaterally Neck: Neck: normal visual inspection Resp: Effort & Inspection: normal respiratory effort Auscultation: clear to auscultation bilaterally Cardio: Jugular venous distension: no JVD Rate: regular rate Rhythm: regular rhythm GI: Inspection: normal to inspection GI Palp: Yes Soft to palpation Auscultation: normal bowel sounds Rectal Exam: deferred Skin: General skin exam: ecchymosis (Large hematoma to right forearm wrist and hand) Lesions: no lesions Neuro: General: oriented to person, oriented to place, oriented to time, patient oriented x3, moves all extremities and CN's II-XI intact bilaterally Cranial nerves: Yes Normal hearing present Cognition (Neuro): normal cognition Speech: normal speech Motor exam (neuro): Pronator motor function not present and Abnormal motor strength present (Right hand slightly weaker than the left status post CVA affect) Extrem: Right upper extremity: edema, elbow/forearm tenderness, swelling and ecchymosis, wrist and Extremity exam: right hand Psych: Speech and movement: Normal speech and movement present Affect: normal affect Attitude: cooperative Thought process: Normal thought process present Thought content: Yes Normal thought content present Insight: Fair insight present (Psych) Judgement: Fair judgement present (Psych) H&P: Results Labs Labs: Short CBC 06/16/25 06/16/25 Range/Units 19:35 22:37 WBC 10.3 H (4.5-10.0) K/mm3 Hgb 9.7 L D 9.6 L (14.0-18.0) g/dL Hct 30.8 L 30.9 L (42.0-52.0) % Plt Count 204 (150-375) k/mm3 BMP 06/16/25 19:35 Sodium 136 L Potassium 4.7 Chloride 108 H Carbon Dioxide 23 BUN 43 H D Creatinine 1.06 Glucose 159 H Calcium 8.3 L Cardiac Enzymes 06/16/25 06/16/25 Range/Units 19:35 22:37 Troponin I < 0.012 0.014 (0.000-0.034) ng/mL Liver Function 06/16/25 Range/Units 19:35 Total Bilirubin 0.6 (0.2-1.3) mg/dL AST 27 (17-59) U/L ALT 17 (6-50) U/L Alkaline Phosphatase 43 (38-126) U/L Albumin 3.3 L (3.5-5.1) g/dL Urine 06/16/25 Range/Units 23:25 Urine Color Yellow (Yellow) Urine Appearance Clear (Clear) Urine pH 5.5 (5.0-9.0) Ur Specific [place] 1.019 (1.001-1.035) Urine Protein Negative (Negative) mg/dL Urine Glucose (UA) Negative (Negative) mg/dL Imaging CT scan - head: Radiologist's impression: Impressions Head CT 06/16/25 19:08 IMPRESSION: 1. No acute intracranial abnormality. As per stroke protocol, I called these results to emergency room, discussed with Dr. Manuel Sharpe MD at 06/16/2025 19:11 CDT. Chest X-Ray 06/16/25 20:00 Impression: 1: No acute cardiopulmonary disease. Assessment and Plan Assessment and plan (1) Anemia: Qualifiers: Anemia type: unspecified type Qualified Code(s): D64.9 - Anemia, unspecified Code(s): D64.9 - Anemia, unspecified Status: Chronic Assessment and Plan: -continue to monitor H&H every 6 hours. -nuclear med GI bleeding routine was initiated -GI has been consulted -the patient has been on Plavix and aspirin due to his previous stroke. We will continue this for now -consult hematology -anemia panel -initially the patient was started on LR. I will continue with his IV fluids but turned down the rate is he has cardiomegaly. (2) Syncope: Code(s): R55 - Syncope and collapse Status: Acute Assessment and Plan: -this could be related to his anemia -CT of the brain was negative. Patient declined MRI -orthostatic blood pressures. (3) Hematoma: Code(s): T14.8XXA - Other injury of unspecified body region, initial encounter Status: Acute Assessment and Plan: -the patient had a fall 4 days ago. -x-ray of right wrist and hand. No concern for compartment syndrome at this time. (4) Left-sided cerebrovascular accident (CVA): Code(s): I63.9 - Cerebral infarction, unspecified Status: Acute Assessment and Plan: -the patient is on aspirin and Plavix will continue with that for now. -CT of the brain shows nothing acute. (5) Essential hypertension: Code(s): I10 - Essential (primary) hypertension Status: Acute Assessment and Plan: -Continue with home losartan. Hold if map is less than 60. Hold blood pressure medication if blood pressure less than 100/60. Plan Hematoma to right arm. X-rays have been ordered. Quality VTE Prophylaxis VTE prophylaxis: mechanical ordered Stroke Scale 1a Level of conciousness: alert-0 1b Level of consciousness: answers both correctly-0 1c Level of consciousness: obeys both correctly-0 2 Best gaze: normal-0 3 Visual: no visual loss-0 4 Facial palsy: normal-0 5a Motor: left arm: no drift-0 5b Motor: right arm: no drift-0 6a Motor: left leg: no drift-0 6b Motor: right leg: no drift-0 7 Limb ataxia: absent-0 8 Sensory: normal-0 9 Best language: no aphasia-0 10 Dysarthria: normal-0
[2025-06-17 01:45] LABS: Immature Reticulocyte Fraction 9.2 % (3.0-15.9); Reticulocyte Hemoglobin Conten 30.7 pg (28.2-36.6); Reticulocytes Absolute 0.05 10^6/uL (0.02-0.10)
[2025-06-17 03:11] LABS: Hematocrit 26.8 % (42.0-52.0); Hemoglobin 8.4 g/dL (14.0-18.0)
[2025-06-17 03:22] LABS: Iron 146 ug/dL (49-181)
[2025-06-17 03:24] LABS: Anion Gap 4 mmol/L (4-12); Bilirubin,Total 0.7 mg/dL (0.2-1.3); Blood Urea Nitrogen 49 mg/dL (9-20); Calcium 8.3 mg/dL (8.4-10.2); Carbon Dioxide 22 mmol/L (22-30); Chloride 112 mmol/L (98-107); Estimated CRCL calculation 56 ml/min; Estimated Glomerular Filt Rate > 60; Glucose 140 mg/dL (65-110); Potassium 4.3 mmol/L (3.4-5.0); Sodium 138 mmol/L (137-145)
[2025-06-17 03:32] LABS: Percent Iron Saturation 66 % (20-50)
[2025-06-17 03:41] LABS: Transferrin 144 mg/dL (206-381)
[2025-06-17 03:59] LABS: Thyroid Stimulating Hormone Reflex 0.981 uIU/mL (0.465-4.68)
[2025-06-17 04:03] LABS: Ferritin 56.00 ng/mL (11.1-264)
[2025-06-17 04:20] LABS: Vitamin B12 356.0 pg/mL (239-931)
[2025-06-17] MEDS: HYDROcodone/acetaminophen (*CRX) 5-325 MG TABLET 1 TAB PO (05:18)
[2025-06-17] MEDS: LACTATED RINGERS 1,000 ML 60 ML IV CONT (07:43)
[2025-06-17] MEDS: ASPIRIN 81 MG CHEWABLE TABLET PO (08:33)
[2025-06-17] MEDS: NEBIVOLOL HCL 5 MG TABLET PO (08:34)
[2025-06-17] MEDS: MULTIVITAMINS THERAPEUTIC TAB (*BKC) 1 TABLET PO (08:34)
[2025-06-17] MEDS: LOSARTAN POTASSIUM 50 MG TABLET PO (08:34)
[2025-06-17] MEDS: CLOPIDOGREL BISULFATE 75 MG TABLET PO (08:35)
[2025-06-17 09:14] LABS: Hematocrit 29.3 % (42.0-52.0); Hemoglobin 9.2 g/dL (14.0-18.0)
[2025-06-17 11:09] LABS: IFOB Positive Control Positive; Immunochemical Fecal Occult Bl Positive (N)
--- NOTE | 2025-06-17 13:00 | PM.IMPN ---
Progress Note: A&P Assessment and Plan (1) Anemia: Qualifiers: Anemia type: unspecified type Qualified Code(s): D64.9 - Anemia, unspecified Code(s): D64.9 - Anemia, unspecified Status: Chronic Assessment and Plan: -continue to monitor H&H every 6 hours. -nuclear med GI bleeding routine was initiated -GI has been consulted -the patient has been on Plavix and aspirin due to his previous stroke. We will continue this for now -consult hematology -anemia panel -initially the patient was started on LR. I will continue with his IV fluids but turned down the rate is he has cardiomegaly. H&H Q 6 hours stool for occult blood positive x 1 (2) Syncope: Code(s): R55 - Syncope and collapse Status: Acute Assessment and Plan: -this could be related to his anemia -CT of the brain was negative. Patient declined MRI -orthostatic blood pressures. (3) Hematoma: Code(s): T14.8XXA - Other injury of unspecified body region, initial encounter Status: Acute Assessment and Plan: -the patient had a fall 4 days ago. -x-ray of right wrist and hand negative for fracture No concern for compartment syndrome at this time. (4) Left-sided cerebrovascular accident (CVA): Code(s): I63.9 - Cerebral infarction, unspecified Status: Acute Assessment and Plan: -the patient is on aspirin and Plavix will continue with that for now. -CT of the brain shows nothing acute. (5) Essential hypertension: Code(s): I10 - Essential (primary) hypertension Status: Acute Assessment and Plan: -Continue with patient losartan. Hold if map is less than 60. Hold blood pressure medication if blood pressure less than 100/60. Subjective Date/time seen: 06/17/25 13:00 Interval history: This is an 84-year-old male patient who has a history of CVA and has been on aspirin and Plavix. The patient stated that he did fall several days ago and landed on his right arm and now has a large hematoma to the right forearm wrist and hand. He stated that he has some mild weakness from his previous stroke many years ago. The patient stated that he has no new symptoms of a stroke. The patient denies hitting his head. The patient stated that he has been feeling weak for several days. He stated that he did have some anemia in the past but it was many years ago. He denies seeing any blood in his stool. The patient stated that he tripped and fell 4 days ago and this is when he sustained a hematoma to the right forearm. The patient did follow up with his primary care doctor today who recommended that he go to the emergency room. He denies any nausea vomiting or diarrhea. His hemoglobin today was 9.7 and 9.6. Last month his hemoglobin had been within normal limits. His hematocrit is 30.8 and 30.9 and again in April that was within normal limits. His PT is slightly elevated at 15.5 and his INR is 1.2. Abnormal labs on his chemistry includes sodium of 136, chloride 108, BUN 43 and a glucose of 159. His lactic acid had been 2.4 and is now 1.5. Calcium was low at 8.3. Albumin is low at 3.3. Troponins were negative x2. Urinalysis had 1+ ketones. Viral serology was negative. Head CT per stroke protocol shows no acute intracranial abnormality. Chest x-ray was read as no acute cardiopulmonary disease. The patient is being admitted to inpatient status on 06/17/2025 to medical-surgical floor. Patient seen and examined. Patient lying in bed in no acute distress. Patient denies acute pain. Patient had a bowel movement and this was sent for occult blood testing which was positive. No ed blood noted per nursing staff. patient to go to Nuclear medicine for GI study today. GI consulted. Hematology consulted. Hgb appears to be stable at this time. AM labs ordered. Review of Systems Review of Systems: All systems reviewed & are unremarkable except as noted in HPI and below Exam Narrative: APPEARANCE: No apparent distress. Head: atraumatic. EYES: EOMI, NOSE: Atraumatic NECK: Trachea midline RESPIRATORY: No increased rate of breathing soft nontender CARDIOVASCULAR: RRR, no peripheral edema ABDOMINAL: Non-distended soft nontender no guarding rebound MUSCULOSKELETAl: No obvious deformities NEURO: Alert. Cranial nerves 2-12 grossly intact. Sensation light touch, motor function cerebellar function intact for 4 extremities. Gait exam was normal. NIH of 0 SKIN:: Warm, dry. Normal color PSYCHIATRIC: Normal affect Objective Data Vital Signs Vital Signs: Vital Signs - 24 hr 06/16/25 18:59 06/16/25 19:19 06/16/25 19:19 Temperature 97.9 F Pulse Rate 76 76 Respiratory Rate 18 19 19 Blood Pressure 115/61 110/59 L Pulse Oximetry 97 97 Oxygen Delivery Room Air 06/16/25 19:30 06/16/25 19:48 06/16/25 20:01 Temperature Pulse Rate 73 73 75 Respiratory Rate 18 16 17 Blood Pressure Pulse Oximetry 100 100 Oxygen Delivery 06/16/25 20:47 06/16/25 20:59 06/16/25 21:00 Temperature Pulse Rate 74 77 74 Respiratory Rate 14 21 H 16 Blood Pressure 131/73 126/62 Pulse Oximetry 99 99 100 Oxygen Delivery 06/16/25 21:01 06/16/25 21:17 06/16/25 21:30 Temperature Pulse Rate 76 78 88 Respiratory Rate 21 H 20 23 H Blood Pressure Pulse Oximetry 100 98 Oxygen Delivery 06/16/25 21:45 06/16/25 21:46 06/16/25 21:55 Temperature 98.3 F Pulse Rate 77 72 72 Respiratory Rate 17 20 20 Blood Pressure 120/80 120/80 Pulse Oximetry 99 99 99 Oxygen Delivery 06/16/25 22:15 06/17/25 00:00 06/17/25 04:00 Temperature 97.5 F L 97.9 F Pulse Rate 76 72 78 Respiratory Rate 16 20 Blood Pressure 127/64 135/72 Pulse Oximetry 98 97 Oxygen Delivery 06/17/25 04:00 06/17/25 08:00 06/17/25 08:00 Temperature Pulse Rate 77 Respiratory Rate Blood Pressure 167/84 H 159/85 H Pulse Oximetry Oxygen Delivery 06/17/25 08:00 06/17/25 08:00 06/17/25 08:34 Temperature Pulse Rate 83 89 83 Respiratory Rate Blood Pressure Pulse Oximetry 96 Oxygen Delivery Room Air 06/17/25 10:23 Temperature Pulse Rate Respiratory Rate Blood Pressure 142/88 H Pulse Oximetry Oxygen Delivery Intake/Output Intake/Output: Intake & Output 06/14/25 06/15/25 06/16/25 06/17/25 23:59 23:59 23:59 23:59 Intake Total 1999 1689 Output Total 250 900 Balance 1750 790 Meds/Results Medications: Active Medications Generic Name Dose Route Start Last Admin Trade Name Freq PRN Reason Stop Dose Admin Hydrocodone Bitart/Acetaminophen 1 tab 06/17/25 04:46 06/17/25 05:18 Hydrocodone/Acetaminophen (*Crx) 5-325 Mg Tablet PO 1 tab Q4H PRN Administration Pain Rated 5-7 Albuterol 2 puff 06/17/25 01:05 Albuterol Sulfate (*Sp) Aerosol 1 Puff INHALATION Q6H PRN Shortness Of Breath Or Wheezing Aspirin 81 mg 06/17/25 08:00 06/17/25 08:33 Aspirin 81 Mg Chewable Tablet PO 81 mg DAILY@0800 VINICIUS Administration Clopidogrel Bisulfate 75 mg 06/17/25 09:00 06/17/25 08:35 Clopidogrel Bisulfate 75 Mg Tablet PO 75 mg QAM VINICIUS Administration Duloxetine HCl 20 mg 06/17/25 21:00 Duloxetine Hcl 20 Mg Capsule. PO HS VINICIUS Lactated Ringer's 1,000 mls @ 60 mls/hr 06/16/25 20:50 06/17/25 07:43 Lr - Lactated Ringers Iv IV CONT 60 mls/hr .[id number] VINICIUS Administration Losartan Potassium 50 mg 06/17/25 09:00 06/17/25 08:34 Losartan Potassium 50 Mg Tablet PO 50 mg DAILY VINICIUS Administration Multivitamins Therapeutic 1 tablet 06/17/25 09:00 06/17/25 08:34 Multivitamins Therapeutic Tab (*Bkc) PO 1 tablet DAILY VINICIUS Administration Nebivolol 5 mg 06/17/25 09:00 06/17/25 08:34 Nebivolol Hcl 5 Mg Tablet PO 5 mg DAILY VINICIUS Administration Radiology Results: ITS Impressions Head CT 06/16/25 19:08 IMPRESSION: 1. No acute intracranial abnormality. As per stroke protocol, I called these results to emergency room, discussed with Dr. Manuel Sharpe MD at 06/16/2025 19:11 CDT. Chest X-Ray 06/16/25 20:00 Impression: 1: No acute cardiopulmonary disease. Labs Labs: Laboratory Results - last 24 hr 06/16/25 06/16/25 06/16/25 19:35 20:57 22:34 WBC 10.3 H RBC 3.32 L Hgb 9.7 L D Hct 30.8 L MCV 92.8 MCH 29.2 MCHC 31.5 L RDW 12.9 Plt Count 204 MPV 10.0 Immature Gran % (Auto) 0.5 Neut % (Auto) 77.9 H Lymph % (Auto) 13.2 L [place] % (Auto) 5.7 Eos % (Auto) 1.9 Baso % (Auto) 0.8 Lymph # (Auto) 1.37 [place] # (Auto) 0.6 Eos # (Auto) 0.2 Baso # (Auto) 0.1 Abs Immat Gran (auto) 0.05 H Absolute Neuts (auto) 8.1 H Absolute Nucleated RBC 0.000 Nucleated RBC % 0.0 Absolute Retic 0.05 Percent Retic 1.48 Immature Retic Fraction 9.2 Retic Hgb Content 30.7 PT 15.5 H INR 1.2 APTT 24.3 Sodium 136 L Potassium 4.7 Chloride 108 H Carbon Dioxide 23 Anion Gap 5 BUN 43 H D Creatinine 1.06 Estim Creat Clear Calc 51 Estimated GFR > 60 Glucose 159 H Lactic Acid 2.4 H Calcium 8.3 L Phosphorus 3.3 Magnesium 1.6 Iron TIBC % Saturation Transferrin Ferritin Total Bilirubin 0.6 Direct Bilirubin AST 27 ALT 17 Alkaline Phosphatase 43 Lactate Dehydrogenase Troponin I < 0.012 Total Protein 5.7 L Albumin 3.3 L Lipase 62 Vitamin B12 Folate TSH (Reflex) 2.660 Urine Color Urine Appearance Urine pH Ur Specific [place] Urine Protein Urine Glucose (UA) Urine Ketones Ur Blood (Man) Urine Nitrate Urine Bilirubin Urine Urobilinogen Leukocyte Esterase Rfl Stl Occult Blood (IFOB) Influenza A (RT-PCR) Negative Influenza B (RT-PCR) Negative RSV (RT-PCR) Negative SARS-CoV-2 RNA (RT-PCR) Negative Blood Type A Positive Antibody Screen Negative ANKUSH, IgG Interpret Negative ANKUSH, Poly Interpret Negative ANKUSH, Complement Interp Not Performed Indirect Antiglob Test Cancelled 06/16/25 06/16/25 06/17/25 22:37 23:25 03:06 WBC RBC Hgb 9.6 L 8.4 L Hct 30.9 L 26.8 L MCV MCH MCHC RDW Plt Count MPV Immature Gran % (Auto) Neut % (Auto) Lymph % (Auto) [place] % (Auto) Eos % (Auto) Baso % (Auto) Lymph # (Auto) [place] # (Auto) Eos # (Auto) Baso # (Auto) Abs Immat Gran (auto) Absolute Neuts (auto) Absolute Nucleated RBC Nucleated RBC % Absolute Retic Percent Retic Immature Retic Fraction Retic Hgb Content PT INR APTT Sodium 138 Potassium 4.3 Chloride 112 H Carbon Dioxide 22 Anion Gap 4 BUN 49 H Creatinine 0.97 Estim Creat Clear Calc 56 Estimated GFR > 60 Glucose 140 H Lactic Acid 1.5 Calcium 8.3 L Phosphorus Magnesium Iron 146 TIBC 222 L % Saturation 66 H Transferrin 144 L Ferritin 56.00 Total Bilirubin 0.7 Direct Bilirubin 0.0 AST ALT Alkaline Phosphatase Lactate Dehydrogenase 140 Troponin I 0.014 Total Protein Albumin Lipase Vitamin B12 356.0 Folate 11.9 TSH (Reflex) 0.981 Urine Color Yellow Urine Appearance Clear Urine pH 5.5 Ur Specific [place] 1.019 Urine Protein Negative Urine Glucose (UA) Negative Urine Ketones 1+ H Ur Blood (Man) Negative Urine Nitrate Negative Urine Bilirubin Negative Urine Urobilinogen 0.2 Leukocyte Esterase Rfl Negative Stl Occult Blood (IFOB) Influenza A (RT-PCR) Influenza B (RT-PCR) RSV (RT-PCR) SARS-CoV-2 RNA (RT-PCR) Blood Type Antibody Screen ANKUSH, IgG Interpret ANKUSH, Poly Interpret ANKUSH, Complement Interp Indirect Antiglob Test 06/17/25 06/17/25 09:07 10:14 WBC RBC Hgb 9.2 L Hct 29.3 L MCV MCH MCHC RDW Plt Count MPV Immature Gran % (Auto) Neut % (Auto) Lymph % (Auto) [place] % (Auto) Eos % (Auto) Baso % (Auto) Lymph # (Auto) [place] # (Auto) Eos # (Auto) Baso # (Auto) Abs Immat Gran (auto) Absolute Neuts (auto) Absolute Nucleated RBC Nucleated RBC % Absolute Retic Percent Retic Immature Retic Fraction Retic Hgb Content PT INR APTT Sodium Potassium Chloride Carbon Dioxide Anion Gap BUN Creatinine Estim Creat Clear Calc Estimated GFR Glucose Lactic Acid Calcium Phosphorus Magnesium Iron TIBC % Saturation Transferrin Ferritin Total Bilirubin Direct Bilirubin AST ALT Alkaline Phosphatase Lactate Dehydrogenase Troponin I Total Protein Albumin Lipase Vitamin B12 Folate TSH (Reflex) Urine Color Urine Appearance Urine pH Ur Specific [place] Urine Protein Urine Glucose (UA) Urine Ketones Ur Blood (Man) Urine Nitrate Urine Bilirubin Urine Urobilinogen Leukocyte Esterase Rfl Stl Occult Blood (IFOB) Positive H Influenza A (RT-PCR) Influenza B (RT-PCR) RSV (RT-PCR) SARS-CoV-2 RNA (RT-PCR) Blood Type Antibody Screen ANKUSH, IgG Interpret ANKUSH, Poly Interpret ANKUSH, Complement Interp Indirect Antiglob Test Quality VTE Prophylaxis VTE prophylaxis: mechanical ordered
[2025-06-17 15:07] LABS: Hematocrit 28.0 % (42.0-52.0); Hemoglobin 8.7 g/dL (14.0-18.0)
--- NOTE | 2025-06-17 15:55 | P.CONGI_ITS ---
Assessment and Plan Assessment and plan (1) Symptomatic anemia: Code(s): D64.9 - Anemia, unspecified Status: Acute Assessment and Plan: could be from hematoma in arm but also known UGIB will do EGD tomorrow hold plavix and asa for now (2) Positive fecal occult blood test: Code(s): R19.5 - Other fecal abnormalities Status: Acute Assessment and Plan: EGD tomorrow more recommendations after scope (3) Hematoma: Code(s): T14.8XXA - Other injury of unspecified body region, initial encounter Status: Acute (4) Left-sided cerebrovascular accident (CVA): Code(s): I63.9 - Cerebral infarction, unspecified Status: Acute Assessment and Plan: sequela (5) Syncope: Code(s): R55 - Syncope and collapse Status: Acute Assessment and Plan: this caused fall ct head negative by primary GI Consult Note Consult date/time: 06/17/25 15:55 Reason for consult: symptomatic anemia, FOBT + HPI: Harjit Jones is a 84 year old male with history of CVA on aspirin and Plavix. 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 He had a fall few days ago and landed on his right arm now has a large hematoma to the right forearm wrist and hand. Family member noted yesterday generalized weakness and he had presyncopal episode and decided to bring him to ER. lactic acid 2.4 and is now 1.5. Hgb 9.7 from normal last time. Troponins were negative x2. Head CT per stroke protocol shows no acute intracranial abnormality. No melena but occult blood in stool positive. Review of Systems 2 Constitutional: Constitutional: Reports weakness Eyes: Eyes: Denies blurry vision ENT: Reports Normal hearing present Cardiovascular: Cardiovascular: Denies chest pain Respiratory: Respiratory: Denies cough Gastrointestinal: Gastrointestinal: Denies melena Genitourinary: Genitourinary: Denies dysuria Musculoskeletal: Musculoskeletal: Denies neck pain Integumentary/Breasts: Comments: hematoma in arm Neurologic: Denies Abnormal speech present Psychiatric: Psychiatric: Denies behavioral changes [facility] Past Medical History Medical History (Updated 06/17/25 @ 16:01 by Stephon Jerry MD) Symptomatic anemia Anemia Acute blood loss anemia Screening for diabetes mellitus Type 2 diabetes mellitus with hyperglycemia Otitis media of both ears Allergic rhinitis Depression Neuropathy Left-sided cerebrovascular accident (CVA) Peripheral neuropathy Stroke (~11/2024) Acute sinusitis Myalgia Hyperlipidemia Elevated BUN Elevated liver enzymes Insomnia 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 Patent foramen ovale 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 shunt with Valsalva only consistent with PFO on echo in November 2022 Heart failure with preserved ejection fraction Coronary artery disease Gastric ulcer (11/2022) Gastric nodule Congestive heart failure Essential hypertension Ischemic cardiomyopathy Diabetes type 2, controlled Hiatal hernia Surgical History Surgical History History of cataract extraction History of arthroplasty of left shoulder History of arthroplasty of left knee History of sinus surgery History of cardiac catheterization History of four vessel coronary artery bypass graft (2009) History of Esmer fundoplication History of hernia surgery Family History Family History Mother Family history of lung cancer Family history of malignant neoplasm Father Sibling No problems noted. Sibling , breast cancer No problems noted. Social History Social History Social History: Surrogate medical decision maker: Enedina Jones, spouse ([phone]). Code status: Full code Smoking status: Unknown if ever smoked Second hand tobacco smoke exposure: No Alcohol intake: unknown Substance use: never Substance use type: does not use Do You Feel Safe in your Home?: Yes Lack of Transportation: No Lack of Food: Never True Current Housing: I Have Housing Concerned About Future Housing: No Difficulty Paying Gas/Electric Bills: No Difficulty Paying for Meds: No Currently Unemployed: No Education: Associate Degree Difficulty w/ Childcare or Family Care: No Living arrangements: with family Additional living arrangements comments: Lives with in [place]. They have 3 children. Occupation/Education: retired Additional occupation/education comments: [place] . Retired from [employer]. Spiritual care concerns: No Meds Home Medications and Allergies Home Medications ?Medication ?Instructions ?Recorded ?Confirmed ?Type multivitamin (Daily Value tablet) 1 tablet PO DAILY 06/16/25 History aspirin 81 mg chewable tablet 81 mg PO DAILY@0800 30 d ays #30 12/03/24 06/16/25 Rx (Children's Aspirin) tabs nebivolol 5 mg tablet (Bystolic) 5 mg PO DAILY #30 tab s 01/26/25 06/16/25 Rx losartan 50 mg tablet 50 mg PO DAILY #30 tabs 01/1306/16/25 Rx clopidogrel 75 mg tablet 75 mg PO QAM 30 days #90 tab s 03/30/25 06/16/25 Rx albuterol sulfate 90 mcg/actuation See Rx Instructions .Route 04/18/25 06/16/25 Rx aerosol inhaler .COMPLEX #8.5 ea duloxetine 20 mg capsule,delayed 20 mg PO DAILY #30 ca ps 06/04/25 06/16/25 Rx release Allergies Allergy/AdvReac Type Severity Reaction Status Date / Time [facility]ofl[facility] ([facility]) AdvReac Severe Muscle Pain Verified 06/16/25 09:53 Vital Signs Vital Signs - 24 hr 06/16/25 18:59 06/16/25 19:19 06/16/25 19:19 Temperature 97.9 F Pulse Rate 76 76 Respiratory Rate 18 19 19 Blood Pressure 115/61 110/59 L Pulse Oximetry 97 97 Oxygen Delivery Room Air 06/16/25 19:30 06/16/25 19:48 06/16/25 20:01 Temperature Pulse Rate 73 73 75 Respiratory Rate 18 16 17 Blood Pressure Pulse Oximetry 100 100 Oxygen Delivery 06/16/25 20:47 06/16/25 20:59 06/16/25 21:00 Temperature Pulse Rate 74 77 74 Respiratory Rate 14 21 H 16 Blood Pressure 131/73 126/62 Pulse Oximetry 99 99 100 Oxygen Delivery 06/16/25 21:01 06/16/25 21:17 06/16/25 21:30 Temperature Pulse Rate 76 78 88 Respiratory Rate 21 H 20 23 H Blood Pressure Pulse Oximetry 100 98 Oxygen Delivery 06/16/25 21:45 06/16/25 21:46 06/16/25 21:55 Temperature 98.3 F Pulse Rate 77 72 72 Respiratory Rate 17 20 20 Blood Pressure 120/80 120/80 Pulse Oximetry 99 99 99 Oxygen Delivery 06/16/25 22:15 06/17/25 00:00 06/17/25 04:00 Temperature 97.5 F L 97.9 F Pulse Rate 76 72 78 Respiratory Rate 16 20 Blood Pressure 127/64 135/72 Pulse Oximetry 98 97 Oxygen Delivery 06/17/25 04:00 06/17/25 08:00 06/17/25 08:00 Temperature Pulse Rate 77 Respiratory Rate Blood Pressure 167/84 H 159/85 H Pulse Oximetry Oxygen Delivery 06/17/25 08:00 06/17/25 08:00 06/17/25 08:34 Temperature Pulse Rate 83 89 83 Respiratory Rate Blood Pressure Pulse Oximetry 96 Oxygen Delivery Room Air 06/17/25 10:23 Temperature Pulse Rate Respiratory Rate Blood Pressure 142/88 H Pulse Oximetry Oxygen Delivery Exam 2 Const: General: comfortable and no acute distress HENMT: Face/Nose/Sinus: Normal nares present Eyes: Sclera: sclerae normal Neck: Neck: supple Resp: Auscultation: clear to auscultation bilaterally Cardio: Rate: regular rate Rhythm: regular rhythm GI: Inspection: non-distended GI Palp: Yes Soft to palpation and No Tenderness to palpation present (GI) Auscultation: normal bowel sounds Skin: Other: hematoma rt arm Neuro: Speech: normal speech Motor exam (neuro): 5/5 motor strength present throughout Extrem: General: normal to inspection Psych: Mental Status: mental status grossly normal Results Labs 06/17/25 14:51 06/17/25 03:06 Labs: Short CBC 06/16/25 06/16/25 06/17/25 Range/Units 19:35 22:37 03:06 WBC 10.3 H (4.5-10.0) K/mm3 Hgb 9.7 L D 9.6 L 8.4 L (14.0-18.0) g/dL Hct 30.8 L 30.9 L 26.8 L (42.0-52.0) % Plt Count 204 (150-375) k/mm3 06/17/25 06/17/25 Range/Units 09:07 14:51 WBC (4.5-10.0) K/mm3 Hgb 9.2 L 8.7 L (14.0-18.0) g/dL Hct 29.3 L 28.0 L (42.0-52.0) % Plt Count (150-375) k/mm3 BMP 06/16/25 06/17/25 19:35 03:06 Sodium 136 L 138 Potassium 4.7 4.3 Chloride 108 H 112 H Carbon Dioxide 23 22 BUN 43 H D 49 H Creatinine 1.06 0.97 Glucose 159 H 140 H Calcium 8.3 L 8.3 L Cardiac Enzymes 06/16/25 06/16/25 Range/Units 19:35 22:37 Troponin I < 0.012 0.014 (0.000-0.034) ng/mL Liver Function 06/16/25 06/17/25 Range/Units 19:35 03:06 Total Bilirubin 0.6 0.7 (0.2-1.3) mg/dL Direct Bilirubin 0.0 (0-0.3) mg/dL AST 27 (17-59) U/L ALT 17 (6-50) U/L Alkaline Phosphatase 43 (38-126) U/L Albumin 3.3 L (3.5-5.1) g/dL Urine 06/16/25 Range/Units 23:25 Urine Color Yellow (Yellow) Urine Appearance Clear (Clear) Urine pH 5.5 (5.0-9.0) Ur Specific [place] 1.019 (1.001-1.035) Urine Protein Negative (Negative) mg/dL Urine Glucose (UA) Negative (Negative) mg/dL
--- NOTE | 2025-06-17 19:54 | P.CONONC_ITS ---
Assessment and Plan Assessment and plan (1) Anemia: Code(s): D64.9 - Anemia, unspecified Status: Acute Assessment and Plan: The patient stated that he experienced a mechanical fall several days ago and landed on his right arm and noted a large hematoma to the right forearm wrist and hand. He is on aspirin and plavix. He stated that he has some mild weakness from his previous stroke many years ago. The patient stated that he has no new symptoms of a stroke. The patient denies hitting his head. The patient stated that he has been feeling weak for several days. He stated that he did have some anemia in the past but it was many years ago. He denies seeing any blood in his stool. In the ER he was noted to h ave hemoglobin of 9.7g/dL and drastic drop from 14.2g/dL on 04/14/25. Patient has hx of acute anemia with hemoglobin 6.5 g/dL on 02/17/2019 and then 8.3 g/dL on 11/24/22. Per his previous hospitalizations revealed upper GI bleed in the past. Patient is hemoccult positive. GI is onboard and plan EGD on 06/18/25. I believe this is acute blood loss and not a bone marrow issue. Therefore, supportive care at this time. HPI Data of Consult Date/Time: 06/17/25 19:54 Requesting Physician: Dale Fagan MD Primary Care Provider: Carlos Clayton MD Consult Narrative Narrative: This is an 84-year-old male patient who has a history of CVA and has been on aspirin and Plavix. The patient stated that he experienced a mechanical fall several days ago and landed on his right arm and noted a large hematoma to the right forearm wrist and hand. He stated that he has some mild weakness from his previous stroke many years ago. The patient stated that he has no new symptoms of a stroke. The patient denies hitting his head. The patient stated that he has been feeling weak for several days. He stated that he did have some anemia in the past but it was many years ago. He denies seeing any blood in his stool. In the ER he was noted to h ave hemoglobin of 9.7g/dL and drastic drop from 14.2g/dL on 04/14/25. Patient has hx of acute anemia with hemoglobin 6.5 g/dL on 02/17/2019 and then 8.3 g/dL on 11/24/22. Per his previous hospitalizations revealed upper GI bleed in the past. Patient is hemoccult positive. GI is onboard and plan EGD on 06/18/25. Review of Systems 2 Review of Systems: Patient reports that he has been feeling weak for few days prior to admission. His fall was mechanical but has been having presyncopal episodes for past few days. Denies headaches, trauma to head. Denies f/c, night sweats or weight loss. Denies chest pain but has dyspnea on exertion. Denies hematochezia or melena. no hematuria. [facility] Past Medical History Medical History (Updated 06/17/25 @ 16:01 by Stephon Jerry MD) Symptomatic anemia Anemia Acute blood loss anemia Screening for diabetes mellitus Type 2 diabetes mellitus with hyperglycemia Otitis media of both ears Allergic rhinitis Depression Neuropathy Left-sided cerebrovascular accident (CVA) Peripheral neuropathy Stroke (~11/2024) Acute sinusitis Myalgia Hyperlipidemia Elevated BUN Elevated liver enzymes Insomnia 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 Patent foramen ovale 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 shunt with Valsalva only consistent with PFO on echo in November 2022 Heart failure with preserved ejection fraction Coronary artery disease Gastric ulcer (11/2022) Gastric nodule Congestive heart failure Essential hypertension Ischemic cardiomyopathy Diabetes type 2, controlled Hiatal hernia Surgical History Surgical History History of cataract extraction History of arthroplasty of left shoulder History of arthroplasty of left knee History of sinus surgery History of cardiac catheterization History of four vessel coronary artery bypass graft (2009) History of Esmer fundoplication History of hernia surgery Family History Family History Mother Family history of lung cancer Family history of malignant neoplasm Father Sibling No problems noted. Sibling , breast cancer No problems noted. Social History Social History Social History: Surrogate medical decision maker: Enedina Jones, spouse ([phone]). Code status: Full code Smoking status: Unknown if ever smoked Second hand tobacco smoke exposure: No Alcohol intake: unknown Substance use: never Substance use type: does not use Do You Feel Safe in your Home?: Yes Lack of Transportation: No Lack of Food: Never True Current Housing: I Have Housing Concerned About Future Housing: No Difficulty Paying Gas/Electric Bills: No Difficulty Paying for Meds: No Currently Unemployed: No Education: Associate Degree Difficulty w/ Childcare or Family Care: No Living arrangements: with family Additional living arrangements comments: Lives with in [place]. They have 3 children. Occupation/Education: retired Additional occupation/education comments: [place] . Retired from [employer]. Spiritual care concerns: No Meds Home Medications and Allergies Home Medications ?Medication ?Instructions ?Recorded ?Confirmed ?Type multivitamin (Daily Value tablet) 1 tablet PO DAILY 06/16/25 History aspirin 81 mg chewable tablet 81 mg PO DAILY@0800 30 d ays #30 12/03/24 06/16/25 Rx (Children's Aspirin) tabs nebivolol 5 mg tablet (Bystolic) 5 mg PO DAILY #30 tab s 01/26/25 06/16/25 Rx losartan 50 mg tablet 50 mg PO DAILY #30 tabs 01/1306/16/25 Rx clopidogrel 75 mg tablet 75 mg PO QAM 30 days #90 tab s 03/30/25 06/16/25 Rx albuterol sulfate 90 mcg/actuation See Rx Instructions .Route 04/18/25 06/16/25 Rx aerosol inhaler .COMPLEX #8.5 ea duloxetine 20 mg capsule,delayed 20 mg PO DAILY #30 ca ps 06/04/25 06/16/25 Rx release Allergies Allergy/AdvReac Type Severity Reaction Status Date / Time levofloxacin (From [facility]) AdvReac Severe Muscle Pain Verified 06/16/25 09:53 Vital Signs Vital Signs - 24 hr 06/16/25 20:01 06/16/25 20:47 06/16/25 20:59 Temperature Pulse Rate 75 74 77 Respiratory Rate 17 14 21 H Blood Pressure 131/73 Pulse Oximetry 100 99 99 Oxygen Delivery 06/16/25 21:00 06/16/25 21:01 06/16/25 21:17 Temperature Pulse Rate 74 76 78 Respiratory Rate 16 21 H 20 Blood Pressure 126/62 Pulse Oximetry 100 100 98 Oxygen Delivery 06/16/25 21:30 06/16/25 21:45 06/16/25 21:46 Temperature Pulse Rate 88 77 72 Respiratory Rate 23 H 17 20 Blood Pressure 120/80 Pulse Oximetry 99 99 Oxygen Delivery 06/16/25 21:55 06/16/25 22:15 06/17/25 00:00 Temperature 36.8 C 36.4 C L Pulse Rate 72 76 72 Respiratory Rate 20 16 Blood Pressure 120/80 127/64 Pulse Oximetry 99 98 Oxygen Delivery 06/17/25 04:00 06/17/25 04:00 06/17/25 08:00 Temperature 36.6 C Pulse Rate 78 77 Respiratory Rate 20 Blood Pressure 135/72 167/84 H Pulse Oximetry 97 Oxygen Delivery 06/17/25 08:00 06/17/25 08:00 06/17/25 08:00 Temperature Pulse Rate 83 89 Respiratory Rate Blood Pressure 159/85 H Pulse Oximetry 96 Oxygen Delivery Room Air 06/17/25 08:34 06/17/25 10:23 06/17/25 16:00 Temperature Pulse Rate 83 74 Respiratory Rate Blood Pressure 142/88 H Pulse Oximetry Oxygen Delivery 06/17/25 16:00 Temperature 36.2 C L Pulse Rate 82 Respiratory Rate 18 Blood Pressure 165/78 H Pulse Oximetry 99 Oxygen Delivery Exam 2 Narrative: APPEARANCE: No apparent distress. HEENT: atraumatic, EOMI, no scleral icterus RESPIRATORY: No increased rate of breathing soft nontender CARDIOVASCULAR: RRR, no peripheral edema ABDOMINAL: Non-distended soft nontender no guarding rebound MUSCULOSKELETAl: No obvious deformities NEURO: Alert. No focal deficits. SKIN:: Warm, dry. Normal color PSYCHIATRIC: Normal affect Right upper extremity with large hematoma involving whole forearm and wrist Results Labs 06/17/25 14:51 06/17/25 03:06 Labs: Short CBC 06/16/25 06/17/25 06/17/25 Range/Units 22:37 03:06 09:07 Hgb 9.6 L 8.4 L 9.2 L (14.0-18.0) g/dL Hct 30.9 L 26.8 L 29.3 L (42.0-52.0) % 06/17/25 Range/Units 14:51 Hgb 8.7 L (14.0-18.0) g/dL Hct 28.0 L (42.0-52.0) % [facility] 06/16/25 06/17/25 19:35 03:06 Sodium 136 L 138 Potassium 4.7 4.3 Chloride 108 H 112 H Carbon Dioxide 23 22 BUN 43 H D 49 H Creatinine 1.06 0.97 Glucose 159 H 140 H Calcium 8.3 L 8.3 L Cardiac Enzymes 06/16/25 06/16/25 Range/Units 19:35 22:37 Troponin I < 0.012 0.014 (0.000-0.034) ng/mL Liver Function 06/16/25 06/17/25 Range/Units 19:35 03:06 Total Bilirubin 0.6 0.7 (0.2-1.3) mg/dL Direct Bilirubin 0.0 (0-0.3) mg/dL AST 27 (17-59) U/L ALT 17 (6-50) U/L Alkaline Phosphatase 43 (38-126) U/L Albumin 3.3 L (3.5-5.1) g/dL Urine 06/16/25 Range/Units 23:25 Urine Color Yellow (Yellow) Urine Appearance Clear (Clear) Urine pH 5.5 (5.0-9.0) Ur Specific [place] 1.019 (1.001-1.035) Urine Protein Negative (Negative) mg/dL Urine Glucose (UA) Negative (Negative) mg/dL
[2025-06-18] VITALS (16 sets, daily range): BP systolic 132–155; BP diastolic 59–85; PULSE 71–97; RESP 15–20; TEMP 36.1–36.6; O2SAT 97–100
[2025-06-18] MEDS: LACTATED RINGERS 1,000 ML 60 ML IV CONT (03:34)
[2025-06-18] MEDS: HYDROcodone/acetaminophen (*CRX) 5-325 MG TABLET 1 TAB PO (04:44)
[2025-06-18 05:58] LABS: Hematocrit 26.2 % (42.0-52.0); Hemoglobin 8.5 g/dL (14.0-18.0); Mean Corpuscular HGB Conc 32.4 g/dl (32-36); Mean Corpuscular Hemoglobin 29.7 pg (26-34); Mean Corpuscular Volume 91.6 fl (80-100); Platelet Count Result 162 k/mm3 (150-375); Red Blood Count 2.86 M/mm3 (4.6-6.20); White Blood Count 7.5 K/mm3 (4.5-10.0)
[2025-06-18 06:19] LABS: Alanine Aminotransferase 13 U/L (6-50); Albumin Level 3.1 g/dL (3.5-5.1); Alkaline Phosphatase 45 U/L (38-126); Anion Gap 4 mmol/L (4-12); Aspartate Amino Transferase 23 U/L (17-59); Bilirubin,Total 0.7 mg/dL (0.2-1.3); Blood Urea Nitrogen 34 mg/dL (9-20); Calcium 8.6 mg/dL (8.4-10.2); Carbon Dioxide 24 mmol/L (22-30); Chloride 108 mmol/L (98-107); Estimated CRCL calculation 55 ml/min; Estimated Glomerular Filt Rate > 60; Glucose 113 mg/dL (65-110); Potassium 4.2 mmol/L (3.4-5.0); Sodium 136 mmol/L (137-145); Total Protein 5.5 g/dL (6.3-8.2)
--- NOTE | 2025-06-18 07:33 | PM.IMPN ---
Progress Note: A&P Assessment and Plan (1) Anemia: Qualifiers: Anemia type: unspecified type Qualified Code(s): D64.9 - Anemia, unspecified Code(s): D64.9 - Anemia, unspecified Status: Chronic Assessment and Plan: -continue to monitor H&H every 6 hours. -nuclear med GI bleeding routine was initiated -GI has been consulted -the patient has been on Plavix and aspirin due to his previous stroke. We will continue this for now -hematology was consulted, recommended workup for acute reasons for blood loss -anemia panel -initially the patient was started on LR. I will continue with his IV fluids but turned down the rate is he has cardiomegaly. -patient having EGD today -AM labs (2) Syncope: Code(s): R55 - Syncope and collapse Status: Acute Assessment and Plan: -this could be related to his anemia -CT of the brain was negative. Patient declined MRI -orthostatic blood pressures WNL on review (3) Hematoma: Code(s): T14.8XXA - Other injury of unspecified body region, initial encounter Status: Acute Assessment and Plan: -the patient had a fall 4 days ago. -x-ray of right wrist and hand. No concern for compartment syndrome at this time. (4) Left-sided cerebrovascular accident (CVA): Code(s): I63.9 - Cerebral infarction, unspecified Status: Acute Assessment and Plan: -the patient is on aspirin and Plavix will continue with that for now. -CT of the brain shows nothing acute. (5) Essential hypertension: Code(s): I10 - Essential (primary) hypertension Status: Acute Assessment and Plan: -Continue with home losartan. Hold if map is less than 60. Hold blood pressure medication if blood pressure less than 100/60. Plan Hematoma to right arm. X-ray negative for acute fracture. Subjective Date/time seen: 06/18/25 07:33 Interval history: This is an 84-year-old male patient who has a history of CVA and has been on aspirin and Plavix. The patient stated that he did fall several days ago and landed on his right arm and now has a large hematoma to the right forearm wrist and hand. He stated that he has some mild weakness from his previous stroke many years ago. The patient stated that he has no new symptoms of a stroke. The patient denies hitting his head. The patient stated that he has been feeling weak for several days. He stated that he did have some anemia in the past but it was many years ago. He denies seeing any blood in his stool. The patient stated that he tripped and fell 4 days ago and this is when he sustained a hematoma to the right forearm. The patient did follow up with his primary care doctor today who recommended that he go to the emergency room. He denies any nausea vomiting or diarrhea. His hemoglobin today was 9.7 and 9.6. Last month his hemoglobin had been within normal limits. His hematocrit is 30.8 and 30.9 and again in April that was within normal limits. His PT is slightly elevated at 15.5 and his INR is 1.2. Abnormal labs on his chemistry includes sodium of 136, chloride 108, BUN 43 and a glucose of 159. His lactic acid had been 2.4 and is now 1.5. Calcium was low at 8.3. Albumin is low at 3.3. Troponins were negative x2. Urinalysis had 1+ ketones. Viral serology was negative. Head CT per stroke protocol shows no acute intracranial abnormality. Chest x-ray was read as no acute cardiopulmonary disease. The patient is being admitted to inpatient status on 06/17/2025 to medical-surgical floor. Patient seen and examined. Patient sitting on stretcher in no acute distress. Patient having EGD today per GI. Patient's Nuclear medicine study did not show any active GI bleeding. Patient's Hgb remained stable. Patient denies acute pain. Follow up after EGD for further recommendations from GI. Review of Systems Review of Systems: All systems reviewed & are unremarkable except as noted in HPI and below Exam Narrative: APPEARANCE: No apparent distress. Head: atraumatic. EYES: EOMI, NOSE: Atraumatic NECK: Trachea midline RESPIRATORY: No increased rate of breathing soft nontender CARDIOVASCULAR: RRR, no peripheral edema ABDOMINAL: Non-distended soft nontender no guarding rebound MUSCULOSKELETAl: No obvious deformities NEURO: Alert. Cranial nerves 2-12 grossly intact. Sensation light touch, motor function cerebellar function intact for 4 extremities. Gait exam was normal. NIH of 0 SKIN:: Warm, dry. Normal color PSYCHIATRIC: Normal affect Objective Data Vital Signs Vital Signs: Vital Signs - 24 hr 06/17/25 08:00 06/17/25 08:00 06/17/25 08:00 Temperature Pulse Rate 83 Respiratory Rate Blood Pressure 167/84 H 159/85 H Pulse Oximetry 96 Oxygen Delivery Room Air 06/17/25 08:00 06/17/25 08:34 06/17/25 10:23 Temperature Pulse Rate 89 83 Respiratory Rate Blood Pressure 142/88 H Pulse Oximetry Oxygen Delivery 06/17/25 16:00 06/17/25 16:00 06/17/25 20:00 Temperature 97.2 F L 97.8 F Pulse Rate 74 82 80 Respiratory Rate 18 18 Blood Pressure 165/78 H 139/70 Pulse Oximetry 99 98 Oxygen Delivery 06/17/25 20:00 06/17/25 20:00 06/17/25 20:04 Temperature Pulse Rate 78 85 Respiratory Rate Blood Pressure 161/77 H Pulse Oximetry 97 Oxygen Delivery Room Air 06/17/25 20:09 06/18/25 00:00 06/18/25 00:00 Temperature 97.6 F Pulse Rate 89 75 84 Respiratory Rate 20 Blood Pressure 146/84 H 141/59 H Pulse Oximetry 97 Oxygen Delivery 06/18/25 04:00 06/18/25 04:36 Temperature 97.8 F Pulse Rate 79 80 Respiratory Rate 18 Blood Pressure 149/74 H Pulse Oximetry 97 Oxygen Delivery Intake/Output Intake/Output: Intake & Output 06/15/25 06/16/25 06/17/25 06/18/25 23:59 23:59 23:59 23:59 Intake Total 1999 2470 1050 Output Total 250 1375 625 Balance 1750 1095 425 Meds/Results Medications: Active Medications Generic Name Dose Route Start Last Admin Trade Name Freq PRN Reason Stop Dose Admin Hydrocodone Bitart/Acetaminophen 1 tab 06/17/25 04:46 06/18/25 04:44 Hydrocodone/Acetaminophen (*Crx) 5-325 Mg Tablet PO 1 tab Q4H PRN Administration Pain Rated 5-7 Albuterol 2 puff 06/17/25 01:05 Albuterol Sulfate (*Sp) Aerosol 1 Puff INHALATION Q6H PRN Shortness Of Breath Or Wheezing Aspirin 81 mg 06/17/25 08:00 06/17/25 08:33 Aspirin 81 Mg Chewable Tablet PO 81 mg DAILY@0800 VINICIUS Administration Clopidogrel Bisulfate 75 mg 06/17/25 09:00 06/17/25 08:35 Clopidogrel Bisulfate 75 Mg Tablet PO 75 mg QAM VINICIUS Administration Duloxetine HCl 20 mg 06/17/25 21:00 06/17/25 21:10 Duloxetine Hcl 20 Mg Capsule.Dr PO 20 mg HS VINICIUS Administration Lactated Ringer's 1,000 mls @ 60 mls/hr 06/16/25 20:50 06/18/25 03:34 Lr - Lactated Ringers Iv IV CONT 60 mls/hr .[id number] VINICIUS Administration Losartan Potassium 50 mg 06/17/25 09:00 06/17/25 08:34 Losartan Potassium 50 Mg Tablet PO 50 mg DAILY VINICIUS Administration Multivitamins Therapeutic 1 tablet 06/17/25 09:00 06/17/25 08:34 Multivitamins Therapeutic Tab (*Bkc) PO 1 tablet DAILY VINICIUS Administration Nebivolol 5 mg 06/17/25 09:00 06/17/25 08:34 Nebivolol Hcl 5 Mg Tablet PO 5 mg DAILY VINICIUS Administration Radiology Results: ITS Impressions Head CT 06/16/25 19:08 IMPRESSION: 1. No acute intracranial abnormality. As per stroke protocol, I called these results to emergency room, discussed with Dr. Manuel Sharpe MD at 06/16/2025 19:11 CDT. Chest X-Ray 06/16/25 20:00 Impression: 1: No acute cardiopulmonary disease. GI Bleed Scan Nuclear Medicine 06/17/25 14:13 IMPRESSION: 1. No scintigraphic evidence for active gastrointestinal bleeding. Labs Labs: Laboratory Results - last 24 hr 06/17/25 06/17/25 06/17/25 09:07 10:14 14:51 WBC RBC Hgb 9.2 L 8.7 L Hct 29.3 L 28.0 L MCV MCH MCHC RDW Plt Count MPV Sodium Potassium Chloride Carbon Dioxide Anion Gap BUN Creatinine Estim Creat Clear Calc Estimated GFR Glucose Calcium Total Bilirubin AST ALT Alkaline Phosphatase Total Protein Albumin Stl Occult Blood (IFOB) Positive H 06/18/25 05:35 WBC 7.5 RBC 2.86 L Hgb 8.5 L Hct 26.2 L MCV 91.6 MCH 29.7 MCHC 32.4 RDW 13.0 Plt Count 162 MPV 10.4 Sodium 136 L Potassium 4.2 Chloride 108 H Carbon Dioxide 24 Anion Gap 4 BUN 34 H D Creatinine 0.99 Estim Creat Clear Calc 55 Estimated GFR > 60 Glucose 113 H Calcium 8.6 Total Bilirubin 0.7 AST 23 ALT 13 Alkaline Phosphatase 45 Total Protein 5.5 L Albumin 3.1 L Stl Occult Blood (IFOB) Quality VTE Prophylaxis VTE prophylaxis: mechanical ordered
--- NOTE | 2025-06-18 09:48 | P.PNAN_ITS ---
Anes - Initial Pre Proc Eval Procedure: Operation Date: 06/18/25 10:30 Proposed Procedures p Esophagogastroduodenoscopy - Herberth Ortez MD Date/Time: 06/18/25 09:48 Surgeon: Dale Fagan MD Pre Op Diagnosis: anemia Patient Data Age: 84 Gender: M Height: 1.83 m Weight: 88 kg Last Vital Signs Temp 97.6 F 06/18/25 08:20 Pulse 91 06/18/25 08:20 Resp 16 06/18/25 08:20 BP 142/85 H 06/18/25 08:20 Pulse Ox 98 06/18/25 08:20 O2 Del Method Room Air 06/17/25 20:00 Allergies Allergy/AdvReac Type Severity Reaction Status Date / [facility] Adv[facility] Severe Muscle Pain Verified 06/16/25 09:53 Home Medications ?Medication ?Instructions ?Recorded ?Confirmed ?Type multivitamin (Daily Value tablet) 1 tablet PO DAILY 06/16/25 History aspirin 81 mg chewable tablet 81 mg PO DAILY@0800 30 d ays #30 12/03/24 06/16/25 Rx (Children's Aspirin) tabs nebivolol 5 mg tablet (Bystolic) 5 mg PO DAILY #30 tab s 01/26/25 06/16/25 Rx losartan 50 mg tablet 50 mg PO DAILY #30 tabs 01/1306/16/25 Rx clopidogrel 75 mg tablet 75 mg PO QAM 30 days #90 tab s 03/30/25 06/16/25 Rx albuterol sulfate 90 mcg/actuation See Rx Instructions .Route 04/18/25 06/16/25 Rx aerosol inhaler .COMPLEX #8.5 ea duloxetine 20 mg capsule,delayed 20 mg PO DAILY #30 ca ps 06/04/25 06/16/25 Rx release Laboratory Tests 06/17/25 06/17/25 06/18/25 10:14 14:51 05:35 WBC 7.5 K/mm3 (4.5-10.0) RBC 2.86 L M/mm3 (4.6-6.20) Hgb 8.7 L g/dL 8.5 L g/dL (14.0-18.0) (14.0-18.0) Hct 28.0 L % 26.2 L % (42.0-52.0) (42.0-52.0) MCV 91.6 fl (80-100) MCH 29.7 pg (26-34) MCHC 32.4 g/dl (32-36) RDW 13.0 % (11.5-14.5) Plt Count 162 k/mm3 (150-375) MPV 10.4 fl (7.4-10.4) Sodium 136 L mmol/L (137-145) Potassium 4.2 mmol/L (3.4-5.0) Chloride 108 H mmol/L (98-107) Carbon Dioxide 24 mmol/L (22-30) Anion Gap 4 mmol/L (4-12) BUN 34 H D mg/dL (9-20) Creatinine 0.99 mg/dL (0.7-1.3) Estim Creat Clear Calc 55 ml/min Estimated GFR > 60 (59 - ) Glucose 113 H mg/dL (65-110) POC Capillary Glucose Calcium 8.6 mg/dL (8.4-10.2) Total Bilirubin 0.7 mg/dL (0.2-1.3) AST 23 U/L (17-59) ALT 13 U/L (6-50) Alkaline Phosphatase 45 U/L (38-126) Total Protein 5.5 L g/dL (6.3-8.2) Albumin 3.1 L g/dL (3.5-5.1) Stl Occult Blood (IFOB) Positive H (N) 06/18/25 09:42 WBC RBC Hgb Hct MCV MCH MCHC RDW Plt Count MPV Sodium Potassium Chloride Carbon Dioxide Anion Gap BUN Creatinine Estim Creat Clear Calc Estimated GFR Glucose POC Capillary Glucose 124 H mg/dl (65-105) Calcium Total Bilirubin AST ALT Alkaline Phosphatase Total Protein Albumin Stl Occult Blood (IFOB) Patient hx anesthesia problems: none Family hx anesthesia problems: none Results Review: All pre-operative results and documents have been reviewed as part of the pre- operative evaluation. 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 Patent foramen ovale 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 shunt with Valsalva only consistent with PFO on echo in November 2022 Heart failure with preserved ejection fraction Coronary artery disease Gastric ulcer (11/2022) Gastric nodule Congestive heart failure Essential hypertension Ischemic cardiomyopathy Diabetes type 2, controlled Hiatal hernia Surgical History Surgical History History of cataract extraction History of arthroplasty of left shoulder History of arthroplasty of left knee History of sinus surgery History of cardiac catheterization History of four vessel coronary artery bypass graft (2009) History of Esmer fundoplication History of hernia surgery Family History Family History Mother Family history of lung cancer Family history of malignant neoplasm Father Sibling No problems noted. Sibling , breast cancer No problems noted. Social History Social History Social History: Surrogate medical decision maker: Enedina Jones, spouse ([phone]). Code status: Full code Smoking status: Unknown if ever smoked Second hand tobacco smoke exposure: No Alcohol intake: unknown Substance use: never Substance use type: does not use Do You Feel Safe in your Home?: Yes Lack of Transportation: No Lack of Food: Never True Current Housing: I Have Housing Concerned About Future Housing: No Difficulty Paying Gas/Electric Bills: No Difficulty Paying for Meds: No Currently Unemployed: No Education: Associate Degree Difficulty w/ Childcare or Family Care: No Living arrangements: with family Additional living arrangements comments: Lives with in [place]. They have 3 children. Occupation/Education: retired Additional occupation/education comments: Be[employer] . Retired from [employer]. Spiritual care concerns: No Anes - Eval Final PreProcedure Day of Procedure 06/18/25 09:48 Patient weight: normal Heart: regular rate and rhythm Lungs: clear to auscultation Airway: Mallampati scale class II Neurological: alert and oriented Last oral intake: >/= 8 hours ASA classification: IV Emergent: no Anesthetic plan: proceed Anesthesia type and monitoring: general GIVS and standard monitoring Results Review: All pre-operative results and documents have been reviewed as part of the pre- operative evaluation. Informed Consent: The patient's anesthetic plan and its attendant risks and benefits were discussed with the patient/family/POA. Questions were solicited and answers provided to the satisfaction of the patient/family/POA.
[2025-06-18] MEDS: LACTATED RINGERS 1,000 ML 150 ML IV CONT (09:52)
[2025-06-18] MEDS: SIMETHICONE ORAL SUSPENSION 20 MG/0.3 ML 30 ML BOTTLE 1.8 ML PO (09:54)
--- NOTE | 2025-06-18 11:02 | S_PTH ---
PATIENT: Harjit Jones LOC: [id number] U#:[id number] AGE/SX: 84/M ROOM: 323 RE06/16/[address]: Corie Diaz APRN : 1940 BED: 01 DIS: 06/21/2025 SPEC #: [id number] RECD: 06/18/25 12:05 STATUS: JAVIER KIANA #: [id number] PELON: 06/18/25 11:[address]: Stephon Jerry DEPT: [facility] Surgical RECD BY: Lashell Nicole ENTERED: 06/18/25 12:05 SP TYPE: Surgical OTHR DR: MD Teresa Alejo MD Izabella L. Perkins, PA-C Dean F. Schueler, MD Tissues: A - Gastric Biopsy B - Gastric Biopsy Procedures: Hematoxylin and Eosin Stain Gross and Microscopic Level 4
--- NOTE | 2025-06-18 11:08 | WPDGIPROGNO ---
Progress Note: A&P Assessment and Plan (1) Gastric ulcer: Onset Date: 11/2022 Code(s): K25.9 - Gastric ulcer, unspecified as acute or chronic, without hemorrhage or perforation Status: Acute Assessment and Plan: The patient's EGD report reveals a non-bleeding benign gastric ulcer in the same location as a previous ulcer from 2022, which is adjacent to the Esmer fundoplication site. This anatomical proximity suggests that mechanical or ischemic stress from the surgery may be a contributing factor to the ulcer's recurrence . Given these findings, we recommend a chronic PPI specifically pantoprazole 40 mg once a day , due to its favorable interaction profile with clopidogrel. Additionally, consider permanently discontinuing aspirin therapy, as it is a well-known cause of gastric erosions and ulcers, which could be impeding healing and contributing to the problem. This should be consulted with Neurology considering pros and cons. Subjective Date/time seen: 06/18/25 11:08 Objective Data Vital Signs Vital Signs: Vital Signs - 24 hr 06/17/25 16:00 06/17/25 16:00 06/17/25 20:00 Temperature 97.2 F L 97.8 F Pulse Rate 74 82 80 Respiratory Rate 18 18 Blood Pressure 165/78 H 139/70 Pulse Oximetry 99 98 Oxygen Delivery 06/17/25 20:00 06/17/25 20:00 06/17/25 20:04 Temperature Pulse Rate 78 85 Respiratory Rate Blood Pressure 161/77 H Pulse Oximetry 97 Oxygen Delivery Room Air 06/17/25 20:09 06/18/25 00:00 06/18/25 00:00 Temperature 97.6 F Pulse Rate 89 75 84 Respiratory Rate 20 Blood Pressure 146/84 H 141/59 H Pulse Oximetry 97 Oxygen Delivery 06/18/25 04:00 06/18/25 04:36 06/18/25 08:00 Temperature 97.8 F 97 F L Pulse Rate 79 80 84 Respiratory Rate 18 17 Blood Pressure 149/74 H 145/81 H Pulse Oximetry 97 99 Oxygen Delivery 06/18/25 08:00 06/18/25 08:00 06/18/25 08:00 Temperature Pulse Rate 90 90 Respiratory Rate Blood Pressure Pulse Oximetry 100 Oxygen Delivery Room Air 06/18/25 08:17 06/18/25 08:20 06/18/25 09:48 Temperature 97.6 F 97.6 F 97 F L Pulse Rate 87 91 81 Respiratory Rate 20 16 18 Blood Pressure 154/85 H 142/85 H 155/75 H Pulse Oximetry 99 98 100 Oxygen Delivery Room Air 06/18/25 11:02 Temperature Pulse Rate 71 Respiratory Rate 17 Blood Pressure 144/63 H Pulse Oximetry 100 Oxygen Delivery Room Air Intake/Output Intake/Output: Intake & Output 06/15/25 06/16/25 06/17/25 06/18/25 23:59 23:59 23:59 23:59 Intake Total 1999 2470 1050 Output Total 250 1375 1175 Balance 1750 1095 -125 Meds/Results Medications: Active Medications Generic Name Dose Route Start Last Admin Trade Name Freq PRN Reason Stop Dose Admin Hydrocodone Bitart/Acetaminophen 1 tab 06/17/25 04:46 06/18/25 04:44 Hydrocodone/Acetaminophen (*Crx) 5-325 Mg Tablet PO 1 tab Q4H PRN Administration Pain Rated 5-7 Albuterol 2 puff 06/17/25 01:05 Albuterol Sulfate (*Sp) Aerosol 1 Puff INHALATION Q6H PRN Shortness Of Breath Or Wheezing Aspirin 81 mg 06/17/25 08:00 06/18/25 08:01 Aspirin 81 Mg Chewable Tablet PO Not Given On Hold: 06/18/25 09:00 DAILY@0800 VINICIUS Clopidogrel Bisulfate 75 mg 06/17/25 09:00 06/17/25 08:35 Clopidogrel Bisulfate 75 Mg Tablet PO 75 mg On Hold: 06/18/25 09:00 QAM VINICIUS Administration Duloxetine HCl 20 mg 06/17/25 21:00 06/17/25 21:10 Duloxetine Hcl 20 Mg Capsule.Dr PO 20 mg HS VINICIUS Administration Lactated Ringer's 1,000 mls @ 60 mls/hr 06/16/25 20:50 06/18/25 03:34 Lr - Lactated Ringers Iv IV CONT 60 mls/hr .[id number] VINICIUS Administration Lactated Ringer's 1,000 mls @ 150 mls/hr 06/18/25 09:05 06/18/25 11:03 Lr - Lactated Ringers Iv IV CONT 150 mls/hr .[id number] VINICIUS Infusion Losartan Potassium 50 mg 06/17/25 09:00 06/17/25 08:34 Losartan Potassium 50 Mg Tablet PO 50 mg DAILY VINICIUS Administration Multivitamins Therapeutic 1 tablet 06/17/25 09:00 06/17/25 08:34 Multivitamins Therapeutic Tab (*Bkc) PO 1 tablet DAILY VINICIUS Administration Nebivolol 5 mg 06/17/25 09:00 06/17/25 08:34 Nebivolol Hcl 5 Mg Tablet PO 5 mg DAILY VINICIUS Administration Radiology Results: ITS Impressions Head CT 06/16/25 19:08 IMPRESSION: 1. No acute intracranial abnormality. As per stroke protocol, I called these results to emergency room, discussed with Dr. Manuel Sharpe MD at 06/16/2025 19:11 CDT. Chest X-Ray 06/16/25 20:00 Impression: 1: No acute cardiopulmonary disease. GI Bleed Scan Nuclear Medicine 06/17/25 14:13 IMPRESSION: 1. No scintigraphic evidence for active gastrointestinal bleeding. Labs Labs: Laboratory Results - last 24 hr 06/17/25 06/17/25 06/18/25 10:14 14:51 05:35 WBC 7.5 RBC 2.86 L Hgb 8.7 L 8.5 L Hct 28.0 L 26.2 L MCV 91.6 MCH 29.7 MCHC 32.4 RDW 13.0 Plt Count 162 MPV 10.4 Sodium 136 L Potassium 4.2 Chloride 108 H Carbon Dioxide 24 Anion Gap 4 BUN 34 H D Creatinine 0.99 Estim Creat Clear Calc 55 Estimated GFR > 60 Glucose 113 H POC Capillary Glucose Calcium 8.6 Total Bilirubin 0.7 AST 23 ALT 13 Alkaline Phosphatase 45 Total Protein 5.5 L Albumin 3.1 L Stl Occult Blood (IFOB) Positive H 06/18/25 09:42 WBC RBC Hgb Hct MCV MCH MCHC RDW Plt Count MPV Sodium Potassium Chloride Carbon Dioxide Anion Gap BUN Creatinine Estim Creat Clear Calc Estimated GFR Glucose POC Capillary Glucose 124 H Calcium Total Bilirubin AST ALT Alkaline Phosphatase Total Protein Albumin Stl Occult Blood (IFOB)
[2025-06-18] MEDS: NEBIVOLOL HCL 5 MG TABLET PO (12:21)
[2025-06-18] MEDS: MULTIVITAMINS THERAPEUTIC TAB (*BKC) 1 TABLET PO (12:21)
[2025-06-18] MEDS: LOSARTAN POTASSIUM 50 MG TABLET PO (12:23)
--- NOTE | 2025-06-18 17:11 | WPDNEURCNPN ---
Assessment and Plan Assessment and plan (1) Left-sided cerebrovascular accident (CVA): Code(s): I63.9 - Cerebral infarction, unspecified Status: Acute Assessment and Plan: patient has mild right facial and right upper limb weakness. He had a stroke in 2023 and these are residual findings. (2) Peripheral neuropathy: Code(s): G62.9 - Polyneuropathy, unspecified Status: Acute Assessment and Plan: EMG nerve can study done at this hospital by myself has shown evidence of moderate axonal length-dependent peripheral neuropathy. The blood test list to the include vitamin B1 and B6 and B12 and folic acid level and these were all within normal range. Homocystine level was also normal. (3) Essential hypertension: Code(s): I10 - Essential (primary) hypertension Status: Acute (4) Hyperlipidemia: Code(s): E78.5 - Hyperlipidemia, unspecified Status: Acute Plan He appears to have had accidental fall. He has significant risk factors is moderate peripheral neuropathy and history of CVA with residual finding the right side. He understands that he needs takes a safety precautions. Also noted that his hemoglobin has dropped from 14.1-9.7 and this is being investigated. He follows up with me in my office and I shall be glad to continue to do so. CT angiogram head and neck was performed on 11/23/2024 which did not show any significant abnormalities. The results of MRI also reviewed which has shown evidence of left basal ganglia infarct as of 03/25/2025. He should also monitor for any cardiac arrhythmias. From cerebrovascular disease point of view his aspirin and Plavix 75 mg a day. He is unable to tolerate statin and a hence he is not on 1. His last LDL was high at 110. I believe that attempts are being made to arrange Repatha injections for him but is currently not on this. Consult date: 06/18/25 HPI: Harjit Jones is a 84 year old male with history of CVA with right hemiparesis in 2023 and recent diagnosis of moderate peripheral neuropathy was seen in my office on 06/03/2025. He was given advice regarding peripheral neuropathy safety thereafter. I printed he had a fall and states that he was coming down the steps and on the last step he slipped and fell now he has a big bruise on the right arm. He has history of obstructive sleep apnea syndrome but is not able to tolerate CPAP. Previous MRI has shown a left basal ganglia infarct. Residual minimal weakness of the right face and right arm. Currently denies any headache. He has some discomfort in the right upper chest area due to the fall. No other new symptoms. I noted that he also has had a radial nuclear study for any evidence for active GI of the which did not show evidence for the same. His hemoglobin was 14.2 on 04/14/2025 and is currently 8.5 which is also being investigated. Review of Systems Review of Systems: He denies any passing out spell or chest pain or palpitation. He thinks it was an accidental fall. Patient known to have peripheral neuropathy. All systems reviewed & are unremarkable except as noted in HPI and below PMFSH Past Medical History Medical History (Updated 06/18/25 @ 17:18 by Hair Gutierrez MD) Peripheral neuropathy Symptomatic anemia Anemia Acute blood loss anemia Screening for diabetes mellitus Type 2 diabetes mellitus with hyperglycemia Otitis media of both ears Allergic rhinitis Depression Neuropathy Left-sided cerebrovascular accident (CVA) Peripheral neuropathy Stroke (~11/2024) Acute sinusitis Myalgia Hyperlipidemia Elevated BUN Elevated liver enzymes Insomnia 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 Patent foramen ovale 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 shunt with Valsalva only consistent with PFO on echo in November 2022 Heart failure with preserved ejection fraction Coronary artery disease Gastric ulcer (11/2022) Gastric nodule Congestive heart failure Essential hypertension Ischemic cardiomyopathy Diabetes type 2, controlled Hiatal hernia Surgical History Surgical History History of cataract extraction History of arthroplasty of left shoulder History of arthroplasty of left knee History of sinus surgery History of cardiac catheterization History of four vessel coronary artery bypass graft (2009) History of Esmer fundoplication History of hernia surgery Family History Family History Mother Family history of lung cancer Family history of malignant neoplasm Father Sibling No problems noted. Sibling , breast cancer No problems noted. Social History Social History Social History: Surrogate medical decision maker: Enedina Jones, spouse ([phone]). Code status: Full code Smoking status: Unknown if ever smoked Second hand tobacco smoke exposure: No Alcohol intake: unknown Substance use: never Substance use type: does not use Do You Feel Safe in your Home?: Yes Lack of Transportation: No Lack of Food: Never True Current Housing: I Have Housing Concerned About Future Housing: No Difficulty Paying Gas/Electric Bills: No Difficulty Paying for Meds: No Currently Unemployed: No Education: Associate Degree Difficulty w/ Childcare or Family Care: No Living arrangements: with family Additional living arrangements comments: Lives with in [place]. They have 3 children. Occupation/Education: retired Additional occupation/education comments: [employer] . Retired from [employer]. Spiritual care concerns: No Meds Home Medications and Allergies Home Medications ?Medication ?Instructions ?Recorded ?Confirmed ?Type multivitamin (Daily Value tablet) 1 tablet PO DAILY 11/23/24 06/16/25 History aspirin 81 mg chewable tablet 81 mg PO DAILY@0800 30 days #30 12/03/24 06/16/25 Rx (Children's Aspirin) tabs nebivolol 5 mg tablet (Bystolic) 5 mg PO DAILY #30 tabs 01/26/25 06/16/25 Rx losartan 50 mg tablet 50 mg PO DAILY #30 tabs 01/28/25 06/16/25 Rx clopidogrel 75 mg tablet 75 mg PO QAM 30 days #90 tabs 03/30/25 06/16/25 Rx albuterol sulfate 90 mcg/actuation See Rx Instructions .Route 04/18/25 06/16/25 Rx aerosol inhaler .COMPLEX #8.5 ea duloxetine 20 mg capsule,delayed 20 mg PO DAILY #30 caps 06/04/25 06/16/25 Rx release Allergies Allergy/AdvReac Type Severity Reaction Status Date / Time levofloxacin (From Levaquin) AdvReac Severe Muscle Pain Verified 06/16/25 09:53 Vital Signs Vital Signs - 24 hr 06/17/25 20:00 06/17/25 20:00 06/17/25 20:00 Temperature 97.8 F Pulse Rate 80 78 Respiratory Rate 18 Blood Pressure 139/70 Pulse Oximetry 98 Oxygen Delivery Room Air 06/17/25 20:04 06/17/25 20:09 06/18/25 00:00 Temperature Pulse Rate 85 89 75 Respiratory Rate Blood Pressure 161/77 H 146/84 H Pulse Oximetry 97 Oxygen Delivery 06/18/25 00:00 06/18/25 04:00 06/18/25 04:36 Temperature 97.6 F 97.8 F Pulse Rate 84 79 80 Respiratory Rate 20 18 Blood Pressure 141/59 H 149/74 H Pulse Oximetry 97 97 Oxygen Delivery 06/18/25 08:00 06/18/25 08:00 06/18/25 08:00 Temperature 97 F L Pulse Rate 84 90 Respiratory Rate 17 Blood Pressure 145/81 H Pulse Oximetry 99 100 Oxygen Delivery Room Air 06/18/25 08:00 06/18/25 08:17 06/18/25 08:20 Temperature 97.6 F 97.6 F Pulse Rate 90 87 91 Respiratory Rate 20 16 Blood Pressure 154/85 H 142/85 H Pulse Oximetry 99 98 Oxygen Delivery 06/18/25 09:48 06/18/25 11:02 06/18/25 11:12 Temperature 97 F L Pulse Rate 81 71 77 Respiratory Rate 18 17 18 Blood Pressure 155/75 H 144/63 H 142/65 H Pulse Oximetry 100 100 100 Oxygen Delivery Room Air Room Air Room Air 06/18/25 11:22 06/18/25 12:00 06/18/25 12:21 Temperature Pulse Rate 72 78 97 Respiratory Rate 15 Blood Pressure 140/65 Pulse Oximetry 99 Oxygen Delivery Room Air 06/18/25 16:00 Temperature Pulse Rate 75 Respiratory Rate Blood Pressure Pulse Oximetry Oxygen Delivery Exam Const: General: cooperative, well developed and alert Orientation/consciousness: oriented to person, oriented to place and oriented to time HENMT: Head: atraumatic Mouth: Yes oropharynx normal Eyes: Alignment and Position: position normal Pupils: Equal, round and reactive pupils present EOM: EOMs intact bilaterally Neck: Neck: supple Resp: Effort & Inspection: normal respiratory effort Cardio: Rhythm: regular rhythm Skin: General skin exam: normal color Neuro: General: Unable to assess gait Cranial nerves: Yes CN's II-XII intact bilaterally ( except for mild right facial weakness), Yes Equal, round and reactive pupils present, Yes Bilaterally intact EOM present, Yes Nystagmus not present, Yes Midline tongue present, Yes Symmetric palate elevation present and Yes Ability to bilaterally elevate shoulders present Cognition (Neuro): normal cognition Speech: normal speech Motor exam (neuro): Motor abnormalities not present Sensory Exam: normal sensation Coordination: [id number] test normal and Normal rapid alternating movements of the distal upper extremity present (Neuro) Other: mild weakness of right upper limb power grade 4 5 normal strength in right lower limb compared to the left side. Normal strength in the left upper limb. Deep tendon reflexes however did not show any significant asymmetry. There were reduced at the knees and ankles on both sides. Extrem: Other: A large bruise was noted in the right upper limb particularly around the elbow and above. Psych: Affect: normal affect Results Labs 06/18/25 05:35 06/18/25 05:35 Labs: Short CBC 06/18/25 Range/Units 05:35 WBC 7.5 (4.5-10.0) K/mm3 Hgb 8.5 L (14.0-18.0) g/dL Hct 26.2 L (42.0-52.0) % Plt Count 162 (150-375) k/mm3 BMP 06/18/25 05:35 Sodium 136 L Potassium 4.2 Chloride 108 H Carbon Dioxide 24 BUN 34 H D Creatinine 0.99 Glucose 113 H Calcium 8.6 Liver Function 06/18/25 Range/Units 05:35 Total Bilirubin 0.7 (0.2-1.3) mg/dL AST 23 (17-59) U/L ALT 13 (6-50) U/L Alkaline Phosphatase 45 (38-126) U/L Albumin 3.1 L (3.5-5.1) g/dL
--- NOTE | 2025-06-18 20:34 | WPDONCPN ---
Progress Note: A&P Assessment and Plan (1) Anemia: Code(s): D64.9 - Anemia, unspecified Status: Acute Assessment and Plan: The patient stated that he experienced a mechanical fall several days ago and landed on his right arm and noted a large hematoma to the right forearm wrist and hand. He is on aspirin and plavix. He stated that he has some mild weakness from his previous stroke many years ago. The patient stated that he has no new symptoms of a stroke. The patient denies hitting his head. The patient stated that he has been feeling weak for several days. He stated that he did have some anemia in the past but it was many years ago. He denies seeing any blood in his stool. In the ER he was noted to have hemoglobin of 9.7g/dL and drastic drop from 14.2g/dL on 04/14/25. Patient has hx of acute anemia with hemoglobin 6.5 g/dL on 02/17/2019 and then 8.3 g/dL on 11/24/22. Patient is hemoccult positive. GI performed EGD on 06/18/25 which showed small non bleeding ulcer at previous surgical site (Esmer fundoplication surgery). Today, after EGD he had large melenic BM this evening. His CBC shows further drop in Hemoglobin to 8.5 g/dL today. Bleeding scan was negative. I am suspicious of small bowel or colonic bleed. He might need Colonoscopy and capsule endoscopy to rule out other sites of GI bleed. I believe this is acute blood loss and not a bone marrow issue. Therefore, supportive care at this time. Subjective Date/time seen: 06/18/25 20:34 Interval history: Patient undewent EGD today which showed small ulcer at previous Esmer fundoplication surgical site. Patient reports this evening he had large melenic stool about an hour before my visit. While in the room patient was reporting to going for another BM. Review of Systems Review of Systems States that he had large melenic BM this evening after the EGD. He had similar BM at time of admission. Denies headaches, trauma to head. Denies f/c, night sweats or weight loss. Denies chest pain but has dyspnea on exertion. Denies hematochezia. There is no hematuria. Rest of 12 point ROS negative Exam Narrative: APPEARANCE: No apparent distress. HEENT: atraumatic, EOMI, no scleral icterus RESPIRATORY: No increased rate of breathing soft nontender CARDIOVASCULAR: RRR, no peripheral edema ABDOMINAL: Non-distended soft nontender no guarding rebound MUSCULOSKELETAl: No obvious deformities NEURO: Alert. No focal deficits. SKIN:: Warm, dry. Normal color PSYCHIATRIC: Normal affect Right upper extremity with large hematoma involving whole forearm and wrist Objective Data Vital Signs Vital Signs: Vital Signs - 24 hr 06/18/25 00:00 06/18/25 00:00 06/18/25 04:00 Temperature 36.4 C Pulse Rate 75 84 79 Respiratory Rate 20 Blood Pressure 141/59 H Pulse Oximetry 97 Oxygen Delivery 06/18/25 04:36 06/18/25 08:00 06/18/25 08:00 Temperature 36.6 C 36.1 C L Pulse Rate 80 84 Respiratory Rate 18 17 Blood Pressure 149/74 H 145/81 H Pulse Oximetry 97 99 100 Oxygen Delivery Room Air 06/18/25 08:00 06/18/25 08:00 06/18/25 08:17 Temperature 36.4 C Pulse Rate 90 90 87 Respiratory Rate 20 Blood Pressure 154/85 H Pulse Oximetry 99 Oxygen Delivery 06/18/25 08:20 06/18/25 09:48 06/18/25 11:02 Temperature 36.4 C 36.1 C L Pulse Rate 91 81 71 Respiratory Rate 16 18 17 Blood Pressure 142/85 H 155/75 H 144/63 H Pulse Oximetry 98 100 100 Oxygen Delivery Room Air Room Air 06/18/25 11:12 06/18/25 11:22 06/18/25 12:00 Temperature Pulse Rate 77 72 78 Respiratory Rate 18 15 Blood Pressure 142/65 H 140/65 Pulse Oximetry 100 99 Oxygen Delivery Room Air Room Air 06/18/25 12:21 06/18/25 16:00 06/18/25 20:00 Temperature Pulse Rate 97 75 Respiratory Rate Blood Pressure 148/82 H Pulse Oximetry Oxygen Delivery 06/18/25 20:00 06/18/25 20:02 06/18/25 20:03 Temperature 36.6 C Pulse Rate 87 Respiratory Rate 16 Blood Pressure 148/82 H 145/72 H 132/74 Pulse Oximetry 99 Oxygen Delivery Intake/Output Intake/Output: Intake & Output 09/01/25 09/02/25 09/03/25 09/04/25 23:59 23:59 23:59 23:59 Intake Total 19990 2340 Output Total 250 1375 1175 Balance 1750 1095 1165 Meds/Results Medications: Active Medications Generic Name Dose Route Start Last Admin Trade Name Freq PRN Reason Stop Dose Admin Hydrocodone Bitart/Acetaminophen 1 tab 06/17/25 04:46 06/18/25 04:44 Hydrocodone/Acetaminophen (*Crx) 5-325 Mg Tablet PO 1 tab Q4H PRN Administration Pain Rated 5-7 Albuterol 2 puff 06/17/25 01:05 Albuterol Sulfate (*Sp) Aerosol 1 Puff INHALATION Q6H PRN Shortness Of Breath Or Wheezing Aspirin 81 mg 06/17/25 08:00 06/18/25 08:01 Aspirin 81 Mg Chewable Tablet PO Not Given On Hold: 06/18/25 09:00 DAILY@0800 VINICIUS Clopidogrel Bisulfate 75 mg 06/17/25 09:00 06/17/25 08:35 Clopidogrel Bisulfate 75 Mg Tablet PO 75 mg On Hold: 06/18/25 09:00 QAM VINICIUS Administration Duloxetine HCl 20 mg 06/17/25 21:00 06/18/25 20:07 Duloxetine Hcl 20 Mg Capsule.Dr PO 20 mg HS VINICIUS Administration Losartan Potassium 50 mg 06/17/25 09:00 06/18/25 12:23 Losartan Potassium 50 Mg Tablet PO 50 mg DAILY VINICIUS Administration Multivitamins Therapeutic 1 tablet 06/17/25 09:00 06/18/25 12:21 Multivitamins Therapeutic Tab (*Bkc) PO 1 tablet DAILY VINICIUS Administration Nebivolol 5 mg 06/17/25 09:00 06/18/25 12:21 Nebivolol Hcl 5 Mg Tablet PO 5 mg DAILY VINICIUS Administration Radiology Results: ITS Impressions Head CT 06/16/25 19:08 IMPRESSION: 1. No acute intracranial abnormality. As per stroke protocol, I called these results to emergency room, discussed with Dr. Manuel Sharpe MD at 06/16/2025 19:11 CDT. Chest X-Ray 06/16/25 20:00 Impression: 1: No acute cardiopulmonary disease. GI Bleed Scan Nuclear Medicine 06/17/25 14:13 IMPRESSION: 1. No scintigraphic evidence for active gastrointestinal bleeding. Labs Labs: Laboratory Results - last 24 hr 0906/18/25 06/18/25 03:06 05:35 09:42 WBC 7.5 RBC 2.86 L Hgb 8.5 L Hct 26.2 L MCV 91.6 MCH 29.7 MCHC 32.4 RDW 13.0 Plt Count 162 MPV 10.4 Haptoglobin 114 Sodium 136 L Potassium 4.2 Chloride 108 H Carbon Dioxide 24 Anion Gap 4 BUN 34 H D Creatinine 0.99 Estim Creat Clear Calc 55 Estimated GFR > 60 Glucose 113 H POC Capillary Glucose 124 H Calcium 8.6 Total Bilirubin 0.7 AST 23 ALT 13 Alkaline Phosphatase 45 Total Protein 5.5 L Albumin 3.1 L
[2025-06-19] VITALS (10 sets, daily range): BP systolic 128–169; BP diastolic 62–88; PULSE 24–86; RESP 16–20; TEMP 36.2–36.6; O2SAT 98–100
[2025-06-19 06:48] LABS: Hematocrit 26.9 % (42.0-52.0); Hemoglobin 8.5 g/dL (14.0-18.0); Immature Granulocyte Percent A 0.4 % (0-0.5); Lymphocytes Absolute Auto 1.20 K/mm3 (0.9-3.2); Mean Corpuscular HGB Conc 31.6 g/dl (32-36); Mean Corpuscular Hemoglobin 29.2 pg (26-34); Mean Corpuscular Volume 92.4 fl (80-100); Nucleated Red Blood Cells Absolute Auto 0.000 K/mm3 (0.0-0.012); Nucleated Red Blood Cells Perc 0.0 % (0.0-0.2); Platelet Count Result 157 k/mm3 (150-375); Red Blood Count 2.91 M/mm3 (4.6-6.20); White Blood Count 5.5 K/mm3 (4.5-10.0)
[2025-06-19 07:10] LABS: Alanine Aminotransferase 14 U/L (6-50); Albumin Level 3.3 g/dL (3.5-5.1); Alkaline Phosphatase 50 U/L (38-126); Anion Gap 3 mmol/L (4-12); Aspartate Amino Transferase 25 U/L (17-59); Bilirubin,Total 0.7 mg/dL (0.2-1.3); Blood Urea Nitrogen 22 mg/dL (9-20); Calcium 8.7 mg/dL (8.4-10.2); Carbon Dioxide 29 mmol/L (22-30); Chloride 105 mmol/L (98-107); Estimated CRCL calculation 57 ml/min; Estimated Glomerular Filt Rate > 60; Glucose 114 mg/dL (65-110); Potassium 4.0 mmol/L (3.4-5.0); Sodium 137 mmol/L (137-145); Total Protein 5.7 g/dL (6.3-8.2)
[2025-06-19 07:30] LABS: Iron 57 ug/dL (49-181)
[2025-06-19 07:39] LABS: Percent Iron Saturation 22 % (20-50)
[2025-06-19 08:05] LABS: Ferritin 57.50 ng/mL (11.1-264)
[2025-06-19] MEDS: NEBIVOLOL HCL 5 MG TABLET PO (08:10)
[2025-06-19] MEDS: LOSARTAN POTASSIUM 50 MG TABLET PO (08:10)
[2025-06-19] MEDS: MULTIVITAMINS THERAPEUTIC TAB (*BKC) 1 TABLET PO (08:11)
[2025-06-19] MEDS: PANTOPRAZOLE SODIUM IV 40 MG VIAL IV PUSH ×2 (10:24→20:00)
[2025-06-19] MEDS: SODIUM CHLORIDE 0.9% IV 1,000 ML 75 ML IV CONT (10:24)
[2025-06-19] MEDS: CLOPIDOGREL BISULFATE 75 MG TABLET PO (10:26)
--- NOTE | 2025-06-19 11:53 | P.PNIM_ITS ---
Progress Note: A&P Assessment and Plan (1) Anemia: Qualifiers: Anemia type: unspecified type Qualified Code(s): D64.9 - Anemia, unspecified Code(s): D64.9 - Anemia, unspecified Status: Chronic Assessment and Plan: -Hgb 9.7 on admission, today 8.5 -patients Hgb in April 2025 was 14.4 -GI following -hematology was consulted, recommended workup for acute reasons for blood loss -anemia panel reviewed -s/p EGD 06/18 which showed a non-bleeding benign gastric ulcer in the same location as a previous ulcer from 2022 -recommend PPI BID, start IV protonix -patient will need repeat scope as outpatient to assess healing -it was reported that patient had a large melanotic stool yesterday evening -question if patient will need colonoscopy or capsule study -discussed with GI Dr. Ortez and will make patient NPO, monitor H&H Q 8 hrs -IV fluids while NPO -AM labs (2) Syncope: Code(s): R55 - Syncope and collapse Status: Acute Assessment and Plan: -this could be related to his anemia -CT of the brain was negative. Patient declined MRI -orthostatic blood pressures WNL on review (3) Hematoma: Code(s): T14.8XXA - Other injury of unspecified body region, initial encounter Status: Acute Assessment and Plan: -the patient had a fall 4 days ago. -x-ray of right wrist and hand. No concern for compartment syndrome at this time. (4) Left-sided cerebrovascular accident (CVA): Code(s): I63.9 - Cerebral infarction, unspecified Status: Acute Assessment and Plan: -the patient was on aspirin and Plavix at home -CT of the brain shows nothing acute. -Neurology was consulted -discussed with Dr. Esteban and patient can stop the aspirin, but continue with Plavix (5) Essential hypertension: Code(s): I10 - Essential (primary) hypertension Status: Acute Assessment and Plan: -Continue with home losartan. Hold if map is less than 60. Hold blood pressure medication if blood pressure less than 100/60. (6) Gastric ulcer: Code(s): K25.9 - Gastric ulcer, unspecified as acute or chronic, without hemorrhage or perforation Status: Acute Assessment and Plan: -s/p EGD 9/4 which showed a non-bleeding benign gastric ulcer in the same location as a previous ulcer from 2022 -recommend PPI BID, start IV protonix -patient will need repeat scope as outpatient to assess healing -GI following Plan Hematoma to right arm. X-ray negative for acute fracture. Subjective Date/time seen: 06/19/25 11:53 Interval history: Patient seen and examined for a follow up visit. Patient seen in his room, lying in bed, in no acute distress. It was reported that patient had a large melanotic bowel movement yesterday evening after his EGD. Hemoglobin did remain stable at 8.5 this AM. Discussed with GI Dr. Ortez and patient will be made NPO, started on IV fluids, PPI IV BID, check CBC Q 8 hours and monitor for continued melanotic stools. Neurology saw patient yesterday and I discussed the patient's care with Dr. Esteabn today and patient's aspirin will be discontinued, plavix will be continued. Patient denies acute pain. Patient denies any other acute complaints. Discussed plan of care with patient and patient's at bedside. Review of Systems Review of Systems: All systems reviewed & are unremarkable except as noted in HPI and below Exam Narrative: APPEARANCE: No apparent distress. Head: atraumatic. EYES: EOMI, NOSE: Atraumatic NECK: Trachea midline RESPIRATORY: No increased rate of breathing soft nontender CARDIOVASCULAR: RRR, no peripheral edema ABDOMINAL: Non-distended soft nontender no guarding rebound MUSCULOSKELETAl: No obvious deformities NEURO: Alert. Cranial nerves 2-12 grossly intact. Sensation light touch, motor function cerebellar function intact for 4 extremities. Gait exam was normal. NIH of 0 SKIN:: Warm, dry. Normal color PSYCHIATRIC: Normal affect Objective Data Vital Signs Vital Signs: Vital Signs - 24 hr 06/18/25 12:00 06/18/25 12:21 06/18/25 16:00 Temperature Pulse Rate 78 97 75 Respiratory Rate Blood Pressure Pulse Oximetry 06/18/25 20:00 06/18/25 20:00 06/18/25 20:00 Temperature 97.9 F Pulse Rate 87 81 Respiratory Rate 16 Blood Pressure 148/82 H 148/82 H Pulse Oximetry 99 06/18/25 20:02 06/18/25 20:03 06/19/25 00:00 Temperature 97.2 F L Pulse Rate 77 Respiratory Rate 16 Blood Pressure 145/72 H 132/74 140/73 Pulse Oximetry 99 06/19/25 00:00 06/19/25 04:00 06/19/25 04:00 Temperature 97.2 F L Pulse Rate 76 73 72 Respiratory Rate 16 Blood Pressure 136/66 Pulse Oximetry 98 06/19/25 08:00 06/19/25 08:00 06/19/25 08:00 Temperature 97.6 F Pulse Rate 84 Respiratory Rate 18 Blood Pressure 157/88 H 169/83 H 159/79 H Pulse Oximetry 06/19/25 08:10 Temperature Pulse Rate 81 Respiratory Rate Blood Pressure Pulse Oximetry Intake/Output Intake/Output: Intake & Output 06/16/25 06/17/25 06/18/25 06/19/25 23:59 23:59 23:59 23:59 Intake Total 1999 2470 2340 1580 Output Total 250 1375 1175 650 Balance 1750 1095 1165 930 Meds/Results Medications: Active Medications Generic Name Dose Route Start Last Admin Trade Name Freq PRN Reason Stop Dose Admin Hydrocodone Bitart/Acetaminophen 1 tab 06/17/25 04:46 06/18/25 04:44 Hydrocodone/Acetaminophen (*Crx) 5-325 Mg Tablet PO 1 tab Q4H PRN Administration Pain Rated 5-7 Albuterol 2 puff 06/17/25 01:05 Albuterol Sulfate (*Sp) Aerosol 1 Puff INHALATION Q6H PRN Shortness Of Breath Or Wheezing Clopidogrel Bisulfate 75 mg 06/19/25 10:22 06/19/25 10:26 Clopidogrel Bisulfate 75 Mg Tablet PO 75 mg QAM VINICIUS Administration Duloxetine HCl 20 mg 06/17/25 21:00 06/18/25 20:07 Duloxetine Hcl 20 Mg Capsule.Dr PO 20 mg HS VINICIUS Administration Sodium Chloride 1,000 mls @ 75 mls/hr 06/19/25 10:05 06/19/25 10:24 Normal Saline Iv IV CONT 75 mls/hr .[id number] VINICIUS Administration Losartan Potassium 50 mg 06/17/25 09:00 06/19/25 08:10 Losartan Potassium 50 Mg Tablet PO 50 mg DAILY VINICIUS Administration Multivitamins Therapeutic 1 tablet 06/17/25 09:00 06/19/25 08:11 Multivitamins Therapeutic Tab (*Bkc) PO 1 tablet DAILY VINICIUS Administration Nebivolol 5 mg 06/17/25 09:00 06/19/25 08:10 Nebivolol Hcl 5 Mg Tablet PO 5 mg DAILY VINICIUS Administration Pantoprazole Sodium 40 mg 06/19/25 10:00 06/19/25 10:24 Pantoprazole Sodium Iv 40 Mg Vial IV PUSH 40 mg Q12HR VINICIUS Administration Radiology Results: ITS Impressions Head CT 06/16/25 19:08 IMPRESSION: 1. No acute intracranial abnormality. As per stroke protocol, I called these results to emergency room, discussed with Dr. Manuel Sharpe MD at 06/16/2025 19:11 CDT. Chest X-Ray 06/16/25 20:00 Impression: 1: No acute cardiopulmonary disease. GI Bleed Scan Nuclear Medicine 06/17/25 14:13 IMPRESSION: 1. No scintigraphic evidence for active gastrointestinal bleeding. Labs Labs: Laboratory Results - last 24 hr 06/17/25 06/19/25 03:06 06:04 WBC 5.5 RBC 2.91 L Hgb 8.5 L Hct 26.9 L MCV 92.4 MCH 29.2 MCHC 31.6 L RDW 13.1 Plt Count 157 MPV 10.5 H Immature Gran % (Auto) 0.4 Neut % (Auto) 63.2 Lymph % (Auto) 21.7 [place] % (Auto) 8.3 Eos % (Auto) 5.3 H Baso % (Auto) 1.1 Lymph # (Auto) 1.20 [place] # (Auto) 0.5 Eos # (Auto) 0.3 Baso # (Auto) 0.1 Abs Immat Gran (auto) 0.02 Absolute Neuts (auto) 3.5 Absolute Nucleated RBC 0.000 Nucleated RBC % 0.0 Haptoglobin 114 Sodium 137 Potassium 4.0 Chloride 105 Carbon Dioxide 29 Anion Gap 3 L BUN 22 H D Creatinine 0.95 Estim Creat Clear Calc 57 Estimated GFR > 60 Glucose 114 H Calcium 8.7 Iron 57 TIBC 262 L % Saturation 22 Ferritin 57.50 Total Bilirubin 0.7 AST 25 ALT 14 Alkaline Phosphatase 50 Total Protein 5.7 L Albumin 3.3 L Quality VTE Prophylaxis VTE prophylaxis: mechanical ordered
--- NOTE | 2025-06-19 13:06 | P.PNAN_ITS ---
Anes - Prog Note Post-Op Date/Time: 06/19/25 13:06 Cardiovascular status: normal Respiratory status: normal Airway patency: baseline Mental status: baseline Post-Op hydration status: normal Vital Signs: Last Vital Signs Temp 97.6 F 06/19/25 08:00 Pulse 75 06/19/25 12:00 Resp 18 06/19/25 08:00 BP 159/79 H 06/19/25 08:00 Pulse Ox 98 06/19/25 08:00 O2 Del Method Room Air 06/19/25 08:00 Pain Score (VAS): 0/10 I/O: Intake & Output 06/18/25 06/19/25 06/19/25 23:59 07:59 15:59 Intake Total 850 1100 480 Output Total 650 Balance 850 450 480 Laboratory Tests 06/19/25 06:04 06/19/25 06:04 06/17/25 06/18/25 06/19/25 03:06 05:35 06:04 WBC 5.5 RBC 2.91 L Hgb 8.5 L Hct 26.9 L MCV 92.4 MCH 29.2 MCHC 31.6 L RDW 13.1 Plt Count 157 MPV 10.5 H Immature Gran % (Auto) 0.4 Neut % (Auto) 63.2 Lymph % (Auto) 21.7 [place] % (Auto) 8.3 Eos % (Auto) 5.3 H Baso % (Auto) 1.1 Lymph # (Auto) 1.20 [place] # (Auto) 0.5 Eos # (Auto) 0.3 Baso # (Auto) 0.1 Abs Immat Gran (auto) 0.02 Absolute Neuts (auto) 3.5 Absolute Nucleated RBC 0.000 Nucleated RBC % 0.0 Haptoglobin 114 Pending Sodium 137 Potassium 4.0 Chloride 105 Carbon Dioxide 29 Anion Gap 3 L BUN 22 H D Creatinine 0.95 Estim Creat Clear Calc 57 Estimated GFR > 60 Glucose 114 H Calcium 8.7 Iron 57 TIBC 262 L % Saturation 22 Ferritin 57.50 Total Bilirubin 0.7 AST 25 ALT 14 Alkaline Phosphatase 50 Total Protein 5.7 L Albumin 3.3 L Post-procedural complaints: none Patient Feedback: Patient satisfied with anesthetic care.
[2025-06-19 14:00] LABS: Hematocrit 25.7 % (42.0-52.0); Hemoglobin 8.2 g/dL (14.0-18.0); Mean Corpuscular HGB Conc 31.9 g/dl (32-36); Mean Corpuscular Hemoglobin 29.2 pg (26-34); Mean Corpuscular Volume 91.5 fl (80-100); Platelet Count Result 164 k/mm3 (150-375); Red Blood Count 2.81 M/mm3 (4.6-6.20); White Blood Count 6.2 K/mm3 (4.5-10.0)
--- NOTE | 2025-06-19 16:19 | P.PNGI_ITS ---
Progress Note: A&P Assessment and Plan (1) Melena: Code(s): K92.1 - Melena Status: Acute Assessment and Plan: had one episode but h/h stable, continue to monitor every 6 hours EGD with non bleeding gastric ulcer similar location from previous episode continue with ppi daily hold aspirin for now monitor but if new episode of melena then keep npo after midnight in case needs new intervention (2) Gastric ulcer: Onset Date: 11/2022 Code(s): K25.9 - Gastric ulcer, unspecified as acute or chronic, without hemorrhage or perforation Status: Acute Assessment and Plan: on ppi twice daily if more bleeding then may need new egd (3) Positive fecal occult blood test: Code(s): R19.5 - Other fecal abnormalities Status: Acute (4) Symptomatic anemia: Code(s): D64.9 - Anemia, unspecified Status: Acute (5) Syncope and collapse: Code(s): R55 - Syncope and collapse Status: Acute Assessment and Plan: on admission (6) Hematoma: Code(s): T14.8XXA - Other injury of unspecified body region, initial encounter Status: Acute Assessment and Plan: arm hematoma after recent fall Subjective Date/time seen: 06/19/25 16:19 Interval history: egd yesterday non-bleeding ulcer near cardia, had melena yesterday but none since he is comfortable and feeling better Review of Systems Review of Systems: All systems reviewed & are unremarkable except as noted in HPI and below Exam Const: General: comfortable and no acute distress HENMT: Face/Nose/Sinus: Normal nares present Eyes: Sclera: sclerae normal Neck: Neck: supple Resp: Auscultation: clear to auscultation bilaterally Cardio: Rate: regular rate Rhythm: regular rhythm GI: Inspection: non-distended GI Palp: Yes Soft to palpation and No Tenderness to palpation present (GI) Auscultation: normal bowel sounds Skin: Other: hematoma rt arm Neuro: Speech: normal speech Motor exam (neuro): 5/5 motor strength present throughout Extrem: General: normal to inspection Psych: Mental Status: mental status grossly normal Objective Data Vital Signs Vital Signs: Vital Signs - 24 hr 06/18/25 20:00 06/18/25 20:00 06/18/25 20:00 Temperature 97.9 F Pulse Rate 87 81 Respiratory Rate 16 Blood Pressure 148/82 H 148/82 H Pulse Oximetry 99 Oxygen Delivery 06/18/25 20:02 06/18/25 20:03 06/19/25 00:00 Temperature 97.2 F L Pulse Rate 77 Respiratory Rate 16 Blood Pressure 145/72 H 132/74 140/73 Pulse Oximetry 99 Oxygen Delivery 06/19/25 00:00 06/19/25 04:00 06/19/25 04:00 Temperature 97.2 F L Pulse Rate 76 73 72 Respiratory Rate 16 Blood Pressure 136/66 Pulse Oximetry 98 Oxygen Delivery 06/19/25 08:00 06/19/25 08:00 06/19/25 08:00 Temperature 97.6 F Pulse Rate 84 Respiratory Rate 18 Blood Pressure 157/88 H 169/83 H 159/79 H Pulse Oximetry Oxygen Delivery 06/19/25 08:00 06/19/25 08:00 06/19/25 08:10 Temperature Pulse Rate 86 81 Respiratory Rate Blood Pressure Pulse Oximetry 98 Oxygen Delivery Room Air 06/19/25 12:00 06/19/25 12:00 06/19/25 12:00 Temperature 97.6 F 97.2 F L Pulse Rate 75 24 L 75 Respiratory Rate 20 20 Blood Pressure 140/70 155/76 H Pulse Oximetry 98 98 Oxygen Delivery 06/19/25 13:49 06/19/25 13:49 Temperature Pulse Rate Respiratory Rate Blood Pressure 128/76 146/69 H Pulse Oximetry Oxygen Delivery Intake/Output Intake/Output: Intake & Output 06/16/25 06/17/25 06/18/25 06/19/25 23:59 23:59 23:59 23:59 Intake Total 1999 2470 2340 1580 Output Total 250 1375 1175 650 Balance 1750 1095 1165 930 Meds/Results Medications: Active Medications Generic Name Dose Route Start Last Admin Trade Name Freq PRN Reason Stop Dose Admin Hydrocodone Bitart/Acetaminophen 1 tab 06/17/25 04:46 06/18/25 04:44 Hydrocodone/Acetaminophen (*Crx) 5-325 Mg Tablet PO 1 tab Q4H PRN Administration Pain Rated 5-7 Albuterol 2 puff 06/17/25 01:05 Albuterol Sulfate (*Sp) Aerosol 1 Puff INHALATION Q6H PRN Shortness Of Breath Or Wheezing Artificial Tears 1 drop 06/19/25 15:05 Artificial Tears Ophth Soln 15 Ml Bottle EACH EYE QID PRN Dry Eye(s) Clopidogrel Bisulfate 75 mg 06/19/25 10:22 06/19/25 10:26 Clopidogrel Bisulfate 75 Mg Tablet PO 75 mg QAM VINICIUS Administration Duloxetine HCl 20 mg 06/17/25 21:00 06/18/25 20:07 Duloxetine Hcl 20 Mg Capsule.Dr PO 20 mg HS VINICIUS Administration Sodium Chloride 1,000 mls @ 75 mls/hr 06/19/25 10:05 06/19/25 10:24 Normal Saline Iv IV CONT 75 mls/hr .[id number] VINICIUS Administration Losartan Potassium 50 mg 06/17/25 09:00 06/19/25 08:10 Losartan Potassium 50 Mg Tablet PO 50 mg DAILY VINICIUS Administration Multivitamins Therapeutic 1 tablet 06/17/25 09:00 06/19/25 08:11 Multivitamins Therapeutic Tab (*Bkc) PO 1 tablet DAILY VINICIUS Administration Nebivolol 5 mg 06/17/25 09:00 06/19/25 08:10 Nebivolol Hcl 5 Mg Tablet PO 5 mg DAILY VINICIUS Administration Pantoprazole Sodium 40 mg 06/19/25 10:00 06/19/25 10:24 Pantoprazole Sodium Iv 40 Mg Vial IV PUSH 40 mg Q12HR VINICIUS Administration Radiology Results: ITS Impressions Head CT 06/16/25 19:08 IMPRESSION: 1. No acute intracranial abnormality. As per stroke protocol, I called these results to emergency room, discussed with Dr. Manuel Sharpe MD at 06/16/2025 19:11 CDT. Chest X-Ray 06/16/25 20:00 Impression: 1: No acute cardiopulmonary disease. GI Bleed Scan Nuclear Medicine 06/17/25 14:13 IMPRESSION: 1. No scintigraphic evidence for active gastrointestinal bleeding. Labs Labs: Laboratory Results - last 24 hr 06/19/25 06/19/25 06:04 13:48 WBC 5.5 6.2 RBC 2.91 L 2.81 L Hgb 8.5 L 8.2 L Hct 26.9 L 25.7 L MCV 92.4 91.5 MCH 29.2 29.2 MCHC 31.6 L 31.9 L RDW 13.1 13.0 Plt Count 157 164 MPV 10.5 H 9.9 Immature Gran % (Auto) 0.4 Neut % (Auto) 63.2 Lymph % (Auto) 21.7 [place] % (Auto) 8.3 Eos % (Auto) 5.3 H Baso % (Auto) 1.1 Lymph # (Auto) 1.20 [place] # (Auto) 0.5 Eos # (Auto) 0.3 Baso # (Auto) 0.1 Abs Immat Gran (auto) 0.02 Absolute Neuts (auto) 3.5 Absolute Nucleated RBC 0.000 Nucleated RBC % 0.0 Sodium 137 Potassium 4.0 Chloride 105 Carbon Dioxide 29 Anion Gap 3 L BUN 22 H D Creatinine 0.95 Estim Creat Clear Calc 57 Estimated GFR > 60 Glucose 114 H Calcium 8.7 Iron 57 TIBC 262 L % Saturation 22 Ferritin 57.50 Total Bilirubin 0.7 AST 25 ALT 14 Alkaline Phosphatase 50 Total Protein 5.7 L Albumin 3.3 L
--- NOTE | 2025-06-19 16:29 | P.PNONC_ITS ---
Progress Note: A&P Assessment and Plan (1) Anemia: Code(s): D64.9 - Anemia, unspecified Status: Acute Assessment and Plan: The patient stated that he experienced a mechanical fall several days ago and landed on his right arm and noted a large hematoma to the right forearm wrist and hand. He is on aspirin and plavix. He stated that he has some mild weakness from his previous stroke many years ago. The patient stated that he has no new symptoms of a stroke. The patient denies hitting his head. The patient stated that he has been feeling weak for several days. He stated that he did have some anemia in the past but it was many years ago. He denies seeing any blood in his stool. In the ER he was noted to have hemoglobin of 9.7g/dL and drastic drop from 14.2g/dL on 04/14/25. Patient has hx of acute anemia with hemoglobin 6.5 g/dL on 02/17/2019 and then 8.3 g/dL on 11/24/22. Patient is hemoccult positive. GI performed EGD on 06/18/25 which showed small non bleeding ulcer at previous surgical site (Esmer fundoplication surgery). Patient had another large melenic BM 06/19/25 afternoon. This was his 3rd melena episode during this stay. He had one on 06/18/25 evening after the EGD and another similar BM at time of admission His CBC shows further drop in Hemoglobin to 8.2 g/dL today 06/19/25 at 1:48pm. Bleeding scan was negative. I am suspicious of small bowel or colonic bleed. He might need Colonoscopy and capsule endoscopy to rule out other sites of GI bleed. GI team on board and observing closely I believe this is acute blood loss and not a bone marrow issue. Therefore, supportive care at this time. Subjective Date/time seen: 06/19/25 16:29 Interval history: Patient reported another large melenic stool today 06/19/25 afternoon. states that he notified the nursing team. and family friend at bedside. Review of Systems Review of Systems States that he had another large melenic BM 06/19/25 afternoon. This was his 3rd melena episode. He had one on 06/18/25 evening after the EGD and another similar BM at time of admission. Denies headaches, trauma to head. Denies f/c, night sweats or weight loss. Denies chest pain but has dyspnea on exertion. Denies hematochezia. There is no hematuria. Rest of 12 point ROS negative Exam Narrative: APPEARANCE: No apparent distress. HEENT: atraumatic, EOMI, no scleral icterus RESPIRATORY: No increased rate of breathing soft nontender CARDIOVASCULAR: RRR, no peripheral edema ABDOMINAL: Non-distended soft nontender no guarding rebound MUSCULOSKELETAl: No obvious deformities NEURO: Alert. No focal deficits. SKIN:: Warm, dry. Normal color PSYCHIATRIC: Normal affect Right upper extremity with large hematoma involving whole forearm and wrist Objective Data Vital Signs Vital Signs: Vital Signs - 24 hr 06/18/25 20:00 06/18/25 20:00 06/18/25 20:00 Temperature 36.6 C Pulse Rate 87 81 Respiratory Rate 16 Blood Pressure 148/82 H 148/82 H Pulse Oximetry 99 Oxygen Delivery 06/18/25 20:02 06/18/25 20:03 06/19/25 00:00 Temperature 36.2 C L Pulse Rate 77 Respiratory Rate 16 Blood Pressure 145/72 H 132/74 140/73 Pulse Oximetry 99 Oxygen Delivery 06/19/25 00:00 06/19/25 04:00 06/19/25 04:00 Temperature 36.2 C L Pulse Rate 76 73 72 Respiratory Rate 16 Blood Pressure 136/66 Pulse Oximetry 98 Oxygen Delivery 06/19/25 08:00 06/19/25 08:00 06/19/25 08:00 Temperature 36.4 C Pulse Rate 84 Respiratory Rate 18 Blood Pressure 157/88 H 169/83 H 159/79 H Pulse Oximetry Oxygen Delivery 06/19/25 08:00 06/19/25 08:00 06/19/25 08:10 Temperature Pulse Rate 86 81 Respiratory Rate Blood Pressure Pulse Oximetry 98 Oxygen Delivery Room Air 06/19/25 12:00 06/19/25 12:00 06/19/25 12:00 Temperature 36.4 C 36.2 C L Pulse Rate 75 24 L 75 Respiratory Rate 20 20 Blood Pressure 140/70 155/76 H Pulse Oximetry 98 98 Oxygen Delivery 06/19/25 13:49 06/19/25 13:49 Temperature Pulse Rate Respiratory Rate Blood Pressure 128/76 146/69 H Pulse Oximetry Oxygen Delivery Intake/Output Intake/Output: Intake & Output 0906/17/25 06/18/25 06/19/25 23:59 23:59 23:59 23:59 Intake Total 1999 2470 2340 1580 Output Total 250 1375 1175 650 Balance 1750 1095 1165 930 Meds/Results Medications: Active Medications Generic Name Dose Route Start Last Admin Trade Name Freq PRN Reason Stop Dose Admin Hydrocodone Bitart/Acetaminophen 1 tab 06/17/25 04:46 06/18/25 04:44 Hydrocodone/Acetaminophen (*Crx) 5-325 Mg Tablet PO 1 tab Q4H PRN Administration Pain Rated 5-7 Albuterol 2 puff 06/17/25 01:05 Albuterol Sulfate (*Sp) Aerosol 1 Puff INHALATION Q6H PRN Shortness Of Breath Or Wheezing Artificial Tears 1 drop 06/19/25 15:05 Artificial Tears Ophth Soln 15 Ml Bottle EACH EYE QID PRN Dry Eye(s) Clopidogrel Bisulfate 75 mg 06/19/25 10:22 06/19/25 10:26 Clopidogrel Bisulfate 75 Mg Tablet PO 75 mg QAM VINICIUS Administration Duloxetine HCl 20 mg 06/17/25 21:00 06/18/25 20:07 Duloxetine Hcl 20 Mg Capsule.Dr PO 20 mg HS VINICIUS Administration Sodium Chloride 1,000 mls @ 75 mls/hr 06/19/25 10:05 06/19/25 10:24 Normal Saline Iv IV CONT 75 mls/hr .[id number] VINICIUS Administration Losartan Potassium 50 mg 06/17/25 09:00 06/19/25 08:10 Losartan Potassium 50 Mg Tablet PO 50 mg DAILY VINICIUS Administration Multivitamins Therapeutic 1 tablet 06/17/25 09:00 06/19/25 08:11 Multivitamins Therapeutic Tab (*Bkc) PO 1 tablet DAILY VINICIUS Administration Nebivolol 5 mg 06/17/25 09:00 06/19/25 08:10 Nebivolol Hcl 5 Mg Tablet PO 5 mg DAILY VINICIUS Administration Pantoprazole Sodium 40 mg 06/19/25 10:00 06/19/25 10:24 Pantoprazole Sodium Iv 40 Mg Vial IV PUSH 40 mg Q12HR VINICIUS Administration Radiology Results: ITS Impressions Head CT 06/16/25 19:08 IMPRESSION: 1. No acute intracranial abnormality. As per stroke protocol, I called these results to emergency room, discussed with Dr. Manuel Sharpe MD at 06/16/2025 19:11 CDT. Chest X-Ray 06/16/25 20:00 Impression: 1: No acute cardiopulmonary disease. GI Bleed Scan Nuclear Medicine 06/17/25 14:13 IMPRESSION: 1. No scintigraphic evidence for active gastrointestinal bleeding. Labs Labs: Laboratory Results - last 24 hr 06/19/25 06/19/25 06:04 13:48 WBC 5.5 6.2 RBC 2.91 L 2.81 L Hgb 8.5 L 8.2 L Hct 26.9 L 25.7 L MCV 92.4 91.5 MCH 29.2 29.2 MCHC 31.6 L 31.9 L RDW 13.1 13.0 Plt Count 157 164 MPV 10.5 H 9.9 Immature Gran % (Auto) 0.4 Neut % (Auto) 63.2 Lymph % (Auto) 21.7 [place] % (Auto) 8.3 Eos % (Auto) 5.3 H Baso % (Auto) 1.1 Lymph # (Auto) 1.20 [place] # (Auto) 0.5 Eos # (Auto) 0.3 Baso # (Auto) 0.1 Abs Immat Gran (auto) 0.02 Absolute Neuts (auto) 3.5 Absolute Nucleated RBC 0.000 Nucleated RBC % 0.0 Sodium 137 Potassium 4.0 Chloride 105 Carbon Dioxide 29 Anion Gap 3 L BUN 22 H D Creatinine 0.95 Estim Creat Clear Calc 57 Estimated GFR > 60 Glucose 114 H Calcium 8.7 Iron 57 TIBC 262 L % Saturation 22 Ferritin 57.50 Total Bilirubin 0.7 AST 25 ALT 14 Alkaline Phosphatase 50 Total Protein 5.7 L Albumin 3.3 L
[2025-06-19 23:41] LABS: Hematocrit 26.2 % (42.0-52.0); Hemoglobin 8.3 g/dL (14.0-18.0); Mean Corpuscular HGB Conc 31.7 g/dl (32-36); Mean Corpuscular Hemoglobin 29.2 pg (26-34); Mean Corpuscular Volume 92.3 fl (80-100); Platelet Count Result 178 k/mm3 (150-375); Red Blood Count 2.84 M/mm3 (4.6-6.20); White Blood Count 6.0 K/mm3 (4.5-10.0)
[2025-06-20] VITALS (13 sets, daily range): BP systolic 136–153; BP diastolic 60–70; PULSE 65–91; RESP 13–18; TEMP 36.1–36.6; O2SAT 96–100
[2025-06-20] MEDS: SODIUM CHLORIDE 0.9% IV 1,000 ML 75 ML IV CONT (00:44)
[2025-06-20 07:16] LABS: Hematocrit 26.6 % (42.0-52.0); Hemoglobin 8.5 g/dL (14.0-18.0); Mean Corpuscular HGB Conc 32.0 g/dl (32-36); Mean Corpuscular Hemoglobin 29.2 pg (26-34); Mean Corpuscular Volume 91.4 fl (80-100); Platelet Count Result 166 k/mm3 (150-375); Red Blood Count 2.91 M/mm3 (4.6-6.20); White Blood Count 5.8 K/mm3 (4.5-10.0)
[2025-06-20] MEDS: MULTIVITAMINS THERAPEUTIC TAB (*BKC) 1 TABLET PO (09:46)
[2025-06-20] MEDS: PANTOPRAZOLE SODIUM IV 40 MG VIAL IV PUSH ×2 (09:46→20:19)
[2025-06-20] MEDS: LOSARTAN POTASSIUM 50 MG TABLET PO (09:46)
[2025-06-20] MEDS: CLOPIDOGREL BISULFATE 75 MG TABLET PO (09:46)
[2025-06-20] MEDS: NEBIVOLOL HCL 5 MG TABLET PO (09:46)
--- NOTE | 2025-06-20 11:08 | WPDGIPROGNO ---
Progress Note: A&P Assessment and Plan (1) Melena: Code(s): K92.1 - Melena Status: Acute Assessment and Plan: The patient has an ulcer in the cardia, precisely at the site of his prior Esmer fundoplication. Although his rectal exam revealed firm, black (melanotic) stool, this is likely residual from an earlier gastrointestinal bleed rather than active hemorrhage. This is supported by his stable hemoglobin levels, which have remained consistent at 8.3 yesterday and 8.5 today. We will continue to observe the patient for the next 24 hours while he consumes a heart-healthy diet. A final hematocrit will be checked tomorrow morning. He can be safely discharged home if his hemoglobin remains stable and his stools return to a normal color. (2) Gastric ulcer: Onset Date: 11/2022 Code(s): K25.9 - Gastric ulcer, unspecified as acute or chronic, without hemorrhage or perforation Status: Acute Subjective Date/time seen: 06/20/25 11:08 Interval history: The patient has past a large melanotic stool last night. However, he did not have any further hemodynamic decompensation such as he hypotension or tachycardia. No stool output this morning. Objective Data Vital Signs Vital Signs: Vital Signs - 24 hr 06/19/25 12:00 06/19/25 12:00 06/19/25 12:00 Temperature 97.6 F 97.2 F L Pulse Rate 75 24 L 75 Respiratory Rate 20 20 Blood Pressure 140/70 155/76 H Pulse Oximetry 98 98 06/19/25 13:49 06/19/25 13:49 06/19/25 16:00 Temperature Pulse Rate 79 Respiratory Rate Blood Pressure 128/76 146/69 H Pulse Oximetry 06/19/25 16:00 06/19/25 16:00 06/19/25 16:43 Temperature 97.9 F Pulse Rate 72 Respiratory Rate 18 Blood Pressure 148/79 H 154/75 H 144/76 H Pulse Oximetry 99 06/19/25 20:00 06/19/25 20:00 06/19/25 20:00 Temperature 97.4 F L 97.4 F L Pulse Rate 70 70 76 Respiratory Rate 16 16 Blood Pressure 135/62 135/62 Pulse Oximetry 99 99 06/19/25 20:09 06/19/25 20:09 06/20/25 00:00 Temperature 97.7 F Pulse Rate 79 76 68 Respiratory Rate 13 Blood Pressure 139/68 142/62 H 138/60 Pulse Oximetry 100 100 99 06/20/25 00:00 06/20/25 04:00 06/20/25 04:00 Temperature 97.4 F L Pulse Rate 65 75 73 Respiratory Rate 18 Blood Pressure 152/66 H Pulse Oximetry 99 06/20/25 09:46 Temperature Pulse Rate 78 Respiratory Rate Blood Pressure Pulse Oximetry Intake/Output Intake/Output: Intake & Output 06/17/25 06/18/25 06/19/25 06/20/25 23:59 23:59 23:59 23:59 Intake Total 2470 2340 3570 0 Output Total 1375 1175 651 200 Balance 1095 1165 2919 -200 Meds/Results Medications: Active Medications Generic Name Dose Route Start Last Admin Trade Name Freq PRN Reason Stop Dose Admin Hydrocodone Bitart/Acetaminophen 1 tab 06/17/25 04:46 06/18/25 04:44 Hydrocodone/Acetaminophen (*Crx) 5-325 Mg Tablet PO 1 tab Q4H PRN Administration Pain Rated 5-7 Albuterol 2 puff 06/17/25 01:05 Albuterol Sulfate (*Sp) Aerosol 1 Puff INHALATION Q6H PRN Shortness Of Breath Or Wheezing Artificial Tears 1 drop 06/19/25 15:05 Artificial Tears Ophth Soln 15 Ml Bottle EACH EYE QID PRN Dry Eye(s) Clopidogrel Bisulfate 75 mg 06/19/25 10:22 06/20/25 09:46 Clopidogrel Bisulfate 75 Mg Tablet PO 75 mg QAM VINICIUS Administration Duloxetine HCl 20 mg 06/17/25 21:00 06/19/25 20:01 Duloxetine Hcl 20 Mg Capsule.Dr PO 20 mg HS VINICIUS Administration Sodium Chloride 1,000 mls @ 75 mls/hr 06/19/25 10:05 06/20/25 00:44 Normal Saline Iv IV CONT 75 mls/hr .[id number] VINICIUS Administration Losartan Potassium 50 mg 06/17/25 09:00 06/20/25 09:46 Losartan Potassium 50 Mg Tablet PO 50 mg DAILY VINICIUS Administration Multivitamins Therapeutic 1 tablet 06/17/25 09:00 06/20/25 09:46 Multivitamins Therapeutic Tab (*Bkc) PO 1 tablet DAILY VINICIUS Administration Nebivolol 5 mg 06/17/25 09:00 06/20/25 09:46 Nebivolol Hcl 5 Mg Tablet PO 5 mg DAILY VINICIUS Administration Pantoprazole Sodium 40 mg 06/19/25 10:00 06/20/25 09:46 Pantoprazole Sodium Iv 40 Mg Vial IV PUSH 40 mg Q12HR VINICIUS Administration Radiology Results: ITS Impressions Head CT 06/16/25 19:08 IMPRESSION: 1. No acute intracranial abnormality. As per stroke protocol, I called these results to emergency room, discussed with Dr. Manuel Sharpe MD at 06/16/2025 19:11 CDT. Chest X-Ray 06/16/25 20:00 Impression: 1: No acute cardiopulmonary disease. GI Bleed Scan Nuclear Medicine 06/17/25 14:13 IMPRESSION: 1. No scintigraphic evidence for active gastrointestinal bleeding. Labs Labs: Laboratory Results - last 24 hr 06/17/25 06/19/25 06/19/25 03:06 06:04 13:48 WBC 6.2 RBC 2.81 L Hgb 8.2 L Hct 25.7 L MCV 91.5 MCH 29.2 MCHC 31.9 L RDW 13.0 Plt Count 164 MPV 9.9 Haptoglobin 122 Francoise Transferrin Receptr 9.6 L 06/19/25 06/20/25 22:38 07:01 WBC 6.0 5.8 RBC 2.84 L 2.91 L Hgb 8.3 L 8.5 L Hct 26.2 L 26.6 L MCV 92.3 91.4 MCH 29.2 29.2 MCHC 31.7 L 32.0 RDW 13.1 13.2 Plt Count 178 166 MPV 10.4 10.3 Haptoglobin Francoise Transferrin Receptr
--- NOTE | 2025-06-20 12:26 | PM.IMPN ---
Progress Note: A&P Assessment and Plan (1) Anemia: Qualifiers: Anemia type: unspecified type Qualified Code(s): D64.9 - Anemia, unspecified Code(s): D64.9 - Anemia, unspecified Status: Chronic Assessment and Plan: -Hgb 9.7 on admission, today 8.5 -patients Hgb in April 2025 was 14.4 -GI following -hematology was consulted, recommended workup for acute reasons for blood loss -anemia panel reviewed -s/p EGD 06/18 which showed a non-bleeding benign gastric ulcer in the same location as a previous ulcer from 2022 -recommend PPI BID, start IV protonix -patient will need repeat scope as outpatient to assess healing -it was reported that patient had a large melanotic stool evening and a smaller one on Sunday morning -question if patient will need colonoscopy or capsule study -GI performed rectal exam today and suspects blood in stool is from the bleed when patient was admitted -bowel regimen ordered and patient put back on heart healthy diet -H&H Q 12 hrs -plan per GI is if patient has normal bowel movements and H&H remains stable patient can discharge home tomorrow with outpatient follow up (2) Syncope: Code(s): R55 - Syncope and collapse Status: Acute Assessment and Plan: -this could be related to his anemia -CT of the brain was negative. Patient declined MRI -orthostatic blood pressures WNL on review (3) Hematoma: Code(s): T14.8XXA - Other injury of unspecified body region, initial encounter Status: Acute Assessment and Plan: -the patient had a fall 4 days ago. -x-ray of right wrist and hand. No concern for compartment syndrome at this time. (4) Left-sided cerebrovascular accident (CVA): Code(s): I63.9 - Cerebral infarction, unspecified Status: Acute Assessment and Plan: -the patient was on aspirin and Plavix at home -CT of the brain shows nothing acute. -Neurology was consulted -discussed with Dr. Esteban and patient can stop the aspirin, but continue with Plavix (5) Essential hypertension: Code(s): I10 - Essential (primary) hypertension Status: Acute Assessment and Plan: -Continue with home losartan. Hold if map is less than 60. Hold blood pressure medication if blood pressure less than 100/60. (6) Gastric ulcer: Code(s): K25.9 - Gastric ulcer, unspecified as acute or chronic, without hemorrhage or perforation Status: Acute Assessment and Plan: -s/p EGD 06/18 which showed a non-bleeding benign gastric ulcer in the same location as a previous ulcer from 2022 -recommend PPI BID, start IV protonix -patient will need repeat scope as outpatient to assess healing -GI following -will change to PO protonix on discharge Plan Hematoma to right arm. X-ray negative for acute fracture. Subjective Date/time seen: 06/20/25 12:26 Interval history: Patient seen today for a follow up visit. Patient seen in his room, sitting in bed, in no acute distress. Patient denies acute pain. Patient reports no additional bowel movements since yesterday. Patient's hemoglobin has remained stable overnight. Patient resumed on a heart healthy diet this morning. Gastroenterology is following. Gastroenterology noted that on rectal exam today patient appeared to have old black stool and that this blood is from the recent bleed. GI is ordering a bowel regimen in an attempt to see normal bowel movements. Labs ordered to monitor H&H Q 12 hours. If patient has normal bowel movements and H&H remains stable plan will be to discharge home tomorrow with outpatient follow up. This was discussed with the nurse and the patient. Review of Systems Review of Systems: All systems reviewed & are unremarkable except as noted in HPI and below Exam Narrative: APPEARANCE: No apparent distress. Head: atraumatic. EYES: EOMI, NOSE: Atraumatic NECK: Trachea midline RESPIRATORY: No increased rate of breathing soft nontender CARDIOVASCULAR: RRR, no peripheral edema ABDOMINAL: Non-distended soft nontender no guarding rebound MUSCULOSKELETAl: No obvious deformities NEURO: Alert. Cranial nerves 2-12 grossly intact. Sensation light touch, motor function cerebellar function intact for 4 extremities. Gait exam was normal. NIH of 0 SKIN:: Warm, dry. Normal color PSYCHIATRIC: Normal affect Objective Data Vital Signs Vital Signs: Vital Signs - 24 hr 06/19/25 13:49 06/19/25 13:49 06/19/25 16:00 Temperature Pulse Rate 79 Respiratory Rate Blood Pressure 128/76 146/69 H Pulse Oximetry Oxygen Delivery 06/19/25 16:00 06/19/25 16:00 06/19/25 16:43 Temperature 97.9 F Pulse Rate 72 Respiratory Rate 18 Blood Pressure 148/79 H 154/75 H 144/76 H Pulse Oximetry 99 Oxygen Delivery 06/19/25 20:00 06/19/25 20:00 06/19/25 20:00 Temperature 97.4 F L 97.4 F L Pulse Rate 70 70 76 Respiratory Rate 16 16 Blood Pressure 135/62 135/62 Pulse Oximetry 99 99 Oxygen Delivery 06/19/25 20:09 06/19/25 20:09 06/20/25 00:00 Temperature 97.7 F Pulse Rate 79 76 68 Respiratory Rate 13 Blood Pressure 139/68 142/62 H 138/60 Pulse Oximetry 100 100 99 Oxygen Delivery 06/20/25 00:00 06/20/25 04:00 06/20/25 04:00 Temperature 97.4 F L Pulse Rate 65 75 73 Respiratory Rate 18 Blood Pressure 152/66 H Pulse Oximetry 99 Oxygen Delivery 06/20/25 08:00 06/20/25 09:46 06/20/25 10:51 Temperature 97.5 F L Pulse Rate 78 73 Respiratory Rate 18 Blood Pressure 144/66 H Pulse Oximetry 100 Oxygen Delivery Room Air 06/20/25 10:51 06/20/25 10:53 06/20/25 10:55 Temperature 97.5 F L 97.5 F L 97.9 F Pulse Rate 73 78 80 Respiratory Rate 18 18 18 Blood Pressure 144/66 H 153/69 H 136/70 Pulse Oximetry 100 100 100 Oxygen Delivery Intake/Output Intake/Output: Intake & Output 06/17/25 06/18/25 06/19/25 06/20/25 23:59 23:59 23:59 23:59 Intake Total 2470 2340 3570 0 Output Total 1375 1175 651 200 Balance 1095 1165 2919 -200 Meds/Results Medications: Active Medications Generic Name Dose Route Start Last Admin Trade Name Freq PRN Reason Stop Dose Admin Hydrocodone Bitart/Acetaminophen 1 tab 06/17/25 04:46 06/18/25 04:44 Hydrocodone/Acetaminophen (*Crx) 5-325 Mg Tablet PO 1 tab Q4H PRN Administration Pain Rated 5-7 Albuterol 2 puff 06/17/25 01:05 Albuterol Sulfate (*Sp) Aerosol 1 Puff INHALATION Q6H PRN Shortness Of Breath Or Wheezing Artificial Tears 1 drop 06/19/25 15:05 Artificial Tears Ophth Soln 15 Ml Bottle EACH EYE QID PRN Dry Eye(s) Clopidogrel Bisulfate 75 mg 06/19/25 10:22 06/20/25 09:46 Clopidogrel Bisulfate 75 Mg Tablet PO 75 mg QAM VINICIUS Administration Duloxetine HCl 20 mg 06/17/25 21:00 06/19/25 20:01 Duloxetine Hcl 20 Mg Capsule.Dr PO 20 mg HS VINICIUS Administration Losartan Potassium 50 mg 06/17/25 09:00 06/20/25 09:46 Losartan Potassium 50 Mg Tablet PO 50 mg DAILY VINICIUS Administration Multivitamins Therapeutic 1 tablet 06/17/25 09:00 06/20/25 09:46 Multivitamins Therapeutic Tab (*Bkc) PO 1 tablet DAILY VINICIUS Administration Nebivolol 5 mg 06/17/25 09:00 06/20/25 09:46 Nebivolol Hcl 5 Mg Tablet PO 5 mg DAILY VINICIUS Administration Pantoprazole Sodium 40 mg 06/19/25 10:00 06/20/25 09:46 Pantoprazole Sodium Iv 40 Mg Vial IV PUSH 40 mg Q12HR VINICIUS Administration Radiology Results: ITS Impressions Head CT 06/16/25 19:08 IMPRESSION: 1. No acute intracranial abnormality. As per stroke protocol, I called these results to emergency room, discussed with Dr. Manuel Sharpe MD at 06/16/2025 19:11 CDT. Chest X-Ray 06/16/25 20:00 Impression: 1: No acute cardiopulmonary disease. GI Bleed Scan Nuclear Medicine 06/17/25 14:13 IMPRESSION: 1. No scintigraphic evidence for active gastrointestinal bleeding. Labs Labs: Laboratory Results - last 24 hr 06/17/25 06/19/25 06/19/25 03:06 06:04 13:48 WBC 6.2 RBC 2.81 L Hgb 8.2 L Hct 25.7 L MCV 91.5 MCH 29.2 MCHC 31.9 L RDW 13.0 Plt Count 164 MPV 9.9 Haptoglobin 122 Francoise Transferrin Receptr 9.6 L 06/19/25 06/20/25 22:38 07:01 WBC 6.0 5.8 RBC 2.84 L 2.91 L Hgb 8.3 L 8.5 L Hct 26.2 L 26.6 L MCV 92.3 91.4 MCH 29.2 29.2 MCHC 31.7 L 32.0 RDW 13.1 13.2 Plt Count 178 166 MPV 10.4 10.3 Haptoglobin Francoise Transferrin Receptr Quality VTE Prophylaxis VTE prophylaxis: mechanical ordered
--- NOTE | 2025-06-20 13:25 | WPDONCPN ---
Progress Note: A&P Assessment and Plan (1) Anemia: Code(s): D64.9 - Anemia, unspecified Status: Acute Assessment and Plan: The patient stated that he experienced a mechanical fall several days ago and landed on his right arm and noted a large hematoma to the right forearm wrist and hand. He is on aspirin and plavix. He stated that he has some mild weakness from his previous stroke many years ago. The patient stated that he has no new symptoms of a stroke. The patient denies hitting his head. The patient stated that he has been feeling weak for several days. He stated that he did have some anemia in the past but it was many years ago. He denies seeing any blood in his stool. In the ER he was noted to have hemoglobin of 9.7g/dL and drastic drop from 14.2g/dL on 04/14/25. Patient has hx of acute anemia with hemoglobin 6.5 g/dL on 02/17/2019 and then 8.3 g/dL on 11/24/22. Patient is hemoccult positive. GI performed EGD on 06/18/25 which showed small non bleeding ulcer at previous surgical site (Esmer fundoplication surgery). Patient had another large melenic BM 06/19/25 afternoon. That was his 3rd melena episode during this stay. He had one on 06/18/25 evening after the EGD and another similar BM at time of admission. Bleeding scan was negative. GI has seen the patient today, 06/20/25, and rectal exam revealed firm, black (melanotic) stool. Building Equipment Inspector believt this is likely residual from an earlier gastrointestinal bleed rather than active hemorrhage. This is supported by his stable hemoglobin levels, which have remained consistent at 8.3 yesterday and 8.5 today. GI recommendations are to observe the patient for the next 24 hours while he consumes a heart-healthy diet. A final hematocrit will be checked tomorrow morning (06/20/25). Per GI patient can be safely discharged home if his hemoglobin remains stable and his stools return to a normal color. Hematology will continue to follow. Subjective Date/time seen: 06/20/25 13:25 Interval history: Patient seen today for a follow up visit. Patient seen in his room, sitting in bed, in no acute distress. Patient denies acute pain. Review of Systems Review of Systems States that he had another large melenic BM yesterday 06/19/25 afternoon and no BM since then. That was his 3rd melena episode. He had one on 06/18/25 evening after the EGD and another similar BM at time of admission. Denies headaches, trauma to head. Denies f/c, night sweats or weight loss. Denies chest pain but has dyspnea on exertion. Denies hematochezia. There is no hematuria. Rest of 12 point ROS negative Exam Narrative: APPEARANCE: No apparent distress. HEENT: atraumatic, EOMI, no scleral icterus RESPIRATORY: No increased rate of breathing soft nontender CARDIOVASCULAR: RRR, no peripheral edema ABDOMINAL: Non-distended soft nontender no guarding rebound MUSCULOSKELETAl: No obvious deformities NEURO: Alert. No focal deficits. SKIN:: Warm, dry. Normal color PSYCHIATRIC: Normal affect Right upper extremity with large hematoma involving whole forearm and wrist Objective Data Vital Signs Vital Signs: Vital Signs - 24 hr 06/19/25 13:49 06/19/25 13:49 06/19/25 16:00 Temperature Pulse Rate 79 Respiratory Rate Blood Pressure 128/76 146/69 H Pulse Oximetry Oxygen Delivery 06/19/25 16:00 06/19/25 16:00 06/19/25 16:43 Temperature 36.6 C Pulse Rate 72 Respiratory Rate 18 Blood Pressure 148/79 H 154/75 H 144/76 H Pulse Oximetry 99 Oxygen Delivery 06/19/25 20:00 06/19/25 20:00 06/19/25 20:00 Temperature 36.3 C L 36.3 C L Pulse Rate 70 70 76 Respiratory Rate 16 16 Blood Pressure 135/62 135/62 Pulse Oximetry 99 99 Oxygen Delivery 06/19/25 20:09 06/19/25 20:09 06/20/25 00:00 Temperature 36.5 C Pulse Rate 79 76 68 Respiratory Rate 13 Blood Pressure 139/68 142/62 H 138/60 Pulse Oximetry 100 100 99 Oxygen Delivery 06/20/25 00:00 06/20/25 04:00 06/20/25 04:00 Temperature 36.3 C L Pulse Rate 65 75 73 Respiratory Rate 18 Blood Pressure 152/66 H Pulse Oximetry 99 Oxygen Delivery 06/20/25 08:00 06/20/25 09:46 06/20/25 10:51 Temperature 36.4 C L Pulse Rate 78 73 Respiratory Rate 18 Blood Pressure 144/66 H Pulse Oximetry 100 Oxygen Delivery Room Air 06/20/25 10:51 06/20/25 10:53 06/20/25 10:55 Temperature 36.4 C L 36.4 C L 36.6 C Pulse Rate 73 78 80 Respiratory Rate 18 18 18 Blood Pressure 144/66 H 153/69 H 136/70 Pulse Oximetry 100 100 100 Oxygen Delivery Intake/Output Intake/Output: Intake & Output 06/17/25 06/18/25 06/19/25 06/20/25 23:59 23:59 23:59 23:59 Intake Total 2470 2340 3570 240 Output Total 1375 1175 651 200 Balance 1095 1165 2919 40 Meds/Results Medications: Active Medications Generic Name Dose Route Start Last Admin Trade Name Freq PRN Reason Stop Dose Admin Hydrocodone Bitart/Acetaminophen 1 tab 06/17/25 04:46 06/18/25 04:44 Hydrocodone/Acetaminophen (*Crx) 5-325 Mg Tablet PO 1 tab Q4H PRN Administration Pain Rated 5-7 Albuterol 2 puff 06/17/25 01:05 Albuterol Sulfate (*Sp) Aerosol 1 Puff INHALATION Q6H PRN Shortness Of Breath Or Wheezing Artificial Tears 1 drop 06/19/25 15:05 Artificial Tears Ophth Soln 15 Ml Bottle EACH EYE QID PRN Dry Eye(s) Clopidogrel Bisulfate 75 mg 06/19/25 10:22 06/20/25 09:46 Clopidogrel Bisulfate 75 Mg Tablet PO 75 mg QAM VINICIUS Administration Duloxetine HCl 20 mg 06/17/25 21:00 06/19/25 20:01 Duloxetine Hcl 20 Mg Capsule.Dr PO 20 mg HS VINICIUS Administration Losartan Potassium 50 mg 06/17/25 09:00 06/20/25 09:46 Losartan Potassium 50 Mg Tablet PO 50 mg DAILY VINIICUS Administration Multivitamins Therapeutic 1 tablet 06/17/25 09:00 06/20/25 09:46 Multivitamins Therapeutic Tab (*Bkc) PO 1 tablet DAILY VINICIUS Administration Nebivolol 5 mg 06/17/25 09:00 06/20/25 09:46 Nebivolol Hcl 5 Mg Tablet PO 5 mg DAILY VINICIUS Administration Pantoprazole Sodium 40 mg 06/19/25 10:00 06/20/25 09:46 Pantoprazole Sodium Iv 40 Mg Vial IV PUSH 40 mg Q12HR VINICIUS Administration Radiology Results: ITS Impressions Head CT 06/16/25 19:08 IMPRESSION: 1. No acute intracranial abnormality. As per stroke protocol, I called these results to emergency room, discussed with Dr. Manuel Sharpe MD at 06/16/2025 19:11 CDT. Chest X-Ray 06/16/25 20:00 Impression: 1: No acute cardiopulmonary disease. GI Bleed Scan Nuclear Medicine 06/17/25 14:13 IMPRESSION: 1. No scintigraphic evidence for active gastrointestinal bleeding. Labs Labs: Laboratory Results - last 24 hr 06/17/25 06/19/25 06/19/25 03:06 06:04 13:48 WBC 6.2 RBC 2.81 L Hgb 8.2 L Hct 25.7 L MCV 91.5 MCH 29.2 MCHC 31.9 L RDW 13.0 Plt Count 164 MPV 9.9 Haptoglobin 122 Francoise Transferrin Receptr 9.6 L 06/19/25 06/20/25 22:38 07:01 WBC 6.0 5.8 RBC 2.84 L 2.91 L Hgb 8.3 L 8.5 L Hct 26.2 L 26.6 L MCV 92.3 91.4 MCH 29.2 29.2 MCHC 31.7 L 32.0 RDW 13.1 13.2 Plt Count 178 166 MPV 10.4 10.3 Haptoglobin Francoise Transferrin Receptr
[2025-06-20 18:22] LABS: Hematocrit 28.3 % (42.0-52.0); Hemoglobin 9.0 g/dL (14.0-18.0)
[2025-06-21] VITALS: BP 161/62; PULSE 72; PULSE 83; RESP 18; TEMP 36.6; O2SAT 100
[2025-06-21 04:00] VITALS: BP 148/71; PULSE 77; PULSE 81; RESP 18; TEMP 36.2; O2SAT 97
[2025-06-21 06:10] LABS: Hematocrit 27.6 % (42.0-52.0); Hemoglobin 8.8 g/dL (14.0-18.0)
[2025-06-21 08:00] VITALS: PULSE 87
[2025-06-21 08:39] VITALS: PULSE 84
[2025-06-21] MEDS: LOSARTAN POTASSIUM 50 MG TABLET PO (08:39)
[2025-06-21] MEDS: NEBIVOLOL HCL 5 MG TABLET PO (08:39)
[2025-06-21] MEDS: CLOPIDOGREL BISULFATE 75 MG TABLET PO (08:39)
[2025-06-21] MEDS: PANTOPRAZOLE SODIUM IV 40 MG VIAL IV PUSH (08:39)
[2025-06-21] MEDS: MULTIVITAMINS THERAPEUTIC TAB (*BKC) 1 TABLET PO (08:40)
--- NOTE | 2025-06-21 09:35 | WPDGIPROGNO ---
Progress Note: A&P Assessment and Plan (1) Gastric ulcer: Onset Date: 11/2022 Code(s): K25.9 - Gastric ulcer, unspecified as acute or chronic, without hemorrhage or perforation Status: Acute Assessment and Plan: Patient is hemodynamically stable, his hemoglobin today is 8.8, yesterday's was 8.5. Since the patient is not bleeding, he can be safely discharged home on a daily dose of pantoprazole 40 mg once a day, on an empty stomach. I will schedule an EGD in 3 months to document ulcer healing. Subjective Date/time seen: 06/21/25 09:35 Interval history: The patient had a normal, brown bowel movement yesterday. Objective Data Vital Signs Vital Signs: Vital Signs - 24 hr 06/20/25 09:46 06/20/25 10:51 06/20/25 10:51 Temperature 97.5 F L 97.5 F L Pulse Rate 78 73 73 Respiratory Rate 18 18 Blood Pressure 144/66 H 144/66 H Pulse Oximetry 100 100 Oxygen Delivery 06/20/25 10:53 06/20/25 10:55 06/20/25 12:00 Temperature 97.5 F L 97.9 F Pulse Rate 78 80 75 Respiratory Rate 18 18 Blood Pressure 153/69 H 136/70 Pulse Oximetry 100 100 Oxygen Delivery 06/20/25 15:36 06/20/25 16:00 06/20/25 20:00 Temperature 97.8 F 97.0 F L Pulse Rate 73 79 91 Respiratory Rate 18 18 Blood Pressure 139/60 145/63 H Pulse Oximetry 98 96 Oxygen Delivery 06/20/25 20:00 06/20/25 20:00 06/20/25 20:04 Temperature 97.0 F L 97.0 F L Pulse Rate 91 80 91 Respiratory Rate 18 18 Blood Pressure 145/63 H 151/63 H Pulse Oximetry 96 100 Oxygen Delivery 06/20/25 20:04 06/20/25 22:45 06/21/25 00:00 Temperature 97.0 F L 97.8 F Pulse Rate 82 83 Respiratory Rate 18 18 Blood Pressure 141/66 H 161/62 H Pulse Oximetry 97 98 100 Oxygen Delivery Room Air 06/21/25 00:00 06/21/25 04:00 06/21/25 04:00 Temperature 97.2 F L Pulse Rate 72 81 77 Respiratory Rate 18 Blood Pressure 148/71 H Pulse Oximetry 97 Oxygen Delivery 06/21/25 08:39 Temperature Pulse Rate 84 Respiratory Rate Blood Pressure Pulse Oximetry Oxygen Delivery Intake/Output Intake/Output: Intake & Output 06/18/25 06/19/25 06/20/25 06/21/25 23:59 23:59 23:59 23:59 Intake Total 2340 3570 480 Output Total 1175 651 200 Balance 1165 2919 280 Meds/Results Medications: Active Medications Generic Name Dose Route Start Last Admin Trade Name Freq PRN Reason Stop Dose Admin Hydrocodone Bitart/Acetaminophen 1 tab 06/17/25 04:46 06/18/25 04:44 Hydrocodone/Acetaminophen (*Crx) 5-325 Mg Tablet PO 1 tab Q4H PRN Administration Pain Rated 5-7 Albuterol 2 puff 06/17/25 01:05 Albuterol Sulfate (*Sp) Aerosol 1 Puff INHALATION Q6H PRN Shortness Of Breath Or Wheezing Artificial Tears 1 drop 06/19/25 15:05 Artificial Tears Ophth Soln 15 Ml Bottle EACH EYE QID PRN Dry Eye(s) Clopidogrel Bisulfate 75 mg 06/19/25 10:22 06/21/25 08:39 Clopidogrel Bisulfate 75 Mg Tablet PO 75 mg QAM VINICIUS Administration Duloxetine HCl 20 mg 06/17/25 21:00 06/20/25 20:19 Duloxetine Hcl 20 Mg Capsule.Dr PO 20 mg HS VINICIUS Administration Losartan Potassium 50 mg 06/17/25 09:00 06/21/25 08:39 Losartan Potassium 50 Mg Tablet PO 50 mg DAILY VINICIUS Administration Multivitamins Therapeutic 1 tablet 06/17/25 09:00 06/21/25 08:40 Multivitamins Therapeutic Tab (*Bkc) PO 1 tablet DAILY VINICIUS Administration Nebivolol 5 mg 06/17/25 09:00 06/21/25 08:39 Nebivolol Hcl 5 Mg Tablet PO 5 mg DAILY VINICIUS Administration Pantoprazole Sodium 40 mg 06/19/25 10:00 06/21/25 08:39 Pantoprazole Sodium Iv 40 Mg Vial IV PUSH 40 mg Q12HR VINICIUS Administration Radiology Results: ITS Impressions Head CT 06/16/25 19:08 IMPRESSION: 1. No acute intracranial abnormality. As per stroke protocol, I called these results to emergency room, discussed with Dr. Manuel Sharpe MD at 06/16/2025 19:11 CDT. Chest X-Ray 06/16/25 20:00 Impression: 1: No acute cardiopulmonary disease. GI Bleed Scan Nuclear Medicine 06/17/25 14:13 IMPRESSION: 1. No scintigraphic evidence for active gastrointestinal bleeding. Labs Labs: Laboratory Results - last 24 hr 06/20/25 06/21/25 18:16 05:45 Hgb 9.0 L 8.8 L Hct 28.3 L 27.6 L
--- NOTE | 2025-06-21 11:10 | WPDONCPN ---
Progress Note: A&P Assessment and Plan (1) Anemia: Code(s): D64.9 - Anemia, unspecified Status: Acute Assessment and Plan: The patient stated that he experienced a mechanical fall several days ago and landed on his right arm and noted a large hematoma to the right forearm wrist and hand. He is on aspirin and plavix. He stated that he has some mild weakness from his previous stroke many years ago. The patient stated that he has no new symptoms of a stroke. The patient denies hitting his head. The patient stated that he has been feeling weak for several days. He stated that he did have some anemia in the past but it was many years ago. He denies seeing any blood in his stool. In the ER he was noted to have hemoglobin of 9.7g/dL and drastic drop from 14.2g/dL on 04/14/25. Patient has hx of acute anemia with hemoglobin 6.5 g/dL on 02/17/2019 and then 8.3 g/dL on 11/24/22. Patient is hemoccult positive. GI performed EGD on 06/18/25 which showed small non bleeding ulcer at previous surgical site (Esmer fundoplication surgery). Normal BM yesterday, 06/20/25. He had total of three melenic this admission. Bleeding scan was negative. GI has seen the patient today, 06/21/25, and hemoglobin is stable at 8.8g/dL today. He will be discharged today with protonix to take as outpatient. He will follow up with GI as outpatient. Subjective Date/time seen: 06/21/25 11:10 Interval history: The patient had a normal BM yesterday. No more melena. He is to be discharged today. Review of Systems Review of Systems States he had normal BM yesterday. three episodes of melena this admission but now resolved. Denies headaches, trauma to head. Denies f/c, night sweats or weight loss. Denies chest pain but has dyspnea on exertion. Denies hematochezia. There is no hematuria. Rest of 12 point ROS negative Exam Narrative: APPEARANCE: No apparent distress. HEENT: atraumatic, EOMI, no scleral icterus RESPIRATORY: No increased rate of breathing soft nontender CARDIOVASCULAR: RRR, no peripheral edema ABDOMINAL: Non-distended soft nontender no guarding rebound MUSCULOSKELETAl: No obvious deformities NEURO: Alert. No focal deficits. SKIN:: Warm, dry. Normal color PSYCHIATRIC: Normal affect Right upper extremity with large hematoma involving whole forearm and wrist Objective Data Vital Signs Vital Signs: Vital Signs - 24 hr 06/20/25 12:00 06/20/25 15:36 06/20/25 16:00 Temperature 36.6 C Pulse Rate 75 73 79 Respiratory Rate 18 Blood Pressure 139/60 Pulse Oximetry 98 Oxygen Delivery 06/20/25 20:00 06/20/25 20:00 06/20/25 20:00 Temperature 36.1 C L 36.1 C L Pulse Rate 91 91 80 Respiratory Rate 18 18 Blood Pressure 145/63 H 145/63 H Pulse Oximetry 96 96 Oxygen Delivery 06/20/25 20:04 06/20/25 20:04 06/20/25 22:45 Temperature 36.1 C L 36.1 C L Pulse Rate 91 82 Respiratory Rate 18 18 Blood Pressure 151/63 H 141/66 H Pulse Oximetry 100 97 98 Oxygen Delivery Room Air 06/21/25 00:00 06/21/25 00:00 06/21/25 04:00 Temperature 36.6 C Pulse Rate 83 72 81 Respiratory Rate 18 Blood Pressure 161/62 H Pulse Oximetry 100 Oxygen Delivery 06/21/25 04:00 06/21/25 08:00 06/21/25 08:00 Temperature 36.2 C L Pulse Rate 77 87 Respiratory Rate 18 Blood Pressure 148/71 H Pulse Oximetry 97 Oxygen Delivery Room Air 06/21/25 08:39 Temperature Pulse Rate 84 Respiratory Rate Blood Pressure Pulse Oximetry Oxygen Delivery Intake/Output Intake/Output: Intake & Output 06/18/25 06/19/25 06/20/25 06/21/25 23:59 23:59 23:59 23:59 Intake Total 2340 3570 480 240 Output Total 1175 651 200 Balance 1165 2839 280 240 Meds/Results Medications: Active Medications Generic Name Dose Route Start Last Admin Trade Name Freq PRN Reason Stop Dose Admin Hydrocodone Bitart/Acetaminophen 1 tab 06/17/25 04:46 06/18/25 04:44 Hydrocodone/Acetaminophen (*Crx) 5-325 Mg Tablet PO 1 tab Q4H PRN Administration Pain Rated 5-7 Albuterol 2 puff 06/17/25 01:05 Albuterol Sulfate (*Sp) Aerosol 1 Puff INHALATION Q6H PRN Shortness Of Breath Or Wheezing Artificial Tears 1 drop 06/19/25 15:05 Artificial Tears Ophth Soln 15 Ml Bottle EACH EYE QID PRN Dry Eye(s) Clopidogrel Bisulfate 75 mg 06/19/25 10:22 06/21/25 08:39 Clopidogrel Bisulfate 75 Mg Tablet PO 75 mg QAM VINICIUS Administration Duloxetine HCl 20 mg 06/17/25 21:00 06/20/25 20:19 Duloxetine Hcl 20 Mg Capsule.Dr PO 20 mg HS VINICIUS Administration Losartan Potassium 50 mg 06/17/25 09:00 06/21/25 08:39 Losartan Potassium 50 Mg Tablet PO 50 mg DAILY VINICIUS Administration Multivitamins Therapeutic 1 tablet 06/17/25 09:00 06/21/25 08:40 Multivitamins Therapeutic Tab (*Bkc) PO 1 tablet DAILY VINICIUS Administration Nebivolol 5 mg 06/17/25 09:00 06/21/25 08:39 Nebivolol Hcl 5 Mg Tablet PO 5 mg DAILY VINICIUS Administration Pantoprazole Sodium 40 mg 06/19/25 10:00 06/21/25 08:39 Pantoprazole Sodium Iv 40 Mg Vial IV PUSH 40 mg Q12HR VINICIUS Administration Radiology Results: ITS Impressions Head CT 06/16/25 19:08 IMPRESSION: 1. No acute intracranial abnormality. As per stroke protocol, I called these results to emergency room, discussed with Dr. Manuel Sharpe MD at 06/16/2025 19:11 CDT. Chest X-Ray 06/16/25 20:00 Impression: 1: No acute cardiopulmonary disease. GI Bleed Scan Nuclear Medicine 06/17/25 14:13 IMPRESSION: 1. No scintigraphic evidence for active gastrointestinal bleeding. Labs Labs: Laboratory Results - last 24 hr 06/20/25 06/21/25 18:16 05:45 Hgb 9.0 L 8.8 L Hct 28.3 L 27.6 L
--- NOTE | 2025-06-21 11:41 | P.DS_ITS ---
DS: Admitting Diagnosis Discharge Date 06/21/2025 Admitting Diagnosis anemia DS: Discharge Diagnosis Discharge Diagnosis (1) Anemia: Qualifiers: Anemia type: unspecified type Qualified Code(s): D64.9 - Anemia, unspecified Code(s): D64.9 - Anemia, unspecified Status: Chronic Assessment and Plan: -Hgb 9.7 on admission, today 8.5 -patients Hgb in April 2025 was 14.4 -GI following -hematology was consulted, recommended workup for acute reasons for blood loss -anemia panel reviewed -s/p EGD 06/18 which showed a non-bleeding benign gastric ulcer in the same location as a previous ulcer from 2022 -recommend PPI BID, start IV protonix -patient will need repeat scope as outpatient to assess healing -it was reported that patient had a large melanotic stool evening and a smaller one on Sunday morning -question if patient will need colonoscopy or capsule study -GI performed rectal exam today and suspects blood in stool is from the bleed when patient was admitted -bowel regimen ordered and patient put back on heart healthy diet -H&H Q 12 hrs -plan per GI is if patient has normal bowel movements and H&H remains stable patient can discharge home tomorrow with outpatient follow up (2) Syncope: Code(s): R55 - Syncope and collapse Status: Acute Assessment and Plan: -this could be related to his anemia -CT of the brain was negative. Patient declined MRI -orthostatic blood pressures WNL on review (3) Hematoma: Code(s): T14.8XXA - Other injury of unspecified body region, initial encounter Status: Acute Assessment and Plan: -the patient had a fall 4 days ago. -x-ray of right wrist and hand. No concern for compartment syndrome at this time. (4) Left-sided cerebrovascular accident (CVA): Code(s): I63.9 - Cerebral infarction, unspecified Status: Acute Assessment and Plan: -the patient was on aspirin and Plavix at home -CT of the brain shows nothing acute. -Neurology was consulted -discussed with Dr. Esteban and patient can stop the aspirin, but continue with Plavix (5) Essential hypertension: Code(s): I10 - Essential (primary) hypertension Status: Acute Assessment and Plan: -Continue with home losartan. Hold if map is less than 60. Hold blood pressure medication if blood pressure less than 100/60. (6) Gastric ulcer: Code(s): K25.9 - Gastric ulcer, unspecified as acute or chronic, without hemorrhage or perforation Status: Acute Assessment and Plan: -s/p EGD 06/18 which showed a non-bleeding benign gastric ulcer in the same location as a previous ulcer from 2022 -recommend PPI BID, start IV protonix -patient will need repeat scope as outpatient to assess healing -GI following -will change to PO protonix on discharge Plan Hematoma to right arm. X-ray negative for acute fracture. DS: Summary Hospital Course Reason for hospitalization: anemia Hospital Course: Patient was admitted due to anemia. Patient's Hemoglobin in April 2025 was 14.4 and on admission was 8.5. Hematology and GI we consulted. Patient's stool was positive for occult blood. Patient underwent an EGD by Gastroenterology which showed a non-bleeding benign gastric ulcer in the same location as a previous ulcer from 2022. Patient was treated with IV PPI. Patient had a large melanotic stool and patient was monitored for further bleeding. Patient's hemoglobin remained stable and patient was able to tolerate a heart healthy diet and had a normal bowel movement. GI recommended for patient to stop aspirin and Neurology was consulted due to patient's recent stroke in 03/2025. Neurology saw patient and agreed patient could stop aspirin and continue only Plavix. Patient had anemia studies and iron replacement not indicated. Patient will need to follow up with GI in 3 months for an EGD to assess healing. Patient needs to follow up with PCP after discharge. Patient was evaluated by PT/OT. Patient was discharged home with his . Time Spent with Patient Time attestation: Total time spent providing and/or coordinating discharge services: 35 Minutes Exam Narrative: APPEARANCE: No apparent distress. Head: atraumatic. EYES: EOMI, NOSE: Atraumatic NECK: Trachea midline RESPIRATORY: No increased rate of breathing soft nontender CARDIOVASCULAR: RRR, no peripheral edema ABDOMINAL: Non-distended soft nontender no guarding rebound MUSCULOSKELETAl: No obvious deformities NEURO: Alert. Cranial nerves 2-12 grossly intact. Sensation light touch, motor function cerebellar function intact for 4 extremities. Gait exam was normal. NIH of 0 SKIN:: Warm, dry. Normal color PSYCHIATRIC: Normal affect DS: Data Data Completed and Pending Completed studies during hospitalization: Pending at discharge 06/18/25 11:02 Surgical [PTH] Routine Labs on day of discharge: Labs from last 24 hours 06/21/25 06/20/25 05:45 18:16 Hgb 8.8 L 9.0 L Hct 27.6 L 28.3 L Discharge Plan Discharge Attending physician on discharge: Dale Fagan Consulting providers: Norma Kahn; Teresa Couch; Hair Gutierrez; Corie Diaz Discharging Clinician: Corie Diaz Patient Disposition: Home Activity: as tolerated Diet: heart healthy Patient Instructions: Antibiotic Form Patient Language: Divehi Stand Alone Forms: General Discharge Information Follow-up/Referrals: Carlos Clayton MD [Primary Care Provider, Family Practice] Referral Note: call for an appointment to be seen within 1-2 weeks of discharge. Herberth Ortez MD [Physician, Gastroenterology] Referral Note: his office should schedule an outpatient EGD in 3 months, call for date and time Discharge Medications: New pantoprazole [Protonix] 40 mg tablet,delayed release (DR/EC) 40 mg PO QAM 90 Days Qty: 90 0RF Continued losartan 50 mg tablet 50 mg PO DAILY Qty: 30 5RF duloxetine 20 mg capsule,delayed release(DR/EC) 20 mg PO DAILY Qty: 30 3RF multivitamin [Daily Value] Tablet 1 tablet PO DAILY nebivolol [Bystolic] 5 mg tablet 5 mg PO DAILY Qty: 30 5RF clopidogrel 75 mg tablet 75 mg PO QAM 30 Days Qty: 90 0RF albuterol sulfate 90 mcg/actuation HFA aerosol inhaler See Rx Instructions .ROUTE .COMPLEX Qty: 8.5 2RF Dose Instruction: INHALE 1-2 PUFFS BY MOUTH EVERY 6 HOURS NEEDED FOR SHORTNESS OF BREATH OR WHEEZING Rx Instructions: INHALE 1-2 PUFFS BY MOUTH EVERY 6 HOURS NEEDED FOR SHORTNESS OF BREATH OR WHEEZING Discontinued aspirin [Children's Aspirin] 81 mg Tablet,Chewable 81 mg PO DAILY@0800 30 Days Qty: 30 0RF Date of admission: 06/16/25 20:49 Primary Care Provider: Carlos Clayton Admitting Provider: Dale Fagan Attending physician on admission: Dale Fagan Condition: Stable Quality VTE Prophylaxis VTE prophylaxis: mechanical ordered
== END 2025-06-21 13:00 | disposition home or self-care (01) | DRG 381 ==
LOC: ANHED 20:54 → ANH3MEDSUR 21:34
PROVIDERS: Internal Medicine; Internal Medicine Gastroenterology; Nurse Practitioner; Admitting Provider Internal Medicine; Emergency Provider Emergency Medicine; PCP Family Medicine; Visit Provider Nurse Practitioner Adult Health
PROC: 0DJ08ZZ Inspection of Upper Intestinal Tract, Via Natural or Artificial Opening Endoscopic (ICD-10-PCS; principal; 2025-06-18 10:30)
DX: K22.11 Ulcer of esophagus with bleeding (principal); D62 Acute posthemorrhagic anemia; K25.7 Chronic gastric ulcer without hemorrhage or perforation; E11.42 Type 2 diabetes mellitus with diabetic polyneuropathy; S50.11XA Contusion of right forearm, initial encounter; R55 Syncope and collapse; W01.0XXA Fall on same level from slipping, tripping and stumbling without subsequent striking against object, initial encounter; E78.5 Hyperlipidemia, unspecified; E11.65 Type 2 diabetes mellitus with hyperglycemia; I25.10 Atherosclerotic heart disease of native coronary artery without angina pectoris; I11.0 Hypertensive heart disease with heart failure; I50.9 Heart failure, unspecified; Z96.652 Presence of left artificial knee joint; Z96.612 Presence of left artificial shoulder joint; I69.331 Monoplegia of upper limb following cerebral infarction affecting right dominant side; Z95.1 Presence of aortocoronary bypass graft; Z79.82 Long term (current) use of aspirin; Z79.02 Long term (current) use of antithrombotics/antiplatelets; I69.392 Facial weakness following cerebral infarction
CPT/HCPCS: 36415; 70450; 71045; 73090; 73110; 78278; 80048; 80053; 81003; 82247; 82248; 82274; 82607; 82728; 82746; 82948; 83010; 83540; 83550; 83605; 83615; 83690; 83735; 84100; 84238; 84443; 84466; 84484; 85014; 85018; 85025; 85027; 85046; 85610; 85730; 86850; 86880; 86900; 86901; 87637; 88305; 93005; 96361; 96374; 99285; A9270; A9560; J2003; J2470; J2704; J7030; J7120

== ENCOUNTER 2025-08-11 13:24 | Outpatient (CLI) | payer MEDICARE, SELFPAY ==
--- NOTE | 2025-08-11 13:42 | ECHO_ITS ---
Patient Info Name: Harjit Jones Age: 84 years : 1940 Gender: Male Ht: 72 in Wt: 193 lbs BSA: 2.12 m2 HR: 74 bpm BP: 150 / 89 mmHg Heart Rhythm: Sinus Rhythm Technical Quality: Good Exam Date: 08/11/2025 1:55 PM Patient Status: O Admit Date: 08/11/2025 Exam Type: CA echo dop color flow w con Complete two-dimensional, color flow and Doppler transthoracic echocardiogram is performed with contrast to opacify the left ventricle and to improve the deliniation of the left ventricle endocardial borders. Operations Lead: Jelly Muse Attending Provider: Willie Green DO Contrast/Agitated Saline Contrast/Ag. Saline: Definity Amount: 2.00 ml Administered By: Jelly Muse New IV Access: Left Site Condition: IV removed Summary 1. Definity contrast administered improved wall motion interpretation. 2. Left ventricular chamber dimension is moderately enlarged. 3. Left ventricular systolic function is normal, estimated at 55-60. 4. There is mild concentric increased left ventricular wall thickness. 5. The left ventricular diastolic function is grade I diastolic dysfunction. 6. E/e' 7 is not elevated. 7. Left atrial chamber dimension is moderately enlarged. 8. Right atrial chamber dimension is mildly enlarged. 9. There is mild aortic valve sclerosis. 10. There is trace aortic valve regurgitation. 11. The mitral valve has a mildly calcified annulus. 12. There is trace mitral valve regurgitation. 13. No pulmonary hypertension, estimated pulmonary arterial systolic pressure is 20 mmHg. 14. There is trace pulmonic regurgitation. 15. The prox ascending aorta size is borderline dilated at 4.1 cm. Left Ventricle Definity contrast administered improved wall motion interpretation. Left ventricular chamber dimension is moderately enlarged. Left ventricular systolic function is normal, estimated at 55-60. There is mild concentric increased left ventricular wall thickness. The left ventricular diastolic function is grade I diastolic dysfunction. E/e' 7 is not elevated. Right Ventricle Right ventricular chamber dimension is normal. Right ventricular systolic function is normal and with normal TAPSE 2.0 cm. Left Atria Left atrial chamber dimension is moderately enlarged. Right Atria Right atrial chamber dimension is mildly enlarged. Aortic Valve The aortic valve is trileaflet. There is mild aortic valve sclerosis. There is no aortic valve stenosis. There is trace aortic valve regurgitation. Pulmonic Valve There is trace pulmonic regurgitation. Mitral Valve The mitral valve has a mildly calcified annulus. There is no mitral valve stenosis. There is trace mitral valve regurgitation. Tricuspid Valve There is no tricuspid valve regurgitation. No pulmonary hypertension, estimated pulmonary arterial systolic pressure is 20 mmHg. Pericardium/Pleural There is no pericardial effusion. Inferior Vena Cava Normal inferior vena cava with >50% collapse upon inspiration consistent with normal right atrial pressure, 5 mmHg. Aorta The aortic root size at the sinus of Valsalva is normal. The prox ascending aorta size is borderline dilated at 4.1 cm. Left Ventricular Outflow Tract Name Value Normal LVOT 2D LVOT Diameter 2.2 cm LVOT Doppler LVOT Peak Velocity 65 cm/s LVOT Peak Gradient 2 mmHg LVOT Mean Gradient 1 mmHg LVOT VTI 14 cm LVOT VTI/AV VTI Ratio 0.6 LVOT Stroke Volume 54 ml LVOT CO 3.6 l/min LVOT CI 1.7 l/min/m2 Pulmonic Valve Name Value Normal RVOT Doppler RVOT Peak Velocity 67 cm/s RVOT Peak Gradient 2 mmHg PV Doppler PV Peak Velocity 83 cm/s PV Peak Gradient 3 mmHg Mitral Valve Name Value Normal MV Diastolic Function MV E Peak Velocity 59 cm/s MV A Peak Velocity 99 cm/s MV E/A 0.6 MV Decel Time (PW) 159 ms MV Annular TDI MV E/e' (Septal) 8.5 MV E/e' (Lateral) 6.6 MV E/e' (Average) 7.5 Tricuspid Valve Name Value Normal TV Regurgitation Doppler TR Peak Velocity 196 cm/s TR Peak Gradient 12 mmHg Estimated PAP/RSVP RA Pressure 5 mmHg <=5 PA Systolic Pressure 20 mmHg <36 RV Systolic Pressure 20 mmHg <36 TV Annular TDI TV Lateral Jael s' Velocity 11.8 cm/s >=9.5 Aorta Name Value Normal Ascending Aorta Ao Root Diameter (MM) 3.8 cm Ao Root Diam Index (MM) 1.8 cm/m2 Aortic Valve Name Value Normal AV Doppler AV Peak Velocity 127 cm/s AV Peak Gradient 6 mmHg AV Mean Gradient 3 mmHg AV VTI 25 cm AV Area (Cont Eq VTI) 2.1 cm2 >=3.0 AV Area (Cont Eq Uli) 2.0 cm2 AV DI (Uli) 0.51 AV Regurgitation 2D LVOT Area 3.8 cm2 Ventricles Name Value Normal LV Dimensions 2D/MM IVS Diastolic Thickness (2D) 1.2 cm 0.6-1.0 LVID Diastole (2D) 5.5 cm 4.2-5.8 LVIW Diastolic Thickness (2D) 1.2 cm 0.6-1.0 LVID Systole (2D) 3.9 cm 2.5-4.0 LVOT Diameter 2.2 cm LV Mass (2D Cubed) 266.39 g 88.00-224.00 LV Mass Index (2D Cubed) 126 g/m2 49-115 Relative Wall Thickness (2D) 0.43 <=0.42 LV Fractional Shortening/Ejection Fraction 2D/MM LV Fractional Shortening (2D) 30 % 25-43 LV EF (2D Teichholz) 57 % LV Diastolic Volume (4C MOD) 184 ml LV EF (4C MOD) 59 % LV Diastolic Volume (2C MOD) 153 ml LV EF (2C MOD) 57 % LV Diastolic Volume (BP MOD) 169 ml 62-150 LV Diastolic Volume Index (BP MOD) 80 ml/m2 34-74 LV Systolic Volume (BP MOD) 71 ml 21-61 LV Systolic Volume Index (BP MOD) 33 ml/m2 11-31 LV EF (BP MOD) 58 % 52-72 LV Diastolic Length (4C) 9.0 cm LV Systolic Length (4C) 7.7 cm LV Stroke Volume (4C MOD) 109 ml Atria Name Value Normal LA Dimensions LA Dimension (MM) 5.6 cm 3.0-4.0 LA Volume (4C A-L) 126 ml LA Volume (BP A-L) 126 ml RA Dimensions RA Area (4C) 26.2 cm2 <=18.0 Report Signatures
[2025-08-11] MEDS: PERFLUTREN LIPID MICROSPHERES 1.5 ML VIAL DILUTED TO 10 ML TOTAL VOLUME IV PUSH (14:30)
--- OUTSIDE RECORDS SUMMARY | 2025-08-11 15:21 | XMS_ITS | Clinical Summary ---
Author Organization [facility] [address] Address [address] [place] [address] Care Team Providers Care Training And Documentation Specialist Name Role Phone Carlos Clayton MD Primary Care Provider [phone] Flex Aguillon MD Unavailable [phone] Stephane Alvarez MD Unavailable [phone] Jovanny Preston DO Unavailable [phone] Allergies Active Allergy Reactions Criticality Noted [...] (12/01/2022): Added automatically from request for surgery [id number] H/O: upper GI bleed 12/01/2022 Overview (12/01/2022): Added automatically from request for surgery [id number] 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 Overview (10/26/2022): Added automatically from request for surgery [id number] Ischemic cardiomyopathy 03/14/2022 Essential hypertension 06/19/2019 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 Overview (06/03/2019): Added automatically from request for surgery [id number] Iron deficiency anemia, unspecified 04/03/2019 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/20 17 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 11/24 Overview (01/18/2017): Coronary arteriosclerosis in [place] artery Anemia 11/24/2014 Overview (01/18/2017): Anemia Obstructive [...] on file 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 Gender Identity Not on file Sexual Orientation [...] (#1) 2025 Medical Devices Implanted Type Area Cable Engineer Outside Plant Device Identifier Shelf Expiration Date Model / Serial / Lot [employer] [id number] [employer]A 10x7cm Reinforcement Tissue Mesh Surgical Synthetic - [id number] - [id number] Implanted:Qty: 1 on 06/30/2019 by Yayo Ponce MD at [facility] Medicine Other - see comments N/A: Stomach [employer] [id number] 01/12/2022 [id number] / [id number] / 0 Description:[employer] Tissue Reinforcement Joint Replacement Left: Knee Joint Replacement Left: Shoulder Insurance MEDICARE A[employer] SENIOR SUPPLEMENT MEDICARE AETNA SENIOR SUPPLEMENT [facility] MEDICARE MEDICARE AET[employer] Advance Directives For more information, please contact: [phone] * Full Code (Latest Code Status on File) Date Activated Date Inactivated Comments 05/11/2023 11:28 AM 05/14/2023 2:23 PM * Full Code Date Activated Date Inactivated Comments 06/30/2019 10:29 PM 07/03/2019 8:40 PM Care Teams Training And Documentation Specialist Relationship Specialty Start Date End Date Carlos Clayton MD PCP - General Family Medicine 01/28/19 Flex Aguillon MD Cardiology 02/14/19 Stephane Alvarez MD Medical Oncologist/Professor Of Genetics Medical Oncology 02/19/19 Jovanny Preston DO Consulting Physician Gastroenterology 02/19/19
--- OUTSIDE RECORDS SUMMARY | 2025-08-11 15:21 | XMS_ITS | Encounter Summary ---
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
--- OUTSIDE RECORDS SUMMARY | 2025-08-11 15:21 | XMS_ITS | Encounter Summary ---
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
--- OUTSIDE RECORDS SUMMARY | 2025-08-11 15:21 | XMS_ITS | Clinical Summary ---
Author Organization [facility] Address [address], [address] [address] Phone Care Team Providers Care Shade Classifier Name Role Phone Carlos Clayton MD Primary Care Provider [phone] Allergies Active Allergy Reactions Criticality Noted Date [...] age to complete this topic Insurance [facility] Care Teams Shade Classifier Relationship Specialty Start Date End Date Carlos Clayton MD [address] [place] [address] PCP - General Family Medicine 02/27/19
--- OUTSIDE RECORDS SUMMARY | 2025-08-11 15:21 | XMS_ITS | Encounter Summary ---
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
--- OUTSIDE RECORDS SUMMARY | 2025-08-11 15:21 | XMS_ITS | Clinical Summary ---
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
--- NOTE | 2025-08-11 15:51 | IVDEFINITY ---
Prior to administration of IV Definity the patient was educated on the risks and benefits of the imaging enhancing agent including potential adverse side effects. The patient verbalized understanding. Allergies were verified. No exclusion criteria were identified and at least one of the following inclusion criteria were met: 1) physician request, 2) patient technically difficult to image (per the [place] [employer] Echocardi[employer] guidelines of two or more segments not discernable within the apical view), or 3) questionable left ventricular function. ?
== END 2025-08-11 13:25 | disposition home or self-care (01) ==
LOC: ANHCARD 13:25
PROVIDERS: PCP Family Medicine; Visit Provider Internal Medicine Cardiovascular Disease
DX: I51.9 Heart disease, unspecified (principal)
CPT/HCPCS: C8929; Q9957

== ENCOUNTER 2025-09-28 10:03 | Day surgery (SDC) | payer MEDICARE, SELFPAY ==
[2025-09-08 15:41] VITALS: BMI 26.4
--- NOTE | 2025-09-08 15:54 | PC.NURSE ---
Spoke with patient regarding medication Plavix. Patient verbalizes understanding that the last dose is to be taken on 09/23/25 and the Endoscopist will instruct them when to restart after the procedure.
[2025-09-28 10:50] VITALS: BP 154/103; PULSE 91; RESP 18; TEMP 36.1; O2SAT 99; BMI 27.1
--- NOTE | 2025-09-28 10:53 | SUR.PREOP ---
Patient reports holding Plavix since 09/23 per instructions. However, patients at bedside states she prepares his medications and he has been taking the Plavix daily. There was apparently confusion in regards to the blood thinner instructions-patients states she was told to hold Nebivolol and not Plavix. She prepares his medications and therefore has been giving him the Plavix. Dr. Willis notified and okay to proceed with EGD. Dr. Huggins also notified.
--- NOTE | 2025-09-28 10:58 | WPDANESEPPF ---
Anes - Initial Pre Proc Eval Procedure: Operation Date: 09/28/25 11:30 Proposed Procedures p Esophagogastroduodenoscopy - Stephon Jerry MD Date/Time: 09/28/25 10:58 Surgeon: Stephon Jerry MD Pre Op Diagnosis: Gastric ulcer, unspecified as acute or chronic, wi Patient Data Age: 85 Gender: M Height: 1.83 m Weight: 91 kg Last Vital Signs Temp 97 F L 09/28/25 10:50 Pulse 91 09/28/25 10:50 Resp 18 09/28/25 10:50 BP 154/103 H 09/28/25 10:50 Pulse Ox 99 09/28/25 10:50 O2 Del Method Room Air 09/28/25 10:50 Allergies Allergy/AdvReac Type Severity Reaction Status Date / [facility] Adv[facility] Severe Muscle Pain Verified 09/28/25 10:49 Home Medications ?Medication ?Instructions ?Recorded ?Confirmed ?Type multivitamin (Daily Value tablet) 1 tablet PO DAILY 11/23/24 09/28/25 History losartan 50 mg tablet 50 mg PO DAILY #30 tabs 01/28/25 09/28/25 Rx nebivolol 5 mg tablet See Rx Instructions .Route 08/25/25 09/28/25 Rx .COMPLEX #90 tabs albuterol sulfate 90 mcg/actuation See Rx Instructions .Route 09/08/25 09/28/25 History aerosol inhaler .COMPLEX PRN shortness of breath or wheezing budesonide 160 mcg-glycopyr 9 2 inh inhalation BID #5.9 grams 09/16/25 09/28/25 Rx mcg-formot 4.8 mcg/actuation HFA inhaler ([employer]) clopidogrel 75 mg tablet 75 mg PO QAM 30 days #90 tabs 09/25/25 09/28/25 Rx Patient hx anesthesia problems: none Family hx anesthesia problems: none Results Review: All pre-operative results and documents have been reviewed as part of the pre-operative evaluation. [facility] Past Medical History Medical History Foot pain, bilateral Bunion of great toe Traumatic ecchymosis of forearm Gastritis with bleeding Esophageal ulcer Peripheral neuropathy Symptomatic anemia Anemia Acute blood loss anemia Screening for diabetes mellitus Type 2 diabetes mellitus with hyperglycemia Otitis media of both ears Allergic rhinitis Depression Neuropathy Left-sided cerebrovascular accident (CVA) Peripheral neuropathy Stroke (~11/2024) Acute sinusitis Myalgia Hyperlipidemia Elevated BUN Elevated liver enzymes Insomnia 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 Patent foramen ovale 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 shunt with Valsalva only consistent with PFO on echo in November 2022 Heart failure with preserved ejection fraction Coronary artery disease Gastric ulcer (11/2022) Gastric nodule Congestive heart failure Essential hypertension Ischemic cardiomyopathy Diabetes type 2, controlled Hiatal hernia Surgical History Surgical History History of cataract extraction History of arthroplasty of left shoulder History of arthroplasty of left knee History of sinus surgery History of cardiac catheterization History of four vessel coronary artery bypass graft (2009) History of Esmer fundoplication History of hernia surgery Family History Family History Mother Family history of lung cancer Family history of malignant neoplasm Father Sibling No problems noted. Sibling , breast cancer No problems noted. Social History Social History Social History: Surrogate medical decision maker: Enedina Jones, spouse ([phone]). Code status: Full code Smoking status: Never smoker Second hand tobacco smoke exposure: No Alcohol intake: unknown Substance use: never Substance use type: does not use Lack of Transportation: No Lack of Food: Never True Current Housing: I Have Housing Concerned About Future Housing: No Difficulty Paying Gas/Electric Bills: No Difficulty Paying for Meds: No Currently Unemployed: No Education: Associate Degree Difficulty w/ Childcare or Family Care: No Living arrangements: with family Additional living arrangements comments: Lives with in [place]. They have 3 children. Occupation/Education: retired Additional occupation/education comments: [employer] . Retired from [employer]. Spiritual care concerns: No Anes - Eval Final PreProcedure Day of Procedure 09/28/25 10:58 Patient weight: overweight Lungs: normal air movement Airway: Mallampati scale class II Neurological: alert and oriented Last oral intake: >/= 8 hours ASA classification: IV Emergent: no Anesthetic plan: proceed Anesthesia type and monitoring: general GIVS and standard monitoring Results Review: All pre-operative results and documents have been reviewed as part of the pre-operative evaluation. Hx of CABG x 4 2012, most recent ECHO 07/2025 w nml LVEF 50-60%, no . Hx of CVA 11/2024 w resolution of any residual deficits. DM, JUSTINA using only dental appliance. Now for reeval of EGD w hx of PUD. Informed Consent: The patient's anesthetic plan and its attendant risks and benefits were discussed with the patient/family/POA. Questions were solicited and answers provided to the satisfaction of the patient/family/POA.
[2025-09-28] MEDS: LACTATED RINGERS 1,000 ML 150 ML IV CONT (11:06)
--- NOTE | 2025-09-28 11:29 | PM.HPGS ---
History of Present Illness History of Present Illness Consent: Risks, benefits, and alternatives have been discussed and questions answered. Patient agrees to proceed with procedure. 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 Review of Systems Review of Systems: All systems reviewed & are unremarkable except as noted in HPI and below PMFSH Past Medical History Medical History Foot pain, bilateral Bunion of great toe Traumatic ecchymosis of forearm Gastritis with bleeding Esophageal ulcer Peripheral neuropathy Symptomatic anemia Anemia Acute blood loss anemia Screening for diabetes mellitus Type 2 diabetes mellitus with hyperglycemia Otitis media of both ears Allergic rhinitis Depression Neuropathy Left-sided cerebrovascular accident (CVA) Peripheral neuropathy Stroke (~11/2024) Acute sinusitis Myalgia Hyperlipidemia Elevated BUN Elevated liver enzymes Insomnia 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 Patent foramen ovale 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 shunt with Valsalva only consistent with PFO on echo in November 2022 Heart failure with preserved ejection fraction Coronary artery disease Gastric ulcer (11/2022) Gastric nodule Congestive heart failure Essential hypertension Ischemic cardiomyopathy Diabetes type 2, controlled Hiatal hernia Surgical History Surgical History History of cataract extraction History of arthroplasty of left shoulder History of arthroplasty of left knee History of sinus surgery History of cardiac catheterization History of four vessel coronary artery bypass graft (2009) History of Esmer fundoplication History of hernia surgery Family History Family History Mother Family history of lung cancer Family history of malignant neoplasm Father Sibling No problems noted. Sibling , breast cancer No problems noted. Social History Social History Social History: Surrogate medical decision maker: Enedina Jones, spouse ([phone]). Code status: Full code Smoking status: Never smoker Second hand tobacco smoke exposure: No Alcohol intake: unknown Substance use: never Substance use type: does not use Lack of Transportation: No Lack of Food: Never True Current Housing: I Have Housing Concerned About Future Housing: No Difficulty Paying Gas/Electric Bills: No Difficulty Paying for Meds: No Currently Unemployed: No Education: Associate Degree Difficulty w/ Childcare or Family Care: No Living arrangements: with family Additional living arrangements comments: Lives with in [place]. They have 3 children. Occupation/Education: retired Additional occupation/education comments: [employer] . Retired from [employer]. Spiritual care concerns: No Meds Home Medications and Allergies Home Medications ?Medication ?Instructions ?Recorded ?Confirmed ?Type multivitamin (Daily Value tablet) 1 tablet PO DAILY 11/23/24 09/28/25 History losartan 50 mg tablet 50 mg PO DAILY #30 tabs 01/28/25 09/28/25 Rx nebivolol 5 mg tablet See Rx Instructions .Route 08/25/25 09/28/25 Rx .COMPLEX #90 tabs albuterol sulfate 90 mcg/actuation See Rx Instructions .Route 09/08/25 09/28/25 History aerosol inhaler .COMPLEX PRN shortness of breath or wheezing budesonide 160 mcg-glycopyr 9 2 inh inhalation BID #5.9 grams 09/16/25 09/28/25 Rx mcg-formot 4.8 mcg/actuation HFA inhaler ([employer]) clopidogrel 75 mg tablet 75 mg PO QAM 30 days #90 tabs 09/25/25 09/28/25 Rx Allergies Allergy/AdvReac Type Severity Reaction Status Date / Time levofloxacin (From Levaquin) AdvReac Severe Muscle Pain Verified 09/28/25 10:49 Vital Signs Vital Signs - 24 hr 09/28/25 10:50 Temperature 97 F L Pulse Rate 91 Respiratory Rate 18 Blood Pressure 154/103 H Pulse Oximetry 99 Oxygen Delivery Room Air Exam Const: General: comfortable and no acute distress HENMT: Face/Nose/Sinus: Normal nares present Eyes: General: appearance normal, both eyes and all related structures Neck: Neck: no JVD Resp: Auscultation: clear to auscultation bilaterally Cardio: Rate: regular rate Rhythm: regular rhythm GI: Inspection: non-distended GI Palp: Yes Soft to palpation Skin: General skin exam: normal color Extrem: General: normal to inspection Psych: Mental Status: mental status grossly normal Assessment and Plan Assessment and plan (1) History of Esmer fundoplication: Code(s): Z98.890 - Other specified postprocedural states Status: Acute (2) Gastric ulcer: Code(s): K25.9 - Gastric ulcer, unspecified as acute or chronic, without hemorrhage or perforation Status: Acute Assessment and Plan: egd to assess healing
[2025-09-28 11:40] VITALS: BP 132/64; PULSE 72; RESP 20; O2SAT 99
[2025-09-28 11:50] VITALS: BP 136/72; PULSE 90; RESP 20; O2SAT 98
[2025-09-28 12:00] VITALS: BP 151/79; PULSE 76; RESP 20; O2SAT 99
== END 2025-09-28 12:14 | disposition home or self-care (01) ==
PROVIDERS: PCP Family Medicine; Referring Provider Internal Medicine Gastroenterology; Visit Provider Internal Medicine Gastroenterology
PROC: 0DJ08ZZ Inspection of Upper Intestinal Tract, Via Natural or Artificial Opening Endoscopic (ICD-10-PCS; CPT 43235; principal; 2025-09-28 11:30)
DX: Z09 Encounter for follow-up examination after completed treatment for conditions other than malignant neoplasm (principal); Z98.890 Other specified postprocedural states
CPT/HCPCS: 43235; J2003; J2704; J7120